=== PATIENT | male | born 1955 | race Caucasian/White ===

== ENCOUNTER → 2016-06-09 | Outpatient (CLI) | payer OTHER | LOC: CIMAGING 14:45 | PROVIDERS: ATTEND Nurse Practitioner | DX: I50.9 Heart failure, unspecified (principal) | CPT/HCPCS: 71020-PO ==

== ENCOUNTER 2016-09-01 10:21 | Inpatient (IN) | payer OTHER ==
--- NOTE | 2016-09-01 11:04 | EDPHY ---
H & P Stated Complaint: SOA, on o2 all weekend. ussally on it at night only - Personal History Current Tetanus/Diphtheria Vaccine: Unsure Current Tetanus Diphtheria and Acellular Pertussis (TDAP): Unsure - Medical/Surgical History Hx Asthma: No Hx Chronic Respiratory Disease: No Hx Diabetes: Yes Hx Cardiac Disease: Yes Hx Renal Disease: No Hx Cirrhosis: No Hx Alcoholism: No Hx HIV/AIDS: No Hx Splenectomy or Spleen Trauma: No Other PMH: DM, HTN, high chol, AR with stent nov 2015 - Social History Smoking Status: Never smoked Time Seen by Provider: 09/01/16 10:38 HPI/ROS: Chief complaint: Shortness of breath History of present illness: This is a 61-year-old male who presents to the emergency department for shortness of breath. Patient reports he has had increasing shortness of breath for the last few days if not longer. He states his symptoms are worsening. He is noting increasing shortness of breath with exertion as well as at night, especially when he lies flat. He has noted some mild associated swelling in his legs. He normally uses oxygen only at night to sleep but is now having to use it during the day. He has been monitoring his home oxygen level and he is noting his oxygen level getting into the low 70s even during the day. Patient was recently treated with azithromycin by his doctor for presumptive pneumonia. He completed the entire course. Patient denies other status associated signs or symptoms including no current fever cold symptoms, no actual pain including no chest pain. Review of systems: A 10 point review of systems was obtained and other than described above is negative (Heriberto Restrepo) - Physical Exam Exam: General Appearance: Alert, nontoxic. Eyes: Pupils equal and round no pallor or injection. ENT, Mouth: Mucous membranes moist. Respiratory: Lung sounds are diminished. Cardiovascular: Regular rate and rhythm. Gastrointestinal: Abdomen is soft and nontender, no masses, bowel sounds normal. Neurological: Alert and oriented x4. Strength and sensation intact and symmetrical. Skin: Warm and dry, no rashes. Musculoskeletal: Neck is supple nontender. Extremities are symmetrical, full range of motion. Psychiatric: Patient is oriented X 3, there is no agitation. (Heriberto Restrepo) Constitutional: Initial Vital Signs Temperature (C) 36.4 C 09/01/16 10:28 Heart Rate 70 09/01/16 10:28 Respiratory Rate 16 09/01/16 10:28 Blood Pressure 158/81 H 09/01/16 10:28 O2 Sat (%) 95 09/01/16 10:28 O2 Delivery Mode Room Air Allergies/Adverse Reactions: No Known Allergies Allergy (Verified 12/09/15 09:55) Home Medications: Medication Instructions Recorded Aspirin EC [Aspirin EC 325 mg (*)] 325 mg PO DAILY #30 tab 12/11/15 Prasugrel HCl [Effient 10mg (*)] 10 mg PO DAILY #30 tab 12/11/15 Atorvastatin Calcium [Lipitor 40 40 mg PO HS 01/11/16 mg (*)] Furosemide [Lasix 40 MG (*)] 40 mg PO DAILY 01/11/16 Insulin Detemir [Levemir Flextouch] 40 unit SC DAILY 01/11/16 Insulin Lispro [Humalog Kwikpen 3 - 4 unit SC TIDMEAL 01/11/16 U-100] Lisinopril [Zestril 20 mg (*)] 40 mg PO DAILY 01/11/16 amLODIPine BESYLATE [Amlodipine 10 mg PO DAILY 01/11/16 Besylate] metFORMIN HCL [Glucophage 500 mg 500 mg PO BIDMEAL 01/11/16 (*)] Metoprolol Tartrate [Lopressor 50 50 mg PO BID #60 tab 01/13/16 mg (*)] Coreg 09/01/16 Medical Decision Making - Diagnostics Imaging: Discussed imaging studies w/ call worker person Radiologist, I viewed and interpreted images myself - Diagnostics Imaging Results: Imaging Impressions Chest X-Ray 09/01/16 10:46 Impression: Probable CHF with basilar atelectasis. ED Course/Re-evaluation: Heriberto Restrepo and I discussed this patient at length. He is hypoxemic and I spoke to Dr. Omar Tavares about him. He has a slight elevation of his troponin and an elevated BNP the troponin elevation most likely just secondary to heart strain. I am also concerned about a pulmonary process with such significant hypoxemia so we will do angiography of his chest. (Chidi Shields) Patient is discussed with my secondary supervising physician Dr. Chidi Shields. Patient presents to the emergency department with shortness of breath. He has been significantly hypoxic at home. Evaluation is concerning for CHF exacerbation with elevated BNP and chest x-ray findings. He is given topical nitroglycerin followed by Lasix. He does have an elevated troponin. He already took a full dose aspirin earlier today. EKG without acute change from previous as reviewed by Dr. Shields. A CT angiogram will be performed to ensure no other pathology including pulmonary embolism is present. Patient is admitted to the hospitalist service for further evaluation and care. The plan has been discussed with the patient voiced understanding in agreement it. (Heriberto Restrepo) Differential Diagnosis: Included but not limited to CHF exacerbation, pulmonary infections including pneumonia, ACS, pulmonary embolism (Heriberto Restrepo) - Data Points Laboratory Results: Laboratory Results 09/01/16 10:50 09/01/16 10:50 09/01/16 09/01/16 10:50 10:50 WBC 7.94 10^3/uL 10^3/uL (3.80-9.50) RBC 5.02 10^6/uL 10^6/uL (4.40-6.38) Hgb 14.4 g/dL g/dL (13.7-17.5) Hct 42.0 % % (40.0-51.0) MCV 83.7 fL fL (81.5-99.8) MCH 28.7 pg pg (27.9-34.1) MCHC 34.3 g/dL g/dL (32.4-36.7) RDW 13.7 % % (11.5-15.2) Plt Count 170 10^3/uL 10^3/uL (150-400) MPV 12.4 fL H fL (8.7-11.7) Neut % (Auto) 73.0 % % (39.3-74.2) Lymph % (Auto) 12.3 % L % (15.0-45.0) [place] % (Auto) 10.1 % % (4.5-13.0) Eos % (Auto) 3.7 % % (0.6-7.6) Baso % (Auto) 0.6 % % (0.3-1.7) Nucleat RBC Rel Count 0.0 % % (0.0-0.2) Absolute Neuts (auto) 5.80 10^3/uL 10^3/uL (1.70-6.50) Absolute Lymphs (auto) 0.98 10^3/uL L 10^3/uL (1.00-3.00) Absolute Monos (auto) 0.80 10^3/uL 10^3/uL (0.30-0.80) Absolute Eos (auto) 0.29 10^3/uL 10^3/uL (0.03-0.40) Absolute Basos (auto) 0.05 10^3/uL 10^3/uL (0.02-0.10) Absolute Nucleated RBC 0.00 10^3/uL 10^3/uL (0-0.01) Immature Gran % 0.3 % % (0.0-1.1) Immature Gran # 0.02 10^3/uL 10^3/uL (0.00-0.10) Sodium 134 mEq/L mEq/L (134-144) Potassium 4.6 mEq/L mEq/L (3.5-5.2) Chloride 106 mEq/L mEq/L (97-110) Carbon Dioxide 22 mEq/l mEq/l (22-31) Anion Gap 6 mEq/L L mEq/L (8-16) BUN 25 mg/dL H mg/dL (7-23) Creatinine 1.3 mg/dL mg/dL (0.7-1.3) Estimated GFR 56 Glucose 265 mg/dL H mg/dL (70-100) Calcium 8.9 mg/dL mg/dL (8.5-10.4) Troponin I 0.055 ng/mL H ng/mL (0-0.034) NT-Pro-B Natriuret Pep 3170 pg/mL H pg/mL (0-125) Medications Given: Discontinued Medications Aspirin (Aspirin) 325 mg PO EDNOW ONE Stop: 09/01/16 11:46 Last Admin: 09/01/16 12:06 Dose: Not Given Furosemide (Lasix Injection) 40 mg IVP EDNOW ONE Stop: 09/01/16 11:49 Last Admin: 09/01/16 12:06 Dose: 40 mg Nitroglycerin (Nitro-Bid 2%) 1 inch TP EDNOW ONE Stop: 09/01/16 11:49 Last Admin: 09/01/16 12:06 Dose: 1 inch Departure - Departure Disposition: [facility] Acute Clinical Impression: Elevated troponin, Hyperglycemia Acute exacerbation of congestive heart failure Qualifiers: Congestive heart failure type: unspecified congestive heart failure type Qualified Code(s): I50.9 - Heart failure, unspecified Condition: Fair
--- NOTE | 2016-09-01 11:15 | CPEKG ---
Heart Rate: 69 RR Interval: 870 P-R Interval: 212 QRSD Interval: 104 QT Interval: 420 QTC Interval: 450 P [place]: 73 QRS [place]: 20 T Wave [place]: 130 EKG Severity - ABNORMAL ECG - EKG Impression: SINUS RHYTHM EKG Impression: LOW VOLTAGE IN FRONTAL LEADS EKG Impression: CONSIDER ANTERIOR INFARCT EKG Impression: ABNORMAL T, CONSIDER ISCHEMIA, LATERAL LEADS Electronically Signed By: Carmine Vann 02-Sep-2016 13:15:13
[2016-09-01 11:17] LABS: % IMMATURE GRANULYOCYTES 0.3 % (0.0-1.1); ABSOLUTE IMMATURE GRANULOCYTES 0.02 10^3/uL (0.00-0.10); ADD DIFF? NO; ADD MORPH? NO; ADD SCAN? NO; ATYPICAL LYMPHOCYTE FLAG 0 (0-99); FRAGMENT RBC FLAG 0 (0-99); HEMOGLOBIN 14.4 g/dL (13.7-17.5); LEFT SHIFT FLG 0 (0-99); LIPEMIA HEMOLYSIS FLAG 90 (0-99); MEAN CELL HEMOGLOBIN 28.7 pg (27.9-34.1); MEAN CELL HEMOGLOBIN CONCENTR. 34.3 g/dL (32.4-36.7); MEAN CELL VOLUME 83.7 fL (81.5-99.8); MEAN PLATELET VOLUME 12.4 fL (8.7-11.7); PLATELET CLUMPS FLAG 0 (0-99); PLATELET COUNT 170 10^3/uL (150-400); RED BLOOD CELL COUNT 5.02 10^6/uL (4.40-6.38); RED CELL DISTRIBUTION WIDTH 13.7 % (11.5-15.2)
[2016-09-01 11:27] LABS: ANION GAP 6 mEq/L (8-16); CALCIUM 8.9 mg/dL (8.5-10.4); CARBON DIOXIDE 22 mEq/l (22-31); CHLORIDE 106 mEq/L (97-110); CREATININE 1.3 mg/dL (0.7-1.3); GLOMERULAR FILTRATION RATE 56; GLUCOSE 265 mg/dL (70-100); POTASSIUM 4.6 mEq/L (3.5-5.2); SODIUM 134 mEq/L (134-144)
[2016-09-01 11:39] LABS: TROPONIN I 0.055 ng/mL (0-0.034)
[2016-09-01] MEDS ORDERED: ASPIRIN 325 MG TAB PO ONE (11:45)
[2016-09-01] MEDS ORDERED: NITROGLYCERIN 2% 1 GM PACKET TP ONE (11:48)
[2016-09-01] MEDS ORDERED: FUROSEMIDE 40 MG/4 ML VIAL IVP ONE (11:48)
[2016-09-01] MEDS ORDERED: IOPAMIDOL (ISOVUE 370) 100 ML BTL IV ONE (11:53)
[2016-09-01 12:56] LABS: INR 1.1 (0.83-1.16); PROTIME(PATIENT) 14.1 SEC (12.0-15.0)
[2016-09-01 12:57] LABS: APTT 28.4 SEC (23.0-38.0)
[2016-09-01] MEDS ORDERED: ONDANSETRON 4 MG/2 ML VIAL IVP PRN (13:57)
[2016-09-01] MEDS ORDERED: ONDANSETRON DISINTEGRATING 4 MG TAB PO PRN (13:57)
[2016-09-01] MEDS ORDERED: ACETAMINOPHEN 325 MG TAB PO PRN (13:57)
--- NOTE | 2016-09-01 14:43 | GHP ---
[f rep st] HISTORY AND PHYSICAL DATE OF ADMISSION: 09/01/2016 HISTORY OF PRESENT ILLNESS: The patient is a pleasant 61-year-old gentleman with a history of diabe charles, hypertension, systolic congestive heart failure, and coronary artery disease, who presents with dyspnea on exertion, shortness of breath, and hypoxia. He wears nocturnal oxygen, and over the wee kend, when he took it off in the morning, his pulse ox stayed into the 70s. He has not had anginal symptoms like arm pain, jaw pain, chest pain. He has been compliant with his medicines. In discuss ing a low-salt diet, it sounds like he does not particularly eat a low-salt diet. He has not gained weight. He has not noticed lower extremity edema, although it is present. He has not had orthopne a, but he has had a dry cough. REVIEW OF SYSTEMS: Complete 10-point review of systems is conducted, negative as noted in HPI. PAST MEDICAL HISTORY: 1. Coronary disease status post stents. 2. Congestive heart failure with an ejection fraction of 40% on last echo. 3. Diabetes. Last hemoglobin A1c of 8.1. 4. History of obesity but has lost 50 pounds. 5. Hypertension. ALLERGIES: No known drug allergies. MEDICATIONS: Home medications are prasugrel, aspirin, Lasix, metformin, amlodipine, enteric-coated aspirin, Atorvastatin, carvedilol, Denavir, insulin 40 daily, lispro 3-4 units with meals, lisinopri l. SOCIAL HISTORY: Originally from [place], lives in [place]. Nonsmoker. Minimal alcohol. FAMILY HISTORY: Reviewed and unremarkable. PHYSICAL EXAMINATION: VITAL SIGNS: Temp 36.4, blood pressure 158/81, pulse 70, breathing 16 times a minute, 95% on room air. GENERAL: No acute distress. HEENT: Sclerae anicteric. Oropharynx shani ar. Mucous membranes are moist. NECK: Supple without lymphadenopathy. Cannot assess JVD given hurtado bitus. LUNGS: Show decreased breath sounds and crackles at the bases bilaterally. HEART: S1, S2, without murmurs. ABDOMEN: Soft, nontender, nondistended. LOWER EXTREMITIES: Show 1+ edema bilat erally. Calves nontender. SKIN: Without rash. NEUROLOGIC: Nonfocal. LABORATORY: Sodium 134, potassium 4.6, chloride 102, bicarb 22, BUN 25, creatinine 1.3. His baseli ne it is about 1.3. Troponin 0.055. BNP is 3170, which seems to be a higher value for him, althoug h he has had values as high as 9000 when he was admitted here previously. Coags normal. CBC: Whit e count 8, hematocrit 42, platelets are 170,000. Chest x-ray, interpreted by me shows bilateral pleural effusions with Sly B lines, atelectasis co nsistent with heart failure. EKG shows sinus at 69 with normal axis and intervals. There is T-wave inversion in V5 and V6 as well as I and L. CTA shows no pulmonary embolism, findings compatible wi congestive heart failure. The lateral T-wave inversions are not new compared with an old EKG. I discussed the case with Dr. Chidi Shields. ASSESSMENT AND PLAN: A 61-year-old gentleman presents with acute on chronic systolic heart failure. 1. Heart failure, likely secondary to dietary indiscretion chronically. The patient has not been a dmitted in 7 months with heart failure so clearly, his outpatient regimen is doing okay. I will diu rese him 40 IV twice daily of Lasix. Will continue his SUHAS inhibitor, carvedilol. Hold his oral La six. 2. Patient needs a repeat echocardiogram. However, I think let us wait until he is diuresed before performing it. I have not ordered it. 3. Diabetes. Continue his insulin. Hold his metformin. 4. Coronary artery disease. Continue his Effient, aspirin, and statin. He has an indeterminate tr oponin unchanged EKG and no anginal symptoms. Will repeat a troponin. I think his elevated troponi n is secondary to strain from heart failure as opposed to acute coronary syndrome. 5. Prophylaxis. Pharmacologic prophylaxis indicated with low-molecular heparin. 6. Disposition: Inpatient status. /[id number]/MODL
[2016-09-01] MEDS: FUROSEMIDE 40 MG/4 ML VIAL IVP SCH (16:53)
[2016-09-01] MEDS ORDERED: NON-FORMULARY NEW DRUG (Insulin Lispro [Humalog Kwikpen U-100] 0 UNIT) SC SCH (18:00)
[2016-09-01] MEDS: INSULIN LISPRO 100 UNIT/ML SC SCH (18:08)
[2016-09-01] MEDS: CARVEDILOL 25 MG TAB PO SCH (18:08)
[2016-09-01] MEDS ORDERED: ATORVASTATIN CALCIUM 40 MG TAB PO SCH (21:00)
[2016-09-02 05:39] LABS: % IMMATURE GRANULYOCYTES 0.6 % (0.0-1.1); ABSOLUTE IMMATURE GRANULOCYTES 0.05 10^3/uL (0.00-0.10); ADD DIFF? NO; ADD MORPH? NO; ADD SCAN? NO; ATYPICAL LYMPHOCYTE FLAG 0 (0-99); FRAGMENT RBC FLAG 0 (0-99); HEMATOCRIT 37.9 % (40.0-51.0); HEMOGLOBIN 12.9 g/dL (13.7-17.5); LEFT SHIFT FLG 0 (0-99); LIPEMIA HEMOLYSIS FLAG 90 (0-99); MEAN CELL HEMOGLOBIN 28.4 pg (27.9-34.1); MEAN CELL VOLUME 83.5 fL (81.5-99.8); MEAN PLATELET VOLUME 12.1 fL (8.7-11.7); PLATELET CLUMPS FLAG 0 (0-99); PLATELET COUNT 158 10^3/uL (150-400); RED BLOOD CELL COUNT 4.54 10^6/uL (4.40-6.38); RED CELL DISTRIBUTION WIDTH 13.5 % (11.5-15.2)
[2016-09-02 06:13] LABS: ANION GAP 7 mEq/L (8-16); CALCIUM 8.8 mg/dL (8.5-10.4); CARBON DIOXIDE 22 mEq/l (22-31); CHLORIDE 106 mEq/L (97-110); CREATININE 1.3 mg/dL (0.7-1.3); GLOMERULAR FILTRATION RATE 56; GLUCOSE 220 mg/dL (70-100); POTASSIUM 4.3 mEq/L (3.5-5.2); SODIUM 135 mEq/L (134-144)
[2016-09-02] MEDS: CARVEDILOL 25 MG TAB PO SCH ×2 (08:05→17:51)
[2016-09-02] MEDS: INSULIN LISPRO 100 UNIT/ML SC SCH ×3 (08:06→17:51)
[2016-09-02] MEDS: INSULIN GLARGINE 100 UNITS/ML SYRINGE SC SCH (08:06)
[2016-09-02] MEDS: ASPIRIN EC 325 MG TAB PO SCH (08:06)
[2016-09-02] MEDS: FUROSEMIDE 40 MG/4 ML VIAL IVP SCH ×2 (08:07→16:02)
[2016-09-02] MEDS: ENOXAPARIN 40 MG/0.4 ML SYR SC SCH (08:07)
[2016-09-02] MEDS: LISINOPRIL 40 MG TAB PO SCH (08:07)
[2016-09-02] MEDS: PRASUGREL HCL 10 MG TAB PO SCH (08:07)
[2016-09-02] MEDS ORDERED: NON-FORMULARY NEW DRUG (Insulin Detemir [Levemir Flextouch] 40 UNIT) SC SCH (09:00)
[2016-09-02] MEDS: ATORVASTATIN CALCIUM 40 MG TAB PO SCH (09:52)
[2016-09-02] MEDS: SPIRONOLACTONE 25 MG TAB PO SCH (09:52)
[2016-09-02 10:15] LABS: TROPONIN I 0.053 ng/mL (0-0.034)
--- NOTE | 2016-09-02 10:46 | GCON ---
[f rep st] CONSULTATION CARDIOLOGY CONSULT DATE OF CONSULTATION: 09/02/2016 REFERRING PHYSICIAN: Rajesh Aguillon MD PRIMARY ACCOUNT ADMINISTRATOR: Lasha Weston MD. CHIEF COMPLAINT: Acute systolic heart failure. HISTORY OF PRESENT ILLNESS: We were asked by Dr. Aguillon to visit with this patient. The patient is a pleasant 61-year-old male with a history of mixed cardiomyopathy. Ejection fraction 40% on echoc ardiogram November 2015. He has coronary disease, status post obtuse marginal stenting in December 2015, hypertension, diabetes, sleep apnea, not recently compliant with CPAP. In May, he had pneumonia. Since that time, he has not been exercising regularly and has been off his CPAP. He admits that he has been eating more prepared foods than he should. He presented to Dr Jerome Tavares's office yesterday as a followup to his pneumonia and complained of a week of progressive e xertional dyspnea as well as paroxysmal nocturnal dyspnea and 2 days of left leg swelling. He repor alessia home oxygen saturations in the 70s when he tried to lie down. Therefore, he was sent to the ER. In the ER, he was somewhat hypertensive, saturating 90% on room air. He was given IV Lasix. Admitt ed for further evaluation and management. The patient reports that he has not had chest discomfort. He has not had palpitations, presyncope, syncope. As mentioned, he has not been exercising as much as prior to his May episode of pneumoni a. REVIEW OF SYSTEMS: A full 10-point review of systems is performed and is negative except for that w hich is outlined in the history of present illness. In addition, he did have 1 episode of vomiting back in July, but this has not recurred. ALLERGIES: No known drug allergies. PAST MEDICAL HISTORY: 1. Mixed systolic heart failure with an ejection fraction of 40%. 2. Coronary disease, status post OM stenting in December 2015. He also has residual moderate LAD di sease. 3. Hypertension. 4. Diabetes. 5. Sleep apnea, on CPAP, although he has not been compliant over the past few months. 6. Dyslipidemia. OUTPATIENT MEDICATIONS: Coreg 25 mg b.i.d., Norvasc 10 mg daily, aspirin 325 mg daily, Lipitor 40 m g daily, Lasix 40 mg daily, insulin, lisinopril 40 mg daily, metformin 500 mg in the morning and 100 0 mg in the evening, Effient 10 mg daily. SOCIAL HISTORY: The patient is , and his is at the bedside. He does not smoke cigarett es. He drinks alcohol rarely. FAMILY HISTORY: Not applicable to the current case. PHYSICAL EXAM: VITAL SIGNS: Blood pressure 174/94, heart rate 81, oxygen saturation 92% on 3.5 L n pravin cannula. He is afebrile. GENERAL: Well-appearing older male, in no acute distress. HEENT: Sclerae clear and free of jaundice. Mucous membranes are moist. Normocephalic, atraumatic. CARDIO VASCULAR: JVP less than 10. Carotids equal and 2+ bilaterally without bruit. Regular rate and rhy thm without murmur, rub, or gallop. LUNGS: Decreased breath sounds at both bases without wheezes, rhonchi or rales. ABDOMEN: Soft, nontender, nondistended without bruits, masses, or hepatosplenome moisés. Obese. EXTREMITIES: Warm and well-perfused with stigmata of chronic venous insufficiency. No edema. Intact distal pulses. NEURO: Alert and oriented x3 without gross focal neurological def icits. Appropriate mood and affect. LABORATORY DATA: White count 8.3, hematocrit 37.9, platelets 158. INR is normal. Sodium 135, pota ssium 4.3, chloride 106, bicarb 22, BUN 27, creatinine 1.3, glucose 220. Hemoglobin A1c was 8.1 in June. BNP 1730. Troponin 0.055 and 0.054 He has had past troponin elevations in the 0.13 to 0.19 range. Last LDL cholesterol was 104 in November. EKG reviewed by me shows sinus rhythm, delayed R-wave progression, nonspecific ST abnormalities. est x-ray: Probable heart failure with basilar atelectasis. Chest CT: No pulmonary embolism. Lar ge bilateral pleural effusions. LVH, CAD. Echocardiogram in November 2015: LV ejection fraction 40% with septal hypokinesis and overall glob al hypokinesis. Mild mitral regurgitation. Possible bicuspid aortic valve. Mild aortic regurgitat ion. ASSESSMENT AND PLAN: A 61-year-old male with mixed etiology systolic heart failure, hypertension, d iabetes, admitted with acute on chronic systolic heart failure exacerbation. The etiology of this i s likely a combination of poorly controlled hypertension, dietary indiscretion with increased salt i ntake, noncompliance with CPAP, and less exercise. He does have a history of coronary disease, but his current presentation does not appear to be consistent with unstable angina. 1. Acute on chronic systolic heart failure: Agree with IV diuresis. Continue his other cardiomyop athy medications. I have added spironolactone, which should help with diuresis and help with his bl ood pressure. I explained that we need to get very aggressive with his blood pressure management, a nd we will achieve this through a combination of medical therapy, diet, exercise, and restarting CPA P. He will require likely 1 or 2 more days of hospitalization to achieve diuresis. We also discuss ed low salt diet. 2. Coronary disease: History of obtuse marginal stenting several months ago. Continue dual antipl atelet therapy. I do not think he has active ischemia. He is interested in going back to cardiac r ehab. 3. Hypertension: See #1. Continue his outpatient medications and add spironolactone. Restart CPA P. 4. Dyslipidemia: Increase atorvastatin to 80 mg daily. Recheck LDL in a few months. He is a cand idate for high-intensity statin therapy. 5. Diabetes: Per Internal Medicine. His A1c should be lower. Again, we discussed diet and exerci se. 6. Possible bicuspid aortic valve, consider a repeat echocardiogram once he is more euvolemic to re assess ejection fraction, also to get another look at his aortic valve. Thank you for allowing us to participate in this patient's care. Will follow with you. /[id number]/MODL
--- NOTE | 2016-09-02 14:32 | ECHO ---
[id number] + + [address] : : [place] [address] : : [phone] + Adult Echocardiographic Report + ------+ :Name: WARDDANIEL DOWNING JStudy Date: 09/02/2016 10:11 AM : : Hospital Admission Number: [id number] Locatio n: 218: :: 1955 Gender: Male Height: 68 in : :Age: 61 yrs Race: WH Weight: 229 lb : :Reason For Study: Eval LV Fx : : BSA: 2.2 meters 2 : :History: CHF with acute exacerbation. : + ------+ MMode/2D Measurements \T\ Calculations IVSd: 1.4 cm LVIDd: 5.3 cm FS: 25.8 % Ao root diam: LVPWd: 1.8 cm LVIDs: 4.0 cm EDV(Teich): 3.3 cm 137.3 ml ACS: 1.2 cm ESV(Teich): 68.1 ml EF(Teich): 50.4 % LVOT diam: 2.1 cmLVLd ap4: 7.5 cm SV(MOD-sp4): LVOT area: EDV(MOD-sp4): 47.0 ml 3.5 cm2 107.0 ml LVLs ap4: 7.5 cm ESV(MOD-sp4): 60.0 ml EF(MOD-sp4): 43.9 % Normal Measurement Values: + + :LVIDd (3.5-5.7cm) IVSd (0.6-1.1cm) LVPWd (0.6-1.1cm) Aortic Root (2.0-3.7cm)Left Atrium (1.5-4.0cm): :LV Vol(d) (76-115ml) LV Vol(s) (29-48ml) Ejec Fraction (50-65%)PV Chato (0.6- 1.2m/s) TV Chato (0.4-1.0m/s) : :MV E Chato (0.8-1.0m/s)MV A Chato (0.3-1.0m/s)LVOT Chato (0.7-1.2m/s) Asc Ao Chato ( 0.9-1.8m/s) : + + Doppler Measurements \T\ Calculations MV E max chato: Ao V2 max: AI max chato: LV V1 mean P.5 cm/sec 214.5 cm/sec 229.4 cm/sec 0.95 mmHg MV A max chato: Ao max PG: AI max P.0 mmHgLV V1 mean: 58.7 cm/sec 18.4 mmHg AI dec slope: 45.3 cm/sec MV E/A: 2.0 Ao mean P.6 cm/sec2 LV V1 VTI: 10.0 mmHg AI P1/2t: 380.5 msec15.5 cm Ao V2 mean: 148.2 cm/sec Ao V2 VTI: 45.4 cm ZAK(I,D): 1.2 cm2 SV(LVOT): 53.6 ml PA V2 max: 81.4 cm/sec PA max P.7 mmHg Left Ventricle The left ventricle is normal in size. There is mild concentric left ventricular hypertrophy. There is Doppler evidence for diastolic dysfunction. Ejection Fraction = 50-55%. Moderate diastolic dysfunction with elevated LV filling pressures. Left ventricular systolic function is low normal. The left ventricular wall motion is normal. Right Ventricle The right ventricle is normal size. Atria The left atrial size is normal. Right atrial size is normal. Mitral Valve The mitral valve is normal in structure and function. There is no mitral valve stenosis. There is mild mitral regurgitation. Tricuspid Valve There is trace tricuspid regurgitation. Aortic Valve Cannot rule out bicuspid aortic valve due to image quality. There is mild to moderate aortic valve calcification. There is no aortic stenosis. The Ao V2 max is 2.2 m/sec with a Ao mean PG of 10 mmHg. Mild aortic regurgitation. Pulmonic Valve The pulmonic valve is not well visualized. Great Vessels The aortic root is normal size. Pericardium/Pleural There is no pericardial effusion. There is a large pleural effusion. Conclusion A complete two-dimensional transthoracic echocardiogram was performed (2D, M-mode, Doppler and color flow Doppler). There is mild concentric left ventricular hypertrophy. The left ventricular wall motion is normal. Ejection Fraction = 50-55%. Left ventricular systolic function is low normal. Moderate diastolic dysfunction with elevated LV filling pressures The right ventricle is normal size. The left atrial size is normal. Right atrial size is normal. There is mild mitral regurgitation. There is trace tricuspid regurgitation. Cannot rule out bicuspid aortic valve due to image quality. There is mild to moderate aortic valve calcification. There is no aortic stenosis. The Ao V2 max is 2.2 m/sec with a Ao mean PG of 10 mmHg. Mild aortic regurgitation. The pulmonic valve is not well visualized. The aortic root is normal size. There is no pericardial effusion. There is a large pleural effusion. Compared with 11/2015, LV systolic function has improved Final Reading Physician: Dr Migdalia Garcia electronically signed on 09/02/2016 02:30 PM Ordering Physician: Meka Breen Performed By: Shaka Cardozo, BRANDEECS
--- NOTE | 2016-09-02 15:32 | HOSPPROG ---
Hospitalist Progress Note Assessment/Plan: 61 yo M with hx of DM, HTN, CAD and chronic systolic heart failure presenting with sob/volume overload c/w acute exacerbation of chf # acute exacerbation of chronic systolic/diastolic heart failure: with EF now 55 % from previously 40% but clearly decompensated on eval. STarted on IV lasix with significant improvement in sxs overnight and 4L net negative. Appreciate cardiology input, aldactone added, Continue santosh/bb. # acute hypoxic respiratory failure: currently requiring 3-4L to maintain o2 sats in mid 90s. 2/2 chf exacerbation as above, with CT personally reviewed and interpreted and no PE but large bilateral pleural effusions and CM as well as atelectasis. clinically significantly improved overnight, continue lasix fo rnow. # CAD: with stent in 2015, echo without new wall motion abnormalities, continued on asa/statin/bb/effient. Monitoring on tele. No chest pain. Trops indeterminately elevated but flat on several repeats. # DM: holding metformin and on ssi, A1c 8.1 # HTN: continue current meds with addition of spironolactone--chronic meds lisinopril, coreg, amlodipine, lasix # peggy: on cpap but not fully compliant at home # HLD: increased atorvastatin to 80 Dispo: IP status, likely will be ready to dc in next 1-2 days patient new to my care, old records reviewed and summarized as above. Care plan reviewed with cardiology. Subjective: patient feeling much better this am, no longer sob but also has o2 on, swelling has gone down, denies cp Objective: Vital Signs Temp Pulse Resp BP Pulse Ox 36.9 C 72 14 154/85 H 95 09/02/16 11:47 09/02/16 11:47 09/02/16 11:47 09/02/16 11:47 09/02/16 11:47 Laboratory Results 09/02/16 05:02 09/02/16 05:02 09/01/16 09/02/16 09/03/16 05:59 05:59 05:59 Intake Total 500 Output Total 2950 1999 Balance -2449 PT 14.1 SEC (12.0-15.0) 09/01/16 Unknown INR 1.10 (0.83-1.16) 09/01/16 Unknown awake alert nad anicteric op clear rrr distant systolic murmur dec bs at bases soft nt nd 2+ pitting edema ble warm dry well perfused oriented appropriate - Time Spent With Patient Time Spent with Patient: greater than 35 minutes Time Spent with Patient: Greater than 35 minutes spent on this patients care, greater than 50% of time spent counseling, educating, and coordinating care regarding the above mentioned plan. ICD10 Worksheet Patient Problems: Problems Problem Status Onset Diabetes Acute HTN (hypertension) Acute NSTEMI (non-ST elevated myocardial infarction) Acute Acute exacerbation of congestive heart failure Acute Elevated troponin Acute Hyperglycemia Acute
[2016-09-03 04:41] LABS: % IMMATURE GRANULYOCYTES 0.4 % (0.0-1.1); ABSOLUTE IMMATURE GRANULOCYTES 0.03 10^3/uL (0.00-0.10); ADD DIFF? NO; ADD MORPH? NO; ADD SCAN? NO; ATYPICAL LYMPHOCYTE FLAG 10 (0-99); FRAGMENT RBC FLAG 0 (0-99); HEMATOCRIT 39.5 % (40.0-51.0); HEMOGLOBIN 13.4 g/dL (13.7-17.5); LEFT SHIFT FLG 0 (0-99); LIPEMIA HEMOLYSIS FLAG 90 (0-99); MEAN CELL HEMOGLOBIN 28.3 pg (27.9-34.1); MEAN CELL HEMOGLOBIN CONCENTR. 33.9 g/dL (32.4-36.7); MEAN CELL VOLUME 83.3 fL (81.5-99.8); PLATELET CLUMPS FLAG 20 (0-99); PLATELET COUNT 168 10^3/uL (150-400); RED BLOOD CELL COUNT 4.74 10^6/uL (4.40-6.38); RED CELL DISTRIBUTION WIDTH 13.7 % (11.5-15.2)
[2016-09-03 05:07] LABS: ANION GAP 7 mEq/L (8-16); CALCIUM 8.9 mg/dL (8.5-10.4); CARBON DIOXIDE 24 mEq/l (22-31); CHLORIDE 106 mEq/L (97-110); CREATININE 1.3 mg/dL (0.7-1.3); GLOMERULAR FILTRATION RATE 56; GLUCOSE 153 mg/dL (70-100); POTASSIUM 4.2 mEq/L (3.5-5.2); SODIUM 137 mEq/L (134-144)
[2016-09-03] MEDS: INSULIN LISPRO 100 UNIT/ML SC SCH ×3 (07:52→17:37)
[2016-09-03] MEDS: INSULIN GLARGINE 100 UNITS/ML SYRINGE SC SCH (07:53)
[2016-09-03] MEDS: SPIRONOLACTONE 25 MG TAB PO SCH (08:00)
[2016-09-03] MEDS: LISINOPRIL 40 MG TAB PO SCH (08:00)
[2016-09-03] MEDS: FUROSEMIDE 40 MG/4 ML VIAL IVP SCH ×2 (08:00→16:39)
[2016-09-03] MEDS: CARVEDILOL 25 MG TAB PO SCH ×2 (08:00→18:40)
[2016-09-03] MEDS: ASPIRIN EC 325 MG TAB PO SCH (08:00)
[2016-09-03] MEDS: ATORVASTATIN CALCIUM 40 MG TAB PO SCH (08:00)
[2016-09-03] MEDS: PRASUGREL HCL 10 MG TAB PO SCH (08:01)
[2016-09-03] MEDS: ENOXAPARIN 40 MG/0.4 ML SYR SC SCH (08:04)
--- NOTE | 2016-09-03 10:02 | PDCARPN ---
Cardiology Progress Note Assessment/Plan: Assessment/plan: 61-year-old male with a history of mixed cardiomyopathy, coronary disease, hypertension, sleep apnea. He was admitted on September 01 with dyspnea and found to be in heart failure. He was quite hypertensive. He has diuresed well with IV Lasix but remains hypoxic and volume overloaded. No evidence of acute coronary syndrome. 1. Heart failure: Acute on chronic. His ejection fraction is now low-normal so he would technically be considered heart failure with preserved ejection fraction. It appears that his exacerbation is due to poorly controlled hypertension, dietary indiscretion, and noncompliance with CPAP. Continue IV Lasix. Continue spironolactone. Intensify blood pressure management with hydralazine. Continue Coreg, Norvasc, lisinopril. He will need follow-up with Dr. Tavares regarding re-initiation of CPAP. The patient reports that his home CPAP is dysfunction at this point. 2. Hypertension: Suboptimal control. Spironolactone was added yesterday. Add hydralazine today. Evaluate for renal artery stenosis. 3. Coronary disease: History of obtuse marginal stenting in December 2015. He has residual moderate LAD disease. No evidence of cardiac ischemia at this time ; his minimally elevated troponins are related to heart failure. 4. Sleep apnea: He will need to get back on CPAP. He does see Dr. Tavares as an outpatient. 5. Hypoxia: Related to his pleural effusions and heart failure. Continue diuresis. 6. Cannot rule out bicuspid aortic valve on echocardiogram. Consider repeat study with careful attention to the aortic valve. 09/03/16 10:02 Subjective: Bakari feels a little bit better. He reports less dyspnea. He denies chest pain. No presyncope. Reviewed/Discussed With: hospitalist Objective: Vital Signs (8 Hrs) Temp Pulse Resp BP Pulse Ox 09/03/16 09:31 78 L 09/03/16 07:56 95 09/03/16 07:55 36.7 C 78 20 168/91 H 95 09/03/16 04:00 36.6 C 68 12 175/94 H 95 Intake/Output (24 Hrs) 09/02/16 09/03/16 09/04/16 05:59 05:59 05:59 Intake Total 500 1518 450 Output Total 2950 4350 550 Balance -6631 -2832 -100 Intake: Oral (ml) 500 1470 450 IV Intake (ml) 48 Output: Urine (ml) 2950 4350 550 Toilet 2300 4350 550 Other: Weight 104.2 kg 103.1 kg Intake Quantity Yes Sufficient Number of Voids Toilet 1 2 Number of Stools Toilet 0 No acute distress. JVP less than 10 sitting up. Regular rate and rhythm without murmur or gallop Decreased breath sounds at both bases no wheezes rhonchi or rales Extremities warm well perfused without cyanosis clubbing or edema Result Diagrams: 09/03/16 04:09 09/03/16 04:09 Cardiac Labs: Cardiac Lab Results (72 Hrs) 09/02/16 09/01/16 05:02 15:30 Troponin I 0.053 H 0.054 H Telemetry: Normal sinus rhythm. Occasional PVCs. Echocardiogram: Reviewed. See separate report. Ejection fraction low normal. No regional motion abnormalities. ICD10 Worksheet Patient Problems: Problems Problem Status Onset Diabetes Acute HTN (hypertension) Acute NSTEMI (non-ST elevated myocardial infarction) Acute Acute exacerbation of congestive heart failure Acute Elevated troponin Acute Hyperglycemia Acute
[2016-09-03] MEDS: hydrALAZINE 25 MG TAB PO SCH ×3 (13:45→20:48)
--- NOTE | 2016-09-03 16:34 | HOSPPROG ---
Hospitalist Progress Note Assessment/Plan: 61 yo M with hx of DM, HTN, CAD and chronic systolic heart failure presenting with sob/volume overload c/w acute exacerbation of chf # acute exacerbation of chronic systolic/diastolic heart failure: with EF now 55 % from previously 40% but clearly decompensated on eval. STarted on IV lasix with improved sxs and good uop. Appreciate cardiology input, aldactone added, Continue santosh/bb. # acute hypoxic respiratory failure: currently requiring 3-4L to maintain o2 sats in mid 90s. 2/2 chf exacerbation as above, with CT personally reviewed and interpreted and no PE but large bilateral pleural effusions and CM as well as atelectasis. clinically significantly improved overnight, continue IV lasix for now. # CAD: with stent in 2015, echo without new wall motion abnormalities, continued on asa/statin/bb/effient. Monitoring on tele. No chest pain. Trops indeterminately elevated but flat on several repeats. # DM: holding metformin and on ssi, A1c 8.1 # HTN: continued to be poorly controlled on current meds even with addition of spironolactone, adding hydralazine--chronic meds lisinopril, coreg, amlodipine, lasix. Getting US of the kidneys to eval for EDDIE. # peggy: on cpap but not fully compliant at home # HLD: increased atorvastatin to 80 Dispo: IP status, likely will be ready to dc in next 1-2 days Care plan reviewed with cardiology. Subjective: no significant overnight events, patient continues to feel better, having good uop Objective: Vital Signs Temp Pulse Resp BP Pulse Ox 36.5 C 66 19 147/82 H 96 09/03/16 15:25 09/03/16 15:25 09/03/16 15:25 09/03/16 15:25 09/03/16 15:25 Laboratory Results 09/03/16 04:09 09/03/16 04:09 09/02/16 09/03/16 09/04/16 05:59 05:59 05:59 Intake Total 500 1518 450 Output Total 2950 4350 1600 Balance -2450 -2832 -1150 PT 14.1 SEC (12.0-15.0) 09/01/16 Unknown INR 1.10 (0.83-1.16) 09/01/16 Unknown awake alert nad anicteric op clear rrr distant systolic murmur dec bs at bases soft nt nd 2+ pitting edema ble warm dry well perfused oriented appropriate ICD10 Worksheet Patient Problems: Problems Problem Status Onset Acute exacerbation of congestive heart failure Acute Elevated troponin Acute Hyperglycemia Acute Diabetes Acute HTN (hypertension) Acute NSTEMI (non-ST elevated myocardial infarction) Acute
[2016-09-04 04:30] LABS: % IMMATURE GRANULYOCYTES 0.4 % (0.0-1.1); ABSOLUTE IMMATURE GRANULOCYTES 0.03 10^3/uL (0.00-0.10); ADD DIFF? NO; ADD MORPH? NO; ADD SCAN? NO; ATYPICAL LYMPHOCYTE FLAG 10 (0-99); FRAGMENT RBC FLAG 30 (0-99); HEMATOCRIT 41.1 % (40.0-51.0); HEMOGLOBIN 14.1 g/dL (13.7-17.5); LEFT SHIFT FLG 0 (0-99); LIPEMIA HEMOLYSIS FLAG 90 (0-99); MEAN CELL HEMOGLOBIN 28.5 pg (27.9-34.1); MEAN CELL HEMOGLOBIN CONCENTR. 34.3 g/dL (32.4-36.7); MEAN CELL VOLUME 83.2 fL (81.5-99.8); MEAN PLATELET VOLUME 11.8 fL (8.7-11.7); PLATELET CLUMPS FLAG 10 (0-99); PLATELET COUNT 182 10^3/uL (150-400); RED BLOOD CELL COUNT 4.94 10^6/uL (4.40-6.38); RED CELL DISTRIBUTION WIDTH 13.6 % (11.5-15.2)
[2016-09-04 04:51] LABS: ANION GAP 6 mEq/L (8-16); CALCIUM 9.1 mg/dL (8.5-10.4); CARBON DIOXIDE 25 mEq/l (22-31); CHLORIDE 106 mEq/L (97-110); CREATININE 1.4 mg/dL (0.7-1.3); GLOMERULAR FILTRATION RATE 52; GLUCOSE 164 mg/dL (70-100); POTASSIUM 4.2 mEq/L (3.5-5.2); SODIUM 137 mEq/L (134-144)
[2016-09-04] MEDS: hydrALAZINE 25 MG TAB PO SCH ×2 (06:41→13:37)
[2016-09-04] MEDS: FUROSEMIDE 40 MG/4 ML VIAL IVP SCH ×2 (08:17→10:40)
[2016-09-04] MEDS: ENOXAPARIN 40 MG/0.4 ML SYR SC SCH (08:17)
[2016-09-04] MEDS: PRASUGREL HCL 10 MG TAB PO SCH (08:18)
[2016-09-04] MEDS: ATORVASTATIN CALCIUM 40 MG TAB PO SCH (08:18)
[2016-09-04] MEDS: LISINOPRIL 40 MG TAB PO SCH (08:18)
[2016-09-04] MEDS: CARVEDILOL 25 MG TAB PO SCH (08:18)
[2016-09-04] MEDS: ASPIRIN EC 325 MG TAB PO SCH (08:18)
[2016-09-04] MEDS: SPIRONOLACTONE 25 MG TAB PO SCH (08:18)
[2016-09-04] MEDS: INSULIN LISPRO 100 UNIT/ML SC SCH ×2 (08:19→14:15)
[2016-09-04] MEDS: INSULIN GLARGINE 100 UNITS/ML SYRINGE SC SCH (08:19)
--- NOTE | 2016-09-04 09:52 | PDCARPN ---
Cardiology Progress Note Assessment/Plan: Assessment/plan: 61-year-old male with a history of mixed cardiomyopathy, coronary disease, hypertension, sleep apnea. He was admitted on September 01 with dyspnea and found to be in heart failure. He was quite hypertensive. He has diuresed well with IV Lasix. No evidence of acute coronary syndrome. 1. Heart failure: Acute on chronic. His ejection fraction is now low-normal so he would technically be considered heart failure with preserved ejection fraction. It appears that his exacerbation is due to poorly controlled hypertension, dietary indiscretion, and noncompliance with CPAP. Transition to oral lasix today. Continue spironolactone. Intensify blood pressure management with hydralazine. Continue Coreg, Norvasc, lisinopril. He will need follow-up with Dr. Tavares regarding re-initiation of CPAP. 2. Hypertension: Improved but still suboptimal control. Spironolactone was added 09/02. Added hydralazine 09/03. Since meds were just added, monitor for now. No evidence of renal artery stenosis on renal u/s . 3. Coronary disease: History of obtuse marginal stenting in December 2015. He has residual moderate LAD disease. No evidence of cardiac ischemia at this time ; his minimally elevated troponins are related to heart failure. 4. Sleep apnea: He will need to get back on CPAP. He does see Dr. Tavares as an outpatient. 5. Hypoxia: Related to his pleural effusions and heart failure. Continue diuresis. 6. Cannot rule out bicuspid aortic valve on echocardiogram. Consider repeat study with careful attention to the aortic valve. Can be discharged from cardiac standpoint. Follow up with Dr. Weston in 1 week. 09/04/16 09:55 Subjective: Bakari denies SOB or CP. No palpitations Objective: Vital Signs (8 Hrs) Temp Pulse Resp BP Pulse Ox 09/04/16 07:44 36.4 C 60 16 158/87 H 96 09/04/16 03:59 36.5 C 68 16 158/87 H 95 Intake/Output (24 Hrs) 09/03/16 09/04/16 09/05/16 05:59 05:59 05:59 Intake Total 1518 1430 Output Total 4350 3200 Balance -2832 -1770 Intake: Oral (ml) 1470 1430 IV Intake (ml) 48 Output: Urine (ml) 4350 3200 Toilet 4350 3200 Other: Weight 103.1 kg 101.2 kg Number of Voids Toilet 2 1 Number of Stools Toilet 0 NAD JVP <10 RRR soft early BRODERICK base; soft early holosystolic murmur apex Lungs CTAB No edema Result Diagrams: 09/04/16 04:14 09/04/16 04:14 Cardiac Labs: Cardiac Lab Results (72 Hrs) 09/02/16 09/01/16 05:02 15:30 Troponin I 0.053 H 0.054 H Telemetry: NSR. One 4 beat run of VT 09/03 evening ICD10 Worksheet Patient Problems: Problems Problem Status Onset Diabetes Acute HTN (hypertension) Acute NSTEMI (non-ST elevated myocardial infarction) Acute Acute exacerbation of congestive heart failure Acute Elevated troponin Acute Hyperglycemia Acute
[2016-09-04] MEDS ORDERED: FUROSEMIDE 40 MG TAB PO SCH (10:45)
[2016-09-04 11:58] VITALS: BP 146/78; PULSE 64; RESP 18; TEMP 97.7; O2SAT 92
--- NOTE | 2016-09-04 19:39 | GDS ---
[f rep st] DISCHARGE SUMMARY DISCHARGE DIAGNOSES: 1. Acute on chronic systolic and diastolic congestive heart failure. 2. Poorly controlled hypertension. 3. Obstructive sleep apnea with CPAP noncompliance. 4. Coronary artery disease, status post obtuse marginal stenting December 2015. 5. Possible bicuspid aortic valve. 6. Obesity. HISTORY: Patient is a 61-year-old male with a known history of congestive heart failure who present s with shortness of breath and edema consistent with an acute exacerbation. His ejection fraction w as previously 40% and has now improved to 55%, but clinically he was decompensated. He was diuresed with IV Lasix. His blood pressures are poorly controlled which is felt to be contributing to his d ecompensated state. Also dietary indiscretion is considered to be a factor. He was successfully di uresed, and has been weaned off oxygen. There is no evidence of any acute ischemia, and he did have a recent stent in 2015. Spironolactone and hydralazine were added to his regimen. He needs close outpatient cardiology followup in the short term to prevent risk of bounce back to the hospital, arnaldo ecially given his known compliance issues. DISCHARGE MEDICATIONS: Please see computer record for full detailed list. New medications: 1. Spironolactone 25 mg p.o. daily. 2. Lasix increased to 40 mg p.o. b.i.d. 3. Hydralazine 25 mg p.o. 4 times a day. ADDITIONAL DISCHARGE INSTRUCTIONS: 1. Daily weights. 2. Repeat echo as an outpatient with close attention to the aortic valve to rule out bicuspid valve . 3. Resume CPAP under the direction of Dr. Tavares. 4. Follow up with Dr. Almodovar in 1 week, and recommended weekly thereafter for 1 month until stabilit y. Greater than 30 minutes of time was spent arranging this discharge. Patient was seen and examined b y me on the day of discharge. /[id number]/MODL
== END 2016-09-04 16:00 | disposition home or self-care (01) | DRG 293 ==
LOC: F2W 14:43
PROVIDERS: ADMIT Internal Medicine; ATTEND Internal Medicine
DX: I11.0 Hypertensive heart disease with heart failure (principal); I50.43 Acute on chronic combined systolic (congestive) and diastolic (congestive) heart failure; G47.33 Obstructive sleep apnea (adult) (pediatric); I25.10 Atherosclerotic heart disease of native coronary artery without angina pectoris; E11.9 Type 2 diabetes mellitus without complications; E66.9 Obesity, unspecified; Z95.5 Presence of coronary angioplasty implant and graft
CPT/HCPCS: 96374; J1650; J1815; J1940; Q9967

== ENCOUNTER 2016-12-24 21:36 | Observation (INO) | payer OTHER ==
--- NOTE | 2016-12-24 23:02 | EDPHY ---
H & P Stated Complaint: 1700 onset lightheaded with standing, legs felt numb/unsteady HPI/ROS: HPI CHIEF COMPLAINT: Lightheadedness with positional changes especially when standing. HISTORY OF PRESENT ILLNESS: This patient very pleasant 61-year-old male, significant past medical history for coronary artery disease with stents, CHF, hypertension, NIXON, bicuspid aortic valve, obesity, presents to the emergency room with lightheadedness. Patient reports that he was at work today in a seated position. He went to get up and got lightheaded. Bolt his legs were going to give out very lightheaded. No room spinning. No chest pain no shortness of breath. No neck pain no back pain no abdominal pain. No diaphoresis. States this has been present every time he goes to stand up. He is on a low-salt diet and water restriction to 64 oz. He denies any pain anywhere. Denies focal weakness numbness or tingling. Complains of lightheadedness when he goes from sitting to standing position. Patient reports to me is compliant with his medications. He has been on Lasix. Past Medical History: Coronary artery disease with stent, CHF, hypertension, obstructive sleep apnea, a bicuspid aortic valve Past Surgical History: No recent surgery coronary artery disease with stent. Social History: Denies daily use drugs alcohol tobacco products. Family History: Noncontributory ROS REVIEW OF SYSTEMS: A comprehensive 10 point review of systems is otherwise negative aside from elements mentioned in the history of present illness. Exam Constitutional appears well nontoxic, triage nursing summary reviewed, vital signs reviewed, awake/alert. Eyes normal conjunctivae and sclera, EOMI, PERRLA. HENT normal inspection, atraumatic, moist mucus membranes, no epistaxis, neck supple/ no meningismus, no raccoon eyes. Respiratory clear to auscultation bilaterally, normal breath sounds, no respiratory distress, no wheezing. Cardiovascular rate normal, regular rhythm, no murmur, no edema, distal pulses normal. Gastrointestinal no pulsatile mass, soft, non-tender, no rebound, no guarding, normal bowel sounds, no distension, no pulsatile mass. Genitourinary no CVA tenderness. Musculoskeletal no midline vertebral tenderness, full range of motion, no calf swelling, no tenderness of extremities, no meningismus, good pulses, neurovascularly intact. Skin pink, warm, & dry, no rash, skin atraumatic. Neurologic awake, alert and oriented x 3, AAOx3, moves all 4 extremities equally, motor intact, sensory intact, CN II-XII intact, normal cerebellar, normal vision, normal speech. No leg weakness on exam. Good distal pulses. Psychiatric normal mood/affect. Heme/Lymph/Immune no lymphadenopathy. Differential Diagnosis: Includes but is not limited to in a particular order electrolyte disturbance, dehydration, orthostatic hypotension, cardiac arrhythmia, low potassium, low sodium, infection Medical Decision Making: Plan for this patient IV establishment, blood draw, full school lunch monitor, check electrolytes, orthostatics. Gentle IV hydration. Re-evaluation: EKG interpretation by me on record in [employer] system. Impression time of EKG 2310, this is sinus rhythm rate of 60 first-degree AV block present. IN interval 240. Q-waves noted in V1 V2 V3. Bundle branch block morphology. Borderline T-wave abnormalities noted lateral leads. When I compare this EKG to his old EKG dated 09/01/2016 this is very similar morphology I do not appreciate acute change. No ST elevations EKG. 2332: Blood pressure noted from 170 to 130s positive orthostatics. Also noted patient has a positive troponin. Without chest pain. Stable EKG. 2351: Patient noted to have positive orthostatic blood pressures. Positive troponin. However always has a positive troponin. Given how significant his orthostatic blood pressure is will be hydrated here. Is also noted his BUN and creatinine are elevated. Indicating he is dehydrated. Pre renal. Hypovolemic. Patient will be admitted to the hospitalist service for dehydration hypovolemia and positive orthostatics. In the setting of positive troponin. He does not have any chest pain or shortness of breath. EKG is nonischemic. Dr. Llanes Accepts Source: Patient - Personal History Current Tetanus/Diphtheria Vaccine: Unsure - Medical/Surgical History Hx Asthma: No Hx Chronic Respiratory Disease: No Hx Diabetes: Yes Hx Cardiac Disease: Yes Hx Renal Disease: No Hx Cirrhosis: No Hx Alcoholism: No Hx HIV/AIDS: No Hx Splenectomy or Spleen Trauma: No Other PMH: PMHx: DM, HTN, high chol, [place] with stent nov 2015, PNA may 2016 , CPAP for NIXON. PSHx: cardiac stent 12/06 - Social History Smoking Status: Never smoked Constitutional: Initial Vital Signs Temperature (C) 37.1 C 10/04/17 21:44 Heart Rate 68 12/24/16 21:44 Respiratory Rate 16 12/24/16 21:44 Blood Pressure 160/79 H 12/24/16 21:44 O2 Sat (%) 96 12/24/16 21:44 O2 Delivery Mode Room Air Allergies/Adverse Reactions: No Known Allergies Allergy (Verified 12/09/15 09:55) Home Medications: Medication Instructions Recorded Aspirin EC [Aspirin EC 325 mg (*)] 325 mg PO DAILY #30 tab 12/11/15 Prasugrel HCl [Effient 10mg (*)] 10 mg PO DAILY #30 tab 12/11/15 Insulin Detemir [Levemir Flextouch] 40 unit SC DAILY 01/11/16 Insulin Lispro [Humalog Kwikpen 3 - 4 unit SC TIDMEAL 01/11/16 U-100] metFORMIN HCL [Glucophage 500 mg 500 mg PO DAILY 01/11/16 (*)] Carvedilol [Coreg (*)] 25 mg PO BIDMEAL 09/01/16 Lisinopril [Zestril 40 mg (*)] 40 mg PO DAILY 09/01/16 metFORMIN HCL [Glucophage 1000 mg] 1,000 mg PO HS 09/01/16 Spironolactone [Aldactone 25 MG 25 mg PO DAILY #30 tab 09/04/16 (*)] Atorvastatin Calcium [Lipitor 40 40 mg PO HS 12/25/16 mg (*)] Furosemide [Lasix 40 MG (*)] 40 mg PO BID 12/25/16 amLODIPine BESYLATE [Norvasc 5 mg 5 mg PO DAILY 12/25/16 (*)] hydrALAZINE [Apresoline 50 mg (*)] 25 mg PO BID 12/25/16 Medical Decision Making - Data Points Laboratory Results: Laboratory Results 12/24/16 22:45 12/24/16 22:45 Medications Given: Amlodipine Besylate (Norvasc) 5 mg PO DAILY [facility] Stop: 06/23/17 11:29 Last Admin: 12/25/16 13:20 Dose: 5 mg Aspirin Buffered (Aspirin Ec) 325 mg PO DAILY YAZMIN Stop: 06/23/17 11:29 Last Admin: 12/25/16 13:18 Dose: 325 mg Atorvastatin Calcium (Lipitor) 40 mg PO HS [facility] Stop: 06/23/17 20:59 Last Admin: 12/25/16 21:50 Dose: 40 mg Carvedilol (Coreg) 25 mg PO BIDMEAL [facility] Stop: 06/23/17 11:29 Last Admin: 12/25/16 18:25 Dose: 25 mg Enoxaparin Sodium (Lovenox) 40 mg SC DAILY [facility] Stop: 06/23/17 08:59 Last Admin: 12/25/16 08:39 Dose: 40 mg Hydralazine HCl (Apresoline) 25 mg PO BID [facility] Stop: 06/23/17 11:29 Last Admin: 12/25/16 21:51 Dose: 25 mg Sodium Chloride (Ns) 1,000 mls @ 75 mls/hr IV CONT [facility] Stop: 12/26/16 01:49 Last Admin: 12/25/16 13:08 Dose: 1,000 mls Insulin Glargine (Lantus Syringe) 40 units SC DAILY [facility] Stop: 06/23/17 11:44 Last Admin: 12/25/16 13:05 Dose: 40 units Insulin Human Lispro (Humalog Lispro) 0 unit SC TIDMEAL [facility] PRN Reason: Protocol Stop: 06/23/17 07:59 Last Admin: 12/25/16 18:25 Dose: 4 i.unit Prasugrel (Effient) 10 mg PO DAILY [facility] Stop: 06/23/17 11:29 Last Admin: 12/25/16 13:20 Dose: 10 mg Discontinued Medications Sodium Chloride (Ns) 1,000 mls @ 0 mls/hr IV ONCE ONE PRN Reason: Wide Open Stop: 12/24/16 23:11 Last Admin: 12/25/16 00:11 Dose: 1,000 mls Departure - Departure Disposition: [facility] Inpatient Acute Clinical Impression: Orthostatic hypotension, Troponin level elevated Condition: Fair
[2016-12-24 23:04] LABS: ABSOLUTE IMMATURE GRANULOCYTES 0.08 10^3/uL (0.00-0.10); ADD DIFF? NO; ADD MORPH? NO; ADD SCAN? NO; ATYPICAL LYMPHOCYTE FLAG 10 (0-99); FRAGMENT RBC FLAG 0 (0-99); HEMATOCRIT 37.1 % (40.0-51.0); HEMOGLOBIN 12.9 g/dL (13.7-17.5); LEFT SHIFT FLG 10 (0-99); LIPEMIA HEMOLYSIS FLAG 90 (0-99); MEAN CELL HEMOGLOBIN 29.7 pg (27.9-34.1); MEAN CELL HEMOGLOBIN CONCENTR. 34.8 g/dL (32.4-36.7); MEAN CELL VOLUME 85.5 fL (81.5-99.8); MEAN PLATELET VOLUME 12.4 fL (8.7-11.7); PLATELET CLUMPS FLAG 0 (0-99); PLATELET COUNT 145 10^3/uL (150-400); RED BLOOD CELL COUNT 4.34 10^6/uL (4.40-6.38); RED CELL DISTRIBUTION WIDTH 13.8 % (11.5-15.2)
[2016-12-24] MEDS ORDERED: NS 1,000 ML IV ONE (23:10)
--- NOTE | 2016-12-24 23:12 | CPEKG ---
Heart Rate: 60 RR Interval: 1000 P-R Interval: 240 QRSD Interval: 102 QT Interval: 432 QTC Interval: 432 P [place]: 77 QRS [place]: 88 T Wave [place]: 81 EKG Severity - ABNORMAL ECG - EKG Impression: SINUS RHYTHM EKG Impression: FIRST DEGREE AV BLOCK EKG Impression: BORDERLINE RIGHT AXIS DEVIATION EKG Impression: CONSIDER ANTERIOR INFARCT EKG Impression: BORDERLINE T ABNORMALITIES, LATERAL LEADS Electronically Signed By: Ceasar Alvarez 25-Dec-2016 07:14:16
[2016-12-24 23:14] LABS: ANION GAP 14 mEq/L (8-16); CALCIUM 9.6 mg/dL (8.5-10.4); CARBON DIOXIDE 21 mEq/l (22-31); CHLORIDE 102 mEq/L (97-110); CREATININE 1.7 mg/dL (0.7-1.3); GLOMERULAR FILTRATION RATE 41; GLUCOSE 216 mg/dL (70-100); POTASSIUM 4.8 mEq/L (3.5-5.2); SODIUM 137 mEq/L (134-144)
[2016-12-24 23:17] LABS: INR 1.01 (0.83-1.16); PROTIME(PATIENT) 13.2 SEC (12.0-15.0)
[2016-12-24 23:18] LABS: APTT 28.2 SEC (23.0-38.0)
[2016-12-24 23:25] LABS: TROPONIN I 0.059 ng/mL (0.000-0.034)
[2016-12-24 23:40] LABS: ALANINE AMINOTRANSFERASE 30 IU/L (21-72); ALBUMIN 3.5 g/dL (3.5-5.0); ALKALINE PHOSPHATASE 39 IU/L (38-126); ASPARTATE AMINOTRANSFERASE 21 IU/L (17-59); BILIRUBIN,TOTAL 0.5 mg/dL (0.1-1.4); BILIRUBIN-CONJUGATED 0.2 mg/dL (0.0-0.5); BILIRUBIN-UNCONJUGATED 0.3 mg/dL (0.0-1.1); MAGNESIUM 1.8 mg/dL (1.6-2.3)
[2016-12-25] MEDS ORDERED: ONDANSETRON DISINTEGRATING 4 MG TAB PO PRN (00:07)
[2016-12-25] MEDS ORDERED: ONDANSETRON 4 MG/2 ML VIAL IVP PRN (00:07)
[2016-12-25] MEDS ORDERED: ACETAMINOPHEN 325 MG TAB PO PRN (00:07)
[2016-12-25] MEDS ORDERED: D50W 25 GM/50 ML SYR IVP PRN (00:11)
[2016-12-25 00:13] LABS: CK-MB INTERPRETATION NEGATIVE (NEGATIVE)
[2016-12-25 00:15] LABS: CREATINE KINASE-MB FRACTION 8.22 ng/mL (0.00-3.19)
[2016-12-25] MEDS ORDERED: NS 1,000 ML IV SCH ×2 (00:15→12:30)
[2016-12-25] MEDS ORDERED: D10W 250 ML PRN HYPOGLYCEMIA IV (01:30)
--- NOTE | 2016-12-25 03:53 | GHP ---
[f rep st] HISTORY AND PHYSICAL DATE OF ADMISSION: 12/24/2016 DATE OF SERVICE: 12/25/2016 SOURCE: Patient provides history. Appears reliable. His is at bedside and supplements history. Case is discussed with ED provider. CHIEF COMPLAINT: Lightheadedness. HISTORY OF PRESENT ILLNESS: A very pleasant 61-year-old gentleman with past medical history significant for diabetes type 2, hyperlipidemia, CAD with recent [place] in 2016, status post stent, history of bicuspid aortic valve, systolic CHF, compensated, benign essential hypertension, NIXON on CPAP with oxygen, and a history of skin cancer, who presents to the emergency department today with complaints of sudden onset of positional lightheadedness. The patient reports he was in his usual state of health until about 5 o'clock this evening when he was getting up from his desk at work to stand. He developed significant lightheadedness without any vertiginous symptoms. He denies any headache, nausea, vomiting, diaphoresis. No chest pain, shortness of breath, palpitations, numbness, tingling, or any other symptoms. 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 The patient's primary ground school instructor is Dr. Weston. The patient with a recent hospitalization in August of 2016 for decompensated systolic CHF. At that time, patient was placed on diuretic regimen including Lasix and spironolactone. Since that time , patient reports that he has had significant lifestyle adjustments. He has continued to be compliant with his medications including the spironolactone and Lasix. He also has been adhering to a strict fluid restriction of 2 L and salt restriction. Additionally, patient has continued to have lifestyle modifications to include increased physical activity and exercise, and improved compliance with his medication regimen and medical recommendations for CPAP. The patient has not had any recent adjustments to his diuretic therapy. REVIEW OF SYSTEMS: Remainder was reviewed with the patient and he denies, except as noted in HPI. ALLERGIES: No known drug allergies. HOME MEDICATIONS: 1. Metformin 500 mg p.o. daily and 1000 mg p.o. at bedtime. 2. Hydralazine 25 mg p.o. four times daily. 3. Amlodipine 10 mg p.o. daily. 4. Spironolactone 25 mg p.o. daily. 5. Effient 10 mg p.o. daily. 6. Lisinopril 40 mg p.o. daily. 7. Insulin sliding scale 3-4 units three times daily with meals. 8. Insulin Levemir 40 units subcu daily. 9. Lasix 40 mg p.o. twice daily at 9 and 3 o'clock. 10. Coreg 25 mg p.o. twice daily with meals. 11. Atorvastatin 40 mg p.o. daily. 12. Aspirin 325 mg p.o. daily. Patient reports he takes majority of his medications starting at noon. PAST MEDICAL HISTORY: Significant for diabetes type 2, previously uncontrolled , hyperlipidemia, CAD with history of STEMI in 2016 with stent placement, systolic CHF, compensated, benign essential hypertension, NIXON on CPAP and oxygen , bicuspid aortic valve, skin cancer. PAST SURGICAL HISTORY: Significant for cardiac cath with stent placement, colonoscopy x2, dental extractions, right ACL repair, orchiectomy. FAMILY HISTORY: Significant for mother with Alzheimer disease, . Brother with history of CAD and KY, age 55. Father with history of CAD and [place], age 78, now . SOCIAL HISTORY: Patient is , lives with his . He does not smoke or a utilize drugs. He has rare alcohol intake. CODE STATUS: Full. The patient without any advance directive. Desires his to act as proxy if needed. PHYSICAL EXAM: VITALS: On arrival to the ER, blood pressure 160/79, heart rate 60, respiratory rate 16, pulse ox 96% on room air, with a temperature of 37.1. Orthostatic blood pressures: Standing blood pressure 154/78, with a heart rate of 68. Sitting is 138/66, with a heart rate of 66. Blood pressure supine is 179/94, with a heart rate of 70, with a change in systolic blood pressure of /39 mmHg from supine to sitting. GENERAL: No acute distress. Very pleasant, obese gentleman, is resting comfortably on bed. His is at bedside. HEAD: Normocephalic, atraumatic. EYES: Extraocular muscles are intact. Pupils equal, round, with decreased reactivity to light bilaterally, but symmetric. No scleral icterus or conjunctival injection. ENT: Mucous membranes appear moist. No oropharyngeal erythema or exudates. NECK: Supple. Trachea midline. CV: Regular rate and rhythm. Slightly bradycardic rate. No murmurs, rubs, or gallops appreciated. RESPIRATORY: Lungs clear to auscultation bilaterally. No wheezes, rales, or rhonchi. Breathing is unlabored. ABDOMEN: Obese, soft, nontender to palpation. No rebound, guarding , or masses appreciated. : No suprapubic tenderness to palpation. No CVA tenderness. EXTREMITIES: No cyanosis, clubbing, or edema are appreciated. Patient with 1+ pedal pulses. SKIN: Patient with multiple abrasions to his bilateral anterior lower extremities and a few to his toes. PSYCH: Patient awake, alert, and oriented x4. He is pleasant. Thought process, content, and questions are appropriate. NEUROLOGIC: Cranial nerves 2 through 12 are intact and symmetric bilaterally. Patient moves all extremities. Strength is grossly intact in upper and lower extremities. LABORATORY STUDIES: WBC 7.7, H and H 12.9 and 37.1, MCV of 85.5, platelet count is 145, no bands. PT is 13.2, INR is 1.01, PTT is 28.2. Sodium is 137, potassium is 4.8, chloride is 102, CO2 is 21, BUN is 52, creatinine is 1.7, GFR 41. Patient's last available creatinine from August at discharge was 1.4. Glucose 216 and calcium 9.6, magnesium 1.8. Total bilirubin 0.5, ALT 30, AST 21, alkaline phosphatase 39. CK is 304, CK-MB 2.7, troponin 0.059. PBNP is 594. Total protein 6.1, albumin is 3.5. EKG, reviewed by myself, shows normal sinus rhythm in the 60s with first-degree AV block. Q-waves in the anterior leads with T-wave flattening in the lateral leads. QTc is 432. Chest x-ray report reviewed. Negative for any acute findings, showing resolved heart failure from comparison imaging. ASSESSMENT AND PLAN: Very pleasant 61-year-old gentleman with history of coronary artery disease, congestive heart failure, who presents with lightheadedness. 1. Orthostasis. Patient with nearly 40 mmHg drop from positional change from supine to sitting. The patient has been adhering to a strict low salt and fluid -restricted diet while at the same time, continuing on his diuresis and routine medications. The patient also with acute kidney injury, likely representing prerenal injury in the setting of diuresis and fluid restriction. The patient has received 1 L IV fluid in the emergency department. We will continue with another 500 cc over a few hours at a slower rate, given his history of heart failure in August. We will plan to repeat his BMP and orthostatic blood pressures in the morning. 2. Lightheadedness related to orthostasis. We will hold off on patient's beta germain antihypertensive medications overnight, and plan to resume slowly in the morning. 3. Acute on chronic kidney disease, stage III, likely again prerenal. We will continue with IV fluids and repeat BMP in the morning. 4. Dehydration. As above. 5. Diabetes type 2, uncontrolled. Continue on a sliding scale. The patient plans to take his home medications after likely discharge in the morning. Hold off on his Lantus, as he takes in the morning. 6. Elevated CK, mildly increased in the setting of dehydration. Continue with IV fluids. Also, we will check lactic acid to ensure patient does not have any elevation, status post IV fluid. 7. Elevated troponin, likely related to decreased clearance in setting of acute on chronic kidney disease. Patient chronically with mildly elevated troponins on previous history. He denies any chest pain, shortness of breath, or palpitations. We will plan to repeat again in the morning. 8. Anemia, likely of chronic disease. Continue to monitor CBC. No evidence of active bleeding at this time. 9. History of coronary artery disease. The patient will plan to continue his statin and monitoring blood pressures. May need to adjust his beta germain dosage in setting of orthostasis. 10. Benign essential hypertension. Blood pressures at this time are acceptable. Anticipate resuming some or all of his medications after discharge. 11. Obstructive sleep apnea. The patient declines hospital CPAP loaner and we will place patient on supplemental oxygen while he is resting. 12. Hyperlipidemia. Statin after discharge. 13. Obesity with BMI of 34.5. Continue to encourage patient with lifestyle and dietary modifications. 14. Fluids, electrolytes, nutrition. Continue with IV fluids overnight. Replace electrolytes if needed. Place patient on an ADA diet. Hold off on fluid restriction for now. 15. Prophylaxis. SCDs. Lovenox if patient should stay an additional day. 16. Cor status is full. DISPOSITION: Patient admitted to observation on the PCU for close monitoring and repeat troponins. /[id number]/MODL MTDD
[2016-12-25 04:49] LABS: % IMMATURE GRANULYOCYTES 0.7 % (0.0-1.1); ABSOLUTE IMMATURE GRANULOCYTES 0.05 10^3/uL (0.00-0.10); ADD DIFF? NO; ADD MORPH? NO; ADD SCAN? NO; ATYPICAL LYMPHOCYTE FLAG 0 (0-99); FRAGMENT RBC FLAG 0 (0-99); HEMATOCRIT 34.6 % (40.0-51.0); LEFT SHIFT FLG 0 (0-99); LIPEMIA HEMOLYSIS FLAG 90 (0-99); MEAN CELL HEMOGLOBIN CONCENTR. 34.7 g/dL (32.4-36.7); MEAN CELL VOLUME 86.5 fL (81.5-99.8); MEAN PLATELET VOLUME 12.5 fL (8.7-11.7); PLATELET CLUMPS FLAG 0 (0-99); PLATELET COUNT 120 10^3/uL (150-400); RED CELL DISTRIBUTION WIDTH 13.7 % (11.5-15.2)
[2016-12-25 05:08] LABS: ANION GAP 10 mEq/L (8-16); CALCIUM 8.7 mg/dL (8.5-10.4); CARBON DIOXIDE 21 mEq/l (22-31); CHLORIDE 106 mEq/L (97-110); CREATININE 1.6 mg/dL (0.7-1.3); GLOMERULAR FILTRATION RATE 44; GLUCOSE 167 mg/dL (70-100); MAGNESIUM 1.6 mg/dL (1.6-2.3); POTASSIUM 4.7 mEq/L (3.5-5.2); SODIUM 137 mEq/L (134-144)
[2016-12-25] MEDS: INSULIN LISPRO 100 UNIT/ML SC SCH ×3 (08:37→18:25)
[2016-12-25] MEDS: ENOXAPARIN 40 MG/0.4 ML SYR SC SCH (08:39)
[2016-12-25] MEDS ORDERED: NON-FORMULARY NEW DRUG (Insulin Detemir [Levemir Flextouch] 40 UNIT) SC SCH (11:30)
[2016-12-25] MEDS: INSULIN GLARGINE 100 UNITS/ML SYRINGE SC SCH (13:05)
[2016-12-25] MEDS: ASPIRIN EC 325 MG TAB PO SCH (13:18)
[2016-12-25] MEDS: amLODIPine BESYLATE 5 MG TAB PO SCH (13:20)
[2016-12-25] MEDS: PRASUGREL HCL 10 MG TAB PO SCH (13:20)
[2016-12-25] MEDS: CARVEDILOL 25 MG TAB PO SCH ×2 (13:21→18:25)
--- NOTE | 2016-12-25 13:39 | ASMTCMCOM ---
CM Note CM Note Notes: Chart reviewed. Patient has no needs currently based upon review with RN. May dc later today and should be independent. CM available should needs arise. Date Signed: 12/25/2016 01:39 PM Electronically Signed By:CAROLINE Serna
--- NOTE | 2016-12-25 16:35 | HOSPPROG ---
Hospitalist Progress Note Assessment/Plan: * ARF -suspect overdiuresis -gently IVF - reduce diuretics * Chronic systolic CHF -hold ACEI until renal function improves * CAD/stent * Obesity - NIXON/CPAP * DM II -continue insulin -hold metformin due to creatinine elevation Subjective: No complaints. Objective: Vital Signs Temp Pulse Resp BP Pulse Ox 36.5 C 67 12 166/75 H 95 12/25/16 11:32 12/25/16 13:21 12/25/16 11:32 12/25/16 13:21 12/25/16 11:32 Laboratory Results 12/25/16 03:51 12/25/16 03:51 12/24/16 12/25/16 12/26/16 05:59 05:59 05:59 Intake Total 1200 440 Output Total 475 Balance 725 440 PT 13.2 SEC (12.0-15.0) 12/24/16 22:45 INR 1.01 (0.83-1.16) 12/24/16 22:45 Old chart reviewed - was quite non-complaint during last admission, counselled extensively CXR viewed, my personal interpretation is - no CHF - Physical Exam Constitutional: no apparent distress, appears nourished, not in pain Cardiovascular: regular rate and rhythym, no murmur, rub, or gallop Respiratory: no respiratory distress, no rales or rhonchi, clear to auscultation Gastrointestinal: normoactive bowel sounds, soft, non-tender abdomen, no palpable masses Skin: no rashes or abrasions, no fluctuance, no induration Neurologic: AAOx3, sensation intact bilaterally Psychiatric: interacting appropriately, not anxious, not encephalopathic, thought process linear ICD10 Worksheet Patient Problems: Problems Problem Status Onset Elevated troponin Acute Orthostatic hypotension Acute Acute exacerbation of congestive heart failure Acute Diabetes Acute HTN (hypertension) Acute Hyperglycemia Acute NSTEMI (non-ST elevated myocardial infarction) Acute
[2016-12-25] MEDS ORDERED: ATORVASTATIN CALCIUM 40 MG TAB PO SCH (21:00)
[2016-12-26 05:49] LABS: ANION GAP 9 mEq/L (8-16); CALCIUM 8.9 mg/dL (8.5-10.4); CARBON DIOXIDE 21 mEq/l (22-31); CHLORIDE 107 mEq/L (97-110); CREATININE 1.3 mg/dL (0.7-1.3); GLOMERULAR FILTRATION RATE 56; GLUCOSE 171 mg/dL (70-100); POTASSIUM 4.9 mEq/L (3.5-5.2); SODIUM 137 mEq/L (134-144)
[2016-12-26] MEDS: INSULIN LISPRO 100 UNIT/ML SC SCH ×2 (08:12→11:41)
[2016-12-26] MEDS: PRASUGREL HCL 10 MG TAB PO SCH (08:15)
[2016-12-26] MEDS: amLODIPine BESYLATE 5 MG TAB PO SCH (08:16)
[2016-12-26] MEDS: ASPIRIN EC 325 MG TAB PO SCH (08:16)
[2016-12-26] MEDS: ENOXAPARIN 40 MG/0.4 ML SYR SC SCH (08:18)
[2016-12-26 08:29] VITALS: RESP 16; TEMP 98.3; O2SAT 93
[2016-12-26] MEDS: INSULIN GLARGINE 100 UNITS/ML SYRINGE SC SCH (09:43)
[2016-12-26] MEDS: CARVEDILOL 25 MG TAB PO SCH (09:49)
[2016-12-26 09:50] VITALS: BP 152/72; PULSE 58
[2016-12-26] MEDS ORDERED: LISINOPRIL 40 MG TAB PO SCH (10:45)
--- NOTE | 2016-12-26 17:20 | ASDISCHSUM ---
Discharge Information Plan Status:Home with No Needs Medically Cleared to Leave:12/26/2016 Discharge Date:12/26/2016 02:59 PM CM D/C Disposition:Home, Routine, Self-Care ADT D/C Disposition:Home, Routine, Self-Care Projected Discharge Date:12/26/2016 12:00 AM Transportation at D/C: Discharge Delay Reason: Follow-Up Date:12/26/2016 12:00 AM Discharge Slot: Final Diagnosis: Placement Information Patient Contact Information Contact Name:ROMEO Relationship: Address:[address] [facility] Work Phone: City:[place] Phone: [facility]/Zip Code:[place] [address] Email: Financial Information Financial Class:[facility] Primary Plan Desc:[employer] OPEN ACC LOCAL Primary Plan Number:[id number] Secondary Plan Desc: Secondary Plan Number: Assessment Information [facility] CM Progress Note CM Note CM Note Notes: Chart reviewed. Patient has no needs currently based upon review with RN. Agnes sosa later today and should be independent. CM available should needs arise. Date Signed: 12/25/2016 01:39 PM Electronically Signed By:CAROLINE Serna Intervention Information
--- NOTE | 2016-12-26 17:36 | GDS ---
[f rep st] DISCHARGE SUMMARY DISCHARGE DIAGNOSES: 1. Acute renal failure due to dehydration and over diuresis. 2. Chronic systolic congestive heart failure. 3. Coronary artery disease, status post previous stent. 4. Obstructive sleep apnea, on CPAP. 5. Obesity, body mass index 35. 6. Diabetes type 2. HISTORY: The patient is a 61-year-old male with a known history of systolic congestive heart failure and previously had struggled with noncompliance, which he blames on his ADD. Since his last hospitalization, his has assumed all responsibility for monitoring his drugs and his diet, and he has become extremely compliant. He follows a strict fluid and salt restriction, increasing his exercise, and has been very compliant with all medications and CPAP. With his increased compliance, there have been no adjustments to his diuretic regimen. He now comes in over diuresed, with a creatinine of 1.7, when his baseline is about 1.3. He presented after a presyncopal episode. He was gently hydrated. His creatinine did improve back to his baseline 1.3. We will restart his diuretics at lower doses; both his Lasix and spironolactone will be cut in half. He has close outpatient followup already scheduled with Dr. Weston, his gate cutter, for later this afternoon. I have also recommended weekly Chem-7 to ensure stabilization of his creatinine in the next 30 days. DISCHARGE MEDICATIONS: Please see computer record for full detailed list. Medication changes included decreasing Lasix from 40 mg twice daily to 40 mg once a day, decreasing Aldactone from 25 mg once a day to 12.5 mg p.o. once a day. ADDITIONAL DISCHARGE INSTRUCTIONS: 1. Weekly Chem-7 for 1 month. 2. Cane recommended for home stability. 3. Follow up with Dr. Weston, appointment same day of discharge already scheduled prior to admission. 4. Greater than 30 minutes' time was spent arranging this discharge. Patient seen and examined by me on day of discharge. /[id number]/MODL MTDD
== END 2016-12-26 14:59 | disposition home or self-care (01) ==
LOC: F2W 12-25 01:01
PROVIDERS: ADMIT Family Medicine; ATTEND Family Medicine
DX: N17.9 Acute kidney failure, unspecified (principal); E86.0 Dehydration; I13.0 Hypertensive heart and chronic kidney disease with heart failure and stage 1 through stage 4 chronic kidney disease, or unspecified chronic kidney disease; I50.22 Chronic systolic (congestive) heart failure; E11.65 Type 2 diabetes mellitus with hyperglycemia; E11.22 Type 2 diabetes mellitus with diabetic chronic kidney disease; N18.3 Chronic kidney disease, stage 3 (moderate); I25.10 Atherosclerotic heart disease of native coronary artery without angina pectoris; G47.33 Obstructive sleep apnea (adult) (pediatric); E66.9 Obesity, unspecified; E78.5 Hyperlipidemia, unspecified; Q23.1 Congenital insufficiency of aortic valve; D64.9 Anemia, unspecified; Z95.5 Presence of coronary angioplasty implant and graft; Z68.35 Body mass index [BMI] 35.0-35.9, adult
CPT/HCPCS: 71020; 93005; 97112; 97116; 97161; 97165; 97535; 99285; G0378; J1650; J1815

== ENCOUNTER 2018-01-23 19:39 | Inpatient (IN) | payer OTHER ==
--- NOTE | 2018-01-23 19:49 | EDPHY ---
H & P Stated Complaint: COUGH SOB AFTER WORKING OUT Time Seen by Provider: 01/23/18 19:49 HPI/ROS: CHIEF COMPLAINT: Shortness of breath, cough HISTORY OF PRESENT ILLNESS: The patient is a 62 y/o male with a history of diabetes, hypertension, high cholesterol, ME with prior stent, compensated systolic CHF, arriving with his complaining of shortness of breath and coughing onset around 18:30 tonight, about 1.5 hours ago. He says "I've frandy been punk all day." Symptoms feel similar to a prior bought of pneumonia 2 years ago. He denies chest pain, pleuritic pain, fever, vomiting, diarrhea, new urinary symptoms, abdominal pain, sore throat. He has mild bilateral leg swelling at baseline. He reports he is compliant with his medications. His flu vaccination is up-to-date. REVIEW OF SYSTEMS: A ten system review of systems was performed and is negative with the exception of the items mentioned in the HPI. Past medical history: Diabetes, hypertension, high cholesterol, ME s/p stent, pneumonia May 2016, CPAP for obstructive sleep apnea, CHF Past surgical history: Cardiac stent 2015 Family history: Noncontributory Social history: at bedside. Nonsmoker. No recent alcohol use. 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 Emergency Room Technician: Dr. Weston, Electronic Integrated Systems Mechanic: Dr. Garcia, PCP: Dr. Mcnair at [facility] General Appearance: Alert. Vital signs reviewed. BP 216/111, SpO2 78% on room air. Afebrile. Eyes: Pupils equal and round, no conjunctival injection, no discharge. Anicteric. ENT, Mouth: Mucous membranes are moist, no oropharyngeal erythema or edema. Neck: No lymphadenopathy, supple. Respiratory: Lungs have rales on the right to auscultation, left side is distant but clear; no wheezes or rhonchi. Cardiovascular: Distant heart sounds, regular rate and rhythm; no murmur, rub, or gallop. Gastrointestinal: Abdomen is soft and nontender, no masses or organomegaly. Skin: Warm and dry, no rashes on exposed skin, normal color. Back: Nontender to palpation over the thoracolumbar spine. No CVAT. Extremities: Trace bilateral lower extremity edema, no calf tenderness or swelling. Neurological: Alert and oriented. Moving all four extremities easily and equally. Psychiatric: Normal affect. - Personal History Current Tetanus/Diphtheria Vaccine: Yes Current Tetanus Diphtheria and Acellular Pertussis (TDAP): Yes - Medical/Surgical History Hx Asthma: No Hx Chronic Respiratory Disease: No Hx Diabetes: Yes Hx Cardiac Disease: Yes Hx Renal Disease: No Hx Cirrhosis: No Hx Alcoholism: No Hx HIV/AIDS: No Hx Splenectomy or Spleen Trauma: No Other PMH: PMHx: DM, HTN, high chol, ME with stent nov 2015, PNA may 2016 , CPAP for NIXON, CHF. PSHx: cardiac stent 12/06 - Social History Smoking Status: Never smoked Constitutional: Initial Vital Signs Temperature (C) 37.4 C 01/23/18 19:44 Heart Rate 98 01/23/18 19:44 Respiratory Rate 20 01/23/18 19:44 Blood Pressure 216/111 H 01/23/18 19:44 O2 Sat (%) 78 L 01/23/18 19:44 O2 Delivery Mode Room Air O2 (L/minute) 5 Allergies/Adverse Reactions: No Known Allergies Allergy (Verified 01/23/18 19:47) Home Medications: Medication Instructions Recorded Insulin Detemir [Levemir Flextouch] 40 unit SC DAILY 01/11/16 Insulin Lispro [Humalog Kwikpen 5 - 10 unit SC TIDMEAL 01/11/16 U-100] metFORMIN HCL [Glucophage 500 mg 500 mg PO DAILY 01/11/16 (*)] Carvedilol [Coreg (*)] 25 mg PO BIDMEAL 09/01/16 metFORMIN HCL [Glucophage 1000 mg] 1,000 mg PO HS 09/01/16 Atorvastatin Calcium [Lipitor 40 40 mg PO HS 12/25/16 mg (*)] amLODIPine BESYLATE [Norvasc 5 mg 10 mg PO DAILY 12/25/16 (*)] Aspirin [Aspirin 81mg (*)] 81 mg PO DAILY 01/24/18 Hydralazine HCl 25 mg PO TID 01/24/18 Isosorbide Mononitrate [Imdur 30 30 mg PO DAILY 01/24/18 mg (*)] Minoxidil [Minoxidil 2.5 mg (*)] 2.5 mg PO DAILY 01/24/18 Azithromycin 250 mg PO DAILY #2 tablet 01/25/18 Cefdinir [Omnicef (*)] 300 mg PO BID #4 cap 01/25/18 Furosemide [Lasix 40 MG (*)] 60 mg PO BID #90 tab 01/25/18 Irbesartan [Avapro] 300 mg PO DAILY #30 tablet 01/25/18 Medical Decision Making ED Course/Re-evaluation: Clinical picture most consistent with pneumonia. My interpretation of his CXR is that there is a RLL infiltrate. Radiology interpretation is minimal interstitial edema/pneumonitis. He has been placed on supplemental oxygen and will require admission for acute hypoxic respiratory failure. I am starting antibiotics, in consultation with admitting hospitalist. Will start ceftriaxone and azithromycin to cover CAP. Other considerations include CHF (BNP slightly elevated), PE (unlikely), ACS, effects of HTN. - Data Points Laboratory Results: Laboratory Results 01/23/18 20:03 01/23/18 20:03 Medications Given: Discontinued Medications Albuterol/Ipratropium (Duoneb) 3 ml IH EDNOW ONE Stop: 01/23/18 20:07 Last Admin: 01/23/18 20:10 Dose: 3 ml Albuterol/Ipratropium (Duoneb) 3 ml IH QID YAZMIN Stop: 07/23/18 05:59 Last Admin: 01/25/18 10:16 Dose: Not Given Amlodipine Besylate (Norvasc) 10 mg PO DAILY YAZMIN Stop: 07/23/18 08:59 Last Admin: 01/25/18 09:35 Dose: 10 mg Aspirin (Aspirin) 81 mg PO DAILY [facility]MIN Stop: 07/24/18 08:59 Last Admin: 01/25/18 09:34 Dose: 81 mg Aspirin Buffered (Aspirin Ec) 325 mg PO DAILY [facility]MIN Stop: 07/23/18 08:59 Last Admin: 01/24/18 09:49 Dose: 325 mg Atorvastatin Calcium (Lipitor) 40 mg PO HS YAZMIN Stop: 07/23/18 20:59 Last Admin: 01/24/18 20:49 Dose: 40 mg Atorvastatin Calcium (Lipitor) 40 mg PO ONCE ONE Stop: 01/23/18 23:21 Last Admin: 01/23/18 23:58 Dose: 40 mg Azithromycin (Zithromax) 500 mg PO DAILY [facility] PRN Reason: Protocol Stop: 02/24/18 08:59 Last Admin: 01/25/18 09:52 Dose: 500 mg Carvedilol (Coreg) 25 mg PO ONCE ONE Stop: 01/23/18 21:03 Last Admin: 01/23/18 21:35 Dose: 25 mg Carvedilol (Coreg) 25 mg PO BIDMEAL [facility] Stop: 07/23/18 07:59 Last Admin: 01/25/18 09:33 Dose: 25 mg Enoxaparin Sodium (Lovenox) 40 mg SC DAILY [facility] Stop: 07/23/18 08:59 Last Admin: 01/25/18 09:35 Dose: 40 mg Furosemide (Lasix Injection) 40 mg IVP ONCE ONE Stop: 01/23/18 21:02 Last Admin: 01/23/18 21:10 Dose: 40 mg Furosemide (Lasix Injection) 40 mg IVP DAILY [facility] Stop: 07/23/18 08:59 Last Admin: 01/25/18 09:35 Dose: 40 mg Furosemide (Lasix Injection) 20 mg IVP ONCE ONE Stop: 01/24/18 16:01 Last Admin: 01/24/18 16:49 Dose: 20 mg Hydralazine HCl (Apresoline) 10 mg IVP EDNOW ONE Stop: 01/23/18 20:11 Last Admin: 01/23/18 20:15 Dose: 10 mg Hydralazine HCl (Apresoline) 25 mg PO BID [facility] Stop: 07/23/18 08:59 Last Admin: 01/24/18 09:50 Dose: 25 mg Hydralazine HCl (Apresoline) 25 mg PO ONCE ONE Stop: 01/23/18 23:21 Last Admin: 01/23/18 23:58 Dose: 25 mg Hydralazine HCl (Apresoline) 25 mg PO TID [facility] Stop: 07/23/18 15:59 Last Admin: 01/25/18 16:40 Dose: 25 mg Azithromycin 500 mg/ Dextrose 255 mls @ 255 mls/hr IV EDNOW ONE PRN Reason: Protocol Stop: 01/23/18 22:18 Last Admin: 01/23/18 22:00 Dose: 255 mls Ceftriaxone Sodium/Dextrose (Rocephin 1 Gm (Premix)) 50 mls @ 100 mls/hr IV EDNOW ONE PRN Reason: Protocol Stop: 01/23/18 21:48 Last Admin: 01/23/18 21:35 Dose: 50 mls Azithromycin 500 mg/ Sodium (Chloride) 255 mls @ 255 mls/hr IV DAILY [facility] PRN Reason: Protocol Stop: 02/23/18 08:59 Last Admin: 01/24/18 10:38 Dose: 255 mls Ceftriaxone Sodium/Dextrose (Rocephin 1 Gm (Premix)) 50 mls @ 100 mls/hr IV DAILY [facility] PRN Reason: Protocol Stop: 02/23/18 08:59 Last Admin: 01/25/18 09:54 Dose: 50 mls Insulin Human Lispro (Humalog Lispro) 5 - 10 unit SC TIDMEAL [facility] Stop: 07/23/18 07:59 Last Admin: 01/25/18 12:55 Dose: 5 units Insulin Human Lispro (Humalog Lispro) 5 - 10 unit SC HS [facility] Stop: 07/23/18 00:14 Last Admin: 01/24/18 23:49 Dose: Not Given Isosorbide Mononitrate (Imdur) 30 mg PO DAILY [facility] Stop: 07/23/18 15:59 Last Admin: 01/25/18 09:35 Dose: 30 mg Lisinopril (Zestril) 40 mg PO DAILY [facility] Stop: 07/23/18 08:59 Last Admin: 01/25/18 09:35 Dose: 40 mg Metformin HCl (Glucophage) 500 mg PO DAILY [facility] Stop: 07/23/18 08:59 Last Admin: 01/24/18 09:49 Dose: 500 mg Metformin HCl (Glucophage) 1,000 mg PO ONCE ONE Stop: 01/23/18 23:22 Last Admin: 01/23/18 23:57 Dose: 1,000 mg Miscellaneous Medication (Insulin Detemir [Levemir Flextouch]) 40 unit SC DAILY [facility] Stop: 07/23/18 08:59 Last Admin: 01/25/18 09:26 Dose: 40 units Spironolactone (Aldactone) 25 mg PO DAILY [facility] Stop: 07/23/18 08:59 Last Admin: 01/24/18 16:40 Dose: Not Given Spironolactone (Aldactone) 12.5 mg PO DAILY [facility] Stop: 07/24/18 08:59 Last Admin: 01/25/18 09:33 Dose: 12.5 mg Departure - Departure Disposition: [facility] Acute Clinical Impression: HTN (hypertension) Qualifiers: Hypertension type: essential hypertension Qualified Code(s): I10 - Essential ( primary) hypertension Pneumonia Qualifiers: Pneumonia type: due to unspecified organism Laterality: right Lung location: lower lobe of lung Qualified Code(s): J18.1 - Lobar pneumonia, unspecified organism Respiratory failure with hypoxia Qualifiers: Chronicity: acute Qualified Code(s): J96.01 - Acute respiratory failure with hypoxia Condition: Fair Report Scribed for: Radha Phelan Report Scribed by: Jessie Rouse Date of Report: 01/23/18 Time of Report: 19:51 Physician Review and Approval Statement: 01/23/18 19:49 Portions of this note were transcribed by the medical billing and coding specialist. I, Dr. Radha Phelan, personally performed the history, physical exam, and medical decision- making; and confirmed the accuracy of the information in the transcribed note.
[2018-01-23] MEDS ORDERED: IPRATROPIUM/ALBUTEROL 3 ML DEYVIAL IH ONE (20:06)
[2018-01-23] MEDS ORDERED: hydrALAZINE 20 MG/ML VIAL IVP ONE (20:10)
[2018-01-23 20:15] LABS: PLATELET COUNT 166 10^3/uL (150-400)
[2018-01-23] MEDS ORDERED: FUROSEMIDE 40 MG/4 ML VIAL IVP ONE (21:01)
[2018-01-23] MEDS ORDERED: CARVEDILOL 25 MG TAB PO ONE (21:02)
[2018-01-23] MEDS ORDERED: AZITHROMYCIN IV 500 MG in D5W 250 ML IV ONE (21:19)
[2018-01-23] MEDS ORDERED: ALBUTEROL 3 ML DEYVIAL IH PRN (21:37)
[2018-01-23] MEDS ORDERED: ACETAMINOPHEN 325 MG TAB PO PRN (21:37)
[2018-01-23] MEDS ORDERED: ONDANSETRON 4 MG/2 ML VIAL IVP PRN (21:37)
[2018-01-23] MEDS ORDERED: ONDANSETRON DISINTEGRATING 4 MG TAB PO PRN (21:37)
--- NOTE | 2018-01-23 21:48 | CPEKG ---
Test Reason : OPEN Blood Pressure : / mmHG Vent. Rate : 084 BPM Atrial Rate : 084 BPM P-R Int : 258 ms QRS Dur : 116 ms QT Int : 413 ms P-R-T Axes : 075 079 091 degrees QTc Int : 489 ms Sinus rhythm Prolonged MA interval Probable left atrial enlargement Left ventricular hypertrophy Anterior infarct, old Confirmed by Rock Avila ([id number]) on 01/23/2018 9:47:22 PM Referred By: Confirmed By:Rock Avila
[2018-01-23] MEDS ORDERED: ATORVASTATIN CALCIUM 40 MG TAB PO ONE (23:20)
[2018-01-23] MEDS ORDERED: hydrALAZINE 25 MG TAB PO ONE (23:20)
[2018-01-23] MEDS ORDERED: metFORMIN HCL 500 MG TAB PO ONE (23:21)
[2018-01-23] MEDS ORDERED: D50W 25 GM/50 ML SYR IVP PRN (23:58)
[2018-01-24] MEDS: INSULIN LISPRO 100 UNIT/ML SC SCH ×5 (00:25→23:49)
--- NOTE | 2018-01-24 01:32 | GHP ---
DATE OF ADMISSION: 01/23/2018 HISTORY OF PRESENT ILLNESS: The patient is a 62-year-old gentleman with the history of diabetes, hyp ertension, coronary artery disease, and systolic and diastolic heart failure, who presents with malai se x1 day. He said he felt puny all day with a dry cough. He has not had PND, orthopnea, and his lo wer extremity edema is trace, which is about his baseline. He has been weighing himself, and he has not gained weight lately. He has been compliant with his medicines. He takes Lasix and spironolacto ne on a daily basis. He had 1 coronary artery stent in 2016. He has been stable since then. He has not had anginal symptoms. He has not had fever, chills. He has had a dry cough. He states he got much better when he got to [facility] emergency department. He predominantly attributes that to the breathing treatment that he receive d. When asked directly if this felt like his previous CHF admissions, he says no it actually feels much more like the times I had pneumonia. REVIEW OF SYSTEMS: Complete 10-point review of systems conducted, negative except as noted in the HP I. PAST MEDICAL HISTORY: 1. Systolic heart failure with improvement of his ejection fraction in August 2016. 2. Coronary artery disease status post stents. 3. Diastolic heart failure. 4. Diabetes. 5. History of obesity, he has lost some weight. 6. Hypertension. 7. Cervical spine disease with scheduled disk replacement surgery here coming up in a month. ALLERGIES: No known drug allergies. HOME MEDICATIONS: Furosemide, amlodipine, enteric-coated aspirin, atorvastatin, carvedilol 25 twice daily, hydralazine, detemir insulin, lispro, lisinopril, metformin, spironolactone. SOCIAL HISTORY: No tobacco, no alcohol. 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 FAMILY HISTORY: Reviewed and unremarkable. PHYSICAL EXAMINATION: VITAL SIGNS: Temp 37.4, blood pressure 216/111, breathing 20 times a minute, 78% on room air, now 92% on 5 L, pulse is 90s. GENERAL: No acute distress. HEENT: Sclerae anicter ic. Oropharynx clear. Mucous membranes are moist. NECK: Supple without lymphadenopathy. Cannot a ssess JVD. LUNGS: Crackles bilaterally, right is much greater throughout the lung field . HEART: S1, S2 without murmurs. ABDOMEN: Soft, nontender, nondistended. LOWER EXTREMITIES: Trac e edema bilaterally. SKIN: Without rash. NEUROLOGIC: Exam is nonfocal. DATA REVIEWED: Labs: White count 8, hematocrit 40, platelets are 166,000. Venous compression. Sod ium 137, potassium 3.9, chloride 107, bicarb 22, BUN 32, creatinine 1.4, it is a little bit above his baseline. Glucose 278. BNP is , which is about in the middle for him. Troponin 0.076. Chest x-ray interpreted by me shows bilateral airspace disease, right greater than left. No lobar in filtrate. EKG shows sinus with normal axis and intervals, wavy baseline. This may be a downsloping ST depressi on with T-wave inversion in V6, not seen in V5 or 1 or L. There is significant J-point elevation in lead V3. Compared with the prior EKG, it is unchanged. I discussed the case with Dr. Radha Phelan. ASSESSMENT/PLAN: A 62-year-old gentleman presents with cough, acute hypoxemic respiratory failure, l ikely pneumonia. 1. Pneumonia. The patient's heart rate is a little faster than normal. He does not feel like his p revious heart failure. He is not clearly in failure. I think it is reasonable to treat him with cef triaxone, azithromycin, and DuoNeb. He did get a flu vaccine this year. Respiratory viral panel has been ordered. 2. History of diastolic and systolic heart failure. His systolic heart failure has improved. His d iastolic heart failure I suspect is probably active. He received a dose of Lasix tonight. I will gi ve him another dose in the morning and follow. 3. Indeterminate troponin. We will follow this overnight. 4. Acute hypoxemic respiratory failure. This is secondary to airspace disease. We will follow. 5. Diabetes. We will continue his medications and follow. 6. Prophylaxis: Low molecular heparin prophylaxis indicated. 7. Disposition: Inpatient status progressive care unit. /[id number]/MODL
[2018-01-24 04:02] LABS: PLATELET COUNT 150 10^3/uL (150-400)
[2018-01-24] MEDS: IPRATROPIUM/ALBUTEROL 3 ML DEYVIAL IH SCH ×4 (05:48→21:05)
--- NOTE | 2018-01-24 06:49 | PDMN ---
Medical Necessity Medical [place] [facility] [place] pt presents with cough, OB, RA sats of 78% 92% on 5L., crackles bilat., indeterminate trop., ( 0.76, 0.86,0.96) elevated BNP( 1430, 2650 ) , mildly elevated Cr (1.4, 1.5) Hx of diastolic and systolic heart failure, DM, anticipate > 2 MN ongoing med nec care, further eval, monitoring and tx.
[2018-01-24] MEDS: CARVEDILOL 25 MG TAB PO SCH ×2 (08:06→19:50)
[2018-01-24] MEDS ORDERED: hydrALAZINE 25 MG TAB PO SCH (09:00)
[2018-01-24] MEDS ORDERED: AZITHROMYCIN IV 500 MG in NS 250 ML IV SCH (09:00)
[2018-01-24] MEDS ORDERED: metFORMIN HCL 500 MG TAB PO SCH ×2 (09:00→21:00)
[2018-01-24] MEDS ORDERED: ASPIRIN EC 325 MG TAB PO SCH (09:00)
[2018-01-24] MEDS ORDERED: SPIRONOLACTONE 25 MG TAB PO SCH (09:00)
[2018-01-24] MEDS: ENOXAPARIN 40 MG/0.4 ML SYR SC SCH (09:50)
[2018-01-24] MEDS: LISINOPRIL 40 MG TAB PO SCH (09:50)
[2018-01-24] MEDS: FUROSEMIDE 40 MG/4 ML VIAL IVP SCH (09:50)
--- NOTE | 2018-01-24 13:46 | ASMTCMCOM ---
CM Note CM Note Notes: Chart reviewed for discharge planning purposes, 62 year old male admitted via ED with complaints of malaise and a dry cough. History significant for obesity, C spine disease with pending surgical intervention, Diabetes and CHF. Needs: To be determined at this time. Date Signed: 01/24/2018 01:45 PM Electronically Signed By:Dior Stanley RN
--- NOTE | 2018-01-24 14:36 | HOSPPROG ---
Hospitalist Progress Note Assessment/Plan: Dyspnea / AHRF - 6 LPM --> 1 LPM, suspect acute cunningham HF exac. Dry wt looks to be around 103 kg, currently 106 kg. BNP 1400 --> 2600. Symptomatically much improved after IV lasix. PCT neg, arguing against PNA. That said, it's not entirely clear, thus will continue short course atbx. -cont IV lasix, low dose spironolactone -ceftriaxone, change to po azithro -check echo Trop elevation - h/o CAD with stent 2015, note chronic trop elevation. CP free. EKG with LVH, anterior Q's, no change from prior. -echo today as above to eval for wma -opp in am (due to trop elevation, and acute HF) -cont ASA, BB, statin, imdur -cardiology consult requested for am Hypertension - Quite hypertensive on arrival, improved today -cont amlodipine, coreg, hydralazine, lisinopril DM type 2 - cont basal / bolus insulin -hold mtf with elevated Cr CKD - Cr near baseline, ~1.5 -follow closely with diuresis Full code Dispo - cont inpt for ongoing diuresis and cardiac eval Subjective: Pt feels better. He notes recent cough, endorses orthopnea. Denies CP. Breathing improved today, less SOB. No fevers. Objective: Vital Signs Temp Pulse Resp BP Pulse Ox 36.8 C 77 13 142/78 H 94 01/24/18 11:45 01/24/18 11:45 01/24/18 11:45 01/24/18 11:45 01/24/18 11:45 Laboratory Results 01/24/18 03:26 01/24/18 03:26 01/23/18 01/24/18 01/25/18 06:59 05:59 05:59 Intake Total Output Total Balance - Physical Exam Constitutional: no apparent distress Eyes: PERRL Ears, Nose, Mouth, Throat: moist mucous membranes Cardiovascular: regular rate and rhythym Respiratory: no respiratory distress, other (bibasilar crackles) Gastrointestinal: normoactive bowel sounds, soft, non-tender abdomen Skin: warm Musculoskeletal: full muscle strength Neurologic: AAOx3 Psychiatric: interacting appropriately ICD10 Worksheet Patient Problems: Problems Problem Status Onset Acute exacerbation of congestive heart failure Acute HTN (hypertension) Acute Diabetes Acute Elevated troponin Acute Hyperglycemia Acute NSTEMI (non-ST elevated myocardial infarction) Acute Orthostatic hypotension Acute
[2018-01-24] MEDS ORDERED: FUROSEMIDE 20 MG/2 ML VIAL IVP ONE (16:00)
[2018-01-24] MEDS: hydrALAZINE 25 MG TAB PO SCH ×2 (16:49→20:47)
[2018-01-24] MEDS: ISOSORBIDE MONONITRATE 30 MG TAB.SR PO SCH (16:49)
[2018-01-24] MEDS ORDERED: ATORVASTATIN CALCIUM 40 MG TAB PO SCH (21:00)
[2018-01-25 04:26] LABS: PLATELET COUNT 148 10^3/uL (150-400)
[2018-01-25] MEDS: IPRATROPIUM/ALBUTEROL 3 ML DEYVIAL IH SCH ×2 (04:38→10:16)
[2018-01-25] MEDS ORDERED: AZITHROMYCIN 250 MG TAB PO SCH (09:00)
[2018-01-25] MEDS ORDERED: ASPIRIN 81 MG CHEWABLE TAB PO SCH (09:00)
[2018-01-25] MEDS ORDERED: SPIRONOLACTONE 25 MG TAB PO SCH (09:00)
[2018-01-25] MEDS: INSULIN LISPRO 100 UNIT/ML SC SCH ×2 (09:31→12:55)
[2018-01-25] MEDS: CARVEDILOL 25 MG TAB PO SCH (09:33)
[2018-01-25] MEDS: hydrALAZINE 25 MG TAB PO SCH ×2 (09:33→16:40)
[2018-01-25] MEDS: ENOXAPARIN 40 MG/0.4 ML SYR SC SCH (09:35)
[2018-01-25] MEDS: LISINOPRIL 40 MG TAB PO SCH (09:35)
[2018-01-25] MEDS: FUROSEMIDE 40 MG/4 ML VIAL IVP SCH (09:35)
[2018-01-25] MEDS: ISOSORBIDE MONONITRATE 30 MG TAB.SR PO SCH (09:35)
[2018-01-25] MEDS ORDERED: REGADENOSON 0.4 MG/5 ML SYR IVP ONE (10:37)
--- NOTE | 2018-01-25 12:12 | CPR ---
Lexiscan injection of Lexiscan MPI study. 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 Boykin INDICATION FOR STRESS TESTIN. Known history of coronary artery disease. 2. Indeterminate troponin level. 3. Shortness of breath. 4. Unable to run on treadmill. PRE: After obtaining informed consent and ensuring patient's n.p.o. status of caffeine for greater t lynn 12 hours, patient was placed on electrocardiogram. Initial EKG shows sinus rhythm, normal axis, first-degree AV block, possible LVH, with nonspecific T-wave abnormalities in lateral leads. Patient denies any chest pain, pressure, or symptoms suggesting of ischemia. Premature ventricular contract ion was also noted on initial EKG. Initial blood pressure is 160/70, heart rate of 68, saturating 80 % on room air. INJECTION: Patient was given Lexiscan, followed by nuclear isotope. Did report some mild flushing a nd shortness of breath within 1 minute of injection, no significant EKG changes noted, no malignant a rrhythmias. Within 5 minutes, patient was given a caffeinated beverage, reporting all symptoms subsi ded. Currently is pain free. Final blood pressure 142/80, heart rate 83, sinus rhythm on the monito r. No significant EKG changes. Saturation 93%. IMPRESSION: 62-year-old male with known history of coronary artery disease with admission for shortn ess of breath, indeterminate troponin with diagnosis of pneumonia. Evaluation for ischemia. No sign ificant EKG changes with injection. Did report some mild shortness of breath, some flushing sensatio n, which resolved with caffeinated beverage. Currently vital signs are stable, he is asymptomatic. Will finish poststress imaging in Nuclear Medicine at this time. /[id number]/MODL
--- NOTE | 2018-01-25 13:38 | ECHO ---
[email or web address] [address] [address] Main: [phone] Fax: Transthoracic Echocardiogram Name: DANIEL WARD MR#: [id number] Study Date: 01/25/2018 Study Time: 08:20 AM Date of : 1955 Age: 62 year(s) Height: 175.3 cm (69 in.) Weight: 106.6 kg (235 lb.) BSA: 2.21 m2 Gender: Male Examination: Echo Indication: Acute heart failure/hx of stent Image Quality: Contrast: Requested by: Elsa Diaz BP: 166 mmHg/85 mmHg Heart Rate: Rhythm: Indication: Acute heart failure/hx of stent Procedure Staff Assignment Agent: Kat Riley [facility] Reading Physician: Lasha Collazo MD Requesting Provider: Conclusions: Mildly dilated left ventricle. Normal global systolic LV function. The ejection fraction is estimated to be 50-55 %. No regional wall motion abnormality. Diastolic dysfunction is present. . Mildly concentric RV hypertrophy. The left atrium is mildly to moderately dilated. The mitral valve is normal in appearance and function. Mild mitral valve regurgitation is present. Moderate aortic cusp calcification is present. Mild aortic valve regurgitation is present. Cannot R/O bicuspid AV.. When compared to the 09/02/16 study. There is no significant change. Measurements: Chambers Valvular Assessment AV/MV Valvular Assessment TV/PV Normal Normal Normal Name Value Range Name Value Range Name Value Range Ao Negin (MM): 3.6 cm (2.2 cm-3.7 AV Vmax: 1.95 m/s (1 m/s-1.7 cm) m/s) IVSd (2D): 1.1 cm (0.6 cm-1.1 AV maxP mmHg ( - ) cm) AV meanP mmHg ( - ) LVDd (2D): 6.1 cm (4.2 cm-5.9 MV E Vmax: 1.16 m/s ( - ) cm) MV A Vmax: 0.91 m/s ( - ) LVDs (2D): 4.7 cm (2.1 cm-4 MV E/A: 1.27 ( - ) cm) LVPWd (2D): 1.2 cm (0.6 cm-1 cm) LVOTd 2.2 cm 2.2 cm mm LVEF (MOD4): 56 % (>=55 %) Patient: DANIEL WARD Study Date: 01/25/2018 Page 1 of 2 08:20 AM EF Range: 50-55 % Continued Measurements: Chambers Valvular Assessment AV/MV Name Value Name Value LADs: 5.1 cm MV E/E' Septal: 24.80 LADs Lon.5 cm MV E/E' Lateral: 20.50 LA Area: 31.3 cm2 Additional Vessels Name Value Ao Ascendin.9 cm Findings: Left Ventricle: Mildly dilated left ventricle. No LV hypertrophy. Normal global systolic LV function. The ejection fraction is estimated to be 50-55 %. No regional wall motion abnormality. Diastolic dysfunction is present. . False tendon noted near the LV apex.. Right Ventricle: Normal size right ventricle. Mildly concentric RV hypertrophy. RV function appears reduced.. Left Atrium: The left atrium is mildly to moderately dilated. Right Atrium: The right atrium is normal in size. Mitral Valve: The mitral valve is normal in appearance and function. Mild mitral valve regurgitation is present. Aortic Valve: Moderate aortic cusp calcification is present. Mild aortic valve regurgitation is present. Cannot R/O bicuspid AV.. Tricuspid Valve: The tricuspid valve is normal in appearance and function. Pulmonic Valve: Pulmonary valve not well visualized. Aorta: The aorta is normal. Pericardium: No pericardial effusion. (No Signature Object) Patient: DANIEL WARD Study Date: 01/25/2018 Page 2 of 2 08:20 AM D:_[id number]
--- NOTE | 2018-01-25 15:10 | ASMTCMCOM ---
CM Note CM Note Notes: 01/25/2018 Case Management Note Discussed pt during rounds this morning. Pt was having a lexascan stress test and not in the room. There are no therapy evals ordered at this time. There are no case management d/c needs identified d/t marital status and independence with ADL's prior to admission. Case Management d/c poc: anticipating independent with follow up as directed. Case Management available if needs change. Date Signed: 01/25/2018 02:44 PM Electronically Signed By:Arcelia Ward RN
[2018-01-25 15:29] VITALS: BP 155/84
[2018-01-25] MEDS ORDERED: IPRATROPIUM/ALBUTEROL 3 ML DEYVIAL IH PRN (15:30)
--- NOTE | 2018-01-25 16:17 | ASDISCHSUM ---
Discharge Information Plan Status:Home with No Needs Medically Cleared to Leave:01/24/2018 Discharge Date:01/24/2018 CM D/C Disposition:Home, Routine, Self-Care ADT D/C Disposition:Home, Routine, Self-Care Projected Discharge Date:01/24/2018 Transportation at D/C: Discharge Delay Reason: Follow-Up Date:01/24/2018 Discharge Slot: Final Diagnosis: Placement Information Patient Contact Information Contact Name:ROMEO Relationship: Address:[address] Work Phone: City:[facility] [facility] Phone: State/Zip Code:[place] [address] Email: Financial Information Financial Class:[facility] Primary Plan Desc:LEO HARRELL Primary Plan Number:[id number] Secondary Plan Desc: Secondary Plan Number: Assessment Information BC CM Progress Note CM Note CM Note Notes: Chart reviewed for discharge planning purposes, 62 year old male admitted via ED with complaints of malaise and a dry cough. History significant for obesity, C spine disease with pending surgical intervention, Diabetes and CHF. Needs: To be determined at this time. Date Signed: 01/24/2018 01:45 PM Electronically Signed By:Dior Stanley RN [facility] Length of stay for Answers: 1 day current admission Acuity / Level of Answers: Yes Care: Did the patient have an inpatient admission? Comorbidities - select Answers: Congestive heart failure all that apply Coronary Artery Disease Diabetes (uncontrolled or controlled) Score: 9 Date Signed: 01/25/2018 04:16 PM Electronically Signed By:Arcelia Ward RN [facility] CM Progress Note CM Note CM Note Notes: 01/25/2018 Case Management Note Discussed pt during rounds this morning. Pt was having a lexascan stress test and not in the room. There are no therapy evals ordered at this time. There are no case management d/c needs identified d/t marital status and independence with ADL's prior to admission. Case Management d/c poc: anticipating independent with follow up as directed. Case Management available if needs change. Date Signed: 01/25/2018 02:44 PM Electronically Signed By:Arcelia Ward RN Intervention Information
--- NOTE | 2018-01-25 18:55 | GDS ---
DISCHARGE DIAGNOSES: 1. Community-acquired pneumonia. 2. Accelerated hypertension. 3. Chronic kidney disease. 4. History of coronary disease with stent, 2016. 5. Type 2 diabetes. 6. Dyspnea. 7. Obesity. 8. Cervical spine disease. PROCEDURES: 1. Myocardial perfusion scan: No ischemia. 2. Echocardiogram, EF 50-55 percent. No regional wall motion abnormality. Diastolic dysfunction. Mild AV regurgitation. HISTORY OF PRESENT ILLNESS: A 62-year-old male with coronary disease, hypertension, diabetes, presents with malaise x1 day. He has had a dry cough. Denies PND, orthopnea, or lower extremity edema. He denied fevers, chills, or sweats. HOSPITAL COURSE: 1. Community-acquired pneumonia: DC on Cefdinir and Azithro for total 5 days abx. 2. Acute hypoxic respiratory failure: resolved. 3. History of systolic heart failure: Echo shows an EF of 55%. Increase Lasix to 60 mg b.i.d. Hold spironolactone. He is following up with Dr. Garcia with Renal and Dr. Weston of Cardiology this week. 4. Accelerated hypertension: stop Lisinopril and started Avapro. Resume all other home medications. Keep BP log at home. 5. CKD: Baseline Cr 1.3. He was diuresed here. Creatinine stable at 1.5. Repeat BMP on Thursday. 6. Diabetes: Resume home insulin. 7. Mildy decompensated diastolic heart failure: Lasix and BP control as above. 8. Obesity: counseled on diet and exercise. DISPOSITION: Stable for discharge home with his . DISCHARGE MEDICATIONS: 1. Stop: Spironolactone and lisinopril. 2. New: Avapro 300 mg daily, Lasix 60 mg b.i.d. FOLLOWUP: 1. Dr. Garcia on Thursday, with a BMP. 2. Dr. Weston on Thursday. PHYSICAL EXAMINATION: VITAL SIGNS: Today, temperature 36.6, blood pressure 155 /84, heart rate in the 70s, respirations 16, 90% on room air. GENERAL: He is obese, no acute distress. HEENT: PERRLA. Moist mucous membranes. CV: Regular rate and rhythm. Trace pedal edema on the right. LUNGS: Diminished but clear. ABDOMEN: Obese, soft, nontender, nondistended. Positive bowel sounds. : No Staley. MUSCULOSKELETAL: 5/5, upper and lower extremity strength. NEURO: 2 through 12 intact. PSYCH: Alert and oriented x3. Time spent on discharge: Greater than 30 minutes counseling patient and on medications and discussing case with Cardiology. /[id number]/MODL MTDDavid
--- NOTE | 2018-01-26 07:19 | GCON ---
CARDIOLOGY CONSULTATION REFERRING PHYSICIAN: Dr. Doyle REASON FOR CARDIOLOGY CONSULTATION: Shortness of breath and indeterminate troponin levels with known history of CAD. HISTORY OF PRESENT ILLNESS: The patient is a 62-year-old male who is known to our practice. 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 Lasha Weston. He has significant past history that includes CAD with previous PCI of the obtuse marginal in November 2015 with a Synergy MARILIA, noncritical disease of the LAD which was FFR 'd at that time, which showed a fraction flow gradient of 0.88, hypertension, hyperlipidemia, diabetes, NIXON (uses CPAP), and history of ischemic cardiomyopathy which has normalized with medication therapy based off most recent echocardiogram (EF 50% to 55%). Patient reporting he had been in his normal state of health. Routine exercise without symptoms. Reporting no recent fevers, chills or night sweats. Reporting Thursday night, developing a sudden feeling of increased shortness of breath and mild fatigue and also had noted a dry cough. Was brought to the emergency department by his for further evaluation. On admission, upon arrival, chest x-ray was done, which noted minimal interstitial edema, but no clear signs of heart failure. Laboratory studies drawn did note mildly elevation of troponin of 0.086, and BNP of 1430. His symptoms were not consistent with heart failure initially, and thought potentially this was a new pneumonia especially with fatigue symptoms. He was admitted to PCU for further evaluation. He was given 1 dose of IV Lasix, which he reported significantly improved his shortness of breath. He was noted to have peaked his troponin at 0.096 on the morning of January 24, and his BNP was elevated up to 2650. He reports since hospitalization he has had no further episodes of chest pain or pressure. He denies any history of orthopnea, PND, edema, palpitations, rapid weight gain, lightheadedness, near- syncope, or syncopal events. Reports no symptoms suggestive of TIA or CVA. Following his troponins, they have always remained in indeterminate levels, with most recent 1 done this morning at 0.02 on a downward decline. PAST MEDICAL HISTORY: 1. Patient with significant past medical history that includes CAD with previous PCI of the primary obtuse margin, and he has known mild LAD disease. 2. Ischemic cardiomyopathy which improved with medical therapy, LVH, diabetes, obesity, sleep apnea (on CPAP), hypertension, hyperlipidemia, and history of cervical spine disease. PAST SURGICAL HISTORY: Includes ACL reconstruction surgery on the right side greater than 20 years ago. Patient also reports previous basal cell surgery. Patient is planning to undergo cervical spine surgery in a few months. FAMILY HISTORY: The patient's reports mother with history of Alzheimer, father with history of CAD at 75, and father with history of hypertension. 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 He reports occasional EtOH use less than once or twice a week, denies of any history of smoking, denies of any illicit drug use. ALLERGIES: This patient reports no known drug allergies. HOME MEDICATIONS: Include hydralazine 25 mg p.o. t.i.d., 2.5 mg p.o. daily, isosorbide 30 mg p.o. daily, aspirin 81 mg p.o. daily, atorvastatin 40 mg p.o. HS, Humalog 5-10 units subcu t.i.d. meals, Levemir insulin 40 units subcu daily, Lasix 40 mg p.o. daily, carvedilol 25 mg p.o. twice daily, amlodipine 10 mg p.o. daily, lisinopril 40 mg p.o. daily, metformin 500 mg p.o. daily, metformin 1000 mg p.o. HS. REVIEW OF SYSTEMS: 10 point review of systems done, all negative except as mentioned above. PHYSICAL EXAMINATION: GENERAL APPEARANCE: Medium built, moderately obese male. He is alert and oriented to person, place, time, and situation. Appears to be under no acute distress. VITAL SIGNS: Current vital signs are blood pressure of 149/79, heart rate of 70, sinus rhythm on the monitor, respirations 16, saturating 93% on room air. Temperature 36.8 degrees Celsius. HEENT: Head is normocephalic. Lips and tongue are pink and moist with no signs of cyanosis. Conjunctivae pink. NECK: Trachea is midline, +2 carotid pulses bilateral. No auscultated bruits, no jugular vein distention. RESPIRATORY: Lungs are clear to auscultation, no rhonchi, rales or wheezes. No accessory muscle use. No intercostal muscle retraction noted. CARDIAC: Regular rate, regular rhythm, S1, S2, 2/6 systolic murmur noted along left upper sternal border, no rubs or gallops noted. No S3. ABDOMEN: Soft, nontender, bowel sounds x4 quadrants, no organomegaly, no palpable masses. SKIN : [place], warm, dry, no cyanosis, no clubbing, trace pedal edema bilateral lower extremities. VASCULAR: +2 carotids bilateral, +2 radials bilateral, +1 dorsal pedal and posterior tibial pulses bilateral. LABORATORY STUDIES: Today show WBC of 8.06, hemoglobin 12.3, hematocrit 36.8, platelet count of 148. Sodium 138, potassium 4.2, chloride 109, CO2 of 22, BUN 32, creatinine 1.5, glucose 190, calcium 8.3, troponin of 0.062. Noted on admission patient had a proBNP of 1430; yesterday was 2650. Noted an initial troponin of 0.086. STUDIES: Electrocardiogram on admission showing sinus rhythm with 1st degree AV block. Significant WV interval of 258 milliseconds with a possible LVH, Q- waves noted in V1. In comparison to previous EKGs this is unchanged. Chest x- ray as mentioned above. Currently pending echocardiogram, preliminary noting normal LV systolic function with no wall motion abnormalities. Currently pending Jes MPI study. Stress test done this morning. Previous echocardiogram done on September 02, 2016, showing mild concentric LVH, LV wall motion is normal, EF of 50% to 55%. Moderate diastolic dysfunction with elevated LV pressures. RV is normal size, LA is normal size, RA is normal size. ASSESSMENT AND PLAN: 1. Shortness of breath. Patient reports this has improved since his hospitalization. Initially thought to be pneumonia, but appears to be more potential diastolic heart failure, he is approximately 3 kilos above his dry weight. He is currently on IV Lasix. Pending echo report. Potentially patient may need to have increase of home dosage of diuretic therapy and better blood pressure control. Hospitalists are still treating for potential pneumonia with antibiotic therapy 2. Coronary artery disease with mild indeterminate troponins: Patient reporting no history of chest pressure pain. His electrocardiogram is unchanged from previous electrocardiograms. Did note a mild troponin up to 0.096, on downward decline now. Could potentially increase troponin level due to heart failure (cardiac stretching). The patient denies any history of chest pressure or pain but does state prior to his previous catheterization his only symptom was shortness of breath. Lexiscan MPI study was done this morning, results are currently pending. Continue on current dose of aspirin therapy at 81 mg p.o. daily, he has remained on beta-germain and carvedilol. He has been resumed on home statin therapy. Pending results of his stress testing, patient may need cardiac catheterization for further evaluation, further recommendations pending results of MPI testing. 3. Hypertension: Blood pressure during hospitalization, patient has been noted to have elevated blood pressures with systolics in the 160s, currently in the 140s. He has been resumed on all home medications. Pending results of stress testing, may need to consider adjusting medications, for better blood pressure control. 4. Chronic renal insufficiency: Patient noted to have baseline creatinine around 1.3-1.4, mildly elevated at 1.5 after intravenous Lasix. Will continue to monitor closely. 5. Diabetes: Medication adjustment per hospital services. 6. Obstructive sleep apnea: The patient has been encouraged to use home continuous positive airway pressure therapy. Thank you for this consultation. We will be glad to follow along with you. /[id number]/MODL MTDD
== END 2018-01-25 17:16 | disposition home or self-care (01) | DRG 193 ==
LOC: OBSVTOIN 20:33 → F2W 22:22
PROVIDERS: ADMIT Internal Medicine; ATTEND Internal Medicine
DX: J18.9 Pneumonia, unspecified organism (principal); I50.43 Acute on chronic combined systolic (congestive) and diastolic (congestive) heart failure; I13.0 Hypertensive heart and chronic kidney disease with heart failure and stage 1 through stage 4 chronic kidney disease, or unspecified chronic kidney disease; N18.9 Chronic kidney disease, unspecified; J96.01 Acute respiratory failure with hypoxia; E66.09 Other obesity due to excess calories; Z68.34 Body mass index [BMI] 34.0-34.9, adult; I25.10 Atherosclerotic heart disease of native coronary artery without angina pectoris; I25.2 Old myocardial infarction; Z95.5 Presence of coronary angioplasty implant and graft; E11.9 Type 2 diabetes mellitus without complications; Z79.4 Long term (current) use of insulin; Z79.84 Long term (current) use of oral hypoglycemic drugs; G47.33 Obstructive sleep apnea (adult) (pediatric); E78.00 Pure hypercholesterolemia, unspecified; M50.90 Cervical disc disorder, unspecified, unspecified cervical region
CPT/HCPCS: 96374; A9500; J0360; J0456; J0696; J1650; J1815; J1940; J2785

== ENCOUNTER 2018-03-08 09:15 | Inpatient (IN) | payer OTHER ==
--- NOTE | 2018-03-08 09:45 | EDPHY ---
H & P Stated Complaint: Low O2, pneumonia 1 week ago. Sent by PCP. Time Seen by Provider: 03/08/18 09:34 HPI/ROS: CHIEF COMPLAINT: Dry cough, easy fatigability, hypoxia HISTORY OF PRESENT ILLNESS: Patient is a 62-year-old man with a history of hypertension, chronic kidney disease, type 2 diabetes, coronary artery disease with a stent in 2016 and obesity. He was admitted to the hospital in early January and diagnosed with pneumonia. He was discharged on azithromycin and Cefdinir. His cardiac testing was negative including a myocardial perfusion scan and echocardiogram. He has done well at home until this week when he states he noticed easy fatigability when walking across the yard. He has also developed a dry cough that is nonproductive. No fever. No chest pain. No nausea vomiting or GI symptoms. He checked his oxygen at home today and got 75% . He has worn oxygen in the past at night after his stent was placed but was able to come off of it a year ago. Severity: Moderate Modifying factors: Feels great at rest REVIEW OF SYSTEMS: Constitutional: denies: chills, fever, recent illness, recent injury EENTM: denies: blurred vision, double vision, nose congestion Respiratory: See HPI Cardiac: denies: chest pain, irregular heart rate, lightheadedness, palpitations Gastrointestinal/Abdominal: denies: abdominal pain, diarrhea, nausea, vomiting, blood streaked stools Genitourinary: denies: dysuria, frequency, hematuria, pain Musculoskeletal: denies: joint pain, muscle pain Skin: denies: lesions, rash, jaundice, bruising Neurological: denies: headache, numbness, paresthesia, tingling, dizziness, weakness Hematologic/Lymphatic: denies: blood clots, easy bleeding, easy bruising Immunologic/allergic: denies: HIV/AIDS, transplant 10 systems reviewed and negative except as noted EXAM: GENERAL: Well-appearing, well-nourished and in no acute distress. HEAD: Atraumatic, normocephalic. EYES: Pupils equal round and reactive to light, extraocular movements intact, sclera anicteric, conjunctiva are normal. ENT: TMs normal, nares patent, oropharynx clear without exudates. Moist mucous membranes. NECK: Normal range of motion, supple without lymphadenopathy or JVD. LUNGS: Breath sounds clear to auscultation bilaterally and equal. No wheezes rales or rhonchi. HEART: Regular rate and rhythm without murmurs, rubs or gallops. ABDOMEN: Soft, nontender, normoactive bowel sounds. No guarding, no rebound. No masses appreciated. BACK: No CVA tenderness, no spinal tenderness, step-offs or deformities EXTREMITIES: Normal range of motion, 2+ pitting edema. No clubbing or cyanosis. NEUROLOGICAL: Cranial nerves II through XII grossly intact. Normal speech, normal gait. 5/5 strength, normal movement in all extremities, normal sensation , normal reflexes PSYCH: Normal mood, normal affect. SKIN: Warm, dry, normal turgor, no visible rashes or lesions. Source: Patient, Family, Old records - Personal History Current Tetanus Diphtheria and Acellular Pertussis (TDAP): Yes - Medical/Surgical History Hx Asthma: No Hx Chronic Respiratory Disease: Yes Hx Diabetes: Yes Hx Cardiac Disease: Yes Hx Renal Disease: No Hx Cirrhosis: No Hx Alcoholism: No Hx HIV/AIDS: No Hx Splenectomy or Spleen Trauma: No Other PMH: PMHx: DM, HTN, high chol, MA with stent nov 2015, PNA may 2016 , CPAP for NIXON, CHF. PSHx: cardiac stent 12/06 - Family History Significant Family History: No pertinent family hx - Social History Smoking Status: Never smoked Alcohol Use: Sober Drug Use: None Constitutional: Initial Vital Signs Temperature (C) 36.5 C 03/08/18 09:18 Heart Rate 79 03/08/18 09:18 Respiratory Rate 16 03/08/18 09:18 Blood Pressure 135/78 H 03/08/18 09:18 O2 Sat (%) 85 L 03/08/18 09:18 O2 Delivery Mode Nasal Cannula O2 (L/minute) 2 Allergies/Adverse Reactions: No Known Allergies Allergy (Verified 01/23/18 19:47) Home Medications: Medication Instructions Recorded Insulin Detemir [Levemir Flextouch] 20 unit SC BID 01/11/16 Insulin Lispro [Humalog Kwikpen 5 - 10 unit SC TIDMEAL 01/11/16 U-100] metFORMIN HCL [Glucophage 500 mg 500 mg PO DAILY 01/11/16 (*)] Carvedilol [Coreg (*)] 25 mg PO BIDMEAL 09/01/16 metFORMIN HCL [Glucophage 1000 mg] 1,000 mg PO HS 09/01/16 Atorvastatin Calcium [Lipitor 40 40 mg PO HS 12/25/16 mg (*)] amLODIPine BESYLATE [Norvasc 5 mg 10 mg PO DAILY 12/25/16 (*)] Aspirin [Aspirin 81mg (*)] 81 mg PO DAILY 01/24/18 Hydralazine HCl 25 mg PO TID 01/24/18 Isosorbide Mononitrate [Imdur 30 30 mg PO DAILY 01/24/18 mg (*)] Minoxidil [Minoxidil 2.5 mg (*)] 2.5 mg PO DAILY 01/24/18 Furosemide [Lasix 40 MG (*)] 60 mg PO BID #90 tab 01/25/18 Irbesartan [Avapro] 300 mg PO DAILY #30 tablet 01/25/18 Medical Decision Making - Diagnostics EKG Interpretation: An EKG obtained and was read and documented in trace view. Please see trace view for full reading and report. Sinus rhythm, Imaging: Discussed imaging studies w/ call taker Radiologist ED Course/Re-evaluation: Patient has mild CHF exacerbation. I have ordered Lasix. I spoke with the hospitalists service who accepted for Dr. Salcedo. The patient understands and agrees with this plan. Differential Diagnosis: Partial list of the Differential diagnosis considered include but were not limited to; CHF exacerbation, PE, bronchitis, pneumonia and although unlikely based on the history and physical exam, I also considered acute coronary disease , dissection. - Data Points Laboratory Results: Laboratory Results 03/08/18 09:55 03/08/18 09:55 Medications Given: Amlodipine Besylate (Norvasc) 10 mg PO DAILY [facility] Stop: 09/05/18 08:59 Last Admin: 03/09/18 08:42 Dose: 10 mg Aspirin (Aspirin) 81 mg PO DAILY [facility] Stop: 09/05/18 08:59 Last Admin: 03/09/18 08:42 Dose: 81 mg Atorvastatin Calcium (Lipitor) 40 mg PO HS [facility] Stop: 09/04/18 20:59 Last Admin: 03/08/18 21:18 Dose: 40 mg Carvedilol (Coreg) 25 mg PO BIDMEAL [facility] Stop: 09/04/18 17:59 Last Admin: 03/09/18 18:22 Dose: 25 mg Furosemide (Lasix Injection) 80 mg IVP BIDDIUR [facility] Stop: 09/04/18 14:59 Last Admin: 03/09/18 15:58 Dose: 80 mg Hydralazine HCl (Apresoline) 25 mg PO TID [facility] Stop: 09/04/18 15:59 Last Admin: 03/09/18 15:58 Dose: 25 mg Insulin Glargine (Lantus Syringe) 20 units SC BID [facility] Stop: 09/04/18 20:59 Last Admin: 03/09/18 08:40 Dose: 20 units Insulin Human Lispro (Humalog Lispro) 5 unit SC TIDMEAL [facility] Stop: 09/04/18 17:59 Last Admin: 03/09/18 17:33 Dose: Not Given Irbesartan (Avapro) 300 mg PO DAILY [facility] Stop: 09/05/18 08:59 Last Admin: 03/09/18 08:42 Dose: 300 mg Isosorbide Mononitrate (Imdur) 30 mg PO DAILY [facility] Stop: 09/05/18 08:59 Last Admin: 03/09/18 08:43 Dose: 30 mg Metformin HCl (Glucophage) 500 mg PO DAILY [facility] Stop: 09/05/18 08:59 Last Admin: 03/09/18 09:35 Dose: Not Given Metformin HCl (Glucophage) 1,000 mg PO HS [facility] Stop: 09/04/18 20:59 Last Admin: 03/08/18 21:18 Dose: 1,000 mg Minoxidil (Minoxidil) 2.5 mg PO DAILY [facility] Stop: 09/05/18 08:59 Last Admin: 03/09/18 08:42 Dose: 2.5 mg Discontinued Medications Furosemide (Lasix Injection) 40 mg IVP EDNOW ONE Stop: 03/08/18 10:41 Last Admin: 03/08/18 11:02 Dose: 40 mg Heparin Sodium (Porcine) (Heparin Injection) 0 unit IVP PRN PRN PRN Reason: re-bolus required by protocol Stop: 09/04/18 14:05 Last Admin: 03/08/18 15:24 Dose: 8,700 units Heparin Sodium (Porcine) (Heparin 50 Units/Ml (Premix)) 500 mls @ 0 mls/hr IV CONT YAZMIN; Per Protocol PRN Reason: Protocol Stop: 09/04/18 14:14 Last Admin: 03/09/18 05:02 Dose: 500 mls Point of Care Test Results: Chemistry 03/08/18 10:05 POC Troponin I 0.03 ng/mL ng/mL (0.00-0.08) Departure - Departure Disposition: [facility] Inpatient Acute Clinical Impression: CHF (congestive heart failure) Qualifiers: Heart failure type: unspecified Heart failure chronicity: acute on chronic Qualified Code(s): I50.9 - Heart failure, unspecified Condition: Fair
[2018-03-08 10:22] LABS: PLATELET COUNT 164 10^3/uL (150-400)
[2018-03-08 10:33] LABS: INR 1.07 (0.83-1.16); PROTIME(PATIENT) 14.1 SEC (12.0-15.0)
[2018-03-08] MEDS ORDERED: FUROSEMIDE 40 MG/4 ML VIAL IVP ONE (10:40)
--- NOTE | 2018-03-08 11:21 | CPEKG ---
Test Reason : OPEN Blood Pressure : / mmHG Vent. Rate : 077 BPM Atrial Rate : 075 BPM P-R Int : 244 ms QRS Dur : 115 ms QT Int : 423 ms P-R-T Axes : 078 003 120 degrees QTc Int : 479 ms Sinus rhythm Ventricular premature complex Prolonged WI interval Probable left atrial enlargement Nonspecific intraventricular conduction delay Probable anteroseptal infarct, recent Lateral leads are also involved Confirmed by Abel Sood ([id number]) on 03/08/2018 11:21:05 AM Referred By: Confirmed By:Abel Sood
--- NOTE | 2018-03-08 13:33 | PDGENHP ---
History and Physical History and Physical: CC: exertinal fatigue and dyspnea HISTORY: This patient with hx of CHF and comes in with 3-4 days of exertional fatigue and dyspnea. Notably he did just return from 4 day trip to [place]. No angina or pleuritic pain. No nausea. No cough or fever. Mild leg edema, ? if worse than usual. No changes in medicines. No tobacco ROS: 10 system review reveals no other abnormalities. PAST MEDICAL HISTORY: -CHF, systolic -Coronary artery disease status post stenting -Ischemic cardiomyopathy with 40% ejection fraction as of last month, global -Type 2 diabetes -NIXON -Hyperlipidemia -Chronic renal insufficiency stage iii -Hypertension -Obesity FAMILY MEDICAL HISTORY: father of myocardial infarction, brother with stents and bypass surgery SOCIAL HISTORY: and lives with his No use of tobacco MEDICATIONS: his medicine list has been reconciled by the pharmacist in is in the electronic health record. I have written reviewed that list. As no medicine allergies PHYSICAL EXAMINATION: Vital Signs: mildly hypertensive otherwise stable without fever Medical Billing Clerk: sinus rhythm Examination: General: alert, oriented, good mentation, relaxed Skin: warm, dry, good color, no rash HEENT: normal Neck: no mass or jvd Resps: relaxed Lungs: a few basilar rales bilaterally Heart: regular, no murmur Abdomen: soft, nondistended, nontender, +BS, no mass Upper Extremities: normal Lower Extremities: 1+ edema both ankles, warm No Bleeding or bruising Neurologic: normal speech/language, normal hot roller, no focal weakness IV site: looks normal LABORATORY DATA: troponin normal BNP 2300 BUN cr 42/1.7, uust above his baseline 1.5 last month EKG: I reviewed the EKG tracing from the ER, and there is sinus rhythm with nonspecific interventricular conduction abnormality unchanged from previous RADIOLOGY STUDIES: chest x-ray PA and lateral done in the ER today, my personal review of the images: The cardiac silhouette is enlarged there is mild bilateral pulmonary edema and vascular engorgement I reviewed Echocardiogram from 02/07: good EF, no significant valvular or R heart issues ASSESSMENT: 1. ACUTE SYSTOLIC CONGESTIVE HEART FAILURE I suspect this is likely due to travel and salt noncompliance, but will watch for arrythmia or signs of ischemia 2. CONCERN FOR POSSIBLE PE (recent travel, dyspnea, and high d dimer) 3. Hx of CAD AND STENTS, DIASTOLIC HEART DISEASE, GOOD EF (last echo 1 month ago unremarkable) 4. MILD ACUTE ON CHRONIC RENAL INSUFF 5. DIABETES MELLITUS TYPE 2 6. OBSTRUCTIVE SLEEP APNEA PLANS: * obs admission * diuresis * anticoagulation overnight full dose * recheck renal fxn in am, plan on likely CT angio chest to look for PE if renal fxn stable * follow closely for any signs of coronary ischemia but none so far * Follow sugars closely I have reviewed the patient's past medical records as part of this assessment, including past hospital and clinic records
[2018-03-08] MEDS ORDERED: HEPARIN 10,000 UNIT/10 ML MDV (1,000 UNIT/ML) IVP PRN (14:06)
--- NOTE | 2018-03-08 14:29 | ASMTCMCOM ---
CM Note CM Note Notes: Patient admitted with weakness and fatigue following a hospitalization one month ago for PNA. He is normally independent and lives with his . I anticipate that he will discharge independently. Date Signed: 03/08/2018 02:28 PM Electronically Signed By:Kadie Kruse RN
[2018-03-08] MEDS: FUROSEMIDE 100 MG/10 ML VIAL IVP SCH (15:17)
[2018-03-08] MEDS: hydrALAZINE 25 MG TAB PO SCH ×2 (15:23→21:18)
[2018-03-08] MEDS: HEPARIN/DEXTROSE 500 ML IV SCH (15:30)
[2018-03-08] MEDS: INSULIN LISPRO 100 UNIT/ML SC SCH (17:51)
[2018-03-08] MEDS: CARVEDILOL 25 MG TAB PO SCH (17:52)
[2018-03-08] MEDS ORDERED: FUROSEMIDE 40 MG TAB PO SCH (21:00)
[2018-03-08] MEDS ORDERED: metFORMIN HCL 500 MG TAB PO SCH (21:00)
[2018-03-08] MEDS: INSULIN GLARGINE 100 UNITS/ML UNIT SC SCH (21:18)
[2018-03-08] MEDS: ATORVASTATIN CALCIUM 40 MG TAB PO SCH (21:18)
[2018-03-09 04:44] LABS: PROTIME(PATIENT) 14.4 SEC (12.0-15.0)
[2018-03-09] MEDS: HEPARIN/DEXTROSE 500 ML IV SCH (05:02)
[2018-03-09] MEDS: INSULIN LISPRO 100 UNIT/ML SC SCH ×3 (08:40→17:33)
[2018-03-09] MEDS: INSULIN GLARGINE 100 UNITS/ML UNIT SC SCH ×2 (08:40→21:23)
[2018-03-09] MEDS: hydrALAZINE 25 MG TAB PO SCH ×3 (08:41→21:23)
[2018-03-09] MEDS: ASPIRIN 81 MG CHEWABLE TAB PO SCH (08:42)
[2018-03-09] MEDS: IRBESARTAN 150 MG TAB PO SCH (08:42)
[2018-03-09] MEDS: CARVEDILOL 25 MG TAB PO SCH ×2 (08:42→18:22)
[2018-03-09] MEDS: amLODIPine BESYLATE 5 MG TAB PO SCH (08:42)
[2018-03-09] MEDS: ISOSORBIDE MONONITRATE 30 MG TAB.SR PO SCH (08:43)
[2018-03-09] MEDS ORDERED: metFORMIN HCL 500 MG TAB PO SCH (09:00)
[2018-03-09] MEDS ORDERED: MINOXIDIL 2.5 MG TAB PO SCH (09:00)
--- NOTE | 2018-03-09 09:12 | HOSPPROG ---
Hospitalist Progress Note Assessment/Plan: DIAGNOSES: * ACUTE HYPOXEMIC RESPIRATORY FAILURE * INDETERMINATE ELEVATION OF CARDIAC TROPONIN * SYSTOLIC CONGESTIVE HEART FAILURE ACUTE MILD EXACERBATION * CONCERN FOR POSSIBLE PE (recent travel, dyspnea, and high d dimer) * Hx of CAD AND STENTS, DIASTOLIC HEART DISEASE, GOOD EF (last echo 1 month ago unremarkable) * MILD ACUTE ON CHRONIC RENAL INSUFF * DIABETES MELLITUS TYPE 2 * OBSTRUCTIVE SLEEP APNEA Symptoms could potentially be related solely to travel and noncompliance with salt intake during the travel; also his somewhat hypertensive in this could be causing some of his trouble. However with elevated troponin and D-dimer could not rule out PE. Also has known coronary disease and would have some suspicion for acute coronary episode. Notably the patient had ejection fraction of 50% last month and had no signs of ischemia on myocardial perfusion imaging. However as he came in he was not having significant enough symptoms or physiologic changes that I would expect them to cause a troponin bump based on stress related ischemia. He does have known diffuse coronary disease and will be worried about false negative myocardial perfusion imaging from balanced ischemia PLANS: * CT scan with angio of chest now to rule out PE * Once we see the results of that determine whether will either be anticoagulating for PE, or needing further assessment for possible acute ischemic episode * Continue diuresis * Continue IV heparin at this time until CT angio done * Will hold on metformin for now as he will be getting contrast * Continue certified dietary manager for any arrhythmia Seen by me on hospitals rounds as well as multidisciplinary rounds today Needs ongoing IV Lasix diuresis and further diagnostic assessments, will changed inpatient as he will need to stay overnight again. SUBJECTIVE: Feels notably better says breathing is less labored No chest pain OBJECTIVE Vitals reviewed: Mild hypertension otherwise all normal without fever Is requiring 4 L nasal cannula oxygen Assistant Plant Manager, my review: Sinus with occasional PVCs I&O: Exam: alert oriented skin warm dry color ok resps not labored lungs clear BSs heart regular abd soft nondistended nontender, bowel sounds present limbs warm, less edema of legs than yesterday iv site ok Lab data: Renal function slightly improved to creatinine 1.6 which is his baseline Cardiac troponin now up at 0.066 Sugars in acceptable range for inpatient care Objective: Vital Signs Temp Pulse Resp BP Pulse Ox 36.7 C 75 18 147/77 H 93 03/09/18 07:46 03/09/18 08:42 03/09/18 07:46 03/09/18 08:42 03/09/18 07:46 Laboratory Results 03/09/18 03:52 03/08/18 03/09/18 03/10/18 06:59 06:59 06:59 Intake Total 877.4 Output Total 3550 275 Balance -2672.6 -275 PT 14.4 SEC (12.0-15.0) 03/09/18 03:52 INR 1.10 (0.83-1.16) 03/09/18 03:52 - Time Spent With Patient Time Spent with Patient: greater than 35 minutes Time Spent with Patient: Greater than 35 minutes spent on this patients care, greater than 50% of time spent counseling, educating, and coordinating care regarding the above mentioned plan. ICD10 Worksheet Patient Problems: Problems Problem Status Onset CHF (congestive heart failure) Acute Acute exacerbation of congestive heart failure Acute Diabetes Acute Elevated troponin Acute HTN (hypertension) Acute Hyperglycemia Acute NSTEMI (non-ST elevated myocardial infarction) Acute Orthostatic hypotension Acute Pneumonia Acute Respiratory failure with hypoxia Acute
[2018-03-09] MEDS ORDERED: IOPAMIDOL (ISOVUE 370) 100 ML BTL IV ONE (09:53)
[2018-03-09] MEDS: FUROSEMIDE 100 MG/10 ML VIAL IVP SCH ×2 (10:42→15:58)
--- NOTE | 2018-03-09 17:25 | PDCARCONS ---
Cardiology Consult Reason for Consult: Congestive heart failure Chief Complaint: Fatigue. Requesting Physician: Dr. Isidro Salcedo. History of Present Illness: This is a pleasant 62-year-old male typically followed in our outpatient clinic by Dr. Lasha Weston. He has a cardiovascular history significant for known coronary artery disease. He underwent cardiac catheterization November of 2015. That angiogram demonstrated a high-grade obtuse marginal lesion which was treated with PCI and stenting. Evaluation of the remainder of the coronary tree suggested moderate disease throughout the mid LAD. His ejection fraction was 50% at that time. His end-diastolic pressure was noted to be 28 mmHg. Additionally, he has a history of difficult to control hypertension, type 2 diabetes mellitus, obesity, chronic renal insufficiency with a baseline creatinine of 1.6 and untreated sleep apnea. He has been hospitalized on several occasions in the past with decompensated congestive heart failure in the setting of a near normal ejection fraction. Most recently, he was in the hospital month ago. At that time he had hypoxemia presumed to be the result of heart failure in conjunction with possible upper respiratory infection. He seen in consultation today in the PCU with complaints of exertional fatigue and concerns for recurrent congestive heart failure. He states he was doing very well up until about 4 days ago. He had his brother traveled to [place] to do business. While he was out there he clearly states that he was not eating his typical low-salt diet. He did, however, take his medications regularly. He noted that he was experiencing symptoms of severe fatigue predominantly with ambulation. His brother complained that he was not able to keep up with him. He noted his symptoms mostly when he was going up and down stairs. Upon returning to the local area here he had symptoms of lower extremity edema and exertional dyspnea. At no time did he have chest discomfort. Because of these symptoms he came to the emergency department and was admitted to the hospital on March 08. Was subsequently diagnosed with decompensated congestive heart failure. He has been receiving intravenous diuretics with a nice diuresis. He has noted that he has had an improvement in his overall symptomatology. During this hospitalization had a chest x-ray performed that demonstrated findings consistent with congestive heart failure. A CTA of the chest also demonstrated interstitial pulmonary edema with bilateral pleural effusions. His N terminal proBNP was 2300. A troponin was drawn which was 0.06. His ECG demonstrated sinus rhythm, first-degree AV block, a nonspecific IVCD at 115 milliseconds associated with nonspecific ST and T changes and an isolated PVC. History Information - Allergies/Home Medication List Allergies/Adverse Reactions: No Known Allergies Allergy (Verified 01/23/18 19:47) Home Medications: Insulin Detemir [Levemir Flextouch] 20 unit SC BID 01/11/16 [Last Taken 21:00] Insulin Lispro [Humalog Kwikpen U-100] 5 - 10 unit SC TIDMEAL 01/11/16 [Last Taken 03/07/18 18:00 5 units] metFORMIN HCL [Glucophage 500 mg (*)] 500 mg PO DAILY 01/11/16 [Last Taken 03/08] Carvedilol [Coreg (*)] 25 mg PO BIDMEAL 09/01/16 [Last Taken 03/08/18] metFORMIN HCL [Glucophage 1000 mg] 1,000 mg PO HS 09/01/16 [Last Taken 03/07/18] Atorvastatin Calcium [Lipitor 40 mg (*)] 40 mg PO HS 12/25/16 [Last Taken ] amLODIPine BESYLATE [Norvasc 5 mg (*)] 10 mg PO DAILY 12/25/16 [Last Taken 03/08] Aspirin [Aspirin 81mg (*)] 81 mg PO DAILY 01/24/18 [Last Taken Unknown] Hydralazine HCl 25 mg PO TID 01/24/18 [Last Taken 03/08/18] Isosorbide Mononitrate [Imdur 30 mg (*)] 30 mg PO DAILY 01/24/18 [Last Taken ] Minoxidil [Minoxidil 2.5 mg (*)] 2.5 mg PO DAILY 01/24/18 [Last Taken 03/08/18] I have personally reviewed and updated: family history, medical history, social history, surgical history Past Medical History: Coronary artery disease with previous stenting of an obtuse marginal branch, history of cardiomyopathy now with normalization of his ejection fraction, chronic diastolic congestive heart failure, type 2 diabetes mellitus, chronic renal insufficiency stage III, untreated obstructive sleep apnea, hyperlipidemia , hypertension, obesity and skin cancer of his left arm. Additionally he has significant cervical spine stenosis with planned surgery in the next week. - Surgical History Reports: no pertinent surgical hx - Family History Positive for: non-pertinent (He likes to exercise predominantly by lifting weights and cycling. 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[employer].) - Social History Smoking Status: Never smoked Alcohol Use: Sober Drug Use: None Physical Exam Physical Exam: Temp Pulse Resp BP Pulse Ox 36.4 C 74 18 151/83 H 94 03/09/18 15:58 03/09/18 15:58 03/09/18 15:58 03/09/18 15:58 03/09/18 15:58 O2 (L/minute) 4 Constitutional: no apparent distress, appears nourished, not in pain Eyes: PERRL, anicteric sclera, EOMI Ears, Nose, Mouth, Throat: moist mucous membranes, hearing normal, ears appear normal, no oral mucosal ulcers Cardiovascular: regular rate and rhythym, no murmur, rub, or gallop, edema ( Trace bipedal edema) Respiratory: no respiratory distress, no rales or rhonchi, clear to auscultation Gastrointestinal: normoactive bowel sounds, soft, non-tender abdomen, no palpable masses Genitourinary: no bladder fullness, no bladder tenderness Skin: warm, normal color, no rashes or abrasions, no fluctuance, no induration, No mottled Musculoskeletal: full muscle strength, no muscle tenderness, normal joint ROM, no joint effusions Psychiatric: interacting appropriately, not anxious, not encephalopathic, thought process linear Lymph, Heme, Immunologic: no cervical LAD, no supraclavicular LAD Lab and Imaging 03/08/18 09:55 03/09/18 03:52 WBC 7.15 10^3/uL (3.80-9.50) 03/08/18 09:55 RBC 4.42 10^6/uL (4.40-6.38) 03/08/18 09:55 Hgb 12.6 g/dL (13.7-17.5) L 03/08/18 09:55 Hct 38.3 % (40.0-51.0) L 03/08/18 09:55 MCV 86.7 fL (81.5-99.8) 03/08/18 09:55 MCH 28.5 pg (27.9-34.1) 03/08/18 09:55 MCHC 32.9 g/dL (32.4-36.7) 03/08/18 09:55 RDW 13.5 % (11.5-15.2) 03/08/18 09:55 Plt Count 164 10^3/uL (150-400) 03/08/18 09:55 MPV 11.8 fL (8.7-11.7) H 03/08/18 09:55 Neut % (Auto) 69.4 % (39.3-74.2) 03/08/18 09:55 Lymph % (Auto) 15.1 % (15.0-45.0) 03/08/18 09:55 [place] % (Auto) 9.8 % (4.5-13.0) 03/08/18 09:55 Eos % (Auto) 4.6 % (0.6-7.6) 03/08/18 09:55 Baso % (Auto) 0.7 % (0.3-1.7) 03/08/18 09:55 Nucleat RBC Rel Count 0.0 % (0.0-0.2) 03/08/18 09:55 Absolute Neuts (auto) 4.96 10^3/uL (1.70-6.50) 03/08/18 09:55 Absolute Lymphs (auto) 1.08 10^3/uL (1.00-3.00) 03/08/18 09:55 Absolute Monos (auto) 0.70 10^3/uL (0.30-0.80) 03/08/18 09:55 Absolute Eos (auto) 0.33 10^3/uL (0.03-0.40) 03/08/18 09:55 Absolute Basos (auto) 0.05 10^3/uL (0.02-0.10) 03/08/18 09:55 Absolute Nucleated RBC 0.00 10^3/uL (0-0.01) 03/08/18 09:55 Immature Gran % 0.4 % (0.0-1.1) 03/08/18 09:55 Immature Gran # 0.03 10^3/uL (0.00-0.10) 03/08/18 09:55 PT 14.4 SEC (12.0-15.0) 03/09/18 03:52 INR 1.10 (0.83-1.16) 03/09/18 03:52 APTT 31.4 SEC (23.0-38.0) 03/08/18 09:55 D-Dimer 0.62 ug/mLFEU (0.00-0.50) H 03/08/18 09:55 Heparin Anti-Xa, Unfract < 0.10 IU/mL (0.32-0.67) L 03/09/18 03:52 Sodium 140 mEq/L (135-145) 03/09/18 03:52 Potassium 4.0 mEq/L (3.5-5.2) 03/09/18 03:52 Chloride 111 mEq/L (97-110) H 03/09/18 03:52 Carbon Dioxide 20 mEq/l (22-31) L 03/09/18 03:52 Anion Gap 9 mEq/L (6-14) 03/09/18 03:52 BUN 38 mg/dL (7-23) H 03/09/18 03:52 Creatinine 1.6 mg/dL (0.7-1.3) H 03/09/18 03:52 Estimated GFR 44 03/09/18 03:52 Glucose 168 mg/dL (70-100) H 03/09/18 03:52 POC Glucose 251 mg/dL (70-100) H 03/09/18 11:43 Calcium 8.2 mg/dL (8.5-10.4) L 03/09/18 03:52 Magnesium 1.8 mg/dL (1.6-2.3) 03/08/18 09:55 Total Bilirubin 1.0 mg/dL (0.1-1.4) 03/08/18 09:55 Conjugated Bilirubin 0.3 mg/dL (0.0-0.5) 03/08/18 09:55 Unconjugated Bilirubin 0.7 mg/dL (0.0-1.1) 03/08/18 09:55 AST 29 IU/L (17-59) 03/08/18 09:55 ALT 53 IU/L (21-72) 03/08/18 09:55 Alkaline Phosphatase 43 IU/L (38-126) 03/08/18 09:55 POC Troponin I 0.03 ng/mL (0.00-0.08) 03/08/18 10:05 Troponin I 0.066 ng/mL (0.000-0.034) H 03/09/18 03:52 NT-Pro-B Natriuret Pep 2300 pg/mL (0-125) H 03/08/18 09:55 Total Protein 5.7 g/dL (6.3-8.2) L 03/08/18 09:55 Albumin 3.4 g/dL (3.5-5.0) L 03/08/18 09:55 Visualized and Interpreted Chest x-ray results: Yes Chest X-ray Interpretation: other (Mild CHF) Visualized and Interpreted EKG results: Yes EKG additional interpertation: See HPI Telemetry: Sinus rhythm. A/P Assessment: This is a 62-year-old male with a cardiovascular history significant for known CAD status post PCI/stenting of an obtuse marginal branch a little over 2 years ago, a resolved ischemic cardiomyopathy, difficult to control hypertension, hyperlipidemia, type 2 diabetes mellitus, obesity and untreated obstructive sleep apnea who is admitted with signs and symptoms that suggest mild decompensated congestive heart failure. He initially presented with symptoms of fatigue. Objectively he has evidence of an elevated brain atretic peptide and imaging studies that indicate interstitial pulmonary edema associated with bilateral pleural effusions. He had a stress myocardial perfusion imaging study done a month ago that was unremarkable and an echocardiogram which, detailed above, indicates that his ejection fraction is near normal. My suspicion is that his decompensated heart failure is likely multifactorial related to dietary indiscretion in the setting of his recent travels, poorly controlled hypertension, obesity and untreated obstructive sleep apnea. I am hopeful that with optimization of his risk factors his heart failure will come under nice control. Plan: 1. Continue his current IV diuretics today. 2. Tomorrow I would recommend that we transition him to p. O. Diuretics in the form of 80 mg of Lasix twice daily. Obviously in light of his chronic renal insufficiency will need to carefully follow his electrolytes and creatinine. 3. I have increased his minoxidil up to 5 mg daily. I think it is likely that we will need to use higher doses of minoxidil and potentially hydralazine to achieve optimal blood pressure control. Ideally I would like to see his systolics around 120 mmHg. 4. I think as an outpatient he should be referred to Sleep Medicine to see if they can come up with a plan to treat his sleep apnea. He states he is not able to tolerate his CPAP. He may be a candidate for a mandibular advancement device. 5. Depending on his clinical course I would have a low threshold for repeating a cardiac catheterization despite the fact that he had a recent normal nuclear stress test. 6. Consider treating his type 2 diabetes mellitus with Dapaglifozin. 7. Check fasting lipids and hemoglobin A1c. 8. We will follow along with you. Review of Systems Review of Systems: - Review of Systems Constitutional: see HPI EENTM: no symptoms reported Respiratory: see HPI Cardiac: see HPI Gastrointestinal/Abdominal: no symptoms reported Genitourinary: no symptoms Musculoskelatal: no symptoms Skin: no symptoms Neurological: no symptoms Hematologic/Lymphatic: no symptoms reported Immunologic/allergic: no symptoms reported All Other Systems: Reviewed and Negative
[2018-03-09] MEDS: ATORVASTATIN CALCIUM 40 MG TAB PO SCH (21:23)
[2018-03-10] MEDS: FUROSEMIDE 100 MG/10 ML VIAL IVP SCH (08:46)
[2018-03-10] MEDS: ISOSORBIDE MONONITRATE 30 MG TAB.SR PO SCH (08:50)
[2018-03-10] MEDS: CARVEDILOL 25 MG TAB PO SCH ×2 (08:50→17:55)
[2018-03-10] MEDS: INSULIN GLARGINE 100 UNITS/ML UNIT SC SCH ×2 (08:50→20:11)
[2018-03-10] MEDS: IRBESARTAN 150 MG TAB PO SCH (08:50)
[2018-03-10] MEDS: amLODIPine BESYLATE 5 MG TAB PO SCH (08:50)
[2018-03-10] MEDS: hydrALAZINE 25 MG TAB PO SCH ×3 (08:50→21:16)
[2018-03-10] MEDS: ASPIRIN 81 MG CHEWABLE TAB PO SCH (08:51)
[2018-03-10] MEDS: INSULIN LISPRO 100 UNIT/ML SC SCH ×3 (08:51→17:55)
[2018-03-10] MEDS ORDERED: FUROSEMIDE 80 MG TAB PO SCH ×2 (09:00→10:15)
[2018-03-10] MEDS: MINOXIDIL 2.5 MG TAB PO SCH (09:05)
--- NOTE | 2018-03-10 09:21 | SOAPPROG ---
SOAP Progress Note Assessment/Plan: Assessment: 1. Congestive heart failure. This is noted in the setting of a relatively normal ejection fraction in the absence of significant valvular heart disease. This is likely contributed to by poorly controlled hypertension, dietary indiscretion, obesity and untreated obstructive sleep apnea. He has responded nicely to the administration of intravenous diuretics with a net negative diuresis of a little over 4 L and a weight loss of just about 2 kg. Today he states he feels much better and appears euvolemic on physical examination. 2. Coronary artery disease. A little over 2 years ago he had PCI/stenting of an obtuse marginal branch. During this hospitalization his troponin levels are very slightly elevated noted in the setting of his decompensated heart failure. In reviewing previous hospitalizations he has had similar low level troponin elevations. I do not think that this current elevation represents ongoing ischemia. This is likely a reflection of his congestive heart failure. 3. Hypertension. This continues to be problematic and poorly controlled. This is likely contributed to by the same factors that are contributing to his congestive heart failure. I do not think that he has had a full workup for secondary causes of hypertension which may be worthwhile pursuing in the near future depending on his response to medical therapy. 4. Hyperlipidemia. Currently on statin therapy with nicely controlled lipids. 5. Type 2 diabetes mellitus. He has reasonable control based on his hemoglobin A1c of 7.4%. 6. Chronic renal insufficiency. This is stable at the present time. Plan: 1. Today I have increased his minoxidil up to 5 mg daily. 2. I will plan to transition him from IV to p. O. Diuretics. I have written him for Lasix 80 mg twice daily. This represents an increase in his Lasix dose compared to his typical outpatient dosing. 3. We will need to carefully follow his electrolytes and renal function. I have written for a BMP to be drawn tomorrow. We will also need to follow this closely in the outpatient setting. 4. I think it is likely that he will be able to be discharged home tomorrow. 5. Given the fact that he has had this hospitalization and another hospitalization a month ago both likely related to decompensated heart failure I think that we should postpone the planned cervical spine surgery pending optimization of his heart failure. This was discussed with his spine surgeon who is in agreement. 6. As noted above, I would have a low threshold for pursuing a workup for secondary causes of hypertension in this individual. 7. When available, I think he would be an ideal candidate for the institution of an SGLT-1 inhibitor. 03/10/18 09:21 Subjective: He states he is doing well. He slept well last night. He has not experienced any significant anginal quality chest discomfort nor has he had significant dyspnea. His lower extremity edema has resolved. I did have a conversation with Dr. Stock (spine surgery) regarding the patient's cervical spine stenosis. Apparently, there were plans for Mr. Merino to have an extensive cervical spine operation on March 17. Objective: Vital Signs Temp Pulse Resp BP Pulse Ox 36.7 C 75 14 156/92 H 95 03/10/18 07:12 03/10/18 07:12 03/10/18 07:12 03/10/18 07:12 03/10/18 07:12 Laboratory Results 03/09/18 03:52 03/09/18 03/10/18 03/11/18 05:59 05:59 05:59 Intake Total 877.4 850 Output Total 3550 2500 275 Balance -2672.6 -1650 -275 PT 14.4 SEC (12.0-15.0) 03/09/18 03:52 INR 1.10 (0.83-1.16) 03/09/18 03:52 Laboratory Tests 03/09/18 15:15 Hemoglobin A1c 7.2 H Physical Exam - Physical Exam General Appearance: WD/WN, alert, no apparent distress EENT: PERRL/EOMI, normal ENT inspection, pharynx normal, TMs normal Neck: non-tender, full range of motion, supple, normal inspection Respiratory: chest non-tender, lungs clear, normal breath sounds Cardiac/Chest: normal peripheral pulses, regular rate, rhythm Peripheral Pulses: 2+: carotid (R), carotid (L), femoral (R), femoral (L), dorsalis-pedis (R), dorsalis-pedis (L) Abdomen: normal bowel sounds, non-tender, soft Male Genitalia: deferred Rectal: deferred Back: Normal inspection Skin: normal color, warm/dry Lymphatic: no adenopathy Extremities: normal range of motion, non-tender, normal inspection, normal capillary refill Neuro/Psych: no motor/sensory deficits, alert, normal mood/affect, oriented x 3 ICD10 Worksheet Patient Problems: Problems Problem Status Onset Diabetes Acute HTN (hypertension) Acute NSTEMI (non-ST elevated myocardial infarction) Acute Acute exacerbation of congestive heart failure Acute Elevated troponin Acute Hyperglycemia Acute Orthostatic hypotension Acute Pneumonia Acute Respiratory failure with hypoxia Acute CHF (congestive heart failure) Acute
--- NOTE | 2018-03-10 11:34 | PDMN ---
Medical Necessity Medical necessity: Change to inpt as of 03/09/18 @ 17:30. Pt meets inpt criteria per MD order and MCG M-190, Heart Failure, A-2 days. 62 y/o presented w/fatigue and dyspnea, admitted w/acute systolic CHF and mild acute on chronic renal insuff. Upgraded to inpt for dyspnea that persists outside of obs care requiring 4L O2 and CTA of chest shows interstitial pulm edema w/moderate to large bilateral pleural effusions, and bibasilar compressive atelectasis, need for further IV diuresis. Other comorbidities include CAD, HTN, obesity, chronic renal insuff, and type 2 diabetes. Anticipate>2MN for onging med nec eval/ management of above.
--- NOTE | 2018-03-10 13:23 | HOSPPROG ---
Hospitalist Progress Note Assessment/Plan: DIAGNOSES: * ACUTE HYPOXEMIC RESPIRATORY FAILURE * INDETERMINATE ELEVATION OF CARDIAC TROPONIN * SYSTOLIC CONGESTIVE HEART FAILURE ACUTE MILD EXACERBATION * CONCERN FOR POSSIBLE PE (recent travel, dyspnea, and high d dimer) * Hx of CAD AND STENTS, DIASTOLIC HEART DISEASE, GOOD EF (last echo 1 month ago unremarkable) * MILD ACUTE ON CHRONIC RENAL INSUFF * DIABETES MELLITUS TYPE 2 * OBSTRUCTIVE SLEEP APNEA PLANS: * Continue diuresis, switched per Cardiology to 80 mg PO BID * Will hold on metformin for now as he will be getting contrast, continue home insulin regimen * Cardiology increased Minoxidil, continue to monitor BP * Continue hall monitor for any arrhythmia Subjective: Patient reports feeling well this AM Objective: Vital Signs Temp Pulse Resp BP Pulse Ox 36.5 C 70 18 138/59 H 94 03/10/18 12:00 03/10/18 12:00 03/10/18 12:00 03/10/18 12:00 03/10/18 12:00 03/09/18 03/10/18 03/11/18 05:59 05:59 05:59 Intake Total 350 Output Total 1350 775 Balance -1000 -775 PT 14.4 SEC (12.0-15.0) 03/09/18 03:52 INR 1.10 (0.83-1.16) 03/09/18 03:52 - Physical Exam Constitutional: no apparent distress Eyes: PERRL Ears, Nose, Mouth, Throat: moist mucous membranes Cardiovascular: regular rate and rhythym Respiratory: no respiratory distress, reduced air movement Gastrointestinal: normoactive bowel sounds Genitourinary: no bladder fullness Skin: warm Musculoskeletal: full muscle strength Neurologic: AAOx3 Psychiatric: interacting appropriately ICD10 Worksheet Patient Problems: Problems Problem Status Onset CHF (congestive heart failure) Acute Acute exacerbation of congestive heart failure Acute Diabetes Acute Elevated troponin Acute HTN (hypertension) Acute Hyperglycemia Acute NSTEMI (non-ST elevated myocardial infarction) Acute Orthostatic hypotension Acute Pneumonia Acute Respiratory failure with hypoxia Acute
[2018-03-10] MEDS: FUROSEMIDE 80 MG TAB PO SCH (15:13)
[2018-03-10] MEDS: ATORVASTATIN CALCIUM 40 MG TAB PO SCH (20:11)
[2018-03-11] MEDS: INSULIN GLARGINE 100 UNITS/ML UNIT SC SCH ×2 (08:22→20:59)
[2018-03-11] MEDS: MINOXIDIL 2.5 MG TAB PO SCH (08:22)
[2018-03-11] MEDS: ENOXAPARIN 40 MG/0.4 ML SYR SC SCH (08:22)
[2018-03-11] MEDS: INSULIN LISPRO 100 UNIT/ML SC SCH ×3 (08:22→17:49)
[2018-03-11] MEDS: hydrALAZINE 25 MG TAB PO SCH ×3 (08:23→20:59)
[2018-03-11] MEDS: CARVEDILOL 25 MG TAB PO SCH ×2 (08:23→17:49)
[2018-03-11] MEDS: FUROSEMIDE 80 MG TAB PO SCH ×2 (08:23→15:14)
[2018-03-11] MEDS: IRBESARTAN 150 MG TAB PO SCH (08:23)
[2018-03-11] MEDS: ASPIRIN 81 MG CHEWABLE TAB PO SCH (08:23)
[2018-03-11] MEDS: ISOSORBIDE MONONITRATE 30 MG TAB.SR PO SCH (08:23)
--- NOTE | 2018-03-11 09:41 | SOAPPROG ---
SOAP Progress Note Assessment/Plan: Assessment: 1. Congestive heart failure. This is noted in the setting of a relatively normal ejection fraction in the absence of significant valvular heart disease. This is likely contributed to by poorly controlled hypertension, dietary indiscretion, obesity and untreated obstructive sleep apnea. He has responded nicely to the administration of intravenous diuretics with a net negative diuresis of a little over 4 L and a weight loss of just about 2 kg. Today he states he feels much better and appears euvolemic on physical examination. 2. Coronary artery disease. A little over 2 years ago he had PCI/stenting of an obtuse marginal branch. During this hospitalization his troponin levels are very slightly elevated noted in the setting of his decompensated heart failure. In reviewing previous hospitalizations he has had similar low level troponin elevations. I do not think that this current elevation represents ongoing ischemia. This is likely a reflection of his congestive heart failure. 3. Hypertension. This continues to be problematic and poorly controlled. This is likely contributed to by the same factors that are contributing to his congestive heart failure. I do not think that he has had a full workup for secondary causes of hypertension which may be worthwhile pursuing in the near future depending on his response to medical therapy. 4. Hyperlipidemia. Currently on statin therapy with nicely controlled lipids. 5. Type 2 diabetes mellitus. He has reasonable control based on his hemoglobin A1c of 7.4%. 6. Chronic renal insufficiency. This is stable at the present time. 03/11/2018: While clinically he has shown significant improvement and based on complaints he has had substantial progress he continues to manifest hypoxemia and has mild bipedal edema. I had wanted to send him home today. I think we should hold off for another day and continue with diuretic therapy. Yesterday is minoxidil was increased up to the present dose of 5 mg daily. He continues to be hypertensive however I think we should adjust his medications very slowly. Plan: 1. Continue oral Lasix. 2. I have given him a single dose of IV Diuril. 3. We will carefully monitor his I/O. Depending on his response to therapy we may need to reinstitute IV diuretics this afternoon. 4. We will continue his current antihypertensive regimen for now. 5. I would like to resolve his oxygen requirement prior to hospital discharge 03/11/18 09:38 Subjective: He states that he feels much better today. He was able to ambulate on the vance using supplemental oxygen and feels back to his baseline. Unfortunately, he continues to be hypoxic with resting sats in the high 80s. Objective: Vital Signs Temp Pulse Resp BP Pulse Ox 36.8 C 77 15 156/103 H 87 L 03/11/18 07:24 03/11/18 07:24 03/11/18 07:24 03/11/18 07:24 03/11/18 09:32 Laboratory Results 03/11/18 04:07 03/10/18 03/11/18 03/12/18 05:59 05:59 05:59 Intake Total 350 870 Output Total 1350 1900 350 Balance -1000 -1030 -350 PT 14.4 SEC (12.0-15.0) 03/09/18 03:52 INR 1.10 (0.83-1.16) 03/09/18 03:52 Physical Exam - Physical Exam General Appearance: WD/WN, alert, no apparent distress EENT: PERRL/EOMI, normal ENT inspection, pharynx normal, TMs normal Neck: non-tender, full range of motion, supple, normal inspection Respiratory: chest non-tender, lungs clear, normal breath sounds Cardiac/Chest: normal peripheral pulses, regular rate, rhythm, edema (Trace bipedal edema extending to the mid barbosa) Peripheral Pulses: 2+: carotid (R), carotid (L), femoral (R), femoral (L), dorsalis-pedis (R), dorsalis-pedis (L) Abdomen: normal bowel sounds, non-tender, soft Male Genitalia: deferred Rectal: deferred Back: Normal inspection Skin: normal color, warm/dry Lymphatic: no adenopathy Extremities: normal range of motion, non-tender, normal inspection, normal capillary refill Neuro/Psych: no motor/sensory deficits, alert, normal mood/affect, oriented x 3 ICD10 Worksheet Patient Problems: Problems Problem Status Onset CHF (congestive heart failure) Acute Acute exacerbation of congestive heart failure Acute Diabetes Acute Elevated troponin Acute HTN (hypertension) Acute Hyperglycemia Acute NSTEMI (non-ST elevated myocardial infarction) Acute Orthostatic hypotension Acute Pneumonia Acute Respiratory failure with hypoxia Acute
[2018-03-11] MEDS: CHLOROTHIAZIDE SODIUM 250 MG in STERILE WATER INJ 9 ML IVP SCH (09:56)
--- NOTE | 2018-03-11 14:07 | HOSPPROG ---
Hospitalist Progress Note Assessment/Plan: DIAGNOSES: * ACUTE HYPOXEMIC RESPIRATORY FAILURE * INDETERMINATE ELEVATION OF CARDIAC TROPONIN * SYSTOLIC CONGESTIVE HEART FAILURE ACUTE MILD EXACERBATION * CONCERN FOR POSSIBLE PE (recent travel, dyspnea, and high d dimer) * Hx of CAD AND STENTS, DIASTOLIC HEART DISEASE, GOOD EF (last echo 1 month ago unremarkable) * MILD ACUTE ON CHRONIC RENAL INSUFF * DIABETES MELLITUS TYPE 2 * OBSTRUCTIVE SLEEP APNEA PLANS: * Continue diuresis, switched per Cardiology to 80 mg PO BID Lasix, given a dose of IV Diuril this morning per cardiology * Will monitor I/O, redose IV diuretics as needed, goal to wean off oxygen prior to discharge * Will hold on metformin for now as he will be getting contrast, continue home insulin regimen * Cardiology increased Minoxidil, continue to monitor BP * Continue disability attorney for any arrhythmia Subjective: Patient reports feeling well this morning Objective: Vital Signs Temp Pulse Resp BP Pulse Ox 36.9 C 71 18 125/69 H 97 03/11/18 11:12 03/11/18 11:12 03/11/18 11:12 03/11/18 11:12 03/11/18 11:12 Laboratory Results 03/11/18 04:07 03/10/18 03/11/18 03/12/18 05:59 05:59 05:59 Intake Total 350 870 560 Output Total 1350 1900 1000 Balance -1000 -1030 -440 PT 14.4 SEC (12.0-15.0) 03/09/18 03:52 INR 1.10 (0.83-1.16) 03/09/18 03:52 - Physical Exam Constitutional: no apparent distress Eyes: PERRL Ears, Nose, Mouth, Throat: moist mucous membranes Cardiovascular: regular rate and rhythym, No edema Respiratory: no respiratory distress Gastrointestinal: soft, non-tender abdomen Skin: warm Musculoskeletal: full muscle strength Neurologic: AAOx3 Psychiatric: interacting appropriately ICD10 Worksheet Patient Problems: Problems Problem Status Onset CHF (congestive heart failure) Acute Acute exacerbation of congestive heart failure Acute Diabetes Acute Elevated troponin Acute HTN (hypertension) Acute Hyperglycemia Acute NSTEMI (non-ST elevated myocardial infarction) Acute Orthostatic hypotension Acute Pneumonia Acute Respiratory failure with hypoxia Acute
--- NOTE | 2018-03-11 14:30 | ASMTCMCOM ---
CM Note CM Note Notes: Pts case discussed in tx rounds. Pt will most likely be here for another day to diuresis. Pt will most likely d/c independent when medically stable. CM available for changes. Plan: Independent Date Signed: 03/11/2018 02:29 PM Electronically Signed By:CAROLINE Serna
[2018-03-11] MEDS: ATORVASTATIN CALCIUM 40 MG TAB PO SCH (20:59)
[2018-03-12] MEDS: INSULIN LISPRO 100 UNIT/ML SC SCH ×2 (08:45→11:48)
[2018-03-12] MEDS: INSULIN GLARGINE 100 UNITS/ML UNIT SC SCH (08:45)
[2018-03-12] MEDS: CARVEDILOL 25 MG TAB PO SCH (08:46)
[2018-03-12] MEDS: IRBESARTAN 150 MG TAB PO SCH (08:46)
[2018-03-12] MEDS: ISOSORBIDE MONONITRATE 30 MG TAB.SR PO SCH (08:46)
[2018-03-12] MEDS: FUROSEMIDE 80 MG TAB PO SCH (08:46)
[2018-03-12] MEDS: hydrALAZINE 25 MG TAB PO SCH (08:46)
[2018-03-12] MEDS: MINOXIDIL 2.5 MG TAB PO SCH (08:46)
[2018-03-12] MEDS: CHLOROTHIAZIDE SODIUM 250 MG in STERILE WATER INJ 9 ML IVP SCH (08:46)
[2018-03-12] MEDS: ASPIRIN 81 MG CHEWABLE TAB PO SCH (08:47)
[2018-03-12] MEDS: ENOXAPARIN 40 MG/0.4 ML SYR SC SCH (08:47)
--- NOTE | 2018-03-12 10:48 | ASMTLACE ---
LACE Length of stay for Answers: 3 days current admission Acuity / Level of Answers: Yes Care: Did the patient have an inpatient admission? Comorbidities - select Answers: Congestive heart failure all that apply Coronary Artery Disease Diabetes (uncontrolled or controlled) Other Notes: HTN; hyperlipidemia; OS A # of Emergency department Answers: 1-2 visits in the last 6 months Score: 13 Date Signed: 03/12/2018 10:47 AM Electronically Signed By:Arcelia Ward RN
--- NOTE | 2018-03-12 10:51 | ASDISCHSUM ---
Discharge Information Plan Status:Home with No Needs Medically Cleared to Leave:03/11/2018 Discharge Date:03/11/2018 CM D/C Disposition:Home, Routine, Self-Care ADT D/C Disposition: Projected Discharge Date:03/11/2018 Transportation at D/C:Self Discharge Delay Reason: Follow-Up Date:03/11/2018 Discharge Slot: Final Diagnosis: Placement Information Patient Contact Information Contact Name:ROMEO Relationship: Address:[address] Work Phone: City:[facility] Phone: State/Zip Code:[place] [address] Email: Financial Information Financial Class:[employer] Primary Plan Desc:LEO HARRELL Primary Plan Number:[id number] Secondary Plan Desc: Secondary Plan Number: Assessment Information LACE LACE Length of stay for Answers: 3 days current admission Acuity / Level of Answers: Yes Care: Did the patient have an inpatient admission? Comorbidities - select Answers: Congestive heart failure all that apply Coronary Artery Disease Diabetes (uncontrolled or controlled) Other Notes: HTN; hyperlipidemia; OS A # of Emergency department Answers: 1-2 visits in the last 6 months Score: 13 Date Signed: 03/12/2018 10:47 AM Electronically Signed By:Arcelia Ward RN [facility] Progress Note CM Note CM Note Notes: Patient admitted with weakness and fatigue following a hospitalization one month ago for PNA. He is normally independent and lives with his . I anticipate that he will discharge independently. Date Signed: 03/08/2018 02:28 PM Electronically Signed By:Kadie Kruse RN [facility] CM Progress Note CM Note CM Note Notes: Pts case discussed in tx rounds. Pt will most likely be here for another day to diuresis. Pt will most likely d/c independent when medically stable. CM available for changes. Plan: Independent Date Signed: 03/11/2018 02:29 PM Electronically Signed By:CAROLINE Serna Case Management Discharge Plan Note Case Management Discharge Discharge Order Complete? Answers: Yes Patient to Obtain Answers: via Family Medications Transportation Arranged Answers: Family/Friends Discharge Comments Notes: 03/12/2018 Case Management Note Pt discharged independent with no needs from case management. Date Signed: 03/12/2018 10:50 AM Electronically Signed By:Arcelia Ward RN Intervention Information
[2018-03-12] MEDS ORDERED: MINOXIDIL 2.5 MG TAB PO SCH (11:19)
--- NOTE | 2018-03-12 11:21 | SOAPPROG ---
SOAP Progress Note Assessment/Plan: Assessment: 1. Congestive heart failure. This is noted in the setting of a relatively normal ejection fraction in the absence of significant valvular heart disease. This is likely contributed to by poorly controlled hypertension, dietary indiscretion, obesity and untreated obstructive sleep apnea. He has responded nicely to the administration of intravenous diuretics with a net negative diuresis of a little over 4 L and a weight loss of just about 2 kg. Today he states he feels much better and appears euvolemic on physical examination. 2. Coronary artery disease. A little over 2 years ago he had PCI/stenting of an obtuse marginal branch. During this hospitalization his troponin levels are very slightly elevated noted in the setting of his decompensated heart failure. In reviewing previous hospitalizations he has had similar low level troponin elevations. I do not think that this current elevation represents ongoing ischemia. This is likely a reflection of his congestive heart failure. 3. Hypertension. This continues to be problematic and poorly controlled. This is likely contributed to by the same factors that are contributing to his congestive heart failure. I do not think that he has had a full workup for secondary causes of hypertension which may be worthwhile pursuing in the near future depending on his response to medical therapy. 4. Hyperlipidemia. Currently on statin therapy with nicely controlled lipids. 5. Type 2 diabetes mellitus. He has reasonable control based on his hemoglobin A1c of 7.4%. 6. Chronic renal insufficiency. This is stable at the present time. 03/11/2018: While clinically he has shown significant improvement and based on complaints he has had substantial progress he continues to manifest hypoxemia and has mild bipedal edema. I had wanted to send him home today. I think we should hold off for another day and continue with diuretic therapy. Yesterday is minoxidil was increased up to the present dose of 5 mg daily. He continues to be hypertensive however I think we should adjust his medications very slowly. 03/12/2018: He is doing very well at the present time. He appears to be euvolemic. Hypoxemia has now resolved. At this point, I think he is stable for discharge. Plan: 1. I did increase his minoxidil up to 10 mg daily. 2. I would like him to be discharged on his other medications as currently prescribed including 80 mg of Lasix twice daily. 3. I would like him to follow up with his primary exhibition specialist Dr. Lasha Weston within the next week. If he is not available I will be happy to see him in the office. 4. I would like him to have a basic metabolic panel in 1 week. 03/12/18 11:20 Subjective: He states he has been doing well. He feels back to his baseline. He was able to ambulate on the vance without oxygen without significant desaturation. Yesterday he had a nice diuresis. No arrhythmias have been noted on telemetry. Objective: Vital Signs Temp Pulse Resp BP Pulse Ox 36.3 C 74 10 L 153/95 H 87 L 03/12/18 07:17 03/12/18 07:17 03/12/18 07:17 03/12/18 07:17 03/12/18 08:59 Laboratory Results 03/12/18 03:48 03/11/18 03/12/18 03/13/18 05:59 05:59 05:59 Intake Total 870 1890 Output Total 1900 3975 575 Balance -1030 -2085 -575 PT 14.4 SEC (12.0-15.0) 03/09/18 03:52 INR 1.10 (0.83-1.16) 03/09/18 03:52 Physical Exam - Physical Exam General Appearance: WD/WN, alert, no apparent distress EENT: PERRL/EOMI, normal ENT inspection, pharynx normal, TMs normal Neck: non-tender, full range of motion, supple, normal inspection Respiratory: chest non-tender, lungs clear, normal breath sounds Cardiac/Chest: normal peripheral pulses, regular rate, rhythm Peripheral Pulses: 2+: carotid (R), carotid (L), femoral (R), femoral (L), dorsalis-pedis (R), dorsalis-pedis (L) Abdomen: normal bowel sounds, non-tender, soft Male Genitalia: deferred Rectal: deferred Back: Normal inspection Skin: normal color, warm/dry Lymphatic: no adenopathy Extremities: normal range of motion, non-tender, normal inspection, normal capillary refill Neuro/Psych: no motor/sensory deficits, alert, normal mood/affect, oriented x 3 ICD10 Worksheet Patient Problems: Problems Problem Status Onset CHF (congestive heart failure) Acute Acute exacerbation of congestive heart failure Acute Diabetes Acute Elevated troponin Acute HTN (hypertension) Acute Hyperglycemia Acute NSTEMI (non-ST elevated myocardial infarction) Acute Orthostatic hypotension Acute Pneumonia Acute Respiratory failure with hypoxia Acute
[2018-03-12] MEDS ORDERED: MINOXIDIL 2.5 MG TAB PO ONE (11:30)
[2018-03-12 11:49] VITALS: BP 131/64
--- NOTE | 2018-03-12 11:56 | PDDCSUM ---
Discharge Summary Discharge Summary: Date of Admission: 03/09/2018 Date of Discharge: 03/12/2018 Consults: Procedures: Followup: Hospital Course Problem List: DIAGNOSES: * ACUTE HYPOXEMIC RESPIRATORY FAILURE * INDETERMINATE ELEVATION OF CARDIAC TROPONIN * SYSTOLIC CONGESTIVE HEART FAILURE ACUTE MILD EXACERBATION * CONCERN FOR POSSIBLE PE (recent travel, dyspnea, and high d dimer) * Hx of CAD AND STENTS, DIASTOLIC HEART DISEASE, GOOD EF (last echo 1 month ago unremarkable) * MILD ACUTE ON CHRONIC RENAL INSUFF * DIABETES MELLITUS TYPE 2 * OBSTRUCTIVE SLEEP APNEA PLANS: * Continue diuresis, switched per Cardiology to 80 mg PO BID Lasix as outpatient (increased from 60 mg BID) * Continue home insulin regimen, Metformin * Cardiology increased Minoxidil to 10 mg, continue to monitor BP * Patient to follow up with his primary oil and gas field technician Dr. Lasha Weston within the next week with repeat basic metabolic panel in 1 week. Time spent on discharge was >35 minutes with >50% of time spent on patient education and counseling
[2018-03-13] MEDS ORDERED: MINOXIDIL 2.5 MG TAB PO SCH (09:00)
== END 2018-03-12 14:37 | disposition home or self-care (01) | DRG 291 ==
LOC: F2W 11:40 → OBSVTOIN 03-09 17:30
PROVIDERS: ADMIT Internal Medicine; ATTEND Internal Medicine
DX: I13.0 Hypertensive heart and chronic kidney disease with heart failure and stage 1 through stage 4 chronic kidney disease, or unspecified chronic kidney disease (principal); I50.21 Acute systolic (congestive) heart failure; J96.01 Acute respiratory failure with hypoxia; I26.99 Other pulmonary embolism without acute cor pulmonale; N18.9 Chronic kidney disease, unspecified; E11.9 Type 2 diabetes mellitus without complications; G47.33 Obstructive sleep apnea (adult) (pediatric); I25.10 Atherosclerotic heart disease of native coronary artery without angina pectoris; E66.9 Obesity, unspecified; E78.5 Hyperlipidemia, unspecified; Z95.5 Presence of coronary angioplasty implant and graft
CPT/HCPCS: 84484-ER; 85520-90; 96374; G0378; J1205; J1644; J1650; J1815; J1940; Q9967

== ENCOUNTER 2018-03-17 07:15 | Inpatient (IN) | payer OTHER ==
--- NOTE | 2018-03-08 14:23 | ASMTCMCOM ---
CM Note CM Note Notes: Pt presented to the ED through triage for fatigue, hypoxia, dry cough. Pt admitted for CHF exacerbation. Pt goes by "Bakari." Pt was admitted in 01/2018 for PNA and DC'd home Independent w/his , Tavo. They live in [place]. Pt's PMH includes sCHF, CAD and CA s/p stenting, ischemic cardiomyopathy w/40% ejection fraction last month, T2DM, NIXON (on CPAP), HLD, CKD, HTN, obesity. In the past, pt has had home oxygen at night (after his stent 11/2015) but hasn't needed to use it for about a year. Exact DC needs TBD. Anticipate pt to stabilize and DC home w/ w/possibly home oxygen. CM to follow. Date Signed: 03/08/2018 02:00 PM Electronically Signed By:Samantha Mishra RN
[2018-04-29] MEDS ORDERED: MIDAZOLAM 2 MG/2 ML VIAL IVP ONE (14:08)
--- NOTE | 2018-04-29 14:08 | PDANEPAE ---
ANE History of Present Illness ACD and F ANE Past Medical History - Cardiovascular History Hx Hypertension: Yes Hx Arrhythmias: No Hx Chest Pain: No Hx Coronary Artery / Peripheral Vascular Disease: Yes Hx CHF / Valvular Disease: Yes Hx Palpitations: No Cardiovascular History Comment: htn. hyperlipidemia. cad with stent. chf. pvd. hx of mi. being followed by [facility] - Pulmonary History Hx COPD: No Hx Asthma/Reactive Airway Disease: No Hx Recent Upper Respiratory Infection: No Hx Oxygen in Use at Home: Yes O2 in Use at Home (L/minute): 2l at noc Hx Sleep Apnea: Yes Sleep Apnea Screening Result - Last Documented: Positive Pulmonary History Comment: peggy positive just using o2 currently no cpap - Neurologic History Hx Cerebrovascular Accident: No Hx Seizures: Yes Hx Dementia: No Neurologic History Comment: possible diabetic seizure about 15 yrs ago per pt report - Endocrine History Hx Diabetes: Yes Hypothyroid: No Hyperthyroid: No Obesity: mild Endocrine History Comment: type 2 - Renal History Hx Renal Disorders: Yes Renal History Comment: CRI being followed by [facility] - Liver History Hx Hepatic Disorders: No - Neurological & Psychiatric Hx Hx Neurological and Psychiatric Disorders: Yes Neurological / Psychiatric History Comment: ADD - Cancer History Hx Cancer: Yes Cancer History Comment: basal cell - Congenital Disorder History Hx Congenital Disorders: No - GI History Hx Gastrointestinal Disorders: No - Other Health History Other Health History: wears glasses - Chronic Pain History Chronic Pain: Yes (neck pain) - Surgical History Prior Surgeries: cardiac stent placed 11/2015. right acl reconstruction. basal cell removed. orchiectomy at age 23 ANE Review of Systems Review of Systems: - Exercise capacity METS (RN): 4 METS ANE Patient History - Allergies Allergies/Adverse Reactions: No Known Allergies Allergy (Verified 04/27/18 16:08) - Home Medications Home medications: home medication list seen and reviewed Home Medications: Insulin Detemir [Levemir Flextouch] 20 unit SC BID 01/11/16 [Last Taken 04/28/18 ] Insulin Lispro [Humalog Kwikpen U-100] 5 - 10 unit SC TIDMEAL 01/11/16 [Last Taken 2 Days Ago ~04/27/18] metFORMIN HCL [Glucophage 500 mg (*)] 500 mg PO DAILY 01/11/16 [Last Taken 04/27] Carvedilol [Coreg (*)] 25 mg PO BIDMEAL 09/01/16 [Last Taken 04/28/18] metFORMIN HCL [Glucophage 1000 mg] 1,000 mg PO HS 09/01/16 [Last Taken 04/27/18] Atorvastatin Calcium [Lipitor 40 mg (*)] 40 mg PO HS 12/25/16 [Last Taken ] amLODIPine BESYLATE [Norvasc 5 mg (*)] 5 mg PO DAILY 12/25/16 [Last Taken ] Aspirin [Aspirin 81mg (*)] 81 mg PO DAILY 01/24/18 [Last Taken 04/28/18] Hydralazine HCl 75 mg PO TID 01/24/18 [Last Taken 04/29/18] Isosorbide Mononitrate [Imdur 30 mg (*)] 30 mg PO DAILY 01/24/18 [Last Taken 10/08] Torsemide [Demadex] 60 mg PO BID 04/22/18 [Last Taken 2 Days Ago ~04/27/18] - NPO status NPO Status: no food or drink >8 hours - Smoking Hx Smoking Status: Never smoked - Family Anes Hx Family Hx Anesthesia Complications: none ANE Labs/Vital Signs - Vital Signs Blood Pressure: 136/71 Heart Rate: 70 Respiratory Rate: 16 O2 Sat (%): 97 Height: 175.26 cm Weight: 104.326 kg ANE Physical Exam - Airway Neck exam: decreased ROM Mallampati Score: Class 3 Mouth exam: normal dental/mouth exam, poor dentition - Pulmonary Pulmonary: no respiratory distress, no rales or rhonchi - Cardiovascular Cardiovascular: regular rate and rhythym, no murmur, rub, or gallop - ASA Status ASA Status: III ANE Anesthesia Plan Anesthesia Plan: general endotracheal anesthesia Specialized Airway: video laryngoscope
[2018-04-29] MEDS ORDERED: LR 1,000 ML IV ONE (14:44)
[2018-04-29] MEDS ORDERED: BUPIVACAINE/EPI 0.5% 30 ML SDV ONE (14:46)
[2018-04-29] MEDS ORDERED: SURGIFLO MATRIX KIT WITH THROMBIN 8 ML TP ONE (14:46)
[2018-04-29] MEDS ORDERED: BACITRACIN 50,000 UNITS/10 ML SYR IRR ONE ×2 (14:47→23:38)
--- NOTE | 2018-04-29 16:01 | PDHPUP ---
History & Physical Update H&P update statement: This history and physical update is based on an assessment of the patient which was completed after admission or registration (within 24 hours), but prior to the surgery/procedure. H&P update: H&P reviewed & patient examined, no change in patient's condition since H&P completed
[2018-04-29] MEDS ORDERED: CEFAZOLIN 2 GM/DEXTROSE/100 ML BAG IV ONE (16:14)
[2018-04-29] MEDS ORDERED: MIDAZOLAM 2 MG/2 ML VIAL ONE ×2 (16:14→23:41)
[2018-04-29] MEDS ORDERED: fentaNYL 250 MCG/5 ML INJ ONE ×2 (16:22→23:20)
[2018-04-29] MEDS ORDERED: PROPOFOL/EMULSION 500 MG/50 ML BOTTLE IV ONE ×5 (16:22→23:20)
[2018-04-29] MEDS ORDERED: *PREOP 1000MG*TRANEX ACID/NS 100 ML IV ONE (16:30)
[2018-04-29] MEDS ORDERED: ceFAZolin 2 GM/DEXTROSE 100 ML IV ONE (16:30)
[2018-04-29] MEDS ORDERED: ePHEDrine SULFATE 25 MG/5 ML SYR ONE (17:47)
[2018-04-29] MEDS ORDERED: ROCURONIUM 50 MG/5 ML VIAL ONE (17:48)
[2018-04-29] MEDS ORDERED: GLYCOPYRROLATE 0.2 MG/1 ML VIAL ONE (17:48)
[2018-04-29] MEDS ORDERED: ONDANSETRON 4 MG/2 ML VIAL ONE (17:48)
[2018-04-29] MEDS ORDERED: fentaNYL 100 MCG/2 ML INJ ONE ×2 (18:28→19:55)
[2018-04-29] MEDS ORDERED: PROPOFOL 200 MG/20 ML VIAL ONE ×4 (18:30→21:26)
[2018-04-29] MEDS ORDERED: VASOPRESSIN 20 UNIT/ML VIAL ONE (18:52)
[2018-04-29] MEDS ORDERED: BISACODYL 10 MG SUPP PR PRN (20:23)
[2018-04-29] MEDS ORDERED: MAGNESIUM HYDROXIDE 30 ML UDCUP PO PRN (20:23)
[2018-04-29] MEDS ORDERED: oxyCODONE IR 5 MG TAB PO PRN (20:23)
[2018-04-29] MEDS ORDERED: METHOCARBAMOL 750 MG TAB PO PRN (20:23)
[2018-04-29] MEDS ORDERED: LACTULOSE 20 GM/30 ML UDCUP PO PRN (20:23)
[2018-04-29] MEDS ORDERED: diphenhydrAMINE 25 MG CAP PO PRN (20:23)
[2018-04-29] MEDS ORDERED: POLYETHYLENE GLYCOL 3350 17 GM PKT PO PRN (20:23)
[2018-04-29] MEDS ORDERED: ONDANSETRON 4 MG/2 ML VIAL IVP PRN ×2 (20:23→20:50)
[2018-04-29] MEDS ORDERED: ONDANSETRON DISINTEGRATING 4 MG TAB PO PRN (20:23)
[2018-04-29] MEDS ORDERED: D50W 25 GM/50 ML SYR IVP PRN (20:33)
[2018-04-29] MEDS ORDERED: LR 500 ML IV PRN (20:50)
[2018-04-29] MEDS ORDERED: fentaNYL 100 MCG/2 ML INJ IVP PRN (20:50)
[2018-04-29] MEDS ORDERED: HYDROmorphONE/DILAUDID 2 MG/ML INJ IVP PRN (20:50)
[2018-04-29] MEDS ORDERED: DIAZEPAM 5 MG/ML 1 ML SYR IVP PRN (20:50)
[2018-04-29] MEDS ORDERED: NALOXONE HCL 0.4 MG/ML INJ IVP PRN (20:50)
[2018-04-29] MEDS ORDERED: metFORMIN HCL 500 MG TAB PO SCH (21:00)
[2018-04-29] MEDS ORDERED: INSULIN REGULAR HUMAN 100 UNIT/ML UNIT SC SCH (21:00)
[2018-04-29] MEDS ORDERED: INSULIN REGULAR HUMAN 100 UNIT/ML UNIT ONE (21:09)
[2018-04-29] MEDS ORDERED: ROCURONIUM 100 MG/10 ML VIAL ONE (21:29)
[2018-04-29] MEDS ORDERED: SUCCINYLCHOLINE CHLORIDE 200 MG/10 ML VIAL ONE (21:29)
--- NOTE | 2018-04-29 23:11 | PDHOSCONS ---
History and Physical - Chief Complaint medical management - History of Present Illness 62 yo M w/ dCHF, DM, and CAD had neck surgery for cervical myelopathy today per Neurosurgery and we have been asked to provide consultation regarding his MMP's. Of note, he is having difficulty moving his lower extremities and an MRI has been done. Results are pending but appears that Neurosurgery may take him back to surgery tonight. BP is stable Glucose is elevated, he is npo reports compliance with medications, although somewhat confused currently as he is recently post operative. History obtained from records as well as discussion with the Neurosurgery PA and his nurses. Denies CP or SOB - Past Medical History coronary artery disease, CHF, diabetes type 2, Cervical myelopathy - Surgical History Reports: coronary stent - Family History Positive for: CAD, non-pertinent (He likes to exercise predominantly by lifting weights and cycling. 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[employer].) - Social History Smoking Status: Never smoked Alcohol Use: Sober Drug Use: None History Information - Allergies/Home Medication List Allergies/Adverse Reactions: No Known Allergies Allergy (Verified 04/27/18 16:08) Home Medications: Insulin Detemir [Levemir Flextouch] 20 unit SC BID 01/11/16 [Last Taken 04/28/18 ] Insulin Lispro [Humalog Kwikpen U-100] 5 - 10 unit SC TIDMEAL 01/11/16 [Last Taken 2 Days Ago ~04/27/18] metFORMIN HCL [Glucophage 500 mg (*)] 500 mg PO DAILY 01/11/16 [Last Taken 04/27] Carvedilol [Coreg (*)] 25 mg PO BIDMEAL 09/01/16 [Last Taken 04/28/18] metFORMIN HCL [Glucophage 1000 mg] 1,000 mg PO HS 09/01/16 [Last Taken 04/27/18] Atorvastatin Calcium [Lipitor 40 mg (*)] 40 mg PO HS 12/25/16 [Last Taken ] amLODIPine BESYLATE [Norvasc 5 mg (*)] 5 mg PO DAILY 12/25/16 [Last Taken ] Aspirin [Aspirin 81mg (*)] 81 mg PO DAILY 01/24/18 [Last Taken 04/28/18] Hydralazine HCl 75 mg PO TID 01/24/18 [Last Taken 04/29/18] Isosorbide Mononitrate [Imdur 30 mg (*)] 30 mg PO DAILY 01/24/18 [Last Taken 10/08] Torsemide [Demadex] 60 mg PO BID 04/22/18 [Last Taken 2 Days Ago ~04/27/18] I have personally reviewed and updated: medical history, social history - Past Medical History coronary artery disease, CHF, diabetes type 2 - Surgical History Reports: coronary stent - Family History Positive for: CAD, non-pertinent - Social History Smoking Status: Never smoked Review of Systems Review of Systems: ROS: 10pt was reviewed & negative except for what was stated in HPI & below Physical Exam Physical Exam: Temp Pulse Resp BP Pulse Ox 36.7 C 70 18 138/65 H 92 04/29/18 23:01 04/29/18 16:16 04/29/18 23:01 04/29/18 23:01 04/29/18 23:01 O2 (L/minute) 2 Constitutional: no apparent distress Eyes: PERRL Ears, Nose, Mouth, Throat: moist mucous membranes, hearing normal Cardiovascular: regular rate and rhythym, No edema Respiratory: no respiratory distress, no rales or rhonchi, clear to auscultation Gastrointestinal: normoactive bowel sounds Skin: warm Musculoskeletal: No full muscle strength Neurologic: No AAOx3 Psychiatric: interacting appropriately, not anxious, encephalopathic Lymph, Heme, Immunologic: No petechiae Lab Data & Imaging Review POC Glucose 200 mg/dL (70-100) H 04/29/18 20:44 Assessment & Plan Assessment: 62 yo M w/ CHF, CAD, DM, and CKD who is s/p neck surgery #s/p neck surgery with decrease LE motor function -Await MRI results -Post op care and further mgmt per Neurosurgery #Diastolic CHF -appears Euvolemic -cont home meds #IDDM -currently NPO, mild hypoglycemia noted. Cont with ISS. Will provide decreased dose of long acting insulin given slight hyperglycemia. May need additional, can cover with ISS as needed for now. Hold Metformin. #Hx of CAD, denies chest pain #Chronic renal insufficiency, baseline cr around 1.8. Will obtain labs in a.m. #CAD: cont home meds DVT Proph: per Neurosurgery Thank you for this consult, we will follow along
[2018-04-29] MEDS ORDERED: SUCCINYLCHOLINE CHLORIDE 200 MG/10 ML SYR IVP ONE (23:21)
[2018-04-29] MEDS ORDERED: BUPIVACAINE 0.5% 30 ML SDV ONE (23:36)
[2018-04-29] MEDS ORDERED: EPINEPHrine 1 MG/ML INJ ONE (23:36)
[2018-04-29] MEDS ORDERED: VANCOMYCIN 1 GM VIAL ONE (23:37)
[2018-04-30] MEDS ORDERED: ceFAZolin 1 GM VIAL ONE ×2 (01:26)
[2018-04-30] MEDS ORDERED: DESFLURANE 240 ML BOTTLE IH ONE (01:26)
--- NOTE | 2018-04-30 02:00 | PDANEPAE ---
ANE History of Present Illness Posterior C 4 to T1 decompression. Lower extremities motor weakness after ACD and F C4 to C7. ANE Past Medical History - Cardiovascular History Hx Hypertension: Yes Hx Arrhythmias: No Hx Chest Pain: No Hx Coronary Artery / Peripheral Vascular Disease: Yes Hx CHF / Valvular Disease: Yes Hx Palpitations: No Cardiovascular History Comment: htn. hyperlipidemia. cad with stent. chf. pvd. hx of mi. being followed [facility] - Pulmonary History Hx COPD: No Hx Asthma/Reactive Airway Disease: No Hx Recent Upper Respiratory Infection: No Hx Oxygen in Use at Home: Yes O2 in Use at Home (L/minute): 2l at noc Hx Sleep Apnea: Yes Sleep Apnea Screening Result - Last Documented: Positive Pulmonary History Comment: peggy positive just using o2 currently no cpap - Neurologic History Hx Cerebrovascular Accident: No Hx Seizures: Yes Hx Dementia: No Neurologic History Comment: possible diabetic seizure about 15 yrs ago per pt report - Endocrine History Hx Diabetes: Yes Hypothyroid: No Hyperthyroid: No Obesity: mild Endocrine History Comment: type 2 - Renal History Hx Renal Disorders: Yes Renal History Comment: CRI being followed by microbiology technologist - Liver History Hx Hepatic Disorders: No - Neurological & Psychiatric Hx Hx Neurological and Psychiatric Disorders: Yes Neurological / Psychiatric History Comment: ADD - Cancer History Hx Cancer: Yes Cancer History Comment: basal cell - Congenital Disorder History Hx Congenital Disorders: No - GI History GERD: mild Hx Gastrointestinal Disorders: No - Other Health History Other Health History: wears glasses - Chronic Pain History Chronic Pain: Yes (neck pain) - Surgical History Prior Surgeries: cardiac stent placed 11/2015. right acl reconstruction. basal cell removed. orchiectomy at age 23 ANE Review of Systems Review of Systems: - Exercise capacity METS (RN): 4 METS ANE Patient History - Allergies Allergies/Adverse Reactions: No Known Allergies Allergy (Verified 04/27/18 16:08) - Home Medications Home medications: home medication list seen and reviewed Home Medications: Insulin Detemir [Levemir Flextouch] 20 unit SC BID 01/11/16 [Last Taken 04/28/18 ] Insulin Lispro [Humalog Kwikpen U-100] 5 - 10 unit SC TIDMEAL 01/11/16 [Last Taken 2 Days Ago ~04/27/18] metFORMIN HCL [Glucophage 500 mg (*)] 500 mg PO DAILY 01/11/16 [Last Taken 04/27] Carvedilol [Coreg (*)] 25 mg PO BIDMEAL 09/01/16 [Last Taken 04/28/18] metFORMIN HCL [Glucophage 1000 mg] 1,000 mg PO HS 09/01/16 [Last Taken 04/27/18] Atorvastatin Calcium [Lipitor 40 mg (*)] 40 mg PO HS 12/25/16 [Last Taken ] amLODIPine BESYLATE [Norvasc 5 mg (*)] 5 mg PO DAILY 12/25/16 [Last Taken ] Aspirin [Aspirin 81mg (*)] 81 mg PO DAILY 01/24/18 [Last Taken 04/28/18] Hydralazine HCl 75 mg PO TID 01/24/18 [Last Taken 04/29/18] Isosorbide Mononitrate [Imdur 30 mg (*)] 30 mg PO DAILY 01/24/18 [Last Taken 10/08] Torsemide [Demadex] 60 mg PO BID 04/22/18 [Last Taken 2 Days Ago ~04/27/18] - NPO status NPO Since - Liquids (Date): 04/29/18 NPO Since - Liquids (Time): 06:15 NPO Since - Solids (Date): 04/29/18 NPO Since - Solids (Time): 06:15 - Smoking Hx Smoking Status: Never smoked - Family Anes Hx Family Hx Anesthesia Complications: none ANE Labs/Vital Signs - Vital Signs Blood Pressure: 151/70 Heart Rate: 70 Respiratory Rate: 12 O2 Sat (%): 94 Height: 175.26 cm Weight: 104.326 kg
[2018-04-30] MEDS ORDERED: INSULIN REGULAR HUMAN 100 UNIT/ML UNIT ONE ×2 (02:06→04:01)
[2018-04-30] MEDS ORDERED: SURGIFLO MATRIX KIT WITH THROMBIN 8 ML TP ONE (02:15)
[2018-04-30] MEDS ORDERED: fentaNYL 100 MCG/2 ML INJ ONE (02:34)
[2018-04-30] MEDS ORDERED: PROPOFOL 200 MG/20 ML VIAL ONE ×3 (02:34)
[2018-04-30] MEDS ORDERED: VANCOMYCIN 500 MG/10 ML VIAL IV ONE (02:58)
[2018-04-30] MEDS ORDERED: VASOPRESSIN 20 UNIT/ML VIAL ONE (02:59)
[2018-04-30] MEDS ORDERED: ONDANSETRON 4 MG/2 ML VIAL ONE (04:10)
--- NOTE | 2018-04-30 05:15 | GPROG ---
[f rep st] PROGRESS NOTE I reviewed the MRI with the radiologist and spoke with the patient and his family. He is still quite weak bilaterally, and I feel he probably has some sort of spinal cord contusion or damage from the simple adjustment given that he was tight down to about 3.2 mm presurgically. The MRI demonstrates interval patency within the spinal canal; however, the patient is quite stenotic congenitally, and this simple adjustment of his alignment seems to have somehow worsened his spinal cord. I do think that it is anatomic in nature and should be remedied with an emergency operation. A C4 through C7 posterior cervical laminectomy, decompression, and fusion will more than likely place lateral mass screws at C4-T2. Will completely take off the lamina, which I think will give the patient enough indirect decompression to provide him with the most optimal coverage. The patient's and the patient were somewhat concerned about the timing of the procedure. I assured them that whatever benefit they get from waiting to do this operation during the day far pales in comparison to leaving a potential spinal cord injury overnight and that we should get this done as quickly as possible. They agreed. They understand all risks, benefits, and alternatives when compared to the prior operation, which are essentially identical, including the risk of spinal cord injury worsening, C5 nerve palsy, dysphagia, etc. We will move forward with the operation as planned. /[id number]/MODL MTDD
[2018-04-30] MEDS ORDERED: fentaNYL 100 MCG/2 ML INJ IVP PRN (05:40)
[2018-04-30] MEDS ORDERED: HYDROmorphONE/DILAUDID 1 MG/ML INJ IVP PRN (05:40)
[2018-04-30] MEDS ORDERED: NALOXONE HCL 0.4 MG/ML INJ IVP PRN (05:40)
[2018-04-30 05:42] LABS: PLATELET COUNT 126 10^3/uL (150-400)
[2018-04-30] MEDS ORDERED: INSULIN GLARGINE 100 UNITS/ML UNIT SC ONE (05:45)
--- NOTE | 2018-04-30 06:51 | GOP ---
[f rep st] OPERATIVE REPORT DATE OF OPERATION: 04/29/2018 SURGEON: Frank Stock MD INSOLE TAPE STITCHER UCO: Baltazar Soria PA-C. ANESTHESIA: General. PREOPERATIVE DIAGNOSIS: Cervical spondylotic myelopathy. POSTOPERATIVE DIAGNOSIS: Cervical spondylotic myelopathy. PROCEDURE PERFORMED: 1. C4-C7 anterior cervical discectomy and fusion (ACDF). 2. Structural use of morcellized local autograft bone and allograft. 3. Use of intraoperative fluoroscopy. 4. Use of neural monitoring including RLN, EMG, MEP and SSEP. 5. Use of surgical microscope. FINDINGS: Expected. SPECIMENS: None. ESTIMATED BLOOD LOSS: 20 cc. INDICATIONS: I saw the patient in my office and diagnosed with him cervical spondylotic myelopathy, which is quite severe. His spinal cord was compressed to a dangerous degree. He noted severe restri ction in range of motion about the neck and decreased mobility. I explained all risks, benefits, and alternatives to the patient of the procedure before the operation. These risks included , blin dness, bleeding, nerve damage, infection, dural tear, paralysis, failure of surgery to alleviate preo p symptoms, nonunion, and possible need for further operations. I also discussed the possibility of dysphagia, superior laryngeal and/or hypoglossal nerve injury, carotid or vertebral artery damage, Ho rner syndrome, C5 nerve palsy specifically and paralysis. The patient is also aware that a posterior surgery may be required. DESCRIPTION OF PROCEDURE: Pre-surgical: The proposed incision was marked in the preoperative holdin g area by me. I had a discussion with the patient and family regarding the planned procedure. The p atient was taken the operating room in stable condition. Neuromonitoring was obtained while the patient was on the table and he was noted to have very poor ME P signals in the legs and with small SSEPs. The patient was then prepped and draped in usual sterile fashion. The head was positioned in a neutral position and confirmed by radiograph. Approach: The proposed levels were identified using C-arm fluoroscopy and the skin was marked with t he proposed incision. Based on the anatomy, the patient's right side was addressed. A natural skin fold was then selected near the proposed incision site to allow for maximum cosmesis reaching from ju st lateral to the medial border of the sternocleidomastoid to near midline. The skin was incised sha rply through dermis. Bipolar cautery was used to dissect the subdermal fat layer down to platysma an d coagulate small vessels. The platysma was then opened. Metzenbaum scissors were used to spread so ft tissues in a plane just deep to the platysma. A self-retractor was then placed to allow for furth er visualization. The carotid sheath was identified and retracted laterally. The strap muscles and midline structures were retracted medially and any crossing vessels were coagulated or tied off. The pretracheal fascia and longus colli muscles were then identified. A secondary pause was called out and the C5-6 level was identified using lateral radiographs. At thi s time the cuff was deflated and a manometer was used to ensure minimum pressure on the esophagus thr oughout the case. Disk Preparation: The C4-5 disk was addressed 1st. The C4-5 disk was prepared in usual fashion. Ca spar pins were placed above and below the level to be perfused. Anterior osteophytes were removed us ing a rongeur. The [place] pin distractor was then used to distract the disk space. The disk space w as incised sharply and the disk was removed using standard operating tools including Kerrison rongeur s, curettes and pituitary rongeurs. The disk space was prepared from uncinate on either side. MEP s ignals were unchanged at this point. Attention was then moved toward the C5-6 level. In a similar f ashion, the C5-6 disk itself was removed and a size 7 cage was then trialed and tapped gently into pl santosh. Of note, at this time MEPs were noted to be decreased bilaterally with decreased SEPs on the ri ght side globally. The cage was then removed and we communicated with Anesthesia as well as the Neur ologist regarding possible cause of this. Of note, there were absolutely no untoward events prior to this. There was no obvious disk that had migrated. There were no aberrant passes of surgical instr uments. There was no obvious damage to the cord and there was no visual aberrancies during the case. For about 30-45 minutes, this was investigated. The cage was then removed and the area reinspected . We had a long discussion with neuromonitoring and Anesthesia and the decision was made to continue with the operation. Other options considered were a corpectomy at the C6 level to assess anything t hat might be wrong. Of note, the triceps were noted to be completely intact at this point, and senso ry signals were noted to be coming back on the right side. This was encouraging. Furthermore, the C 5-6 level would be responsible for many different abnormalities including triceps, all motion about t he hand and wrist and even some degree of flexion at the elbow. Of note, these did not seem to be af fected to the decision was made to proceed with the operation. In a similar fashion the C6-7 disk wa s then addressed, excised, and a size 7 trial was then placed here. A 68 mm plate was then placed ov er the disk space. Of note, the patient was noted to be quite large. A 68 mm was the largest plate we had in stock and this was determined it would fit the patient adequately. It was placed just slig htly to the right side as there was a large osteophyte at the left C4-5 disk space which prevented co mplete medialization of the plate. The screws were then placed in a star pattern and pre-drilled. A ll retractors were then removed. Closure: The surgical field was then copiously irrigated with sterile saline and a drain was placed deep. 2-0 interrupted sutures were used to repair the platysma. 2-0 monofilament sutures were then used to reapproximate the subdermal tissues, and subcutaneous layer was repaired with a 3-0 monofilam ent in running fashion. A sterile island dressing was then applied. A surgical microscope was required for this case for safe and accurate surgical decompression. Neuromonitoring: SSEP, MEP, EMG and RLN monitoring were all used throughout the case. Of note, at t he end the case MEP signals were noted to be lost in the lower extremities but present bilaterally. SSEPs sustained a decrease as aforementioned, but by the end of the case were near baseline. Export Sales Manager: A graduate teaching assistant was deemed necessary throughout the case for safe neural retra ction, hemostasis and suction. Recovery: The patient was then extubated uneventfully in the operating room. We made a decision wit h the MRI radiologist to obtain an MRI of the cervical spine without contrast to assess any sort of a bnormalities here. I had a long conversation with the family regarding the intraoperative findings a nd events. We will obtain an MRI tonight of both the cervical and thoracic spines to see if there is any sort of anomaly that we may not have realized during the case. Moving forward after the MRI, we will make an appropriate decision at that time. SURGEON: Frank Stock MD. DRAINS: ETIENNE x1. COMPLICATIONS: Loss of MEP signals, significance to be determined. CONDITION: Transferred to PACU. IMPLANTS: NuVasive 17 mm screws at C4, C5, C6 and C7. 7 mm lordotic cages at C4-5, C5-6 and C6-7, a Translating 68 mm plate. /[id number]/MODL
[2018-04-30] MEDS: CARVEDILOL 25 MG TAB PO SCH ×3 (07:50→18:50)
[2018-04-30] MEDS: ATORVASTATIN CALCIUM 40 MG TAB PO SCH ×2 (07:51→20:38)
[2018-04-30] MEDS: INSULIN REGULAR HUMAN 100 UNIT/ML UNIT SC SCH ×3 (07:51→15:32)
[2018-04-30] MEDS: FAMOTIDINE 20 MG TAB PO SCH ×3 (07:51→20:39)
[2018-04-30] MEDS: SENNOSIDES/DOCUSATE SODIUM TAB PO SCH ×3 (07:52→20:39)
[2018-04-30] MEDS: GABAPENTIN 300 MG CAP PO SCH ×4 (07:52→20:55)
[2018-04-30] MEDS: ACETAMINOPHEN 500 MG TAB PO SCH ×3 (07:52→20:38)
[2018-04-30] MEDS: hydrALAZINE 25 MG TAB PO SCH ×4 (07:53→20:55)
[2018-04-30] MEDS ORDERED: metFORMIN HCL 500 MG TAB PO SCH (09:00)
[2018-04-30] MEDS: NS 1,000 ML IV SCH ×2 (10:00→18:50)
[2018-04-30] MEDS: MINOXIDIL 2.5 MG TAB PO SCH (10:13)
--- NOTE | 2018-04-30 10:21 | HOSPPROG ---
Hospitalist Progress Note Objective: Vital Signs Temp Pulse Resp BP Pulse Ox 36.5 C 71 10 L 124/88 H 98 04/30/18 05:28 04/30/18 06:58 04/30/18 06:58 04/30/18 06:58 04/30/18 06:58 Laboratory Results 04/30/18 05:29 04/30/18 05:29 04/29/18 04/30/18 05/01/18 06:59 06:59 06:59 Output Total 645 Balance -645 ICD10 Worksheet Patient Problems: Problems Problem Status Onset Acute exacerbation of congestive heart failure Acute CHF (congestive heart failure) Acute Diabetes Acute Elevated troponin Acute HTN (hypertension) Acute Hyperglycemia Acute NSTEMI (non-ST elevated myocardial infarction) Acute Orthostatic hypotension Acute Pneumonia Acute Respiratory failure with hypoxia Acute Upper respiratory tract infection Acute
--- NOTE | 2018-04-30 10:55 | PDMN ---
Medical Necessity Medical necessity: [facility] [place]: S320 cervical fusion: OP: C4-7 anterior cervical discectomy and fusion ( ACDF) ... AUTH# [id number] APPROVED FOR INPATIENT STAY FOR CPT CODES [id number], 60383, [id number], [id number], [id number].
[2018-04-30] MEDS: INSULIN LISPRO 100 UNIT/ML SC SCH ×3 (11:05→18:50)
[2018-04-30] MEDS: amLODIPine BESYLATE 5 MG TAB PO SCH (11:06)
[2018-04-30] MEDS: IRBESARTAN 150 MG TAB PO SCH (11:06)
[2018-04-30] MEDS: ISOSORBIDE MONONITRATE 30 MG TAB.SR PO SCH (11:07)
[2018-04-30] MEDS: TORSEMIDE 20 MG TAB PO SCH ×2 (11:07→20:39)
--- NOTE | 2018-04-30 11:49 | ASMTCMCOM ---
CM Note CM Note Notes: Patient had emergency spinal surgery due to an adjustment worsening his spinal cord. Awaiting PT/OT/director of community services/cardiac rehab evals. CM will follow. Date Signed: 04/30/2018 11:48 AM Electronically Signed By:Linda Alvarenga LCSW
[2018-04-30] MEDS: ceFAZolin 2 GM/DEXTROSE 100 ML IV SCH ×2 (12:38→19:39)
--- NOTE | 2018-04-30 15:32 | GCON ---
[f rep st] CONSULTATION LEAD FORMER CONSULTATION REASON FOR ADMISSION: Neck pain, left arm weakness. HISTORY OF PRESENT ILLNESS: The patient is a pleasant 62-year-old white male with a past medical his tory including coronary artery disease, noninsulin diabetes, congestive heart failure and cervical my elopathy. He was admitted to the hospital on 04/29/2018, with difficulty moving his lower extremitie s. MRI was subsequently performed. He was subsequently found to have cervical spinal stenosis, C4 t hrough 7. He underwent an ACDF and subsequently a T4-T2 posterior cervical fusion, as well as a C4-C 7 posterior decompression. He had returned back to the operating room for weakness. In discussion w ith the patient, he states that he has continued to have weakness in the left arm, but that is improv ing somewhat. He states the pain is tolerable. He denies any cough or productive sputum. There is no chest pain, pleuritic-type chest pain, or angina equivalent. There is no fever or night sweats. Currently sitting up in a chair and resting comfortably. REVIEW OF SYSTEMS: Ten-point review of systems is performed and negative except for what is listed i n the HPI. FAMILY HISTORY: Noncontributory. PAST MEDICAL HISTORY: Significant for coronary artery disease, congestive heart failure, diabetes an d cervical myelopathy. SOCIAL HISTORY: No history of tobacco use. No history of alcohol use. 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 He i s with children. He lived in [place] for 3 years and is originally from [facility]. ALLERGIES: None known to medications. MEDICATION: Medications at home include: Demadex, Imdur, hydralazine, aspirin, amlodipine, atorvast atin, metformin, carvedilol and insulin. PHYSICAL EXAM: VITAL SIGNS: Blood pressure is 118/48, pulse is 71, respirations 12. He is afebrile . Oxygen saturation is 100% on 1 L nasal cannula. GENERAL: He is a moderately overweight, but very pleasant 62-year-old white male who is resting comfortably, in no acute distress. HEENT: Eyes are PERRLA, EOMI. Throat exam shows no erythema or tonsillar hypertrophy. Neck is a hard C-collar. HEA RT: Regular rate and rhythm without murmurs, rubs, or gallops. LUNGS: Diminished breath sounds, bu t no wheeze. ABDOMEN: Soft, nontender. Bowel sounds are present in all 4 quadrants. EXTREMITIES: No clubbing, cyanosis, or edema. He is continuing to have left hand weakness. LABORATORIES: White count is 10, hemoglobin 10, hematocrit 32, platelet count is 126. Sodium 139, p otassium 4.8, chloride 112, CO2 21, BUN 52, creatinine 1.9, glucose is 254. IMPRESSION: 1. Cervical spinal stenosis. 2. Status post C4-T2 posterior cervical fusion with a C4-C7 posterior cervical decompression. He hurtado d a previous C4 through C7 anterior cervical diskectomy and fusion. 3. Coronary artery disease. 4. Congestive heart failure. 5. Diabetes. 6. Pain, reasonably well controlled. 7. Left arm weakness. RECOMMENDATIONS: 1. Agree with frequent neuro checks. 2. Adequate pain control. 3. PT and OT. 4. DVT and PE prophylaxis. 5. Stress ulcer prophylaxis. 6. Adequate nutrition. 7. Aggressive blood sugar control. Thank you very much for allowing me to participate in the care of this patient. We will follow along with you. I was asked to see the patient by Dr. Frank Stock. /[id number]/MODL
--- NOTE | 2018-04-30 16:44 | HOSPPROG ---
Hospitalist Progress Note Assessment/Plan: DIAGNOSES: * Acute cervical cord injury after surgery for spinal stenosis * Diabetes mellitus on treated with Levemir and lispro at home -long-acting insulin was held at the time of admission, eating very little so far -sugars higher than desired at this point, fasting sugar this morning greater than 250 * History of severe hypertension on multiple medicines including minoxidil * Coronary artery disease history, stable here * CHF history; last echo here January 2018, EF 55, diastolic dysfunction, mild valve abnormalities; notably right ventricular hypertrophy is noted but no mention of pulmonary pressures included in the report; suspect pulmonary hypertension may be present with his sleep apnea * Obstructive sleep apnea * Dysphagia with aspiration risk, related to his surgery with swelling, collar, etc PLANS: * Resume Lantus insulin at this time * Follow sugars closely * CPAP for sleep * Follow fluid status closely and blood pressures; avoid hypotension with his cord injury (currently receiving his blood pressure medicines) * Rigid cervical collar * Activities with PT OT as per Orthopedics Seen by me on hospitalist rounds as well as multidisciplinary rounds today Reviewed with Dr. 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: Sinus Exam: A bit groggy but awake, oriented skin warm dry color ok resps not labored lungs clear BSs heart regular abd soft nondistended nontender, bowel sounds present limbs warm, no edema iv site ok Lab data: Sugars running higher mostly between 200-250 Creatinine slightly better 1.9 today with his baseline at 1.7 - 1.8 A bit hyperchloremic otherwise good electrolytes Some mild postsurgical anemia as expected, white blood cell count up a bit at 10 Objective: Vital Signs Temp Pulse Resp BP Pulse Ox 36.5 C 71 12 118/48 L 100 04/30/18 05:28 04/30/18 14:00 04/30/18 14:00 04/30/18 14:00 04/30/18 14:00 Laboratory Results 04/30/18 05:29 04/30/18 05:29 04/29/18 04/30/18 05/01/18 06:59 06:59 06:59 Output Total 645 Balance -645 - Time Spent With Patient Time Spent with Patient: greater than 35 minutes Time Spent with Patient: Greater than 35 minutes spent on this patients care, greater than 50% of time spent counseling, educating, and coordinating care regarding the above mentioned plan. ICD10 Worksheet Patient Problems: Problems Problem Status Onset Acute exacerbation of congestive heart failure Acute CHF (congestive heart failure) Acute Diabetes Acute Elevated troponin Acute HTN (hypertension) Acute Hyperglycemia Acute NSTEMI (non-ST elevated myocardial infarction) Acute Orthostatic hypotension Acute Pneumonia Acute Respiratory failure with hypoxia Acute Upper respiratory tract infection Acute
--- NOTE | 2018-04-30 20:16 | NEUSURGPN ---
Date of Surgery: 04/29/18 Post Op Day: 1 Assessment/Plan: Assessment: 62 y/o Male who had severe cervical stenosis with myleopathic changes is POD #1 from an ACDF C4-7 and posterior decompression and fusion from C4-T2. Patient has been slowly progressing better through the morning. He has been having increased feeling and sensation through his right arm and left upper arm as well as lower extremities. This progress has been slower along his left upper extremity which was the side with the worse symptoms prior to surgery. He is currently stable. His cervical collar fits much more comfortably. Patient and family at bedside. Plan: -Cervical Collar at all times - Continue pain control -IV Valium added for spasms -MAP range between 60-80: Discussed with Dr Stock the addition of vassopressor which at this time we will hold from giving due to his multiple surgeries and concern for swelling. -PT/OT and speech therapy -Montior anterior incision and neck for drainage and swelling. Patient drain was noted to have been pulled during the second procedure and with little drainage at the time it is currently stable -Monitor posterior drain -IV pain medication -Continue to monitor Neurological status -hospitalist medical co-managment Subjective: Perry is a 62 y/o male who is POD #1 from ACDF C4-7 and subsquent C4-7 posterior decompression and fusion. He is complaining of posterior neck pain as well as dry mouth. He was seen and examined at 9:40 this morning. Patient states he has feeling in all of his extremities with the left upper extremity being the weakest sensation. He does complain of weakness as well into his left upper extremity. Patient denies any CP, SOB, Abdominal pain, nausea, vomiting, headaches, blurry vision, lightheadness, cough. Objective: Neurological Examination: RUE: Shoulder shrug/Biceps/Tricep/Wrist Extenstion/Wrist Flexion/Retinal Angiographer Strength all 4/5 LUE: Shoulder Shrug/Biceps/Tricep all 4/5 Wrist Extension and Retinal Angiographer Strength 2/5 LLE and RLE all 4/[address]: No - ETIENNE Drain Epidural Wound Drainage (ml): 210 (in 24 hour period) - Physician Discussed Patient with Dr.: Other (Dr Stock) Neurosurgery Physical Exam - Physical Exam General Appearance: alert, mild distress Neck: supple, other (Collar in place. Incisions are C/D/I) Respiratory: chest non-tender - Vitals, I&O, Labs I and O 04/29/18 04/30/18 05/01/18 05:59 05:59 05:59 Intake Total 1900 Output Total 645 1060 Balance -645 840 Weight 104.326 kg Intake: IV Intake (ml) 1900 Output: Urine (ml) 625 850 Catheter 625 850 Estimated Blood Loss (ml) 20 Constavac Output (ml) 210 Left Back Constavac 210 Vital Signs Temp Pulse Resp BP Pulse Ox 36.9 C 75 8 L 125/50 H 99 04/30/18 16:00 04/30/18 19:45 04/30/18 19:45 04/30/18 19:45 04/30/18 19:45 Laboratory Results 04/30/18 05:29 04/30/18 05:29 ICD10 Worksheet Patient Problems: Problems Problem Status Onset Acute exacerbation of congestive heart failure Acute CHF (congestive heart failure) Acute Diabetes Acute Elevated troponin Acute HTN (hypertension) Acute Hyperglycemia Acute NSTEMI (non-ST elevated myocardial infarction) Acute Orthostatic hypotension Acute Pneumonia Acute Respiratory failure with hypoxia Acute Upper respiratory tract infection Acute
--- NOTE | 2018-04-30 20:56 | POSTANESTH ---
Post Anesthetic Evaluation Cardiovascular Status: Normal, Stable, Similar to Pre-Op Cond Respiratory Status: Normal, Stable Level of Consciousness/Mental Status: Can Participate in Eval Pain Control: Adequate, Prn Tx Ordered Nausea/Vomiting Control: Adequate, Prn Tx Ordered Complications Possibly Related to Anesthesia: None Noted, Other, See Comments ( LUE weakness 04/27. Other extremities improved since AM)
[2018-04-30] MEDS: FAMOTIDINE 20 MG/NACL 50 ML IV SCH (23:00)
[2018-04-30] MEDS: DIAZEPAM 5 MG/ML 1 ML SYR IVP PRN (23:00)
[2018-04-30] MEDS: INSULIN GLARGINE 100 UNITS/ML UNIT SC SCH (23:01)
[2018-05-01] MEDS: NS 1,000 ML IV SCH ×2 (01:46→15:29)
[2018-05-01] MEDS: ACETAMINOPHEN 500 MG TAB PO SCH ×3 (05:14→20:12)
[2018-05-01] MEDS: GABAPENTIN 300 MG CAP PO SCH ×3 (06:37→20:12)
[2018-05-01] MEDS: CARVEDILOL 25 MG TAB PO SCH ×2 (09:35→15:48)
[2018-05-01] MEDS: INSULIN LISPRO 100 UNIT/ML SC SCH ×3 (09:36→19:15)
[2018-05-01] MEDS: amLODIPine BESYLATE 5 MG TAB PO SCH (09:37)
[2018-05-01] MEDS: IRBESARTAN 150 MG TAB PO SCH (09:37)
[2018-05-01] MEDS: hydrALAZINE 25 MG TAB PO SCH ×3 (09:37→20:12)
[2018-05-01] MEDS: ISOSORBIDE MONONITRATE 30 MG TAB.SR PO SCH (09:38)
[2018-05-01] MEDS: TORSEMIDE 20 MG TAB PO SCH ×2 (09:38→20:12)
[2018-05-01] MEDS: MINOXIDIL 2.5 MG TAB PO SCH (09:38)
[2018-05-01] MEDS: SENNOSIDES/DOCUSATE SODIUM TAB PO SCH ×2 (09:38→20:12)
[2018-05-01] MEDS: FAMOTIDINE 20 MG/NACL 50 ML IV SCH ×2 (10:02→20:39)
--- NOTE | 2018-05-01 10:42 | PDINTPN ---
Warrant Clerk Progress Note Assessment/Plan: Assessment/plan: * Cervical stenosis * Status post C4-T2 posterior cervical fusion with C4-C7 posterior cervical decompression * Left arm/hand weakness * Coronary artery disease * Acute renal failure-creatinine 1.9 -check chemistry in the morning * Pain-well controlled * Congestive heart failure * Diabetes -continue aggressive blood sugar control * PT/OT * VTE prophylaxis * Stress ulcer prophylaxis * Nutrition-on hold -speech to see Subjective: Resting comfortably. No current complaints. Objective: Vital Signs Temp Pulse Resp BP Pulse Ox 37.0 C 85 10 L 154/55 H 98 05/01/18 08:00 05/01/18 10:00 05/01/18 10:00 05/01/18 10:00 05/01/18 10:00 Laboratory Results 04/30/18 05:29 04/30/18 05:29 04/30/18 05/01/18 05/02/18 05:59 05:59 05:59 Intake Total 3219 Output Total 645 1960 Balance -645 1259 - Time Spent With Patient Time Spent With Patient: 35 min of time spent with patient, over 1/2 involved with coordination of care counseling. Case discussed with nursing and neurosurgery Physical Exam - Physical Exam General Appearance: alert, no apparent distress EENT: PERRL/EOMI Neck: non-tender, supple Respiratory: chest non-tender, lungs clear, normal breath sounds Cardiac/Chest: normal peripheral pulses, regular rate, rhythm, systolic murmur Abdomen: normal bowel sounds, non-tender, soft Male Genitalia: deferred Rectal: deferred Skin: normal color, warm/dry Extremities: normal inspection Neuro/Psych: alert ICD10 Worksheet Patient Problems: Problems Problem Status Onset Acute exacerbation of congestive heart failure Acute CHF (congestive heart failure) Acute Diabetes Acute Elevated troponin Acute HTN (hypertension) Acute Hyperglycemia Acute NSTEMI (non-ST elevated myocardial infarction) Acute Orthostatic hypotension Acute Pneumonia Acute Respiratory failure with hypoxia Acute Upper respiratory tract infection Acute
[2018-05-01] MEDS: DIAZEPAM 5 MG/ML 1 ML SYR IVP PRN (15:26)
--- NOTE | 2018-05-01 15:31 | HOSPPROG ---
Hospitalist Progress Note Assessment/Plan: 62-year-old with a history of cervical stenosis status post C4 through T2 posterior cervical fusion with cervical decompression. Your consult to help assist with diabetes control. # cervical stenosis status post surgery, per Neurosurgery # diabetes, obtained tight control for postop period. * Continue Lantus and sliding scale blood sugars under good control. # history of hypertension on multiple medications, stable currently. Will follow # coronary artery disease on statin and beta-germain. Aspirin on hold. Asymptomatic # dysphagia with aspiration risk. Likely related to surgery and swelling. Continued speech therapy evaluation # history of CHF, echo showing EF of 55% diastolic dysfunction. # obstructive sleep apnea Subjective: Patient new to me and chart reviewed. Discussed in multidisciplinary rounds. Complains of some phlegm in his throat otherwise doing okay. Unable to eat yet due to dysphagia Objective: Vital Signs Temp Pulse Resp BP Pulse Ox 36.8 C 84 11 L 117/45 L 98 05/01/18 12:00 05/01/18 14:00 05/01/18 14:00 05/01/18 14:00 05/01/18 14:00 Laboratory Results 04/30/18 05:29 04/30/18 05:29 04/30/18 05/01/18 05/02/18 05:59 05:59 05:59 Intake Total 3219 Output Total 645 1960 Balance -645 1259 - Physical Exam Constitutional: chronically ill appearing, uncomfortable Eyes: PERRL Ears, Nose, Mouth, Throat: moist mucous membranes, other (Hard collar in place) Cardiovascular: regular rate and rhythym Respiratory: no respiratory distress, clear to auscultation Gastrointestinal: soft, non-tender abdomen Skin: warm Musculoskeletal: generalized weakness Neurologic: AAOx3 Psychiatric: interacting appropriately, not anxious ICD10 Worksheet Patient Problems: Problems Problem Status Onset Acute exacerbation of congestive heart failure Acute CHF (congestive heart failure) Acute Diabetes Acute Elevated troponin Acute HTN (hypertension) Acute Hyperglycemia Acute NSTEMI (non-ST elevated myocardial infarction) Acute Orthostatic hypotension Acute Pneumonia Acute Respiratory failure with hypoxia Acute Upper respiratory tract infection Acute
--- NOTE | 2018-05-01 18:33 | SOAPPROG ---
SOAP Progress Note Assessment/Plan: Assessment: 62 y/o Male who had severe cervical stenosis with myleopathic changes is POD #2 from an ACDF C4-7 and posterior decompression and fusion from C4-T2. Patient states he is having slightly more pain into his right forearm and hand today than yesterday. He feels his throat is very dry and he is having difficulty swallowing. Patient has no complaints about nausea, vomiting, chest pain, sob, abdominal pain. Patient at bedside. Patient does note he has history of aspiration pnuemonia once in 2008 and once again since then. Plan: -Cervical Collar at all times - Continue pain control -IV Valium for spasms -PT/OT and speech therapy -Montior anterior incision and neck for drainage and swelling. -Monitor posterior drain -IV pain medication -Continue to monitor Neurological status -hospitalist medical co-managment 05/01/18 18:29 Subjective: C/O pain into his neck as well as now down into his right hand, wrist and forearm. Has no complaints of pain into his legs, thorax, abdomen. Objective: Vital Signs Temp Pulse Resp BP Pulse Ox 37.3 C 89 14 130/45 H 92 05/01/18 16:00 05/01/18 18:00 05/01/18 18:00 05/01/18 18:00 05/01/18 18:00 Laboratory Results 04/30/18 05:29 04/30/18 05:29 04/30/18 05/01/18 05/02/18 05:59 05:59 05:59 Intake Total 3219 944 Output Total 645 1960 1520 Balance -645 1259 -576 Alert and Oriented x 4 Neuromuscular exam: RUE: Shoulder shrug/Biceps/Tricep 4/5 Wrist Extenstion/Wrist Flexion/Head Of Visual Merchandising Strength all 3/5 LUE: Shoulder Shrug/Biceps/Tricep all 4/5 Wrist Extension and Head Of Visual Merchandising Strength 2/5 LLE and RLE all 4/5 except EHL 3/5 bilaterally Calves soft and non tender 2+ dorsal pedal pulse - Time Spent With Patient Time Spent With Patient: greater than 30 minutes were spent with the patient and discussing course of action post-operatively. - Pending Discharge Pending Discharge Within 24 Hours: No Pending Discharge Within 48 Hours: No ICD10 Worksheet Patient Problems: Problems Problem Status Onset Acute exacerbation of congestive heart failure Acute CHF (congestive heart failure) Acute Diabetes Acute Elevated troponin Acute HTN (hypertension) Acute Hyperglycemia Acute NSTEMI (non-ST elevated myocardial infarction) Acute Orthostatic hypotension Acute Pneumonia Acute Respiratory failure with hypoxia Acute Upper respiratory tract infection Acute
[2018-05-01] MEDS: ATORVASTATIN CALCIUM 40 MG TAB PO SCH (20:12)
[2018-05-01] MEDS: INSULIN GLARGINE 100 UNITS/ML UNIT SC SCH (21:05)
[2018-05-02] MEDS: ACETAMINOPHEN 500 MG TAB PO SCH ×2 (07:53→15:12)
[2018-05-02] MEDS: GABAPENTIN 300 MG CAP PO SCH ×2 (07:54→15:13)
[2018-05-02] MEDS: FAMOTIDINE 20 MG/NACL 50 ML IV SCH ×2 (08:41→20:54)
--- NOTE | 2018-05-02 09:13 | PDINTPN ---
Coupler Progress Note Assessment/Plan: Assessment/plan: * Cervical stenosis * Status post C4-T2 posterior cervical fusion with C4-C7 posterior cervical decompression * Left arm/hand weakness-minimal improvement * Mental status-somewhat confused this morning. -follow * Coronary artery disease * Acute renal failure-creatinine 1.9 -a.m. Labs pending * Pain-well controlled * Congestive heart failure-chest x-ray this morning shows some pulmonary edema -add some Lasix this morning * Diabetes-blood sugars have been controlled -continue aggressive blood sugar control * PT/OT * VTE prophylaxis * Stress ulcer prophylaxis * Nutrition-on hold -speech to see -consider feeding tube Subjective: Confused this morning. Speech is slowed somewhat. Objective: Vital Signs Temp Pulse Resp BP Pulse Ox 37.0 C 93 21 H 154/58 H 93 05/02/18 04:00 05/02/18 07:45 05/02/18 07:45 05/02/18 07:45 05/02/18 07:45 Laboratory Results 04/30/18 05:29 04/30/18 05:29 05/01/18 05/02/18 05/03/18 05:59 05:59 05:59 Intake Total 3219 1244 Output Total 1960 2770 Balance 1259 -1526 05/02/18 05/01/18 05/01/18 00:17 20:39 17:32 POC Glucose 136 mg/dL H mg/dL 130 mg/dL H mg/dL 104 mg/dL H mg/dL (70 - 100) (70 - 100) (70 - 100) 05/01/18 05/01/18 12:26 07:47 POC Glucose 159 mg/dL H mg/dL 147 mg/dL H mg/dL (70 - 100) (70 - 100) Chest [id number] by myself. Cardiomegaly is present. Some pulmonary edema is present. - Time Spent With Patient Time Spent With Patient: 35 min of time spent with patient, over 1/2 involved coordination of care counseling. Case discussed with nurse. Extensive discussion new occurred with patient's . Physical Exam - Physical Exam General Appearance: other (Awake but confused) EENT: PERRL/EOMI Neck: other (C collar) Respiratory: rhonchi (Few scattered), No respiratory distress, No wheezing Cardiac/Chest: normal peripheral pulses, regular rate, rhythm, systolic murmur Peripheral Pulses: 2+: carotid (R), carotid (L), femoral (R), femoral (L), dorsalis-pedis (R), dorsalis-pedis (L) Abdomen: normal bowel sounds, non-tender, soft Male Genitalia: deferred Skin: normal color, warm/dry Extremities: non-tender Neuro/Psych: other (Confused), No alert ICD10 Worksheet Patient Problems: Problems Problem Status Onset Acute exacerbation of congestive heart failure Acute CHF (congestive heart failure) Acute Diabetes Acute Elevated troponin Acute HTN (hypertension) Acute Hyperglycemia Acute NSTEMI (non-ST elevated myocardial infarction) Acute Orthostatic hypotension Acute Pneumonia Acute Respiratory failure with hypoxia Acute Upper respiratory tract infection Acute
--- NOTE | 2018-05-02 09:33 | SOAPPROG ---
SOAP Progress Note Assessment/Plan: Assessment: 62 y/o Male who had severe cervical stenosis with myleopathic changes is POD #3 from an ACDF C4-7 and posterior decompression and fusion from C4-T2. Patient is feeling more sluggish and tired than yesterday. He does state that he is confused he knows he is in the hospital but not sure exact reason. Plan: -Cervical Collar at all times - Continue pain control limit narcotics 2/2 confusion -IV Valium for spasms -PT/OT and speech therapy -Montior anterior incision and neck for drainage and swelling. -Monitor posterior drain -Continue to monitor Neurological status -hospitalist medical co-managment -discussed with tray filler the addition of an NG tube for nutrition. -Plan Discussed with Dr Stock 05/02/18 09:38 Subjective: 62 y/o Male who had severe cervical stenosis with myleopathic changes is POD #3 from an ACDF C4-7 and posterior decompression and fusion from C4-T2. Patient is feeling more sluggish and tired than yesterday. He does state that he is confused he knows he is in the hospital but not sure exact reason. Patient complains of dry mouth and difficulty swallowing, cough. Patient denies any chest pain, abdominal pain, nausea, vomiting. Objective: Vital Signs Temp Pulse Resp BP Pulse Ox 37.0 C 93 21 H 154/58 H 93 05/02/18 04:00 05/02/18 07:45 05/02/18 07:45 05/02/18 07:45 05/02/18 07:45 Laboratory Results 05/02/18 09:00 05/01/18 05/02/18 05/03/18 05:59 05:59 05:59 Intake Total 3219 1244 Output Total 0428 2770 Balance 1259 -1526 [address] (hospital) Mild discomfort Neurological Exam: RUE Bicep/Tricep 3/5 Wrist Extension and Flight Deck Officer Strength 2/5 LUE: Bicep/Tricep 3/5 Wrist Extension and Flight Deck Officer Strength 1/5 LLE: Hip Flexor/Quad/Tib Anter 3/5 Gastroc/EHL 2/5 RLE: Hip Flexor/Quad/Tib Anter 3/5 Gastroc/EHL 2/5 Neurologically intact to light tough throughout all 4 extremities. Dorsal Pedal Pulse 2+ Bilaterally - Time Spent With Patient Time Spent With Patient: over 45 minutes spent with patient and family discussing current plans and progress. Patient would like to be involved in all patient medical decisions and discussion of plans for the patient. - Pending Discharge Pending Discharge Within 24 Hours: No Pending Discharge Within 48 Hours: No ICD10 Worksheet Patient Problems: Problems Problem Status Onset Acute exacerbation of congestive heart failure Acute CHF (congestive heart failure) Acute Diabetes Acute Elevated troponin Acute HTN (hypertension) Acute Hyperglycemia Acute NSTEMI (non-ST elevated myocardial infarction) Acute Orthostatic hypotension Acute Pneumonia Acute Respiratory failure with hypoxia Acute Upper respiratory tract infection Acute
[2018-05-02] MEDS ORDERED: INSULIN GLARGINE 100 UNITS/ML UNIT SC SCH ×2 (09:48→10:58)
[2018-05-02] MEDS: INSULIN LISPRO 100 UNIT/ML SC SCH (10:07)
--- NOTE | 2018-05-02 11:01 | HOSPPROG ---
Hospitalist Progress Note Assessment/Plan: 62-year-old with a history of cervical stenosis status post C4 through T2 posterior cervical fusion with cervical decompression. Your consult to help assist with diabetes control. # cervical stenosis status post surgery, per Dr. Stock * Improved sensation * PT recommendations per Dr. Stock # diabetes, obtained tight control for postop period. * Continue Lantus * Change sliding scale to regular insulin since he will be on tube feeds * I suspect he will have increased needs for Lantus once on tube feeds. # history of hypertension on multiple medications, stable currently. Will follow # coronary artery disease on statin and beta-germain. Aspirin on hold. Asymptomatic # dysphagia with aspiration risk. Likely related to surgery and swelling. Continued speech therapy evaluation # history of CHF, echo showing EF of 55% diastolic dysfunction. # obstructive sleep apnea Subjective: Discussed in multidisciplinary rounds. Patient quite sleepy this morning. Objective: Vital Signs Temp Pulse Resp BP Pulse Ox 37.0 C 82 19 152/53 H 98 05/02/18 04:00 05/02/18 10:00 05/02/18 10:00 05/02/18 10:00 05/02/18 10:00 Laboratory Results 05/02/18 09:00 05/02/18 09:00 05/01/18 05/02/18 05/03/18 05:59 05:59 05:59 Intake Total 3219 1244 Output Total 5571 2770 Balance 1259 -1526 - Physical Exam Constitutional: no apparent distress Eyes: anicteric sclera Ears, Nose, Mouth, Throat: moist mucous membranes, other (Cervical hard collar in place) Cardiovascular: regular rate and rhythym Respiratory: no respiratory distress, clear to auscultation Gastrointestinal: normoactive bowel sounds Genitourinary: isaac in urethra Skin: normal color Musculoskeletal: generalized weakness Neurologic: other (Sedated today), No facial droop Psychiatric: not anxious ICD10 Worksheet Patient Problems: Problems Problem Status Onset Acute exacerbation of congestive heart failure Acute CHF (congestive heart failure) Acute Diabetes Acute Elevated troponin Acute HTN (hypertension) Acute Hyperglycemia Acute NSTEMI (non-ST elevated myocardial infarction) Acute Orthostatic hypotension Acute Pneumonia Acute Respiratory failure with hypoxia Acute Upper respiratory tract infection Acute
[2018-05-02] MEDS: hydrALAZINE 25 MG TAB PO SCH ×2 (15:09→15:13)
[2018-05-02] MEDS: CARVEDILOL 25 MG TAB PO SCH (15:09)
[2018-05-02] MEDS: amLODIPine BESYLATE 5 MG TAB PO SCH (15:09)
[2018-05-02] MEDS: TORSEMIDE 20 MG TAB PO SCH (15:10)
[2018-05-02] MEDS: IRBESARTAN 150 MG TAB PO SCH (15:10)
[2018-05-02] MEDS: DIAZEPAM 5 MG/ML 1 ML SYR IVP PRN (15:36)
[2018-05-02] MEDS: SENNOSIDES/DOCUSATE SODIUM TAB PO SCH (15:45)
[2018-05-02] MEDS: MINOXIDIL 2.5 MG TAB PO SCH (15:45)
[2018-05-02] MEDS: ISOSORBIDE MONONITRATE 30 MG TAB.SR PO SCH (15:45)
[2018-05-02] MEDS: INSULIN REGULAR HUMAN 100 UNIT/ML UNIT SC SCH ×3 (15:46→21:07)
[2018-05-02] MEDS ORDERED: MAGNESIUM HYDROXIDE 30 ML UDCUP TUBE PRN (17:00)
[2018-05-02] MEDS ORDERED: METHOCARBAMOL 750 MG TAB TUBE PRN (17:00)
[2018-05-02] MEDS ORDERED: POLYETHYLENE GLYCOL 3350 17 GM PKT TUBE PRN (17:00)
[2018-05-02] MEDS ORDERED: oxyCODONE IR 5 MG TAB TUBE PRN (17:00)
[2018-05-02] MEDS ORDERED: LACTULOSE 20 GM/30 ML UDCUP TUBE PRN (17:00)
[2018-05-02] MEDS: CARVEDILOL 25 MG TAB TUBE SCH (17:52)
[2018-05-02] MEDS: GABAPENTIN 250 MG/5 ML 30 ML BOTTLE TUBE SCH (20:52)
[2018-05-02] MEDS: ATORVASTATIN CALCIUM 40 MG TAB TUBE SCH (20:53)
[2018-05-02] MEDS: TORSEMIDE 20 MG TAB TUBE SCH (20:53)
[2018-05-02] MEDS: hydrALAZINE 25 MG TAB TUBE SCH (20:53)
[2018-05-02] MEDS: SENNOSIDES 17.6 MG/10 ML UDL - IF LIQUID ORDERED TUBE SCH (20:54)
[2018-05-02] MEDS: ACETAMINOPHEN 650 MG/20.3 ML UDCUP TUBE SCH (22:00)
[2018-05-03] MEDS: ACETAMINOPHEN 650 MG/20.3 ML UDCUP TUBE SCH ×3 (04:40→21:47)
[2018-05-03] MEDS: INSULIN REGULAR HUMAN 100 UNIT/ML UNIT SC SCH ×5 (08:04→22:04)
[2018-05-03] MEDS ORDERED: INSULIN GLARGINE 100 UNITS/ML UNIT SC SCH (08:15)
--- NOTE | 2018-05-03 08:56 | GPROG ---
[f rep st] PROGRESS NOTE I saw and evaluated the patient with his family this morning. I have been in communication with my maryan begum printing bindery assistant regarding his progress over the weekend. In short, he had an ACF from C4 to C7 co mplicated by loss of signals with subsequent revision C4 to T2 fusion with a C4 to C7 open decompress ion. The surgery itself technically went well. Per the patient's , he has progressively decline d with regard to his mental status function over the weekend. On my physical exam this morning, he i s grossly moving all extremities, less so the left upper extremity, however, is grossly intact except for radio operator ground strength, which does appear to be objectively weak. The patient is minimally cooperative. He is A and O x2. At this point, he seems to be, however, just waking up, and his mental status titi ears to be improving during the course of my exam. However, there is clearly some component of menta l status change at this point. The drain is in place. Anterior dressing is clean, dry, intact. Pos terior dressing is clean, dry, and intact, and both are left in place. The collar is in place and we ll fitted. He has an NG tube in for feeds and is receiving IV fluids. IMPRESSION: Status post cervical fusion, mental status changes. ASSESSMENT AND PLAN: I have reviewed the patient's MRI and postsurgical course. On the MRI, he does appear to be well decompressed from C4 to C7 with where the laminectomies were performed technically , and the 2nd operation appears to have done its job with regard to complete decompression and allowi ng the cord to flow back. He has clear interval improvement of stenosis. There is some fluid presen t at the operative site, but this is certainly expected and normal. At this point, the patient's physical exam is unreliable. I do not know that I can say he has any di screte deficits. He appears to have some left arm weakness. However, this cannot be quantified. I think the more concerning and more immediate issue at this point is addressing the patient's mental s tatus and possible delirium versus postoperative ICU psychosis. We have discontinued all medications . We have asked the hospitalist to be on board and communicated with the record label intern. We have also asked that Neurology see and evaluate the patient today. I do think that a CT scan of the patient's head and searching for other signs of organic reasoning for the patient's mental status changes are c ertainly the most pressing at this point. Certainly, I do not think any more urgent surgical interve ntion is necessary at this point. I would very much like to set up a conference with the patient's f amily and hopefully the hospitalist and record label intern to coordinate care later today. /[id number]/MODL
[2018-05-03] MEDS ORDERED: IRBESARTAN 150 MG TAB TUBE SCH (09:00)
[2018-05-03] MEDS: CARVEDILOL 25 MG TAB TUBE SCH ×2 (09:40→19:06)
[2018-05-03] MEDS: SENNOSIDES 17.6 MG/10 ML UDL - IF LIQUID ORDERED TUBE SCH ×2 (09:41→20:15)
[2018-05-03] MEDS: FAMOTIDINE 20 MG/NACL 50 ML IV SCH (09:41)
[2018-05-03] MEDS: hydrALAZINE 25 MG TAB TUBE SCH ×2 (09:41→18:36)
[2018-05-03] MEDS: amLODIPine BESYLATE 5 MG TAB TUBE SCH (09:42)
[2018-05-03] MEDS: MINOXIDIL 2.5 MG TAB TUBE SCH (09:42)
[2018-05-03] MEDS: TORSEMIDE 20 MG TAB TUBE SCH ×2 (09:42→21:48)
--- NOTE | 2018-05-03 10:33 | PDINTPN ---
Lodging House Keeper Progress Note Assessment/Plan: 62 yo M with cervical stenosis s/p C4-T2 c spine fusion complicated by postoperative weakness status post repeat posterior approach complicated by postoperative encephalopathy and weakness and status post cardiac arrest due to hypoxemic respiratory failure from aspiration inability to protect airway 2018 # cardiac arrest. 05/03/2018. Primary respiratory due to aspiration and inability to protect airway. Achieved ROSC quickly after securing airway and epi x2 # aspiration pneumonia. Vanc/Zosyn started 05/03/2018 # shock. Ischemia reperfusion + sedation. Infection less likely given abrupt onset after arrest # encephalopathy. Non con CT head negative 05/03/2018. Differential diagnosis and is broad and includes hypoactive delirium, hypoxemia, toxic and metabolic. # type 2 diabetes # history of hypertension # coronary disease # history of CHF now with recovered EF. # NIXON. In the process of being evaluated is output PLAN # lung protective ventilation, target normoxia # will obtain MRI brain while intubated sedated # NE as needed for shock # broad-spectrum antibiotics started 05/03/2017 # will proceed with bronchoscopy given critical illness and aspiration pneumonia. If procalcitonin down and bronch without significant neutrophilia will deescalate tomorrow # CTH non con to establish baseline # increase lantis for hyperglycemia 05/03/18 10:34 05/03/18 16:14 Subjective: declines in MS overnight after valium and high dose gabatentin, neurology consulted on patient, family with multiple questions. u Objective: Vital Signs Temp Pulse Resp BP Pulse Ox 37.3 C 73 17 133/60 H 98 05/03/18 08:00 05/03/18 08:00 05/03/18 08:00 05/03/18 08:00 05/03/18 08:00 Laboratory Results 05/02/18 09:00 05/03/18 04:15 05/02/18 05/03/18 05/04/18 05:59 05:59 05:59 Intake Total 1244 1410 Output Total 8045 9019 Balance -1526 -6435 ICD10 Worksheet Patient Problems: Problems Problem Status Onset Acute exacerbation of congestive heart failure Acute CHF (congestive heart failure) Acute Diabetes Acute Elevated troponin Acute HTN (hypertension) Acute Hyperglycemia Acute NSTEMI (non-ST elevated myocardial infarction) Acute Orthostatic hypotension Acute Pneumonia Acute Respiratory failure with hypoxia Acute Upper respiratory tract infection Acute
[2018-05-03] MEDS ORDERED: METOPROLOL TARTRATE 5 MG/5 ML INJ ONE (12:03)
[2018-05-03 12:34] LABS: PLATELET COUNT 105 10^3/uL (150-400)
[2018-05-03] MEDS ORDERED: ROCURONIUM 100 MG/10 ML VIAL ONE (12:34)
[2018-05-03] MEDS ORDERED: fentaNYL 100 MCG/2 ML INJ ONE (12:36)
--- NOTE | 2018-05-03 12:40 | HOSPPROG ---
Hospitalist Progress Note Assessment/Plan: 62-year-old with a history of cervical stenosis status post C4 through T2 posterior cervical fusion with cervical decompression. consulted to help assist with diabetes control. His hospital course has been complicated by altered mental status with increasing sedation and he had a respiratory arrest this morning which we suspect is due to aspiration. # code blue called after patient returned from CT scanning. Likely respiratory arrest as patient with pulse noted after minimal chest compressions. He was intubated and noted to have significant secretions with suctioning. Chest x-ray done with questionable left lower lobe pneumonia. Suspect he may have aspirated causing respiratory arrest and brief loss of blood pressure which responded quite well with 1 amp of epinephrine. Currently hypotensive and intubated * Bronchoscopy, broad-spectrum antibiotics post bronch once cultures done * CT without contrast to further visualize chest * Levophed for pressure support * Continue intubation for now since patient is quite sedated. # encephalopathy, unclear etiology. Discussed with Dr. Valenzuela. Increased somnolence over the last 2 days. Currently sedated and intubated CT scan of the head reviewed and was unremarkable. * Check MRI without contrast to rule out any obvious CVA that could be contributing to his symptoms or other intracranial processes. * start antibiotics for aspiration pneumonia. * Continue supportive care # cervical stenosis status post surgery, per Dr. Stock * Redo posterior approach last week. Ongoing recovery and postop care by Dr. Stock # diabetes, would like to continue with blood sugars in the 110 through 180 range through his postop course * Currently on Lantus 12 units daily with sliding scale regular insulin * He was on tube feeds with Glucerna, this is currently on hold due to his respiratory arrest but will likely resume this once he is stable # history of hypertension on multiple medications, requiring pressor support post code blue # coronary artery disease on statin and beta-germain. Aspirin on hold. Asymptomatic # dysphagia with aspiration risk. Likely related to surgery and swelling. Continued speech therapy evaluation # history of CHF, echo showing EF of 55% diastolic dysfunction. # obstructive sleep apnea Subjective: Patient seen and examined discussed in multidisciplinary rounds sedated at the time of my initial visit. And now chemically sedated due to intubation during respiratory arrest. Objective: Vital Signs Temp Pulse Resp BP Pulse Ox 37.3 C 74 18 136/61 H 98 05/03/18 08:00 05/03/18 10:00 05/03/18 10:00 05/03/18 10:00 05/03/18 10:00 Laboratory Results 05/02/18 09:00 05/03/18 04:15 05/02/18 05/03/18 05/04/18 05:59 05:59 05:59 Intake Total 1244 1410 Output Total 2987 2653 Balance -1526 -6234 - Physical Exam Constitutional: chronically ill appearing Ears, Nose, Mouth, Throat: other (Currently intubated, cervical collar in place) Cardiovascular: regular rate and rhythym Respiratory: other (ETT in place) Gastrointestinal: soft, non-tender abdomen Genitourinary: isaac in urethra Skin: normal color Neurologic: other (Sedated), No AAOx3 Psychiatric: other (Sedated) ICD10 Worksheet Patient Problems: Problems Problem Status Onset Acute exacerbation of congestive heart failure Acute CHF (congestive heart failure) Acute Diabetes Acute Elevated troponin Acute HTN (hypertension) Acute Hyperglycemia Acute NSTEMI (non-ST elevated myocardial infarction) Acute Orthostatic hypotension Acute Pneumonia Acute Respiratory failure with hypoxia Acute Upper respiratory tract infection Acute
[2018-05-03] MEDS ORDERED: PROPOFOL/EMULSION 100 ML IV SCH (12:53)
[2018-05-03] MEDS ORDERED: LIDOCAINE 1% 300 MG/30 ML SDV MISC ONE (12:59)
[2018-05-03] MEDS ORDERED: NOREPINEPHRINE BITARTRATE 4 MG in NS 500 ML IV SCH (13:00)
[2018-05-03] MEDS ORDERED: ONDANSETRON DISINTEGRATING 4 MG TAB TUBE PRN (13:00)
[2018-05-03] MEDS ORDERED: ALBUTEROL 60 PUFFS/8 GM MDI IH ONE (13:04)
[2018-05-03] MEDS: ALBUTEROL 60 PUFFS/8 GM MDI IH SCH ×2 (14:52→15:51)
--- NOTE | 2018-05-03 15:52 | ASMTCMCOM ---
CM Note CM Note Notes: Warren Mccray was called on pt today, family and friends have been visiting with pts . Family meeting is scheduled for tomorrow (Thursday). CM spoke with PT, who were possibly recommending LTAC. PT unable to see pt today. There is an order for inpatient rehab. CM to continue to collaborate to determine appropriate discharge needs. Plan: LTAC vs Inpatient Rehab; family meeting Thursday Date Signed: 05/03/2018 03:51 PM Electronically Signed By:CAROLINE Hughes
[2018-05-03] MEDS: GABAPENTIN 250 MG/5 ML 30 ML BOTTLE TUBE SCH ×3 (16:07→21:52)
--- NOTE | 2018-05-03 16:10 | PDCODEBLUE ---
Code Blue Note Code blue note Time of code 1215 Medications Given Epinephrine 1-29375 1 mg x2 Description of Events A code bk was called overhead. When I arrived bedside I found patient cyanotic and unresponsive. He had a thready pulse, O2 sat of 50% with no respiratory efforts. Cycled cuff blood pressure with a map of 30. Patient was being bag-valve mask ventilated. Given inadequate map 1 mg of epinephrine were was administered. Patient's C-collar was removed and bed of, RN, held C-spine precautions while intubated patient with a MAC 4 in bougie. See separate intubation note. Epinephrine 1 mg was administered 1 more time. Patient's blood pressure subsequently improved and hypoxia resolved. Return of circulation was achieved and patient was placed on mechanical ventilation and ICU level care was instituted. Family was notified immediately
--- NOTE | 2018-05-03 16:11 | SUROPNOTE ---
RD Operative Report - Surgery Emergency Endotracheal Intubation Date and Time 05/03/2018 12:00 p.m. Operators S Erick Goldberg MD Indication Code blue, respiratory rate Consent Emergency procedure in a critically ill decompensating patient Preoxygenation Bag-valve mask Medications None Equipment Mac 4 Bougie, 7.5 ETT [place] still grade view intubation 1 Number of Attempts 1 Post Procedure Placement was confirmed with capnography, breath sounds were ausculated bilaterally. Umbilical tape, ETT pena, 24 cm at teeth, CXR ordered Complications None
--- NOTE | 2018-05-03 16:13 | SUROPNOTE ---
RD Operative Report - Surgery Central Line Insertion Procedure: Left subclavian CVC placement Attending Physician: Dr. Shan Goldberg Anesthesiologist: N/A Anesthesia Type: N/A Indication: Status post cardiac arrest vascular access, shock Consent: Verbal consent was obtained from next of kin in an emergent fashion Time-Out: prior to the procedure, time-out was performed to verify patient's name, date of , correct procedure, correct side, correct site, correct patient position, correct radiographic data, and special equipment required. Pre-Op Dx: Post cardiac arrest shock Post-Op Dx: Post cardiac arrest shock Medications: none Description: Hand hygiene was perfomed. Pt was positioned supine and skin above the left clavicle and left chest were prepped with Chloraprep (with time allowed to dry) prior to catheter insertion and with maximal sterile precautions (including gown, sterile gloves, mask, cap, and large sterile draping). Using landmarks, the left subclavian vein was accessed in 1 attempt. Guidewire was threaded through the 18 gauge finer needle, skin was nicked and dilated using Seldinger technique and a size 4 [place] triple-lumen central venous catheter was placed to a depth of 20 cm. All lines were flushed and sterile dressing applied. Adequate position on chest x-ray EBL: 0 ml Complications: none Specimens Sent: none Implants: N/A F/U: routine CVC care Shan Goldberg MD
[2018-05-03] MEDS ORDERED: fentaNYL 100 MCG/2 ML INJ IVP ONE (16:15)
--- NOTE | 2018-05-03 16:28 | GCON ---
[f rep st] CONSULTATION NEUROLOGIC CONSULTATION REFERRING PHYSICIAN: Frank Stock MD The patient is a 62-year-old gentleman whom I am asked to see in neurologic consultation regarding altered mental state. He was admitted electively on April 29 for treatment of severe cervical spinal stenosis. He had anterior cervical fusion, but there was not effective technical decompression in reviewing the films and notes from Dr. Stock. It was decided that the patient was at risk for significant worsening of deficits justifying a BP procedure with posterior decompression. After this, there was technical relief of the compression, but the patient has had residual deficits, since that time, and weakness in all the extremities to a variable degree. Documentation has ranged from mild to severe weakness at various points. Over the last 24-48 hours, he has been more lethargic and somewhat less interactive, according to his family, which they say represents a significant change and also moving his extremities less effectively. He is unable to communicate effectively to get direct history from him other than very basic information currently. I obtained information directly from his current treating nurse as well as the review of the consultations and discussion with the patient's and [id number]. When asking the patient if he is in any specific pain, he is answering that this morning by shaking his head. He has been inconsistent this morning on answering questions, according to the nurse, or following commands, but she was able to get him to wiggle his toes at times. He could try to wrinkle his brow and open and close his eyes. When I am examining him, he is able to try to mouth some words but has a delayed response to answer questions. His pupils are 3 mm and reactive. The extraocular movements are intact, although not fully in either direction, but he does attempt to move in both directions. I see a little bit of end-beat nystagmus on both sides. The movements are conjugate. In his cervical collar, there is some difficulty assessing the true asymmetry of his facial movements, but I do not detect definite asymmetry. He seems to be able to see. When I ask him to follow commands in the extremities, he does not move his hands or arms to command, and when I manually test the motor power, I am only ascertaining relatively flaccid extremities with no furnace installer or movement of the toes on command. Even with painful stimulation, he is not acutely withdrawing to pain, although, earlier, he had some spontaneous movement , and he did have just some brief movement in the right upper extremity as I was examining him. He seems to recognize light touch by looking toward where I am touching, but that is somewhat inconsistent. The reflexes are hypoactive. In his additional past medical history, there is coronary disease, congestive heart failure, type 2 diabetes. He has a history of coronary stenting. SOCIAL HISTORY: No history of smoking. FAMILY HISTORY: Coronary disease. MEDICATIONS: In reviewed medications, yesterday, he did receive a dose of 900 mg of gabapentin, which is the first time he had taken the medication according to the records. His medicines are being held this morning, but he is on a schedule previously written at 300 mg 3 times a day. He also received dosage of morphine yesterday and diazepam. The morphine dose was 4 mg, and the dosage of diazepam was 5 mg. EXAMINATION: On the current vital signs, blood pressure is 136/61, pulse of 74 , respirations 18, temperature 37.3 axillary at 0800 hours. As noted above, in describing his neurologic status, he is initially lethargic and required me yelling his repeatedly, and then, giving him some light stimulation to open his eyes partially, but then, when I pulled his eyes open, he maintained eye opening and would track me and look toward me and try to mouth answers. Again, his responses were delayed, and I could not get him to voluntarily make motor movements in the extremities, but he would close his eyes partially and try to wrinkle his forehead and try to mouth some words for me. Other details of the exam are as noted above. He did not appear to be in acute distress during the time I was examining him. DATA REVIEWED: In addition to his cervical spine film from April 29, he had a thoracic spine MRI showing no severe compressions or any evidence of cord pathology. His followup MRI of the cervical spine was May 02. There was improvement in the cervical spinal stenosis. There was no abnormal signal in the cervical cord. His head CT obtained after I saw him this morning was also reviewed. This does not show any evidence of acute stroke or hemorrhage, and only mild changes of white matter disease are evident. Laboratory study shows white count of 5000, hematocrit of 10. Sodium 151, potassium 5.3, chloride 124, BUN 62, creatinine 2.0, glucose of 220. Normal liver enzymes. IMPRESSION: Total unit time of 55 minutes. The patient appears to have an encephalopathy, likely multifactorial in origins, with some mild renal insufficiency, sedative effects of some medications, altered sleep cycle but not specific evidence of focal findings on his exam to suggest a stroke. The diffuse or global hypoxic ischemic changes cannot be definitively ruled out. This would require more detailed imaging with brain MRI, which can be considered. The patient had an episode of probable respiratory arrest after his scan and had been intubated. I spoke to Dr. Calvillo, and they are in the process of stabilizing, assessing his condition, and I will continue to follow up. The extent of cervical myelopathy and radiculopathy is hard to assess definitively with his lethargy, but there appears to be a worsening of strength compared to previously documented exams. For now, holding sedating medications, including gabapentin, is appropriate. /[id number]/MODL MTDD
--- NOTE | 2018-05-03 17:03 | SUROPNOTE ---
RD Operative Report - Surgery PROCEDURE NOTE: Flexible bronchoscopy with bronchoalveolar lavage and therapeutic aspiration Procedure Transformation Architect S Erick Goldberg MD Procedure: Flexible bronchoscopy with bronchoalveolar lavage and therapeutic aspiration Indication: Pneumonia, respiratory Preop diagnosis-pneumonia respiratory failure Postop diagnosis pneumonia, respiratory failure Consent: Obtained from family prior to procedure after explanation of the procedure, alternatives, risks, and benefits. Anesthesiologist NA Sedation Type: deep sedation Sedation Medications: propofol, Medications: None Procedure Summary: Time out was performed. Bronchoscope was passed through the ET tube into the trachea. First right-sided airways were examined and from the distal bronchus intermedius down copious thick secretions were noted obstructing the right middle lobe and right lower lobe. All of these were therapeutically aspirated. Due to the thick tenacious nature of secretions a total of 40 cc was instilled to feeding and loosen secretions to be removed. The subsequently the entire but tracheobronchial tree was examined. Next the bronchoscope was withdrawn and normal saline was suctioned through the bronchoscope to clean. Next the bronchoscope was advanced back into the ET tube into the right lower lobe where a formal bronchoalveolar lavage was performed instilling 120 cc of saline and removing 30 cc of turbid fluid. Fluid was sent for culture and EBL none Complications: None Impression: Aspiration pneumonia Items to Follow-up: BAL fluid cell count diff Gram stain and culture S Erick Goldberg MD Pulmonary and Critical Care Medicine [phone]
[2018-05-03] MEDS ORDERED: FUROSEMIDE 20 MG/2 ML VIAL IVP PRN (17:10)
[2018-05-03] MEDS ORDERED: LR 1,000 ML IV ONE (17:12)
[2018-05-03] MEDS: PIPERACILLIN/TAZO 2.25 GM/DEX 50 ML IV SCH ×2 (17:23→23:57)
[2018-05-03] MEDS: VANCOMYCIN 1.25 GM in NS 250 ML IV SCH (17:24)
[2018-05-03] MEDS: ATORVASTATIN CALCIUM 40 MG TAB TUBE SCH (20:14)
[2018-05-03] MEDS: FAMOTIDINE 20 MG TAB TUBE SCH (20:14)
--- NOTE | 2018-05-03 22:09 | GPROG ---
[f rep st] PROGRESS NOTE I saw the patient 3 separate times today. The morning note has been dictated. In the afternoon, I s aw the patient and reviewed the plan of care with the family. At that time, he had just been intubat ed, and a code had been called regarding his respiratory status. I have discussed the plan of care w ith his medical doctor, as well as the nurse. At this time, the plan was to perform a bronchoscopy, which was subsequently repeated and I have since seen the patient afterwards. His physical exam is grossly unchanged. He has a drain in the posterior cervical incision. The ante rior dressing and posterior dressing are both clean, dry, and intact. ASSESSMENT AND PLAN: Moving forward, we will still keep the cervical spine precautions. I am hopefu l that the bronchoscopy results are encouraging in that it is suggestive of an aspiration, which may explain the patient's current mental status. Hopefully, with resolution of that, the patient will pr ogress mentally. With regard to his physical exam, I do not feel we have had a reliable physical exa m following his 2nd operation. I do expect this to probably regain some neurological function; howev er, given his current mental status, it is certainly very difficult to assess. I will be closely inv olved in the patient's care and will see him again tomorrow and further assess with the Medical team. I had a long discussion with the regarding prognosis. At this time, I am very uncertain and c ertainly somewhat guarded, and I think it relates a lot to the patient's medical status regarding his postsurgical delirium which may in fact be related to his pulmonary status. Care of all teams is mu ch appreciated. Dr. Garcia has also commented from Cardiology regarding the patient's progress, and at is also much appreciated. I will see the patient at 7 o'clock in the morning tomorrow, and then d iscuss this with the nurse and family. /[id number]/MODL
[2018-05-04 05:35] LABS: PLATELET COUNT 124 10^3/uL (150-400)
[2018-05-04] MEDS: PIPERACILLIN/TAZO 2.25 GM/DEX 50 ML IV SCH ×3 (05:55→18:40)
[2018-05-04] MEDS: ACETAMINOPHEN 650 MG/20.3 ML UDCUP TUBE SCH ×3 (06:00→21:15)
--- NOTE | 2018-05-04 08:15 | GPROG ---
[f rep st] PROGRESS NOTE DATE OF SERVICE: 05/04/2018 I saw the patient this morning and had a discussion with his , as well as the patient's nurse. Jose Guadalupe conklin had an uneventful night. Overall, he is on a minimal amount of propofol. Overall appears to be do ing well. PHYSICAL EXAM: NEUROLOGIC: He is, again, intubated and sedated in the neurological exam could not b e completed at this time. SKIN: The drain has a mild amount of clear fluid. Dressings are clean, d ry, and intact. IMPRESSION: Status post cervical anterior and posterior decompression and fusion with instrumentatio n. ASSESSMENT/PLAN: Moving forward the coordinated care by all teams, including Cardiology, Medicine, a nd Intensive Care are all much appreciated. At this point, the patient appears to be weaning from hi s endotracheal tube. I will leave this up to the print decorator regarding management and timing of disc ontinuing the tube. We will have a family meeting today at around 12:30 and I will plan to be there regarding the patient's progress. I suspect the patient will have some degree of neurologic recovery when he wakes up. Again, I do not think we have had a really reliable neurological examination sinc e the patient's second operation. Certainly, I hope this is the secondary to the patient's recent as piration. At this point, we will discontinue the suction on the drain and allow the drain drainage t o slow down here. Plan of care discussed with the nurse and I am also available by cell phone for josie th the patient and care team. /[id number]/MODL
[2018-05-04] MEDS ORDERED: BIOTENE DRY MOUTH ORAL RINSE 237 ML BTL MM PRN (08:22)
--- NOTE | 2018-05-04 08:30 | PDINTPN ---
Convolute Tube Winder Progress Note Assessment/Plan: 62 yo M with cervical stenosis s/p C4-T2 c spine fusion complicated by postoperative weakness status post repeat posterior approach complicated by postoperative encephalopathy and weakness and status post cardiac arrest due to hypoxemic respiratory failure from aspiration inability to protect airway 2018. Still critically ill but improving # cardiac arrest. 05/03/2018. Primary respiratory due to aspiration and inability to protect airway. Achieved ROSC quickly after securing airway and epi x2 # aspiration pneumonia. Vanc/Zosyn started 05/03/2018. Bronch with 60% neutrophils, GS and Cx pending # shock. Ischemia reperfusion + sedation and antihypertensives. Infection less likely given abrupt onset after arrest # encephalopathy. Non con CT head negative 05/03/2018. Differential diagnosis and is broad and includes hypoactive delirium, hypoxemia, toxic and metabolic. # type 2 diabetes # hypertension # coronary disease # history of CHF now with recovered EF. Question of amyloid cardiomyopathy raised as OP. Will f/u with Dr Weston as OP # NIXON. In the process of being evaluated is output # RAMANA on CKD III # hyperkalemia # anemia PLAN # broad-spectrum antibiotics started 05/03/2017, if no MSRA or Pseudomonas at 48- 72 hrs, will deescalate lung protective ventilation, target normoxia, wean as tolerated # will obtain MRI brain while intubated sedated # CT chest to eval pneumonia # wean off NE as able # old OP antihypertensives until improved # continue high dose torsemide # trend BMP # increase lantis for hyperglycemia IMAGING I personally reviewed interpreted radiographic images well as formal radiology reads 05/04/18 ET and L subclavian in place, bilateral intersitial opacities 05/03/18 CT head non con-no acute intracranial pathology Patient is critically ill due to multiorgan failure and is at high risk for and decompensation. Total critical care time 88 minutes which was spending evaluating patient, bedside rounding, reviewing imaging and changing ventilator settings at bedside. Subjective: cardiac arrest yesterday due to aspiration and hypoxia, intubated and sedated. NE weaned down overnight. Improvement in gas exchange but still able to protect airway. Unable to obtain ROS. Objective: Vital Signs Temp Pulse Resp BP Pulse Ox 37.4 C 71 26 H 131/58 H 99 05/04/18 04:00 05/04/18 06:00 05/04/18 06:00 05/04/18 06:00 05/04/18 06:00 Laboratory Results 05/04/18 05:15 05/04/18 05:15 05/03/18 05/04/18 05/05/18 05:59 05:59 05:59 Intake Total 1410 2845.0 Output Total 2445 2705 Balance -1035 140.0 Physical Exam - Physical Exam General Appearance: other (Intubated sedated) EENT: PERRL/EOMI, ET tube Neck: supple, normal inspection Respiratory: chest non-tender, lungs clear Cardiac/Chest: normal peripheral pulses, regular rate, rhythm Abdomen: normal bowel sounds, non-tender Neuro/Psych: other (Opens eyes, smiles following minimal commands. Difficult to ascertain given respiratory failure and sedation) ICD10 Worksheet Patient Problems: Problems Problem Status Onset Encephalopathy Acute Myelopathy of cervical spinal cord with cervical radiculopathy Acute Acute exacerbation of congestive heart failure Acute CHF (congestive heart failure) Acute Diabetes Acute Elevated troponin Acute HTN (hypertension) Acute Hyperglycemia Acute NSTEMI (non-ST elevated myocardial infarction) Acute Orthostatic hypotension Acute Pneumonia Acute Respiratory failure with hypoxia Acute Upper respiratory tract infection Acute
[2018-05-04] MEDS: TORSEMIDE 20 MG TAB TUBE SCH ×2 (08:41→20:35)
[2018-05-04] MEDS: FAMOTIDINE 20 MG TAB TUBE SCH ×2 (08:41→20:35)
[2018-05-04] MEDS: MINOXIDIL 2.5 MG TAB TUBE SCH (08:42)
[2018-05-04] MEDS: SENNOSIDES 17.6 MG/10 ML UDL - IF LIQUID ORDERED TUBE SCH (08:42)
[2018-05-04] MEDS: CARVEDILOL 25 MG TAB TUBE SCH ×2 (08:42→18:40)
[2018-05-04] MEDS: amLODIPine BESYLATE 5 MG TAB TUBE SCH (08:42)
[2018-05-04] MEDS: INSULIN REGULAR HUMAN 100 UNIT/ML UNIT SC SCH ×4 (08:42→21:06)
[2018-05-04] MEDS: GABAPENTIN 250 MG/5 ML 30 ML BOTTLE TUBE SCH ×2 (08:43→17:25)
--- NOTE | 2018-05-04 09:10 | NEUROPROG ---
Assessment: Total unit time of 25 min. I had a detailed discussion with the patient's as well as multiple family members reviewing the current findings, the thinking of what may account for his encephalopathy which is much improved today and the lack of certainty on his speed of recovery but optimistic that he will continue to improve as sedation is held and he is able to participate more in activity. MRI of the brain will help today to clarify if there is any unrecognized ischemic injury. Subjective: The patient is not expressing any pain with direct questioning and is much more alert this morning than yesterday. Family agrees and his nurse as well that he has been more alert this morning and following commands more efficiently and promptly. Yesterday he had experienced respiratory arrest and remains on the ventilator on low doses of propofol and has had bronchoscopy clearing of secretions. Objective: Vital Signs Temp Pulse Resp BP Pulse Ox 37.7 C 76 26 H 141/58 H 99 05/04/18 08:00 05/04/18 08:00 05/04/18 08:00 05/04/18 08:00 05/04/18 08:00 Laboratory Results 05/04/18 05:15 05/04/18 05:15 05/03/18 05/04/18 05/05/18 05:59 05:59 05:59 Intake Total 1410 2845.0 Output Total 2445 2705 Balance -1035 140.0 He is awake and able to maintain eye contact and tracked me with his eyes. His pupils are 2 mm and reactive. Extraocular movements show full range of motion with mild nystagmus on far lateral gaze. He closes his eyes tightly with no asymmetry of facial movement. He is able to follow my commands in all the extremities to move them and the degree of weakness is more reliable for assessing today. In the left upper extremity he has almost no maintenance team leader for finger extension but some wrist extension. The power is about 2/5 for the biceps and triceps and deltoid. He recognizes touch on the left arm. Right upper extremity strength is more in the 2 in 3/5 range with the greatest weakness being in the maintenance team leader. In the lower extremities the power is at best currently 2/ 5. Reflexes remain hypoactive throughout with no Babinski signs. The head CT yesterday showed no significant pathology. Allergies/Adverse Reactions: No Known Allergies Allergy (Verified 04/27/18 16:08)
--- NOTE | 2018-05-04 14:11 | ASMTCMCOM ---
CM Note CM Note Notes: Electro Mechanical Technician Mary summarized family meeting between patient's , Dr Stock, forensic structural engineer Loan, and herself: patient's is frustrated with communication and care in the unit, feels she is not being heard or told what is going on. Another meeting will occur later in the week. Patient's condition remains guarded; discharge needs are TBD. Streetcar Dispatcher is hoping for extubation soon. Case Management will continue to follow. Date Signed: 05/04/2018 02:10 PM Electronically Signed By:Kadie Kruse RN
--- NOTE | 2018-05-04 15:17 | HOSPPROG ---
Hospitalist Progress Note Assessment/Plan: 62-year-old with a history of cervical stenosis status post C4 through T2 posterior cervical fusion with cervical decompression. . His hospital course has been complicated by altered mental status with increasing sedation and he had a respiratory arrest yesterday which we suspect is due to aspiration. code blue called after patient returned from CT scanning. likely aspiration related ct chest w b/l airpsace disease vanc zosyn extubated today encephalopathy, unclear etiology. Discussed with Dr. Valenzuela. MRI w two small and one tiny areas of restricted diffusion- unclear that these are responsible for weakness or encephalopathy improved today follow cva: multifocal s/o embolic phenomena no AF on tele check surface echo ultimately needs AMBER, precluded by c spine surgery asa when cleared from neurosurgery cervical stenosis status post surgery dr amador unavailable going forward [place] [facility] to consult c spine MRI 05/02 showed decompression, ongoing weakness noted diabetes, would like to continue with blood sugars in the 110 through 180 range through his postop course * Currently on Lantus 12 units daily with sliding scale regular insulin * He was on tube feeds with Glucerna, this is currently on hold due to his respiratory arrest but will likely resume this once he is stable history of hypertension on multiple medications, coronary artery disease on statin and beta-germain. Aspirin on hold. Asymptomatic dysphagia with aspiration risk. Likely related to surgery and swelling. Continued speech therapy evaluation history of CHF, echo showing EF of 55% diastolic dysfunction. obstructive sleep apnea Subjective: case d/w dr morel. mri w small L basal ganglia andpons restricted diffusion and tiny R parietal. extubated Objective: Vital Signs Temp Pulse Resp BP Pulse Ox 38.3 C 72 24 H 107/51 L 98 05/04/18 13:00 05/04/18 13:00 05/04/18 13:00 05/04/18 13:00 05/04/18 13:00 Microbiology 05/03/18 16:30 Gram Stain - Final Bronchial Alveolar Lavage - Lung Laboratory Results 05/04/18 05:15 05/04/18 05:15 05/03/18 05/04/18 05/05/18 05:59 05:59 05:59 Intake Total 1410 2845.0 Output Total 2445 2705 Balance -1035 140.0 - Physical Exam Constitutional: no apparent distress, appears nourished Eyes: PERRL, anicteric sclera Ears, Nose, Mouth, Throat: moist mucous membranes, hearing normal Cardiovascular: regular rate and rhythym, no murmur, rub, or gallop Respiratory: no respiratory distress, no rales or rhonchi, other (rhoncorous anterolat) Gastrointestinal: normoactive bowel sounds Genitourinary: no bladder fullness, isaac in urethra Skin: warm Musculoskeletal: No full muscle strength Neurologic: other (arms w 1-2/5 strength. 0/5 on legs. unclear if effort dependent), No AAOx3 ICD10 Worksheet Patient Problems: Problems Problem Status Onset Encephalopathy Acute Myelopathy of cervical spinal cord with cervical radiculopathy Acute Acute exacerbation of congestive heart failure Acute CHF (congestive heart failure) Acute Diabetes Acute Elevated troponin Acute HTN (hypertension) Acute Hyperglycemia Acute NSTEMI (non-ST elevated myocardial infarction) Acute Orthostatic hypotension Acute Pneumonia Acute Respiratory failure with hypoxia Acute Upper respiratory tract infection Acute
[2018-05-04] MEDS: VANCOMYCIN 1.25 GM in NS 250 ML IV SCH (17:26)
--- NOTE | 2018-05-04 17:34 | ECHO ---
[email or web address] [address] [address] Main: [phone] Fax: [email or web address] Echocardiogram Name: DANIEL WARD MR#: [id number] Study Date: 05/04/2018 Study Time: 03:42 PM Date of : 1955 Age: 62 year(s) Height: 175.3 cm (69 in.) Weight: 105.23 kg (232 lb.) BSA: 2.2 m2 Gender: Male Examination: Complete Echo with Agitated Saline Indication: Stroke Image Quality: Fair Contrast: Requested by: Rajesh Aguillon BP: 121 mmHg/54 mmHg Heart Rate: Rhythm: Normal sinus rhythm Indication: Stroke Procedure Staff Locomotive Mechanic: Shaka Cardozo RDCS Reading Physician: Andrea Hurst MD Requesting Provider: Conclusions: Low normal left ventricular systolic function. The ejection fraction is estimated to be 50-55 %. An agitated saline study was performed and was negative for intracardiac shunting. Mild mitral valve regurgitation is present. Moderate aortic cusp calcification is present. Cannot rule out bicuspid aortic valve. Measurements: Chambers Valvular Assessment AV/MV Valvular Assessment TV/PV Normal Normal Normal Name Value Range Name Value Range Name Value Range IVSs (2D) 1.1 cm ( - ) AV Vmax: 2.25 m/s (1 m/s-1.7 LVDd (2D): 5.1 cm (4.2 cm-5.9 m/s) cm) AV maxP mmHg ( - ) LVDs (2D): 3.7 cm (2.1 cm-4 AV meanP mmHg ( - ) cm) LVOT Vmax: 83.40 m/s (0.7 m/s-1.1 LVPWd (2D): 1.1 cm (0.6 cm-1 m/s) cm) ZAK (Vmax): 128.4 cm2 ( - ) LVOTd 2.1 cm 2.1 cm mm AR (PHT): 334 ms ( - ) LVEF (BP): 52 % (>=55 %) MV E Vmax: 82.40 m/s ( - ) Visual EF: 50 % MV A Vmax: 96.70 m/s ( - ) EF Range: 50-55 % MV E/A: 0.85 ( - ) Continued Measurements: Chambers Valvular Assessment AV/MV Name Value Name Value LA Volume: 38 ml AR Vmax: 2.86 cm/s LA Volume Index: 17.3 ml/m2 Patient: DANIEL WARD Study Date: 05/04/2018 Page 1 of 2 03:42 PM Findings: Left Ventricle: Mildly dilated left ventricle. Low normal left ventricular systolic function. The ejection fraction is estimated to be 50-55 %. The ejection fraction is visually estimated to be 50 %. No regional wall motion abnormality. Diastolic dysfunction is present. . Right Ventricle: Normal size right ventricle. Normal RV function. Left Atrium: The left atrium is normal in size. An agitated saline study was performed and was negative for intracardiac shunting. Right Atrium: The right atrium is normal in size. Mitral Valve: The mitral valve is normal in appearance. Mild mitral valve regurgitation is present. Aortic Valve: Moderate aortic cusp calcification is present. Cannot rule out bicuspid aortic valve. The AV mean PG is 12 mmHg with a max PG of 20 mmHg.. Tricuspid Valve: The tricuspid valve is normal in appearance and function. Pulmonic Valve: The pulmonic valve is normal in appearance and function. Aorta: The aorta is normal. Pericardium: No pericardial effusion. There is pericardial fat. Exam Comments: Bubble performed in the subcostal view due to image quality and patient condition.. (No Signature Object) Patient: DANIEL WARD Study Date: 05/04/2018 Page 2 of 2 03:42 PM D:_[id number]
[2018-05-04] MEDS: ORAL BALANCE GEL TUBE PO PRN (18:19)
[2018-05-04] MEDS: SENNOSIDES 17.6 MG/10 ML UDL TUBE SCH (20:35)
[2018-05-04] MEDS: INSULIN GLARGINE 100 UNITS/ML UNIT SC SCH (20:36)
[2018-05-04] MEDS: ATORVASTATIN CALCIUM 40 MG TAB TUBE SCH (21:06)
[2018-05-05] MEDS: PIPERACILLIN/TAZO 2.25 GM/DEX 50 ML IV SCH ×4 (01:00→20:25)
[2018-05-05] MEDS: ACETAMINOPHEN 650 MG/20.3 ML UDCUP TUBE SCH ×3 (05:28→22:52)
[2018-05-05] MEDS: amLODIPine BESYLATE 5 MG TAB TUBE SCH (08:11)
--- NOTE | 2018-05-05 08:13 | GPROG ---
[f rep st] PROGRESS NOTE I saw the patient in the morning. I had a family meeting with him around 1 o' clock for about 45 minutes as well as this afternoon. The family meeting was very helpful to clarify goals and current treatment plan. He was extubated sometime this afternoon and is somewhat cooperative with the exam although certainly somewhat altered still at this point. On physical examination, his dressings are clean, dry, and intact. /[id number]/MODL MTDD
[2018-05-05] MEDS: PHENYLEPHRINE HCL 50 MG in NS 250 ML IV SCH ×2 (08:15→17:29)
[2018-05-05] MEDS: INSULIN REGULAR HUMAN 100 UNIT/ML UNIT SC SCH ×2 (08:38→12:33)
--- NOTE | 2018-05-05 09:19 | HOSPPROG ---
Hospitalist Progress Note Assessment/Plan: 62-year-old with a history of cervical stenosis status post C4 through T2 posterior cervical fusion with cervical decompression. . His hospital course has been complicated by altered mental status with increasing sedation and he had a respiratory arrest yesterday which we suspect is due to aspiration. code bk called after patient returned from CT scanning. likely aspiration related ct chest w b/l airpsace disease vanc zosyn extubated today encephalopathy, unclear etiology. Discussed with Dr. Valenzuela. MRI w two small and one tiny areas of restricted diffusion- unclear that these are responsible for weakness or encephalopathy improved today follow cva: multifocal s/o embolic phenomena no AF on tele (interp by me) echo w no cause check lipids asa when cleared from neurosurgery cervical stenosis status post surgery dr amador unavailable going forward [facility] to consult c spine MRI 05/02 showed decompression, ongoing weakness noted ? role of lumbar spine imaging given b/l leg weakness his exam is improved today, and limited by encephalopathy, but findings remain concerning review of op reports show no hypotension that could cause cord infarct ? need for L spine imaging? diabetes, would like to continue with blood sugars in the 110 through 180 range through his postop course * Currently on Lantus 12 units daily with sliding scale regular insulin * add lantus 8 q AM as sugars > goal * He was on tube feeds with Glucerna, this is currently on hold due to his respiratory arrest but will likely resume this once he is stable history of hypertension on multiple medications, coronary artery disease on statin and beta-germain. Aspirin on hold. Asymptomatic dysphagia with aspiration risk. Likely related to surgery and swelling. Continued speech therapy evaluation history of CHF, echo showing EF of 55% diastolic dysfunction. obstructive sleep apnea Subjective: case d/w lisa espino. extubated yesterday. cxr thi AM w LLL infiltrate (interp by me). moved arms and legs this AM< although still quite weak Objective: Vital Signs Temp Pulse Resp BP Pulse Ox 38.0 C 78 22 H 149/68 H 95 05/05/18 08:00 05/05/18 08:20 05/05/18 08:20 05/05/18 08:20 05/05/18 08:20 Microbiology 05/03/18 16:30 Gram Stain - Final Bronchial Alveolar Lavage - Lung Laboratory Results 05/04/18 05:15 05/04/18 05:15 05/04/18 05/05/18 05/06/18 05:59 05:59 05:59 Intake Total 2845.0 2684 Output Total 2705 1600 Balance 140.0 1084 - Physical Exam Constitutional: other (able to smile in response to questions) Eyes: PERRL, anicteric sclera Ears, Nose, Mouth, Throat: other (gunky mouth), No moist mucous membranes Cardiovascular: regular rate and rhythym, no murmur, rub, or gallop Respiratory: no respiratory distress, other (rhoncorous anterolat) Gastrointestinal: normoactive bowel sounds, soft, non-tender abdomen Genitourinary: no bladder fullness, isaac in urethra Skin: warm, normal color Musculoskeletal: other (1/5 strength in prox legs and arms/hand. legs improved from yesterday), No full muscle strength Neurologic: No AAOx3 Psychiatric: No interacting appropriately Lymph, Heme, Immunologic: no cervical LAD ICD10 Worksheet Patient Problems: Problems Problem Status Onset Encephalopathy Acute Myelopathy of cervical spinal cord with cervical radiculopathy Acute Acute exacerbation of congestive heart failure Acute CHF (congestive heart failure) Acute Diabetes Acute Elevated troponin Acute HTN (hypertension) Acute Hyperglycemia Acute NSTEMI (non-ST elevated myocardial infarction) Acute Orthostatic hypotension Acute Pneumonia Acute Respiratory failure with hypoxia Acute Upper respiratory tract infection Acute
--- NOTE | 2018-05-05 09:39 | GCON ---
[f rep st] CONSULTATION CONSULTATION/HISTORY AND PHYSICAL CHIEF COMPLAINT: 1. Paralysis, status post cervical spine surgery. 2. History of coronary artery disease, CHF, type 2 diabetes, and cervical myelopathy. 3. Poor respiratory status with recent respiratory arrest. HISTORY OF PRESENT ILLNESS: The patient is a 62-year-old male who has a history of congestive heart failure, diabetes type 2, coronary artery disease who underwent cervical spine surgery with Dr. Stock this last . He was getting an anterior approach ACDF procedure, and per reports from the nurse , as well as family and medical record, there were reports that signals were lost during the surgery with neuromonitoring. The patient was sent to the PACU after surgery, an MRI was obtained, and then, the patient was brought back to the operating room for a posterior spinal fusion procedure. He was extubated, woke up this last Thursday into Thursday with some more weakness in his arms, and then had over the weekend worsening motor function per the nurse's account. He went from moving his extremities to more of trace movement in his upper extremities and significantly decreased movement in the lower extremities. Internal Medicine, Critical Care, and Neurology are on board. Patient did have a CT scan of the head, which was negative. He also had an MRI of the brain, which showed 3 small foci of ischemia in the howard, left basal ganglia, and some bilateral subdural collections. Patient has been followed by Dr. Stock, as well as Critical Care, Internal Medicine, and Neurology. We were asked to consult on the patient late yesterday afternoon. Patient was seen by me and Dr. Centeno this a.m. at 6:45 on 05/05/2018. He is currently extubated. He did have a respiratory arrest in the last few days but has worked with Pulmonology and Critical Care and is now extubated. He is on a non-rebreather. Family was at bedside with my exam, and Dr. Centeno spent approximately 45 minutes this morning with them discussing the plan. The patient is awake and alert. PAST MEDICAL HISTORY: Significant for the followin. Coronary artery disease. 2. CHF. 3. Type 2 diabetes. 4. Cervical myelopathy. PAST SURGICAL HISTORY: Coronary stent. FAMILY HISTORY: Positive for coronary artery disease. SOCIAL HISTORY: The patient is 62 years of age. He works at [employer]. His was present at the bedside today. He is a nonsmoker. Does not use drugs and does not use excessive alcohol. ALLERGIES: No known drug allergies. HOME MEDICATIONS: Per internal medicine report, he is on insulin, metformin, carvedilol, atorvastatin, Norvasc, aspirin, hydralazine, Imdur, and Demadex. IMMUNIZATIONS: Reported up to date. TRAVEL: No recent travel. REVIEW OF SYSTEMS: A 10-point review of systems was reviewed and negative except for as stated in HPI and below. GENERAL PHYSICAL EXAM: GENERAL: This is awake and alert male who is able to follow commands. VITAL SIGNS: Most recent this a.m. were 126/52, 71 for his MAP this a.m. with a heart rate of 75, respiratory rate of 25, 97% on 3 L oxygen mask, and a temperature was 38.0. We did increase his MAP and blood pressures at 8:20 this a.m., showed a MAP of 89. We would like his MAPs above 85. HEENT: Head is normocephalic, atraumatic. Pupils are equal, round, reactive to light. EOMI is intact. Full visual childers by confrontation. Ears are patent. Nose is patent. NECK: Soft and supple. There is an incision both to the anterior and posterior aspects of his neck. There is no induration. Dressing is in place, is clean, dry, intact. Range of motion of the neck is not tested. He is in a cervical collar. RESPIRATORY/CARDIAC: Deferred. ABDOMEN: Soft, nontender. No peritoneal signs. /RECTAL: Deferred. NEURO: Patient is awake and alert. To verbal stimuli, he is able to follow commands. Speech: He is able to mouth yes and no responses. He does have a slight right-sided facial droop. Motor: Patient has 2- out of 5 with right nurse technician, 2/5 with left nurse technician. He does not have any motor function of deltoids, biceps, triceps, wrist extension, or intrinsic fingers. He is 0/5 bilateral lower extremities. He is 0/5 with iliopsoas, quadriceps, hamstring, plantar flexion, dorsiflexion, EHL testing. At one instance, he was able to wiggle his right big toe with me. MEDICAL DECISION MAKING/DIAGNOSTIC STUDIES/LABORATORY TESTS: 05/04/2018 show a white count of 5.75 with an H and H 8.8 and 27.9, platelet count of 124. Chemistries on 05/04/2018 show a sodium 151, potassium 4.5, chloride 124, carbon dioxide of 24, BUN 73, creatinine 2.2, and a glucose of 251. MEDICAL DECISION MAKING/DIAGNOSTIC STUDIES/IMAGING: Cervical spine MRI obtained on 04/29/2017. This is reported cervical spine MRI after the 1st stage of the surgery, which showed persistent high-grade stenosis involving C4-5 , 5-6, and 6-7. There was no epidural bleed noted, and there was no identifiable cord edema with this study per Radiology reading. On 04/29/2018 at 2040, this was a thoracic spine MRI that was obtained after the 1st stage surgery that showed mild degenerative spondylosis, tiny dorsal disk osteophyte complex at T5-6. This resulted in mild central canal stenosis. There was no evidence of thoracic cord edema. Patient underwent a cervical spine MRI on 12/2018 at 11:18 a.m., which showed postsurgical changes of posterior decompression with laminectomy at C4-C7 with improvement of the spinal canal stenosis seen previously. There was mild mass effect in the posterior thecal sac at the level C4-5 but improved spinal stenosis seen previously. No abnormal signal intensity in the cervical cord. There was a drain noted as well. Head CT obtained on 05/03/2018 was negative. No acute intracranial problem was noted. A followup brain MRI was obtained on 05/04/2018 at 1541. This showed 3 small foci of ischemia involving the left paramedian howard, lower left basal ganglia, and high right parietal lobe. This could be subacute or acute. Radiologist said that this could range between 30 minutes and 2 weeks old. 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 There was tiny subacute hemorrhage in the posterior right subdural hygroma, and there was minimal periventricular white matter disease as noted. Pending repeat MRI of the cervical spine. Pending CT scan of the cervical spine. IMPRESSION: The patient is a 62-year-old male who underwent an anterior cervical diskectomy and fusion procedure. There was reported loss of motor signals with neuromonitoring intraoperatively. He was taken reportedly to the PACU. In the PACU, he was then sent for an MRI, had an MRI done of his cervical and thoracic spine, which is noted above. He was taken then back to the operating room for posterior spinal fusion procedure. It is unclear if he had laminectomies or decompressions done posteriorly. He was admitted to the ICU. Per reports from Nursing and family, he had some progressive weakness over the course of a few days. This worsened from gross motor movement to trace movement. He did get a CT scan, as well as a brain MRI. Internal Medicine, Critical Care, and Neurology are following him as well. We were consulted yesterday for our opinion. PLAN: The patient is now admitted to our service in Neurosurgery. We will work in close conjunction with Internal Medicine, Critical Care, and Neurology. The patient was seen this morning, both by me and Dr. Centeno. We both had examined him and found similar physical exam as noted above. He really only has some strength with mild nurse technician in both hands. He is otherwise 0/5 in his upper extremities and lower extremities. We will obtain new imaging, a new MRI and new CT scan of the cervical spine, to further evaluate if any further surgical procedure needs to happen. Patient will continue with a cervical collar. We will continue to follow the patient. I did increase his MAPs today to greater than 85. We will continue with pressors on him at this time pending the review of new imaging. We realize that he is 6 days from surgery. Please call Neurosurgery with any changes of condition or problems. Dr. Centeno and I answered all the family's questions, concerns. We will check back after our morning surgery with the family to see if any other questions had arisen or concerns. At this point, we are waiting for the new imaging to be obtained, and we will direct our treatment plan accordingly for the patient. Family, nursing understand and agree. We spoke with Dr Aguillon and Dr Valenzuela regarding out plan. We did recommend and he will get reintubated for his MRI and CT to help protect his airway as his respiratory status needs close monitoring. /[id number]/MODL MTDD
[2018-05-05] MEDS: CARVEDILOL 25 MG TAB TUBE SCH (10:18)
[2018-05-05] MEDS: INSULIN GLARGINE 100 UNITS/ML UNIT SC SCH ×2 (10:19→22:53)
[2018-05-05] MEDS: FAMOTIDINE 20 MG TAB TUBE SCH ×2 (10:19→22:53)
[2018-05-05] MEDS: SENNOSIDES 17.6 MG/10 ML UDL TUBE SCH ×2 (10:21→22:52)
[2018-05-05] MEDS: MINOXIDIL 2.5 MG TAB TUBE SCH (10:21)
--- NOTE | 2018-05-05 10:27 | PDINTPN ---
Assembly Inspector Progress Note Assessment/Plan: 62 yo M with cervical stenosis s/p C4-T2 c spine fusion complicated by postoperative weakness status post repeat posterior approach complicated by postoperative encephalopathy and weakness and status post cardiac arrest due to hypoxemic respiratory failure from aspiration inability to protect airway 2018. Still critically ill but improving # cardiac arrest. 05/03/2018. Primary respiratory due to aspiration and inability to protect airway. Achieved ROSC quickly after securing airway and epi x2 # aspiration pneumonia. Vanc/Zosyn started 05/03/2018. Bronch with 60% neutrophils, GS and Cx pending # shock. Ischemia reperfusion + sedation and antihypertensives. Infection less likely given abrupt onset after arrest # encephalopathy. Non con CT head negative 05/03/2018. Differential diagnosis and is broad and includes hypoactive delirium, hypoxemia, toxic and metabolic. # type 2 diabetes # hypertension # coronary disease # history of CHF now with recovered EF. Question of amyloid cardiomyopathy raised as OP. Will f/u with Dr Weston as OP # NIXON. In the process of being evaluated is output # RAMANA on CKD III # hyperkalemia # anemia PLAN # electively intubate for airway protection for repeat MRI given inability to protect airway. # MRI and CT today per Dr Prajapati. # broad-spectrum antibiotics started 05/03/2017, if no MSRA or Pseudomonas at 48- 72 hrs, will deescalate # lung protective ventilation while intubated, target normoxia, wean as tolerated # goal map 85 for 7 days post operatively # Calvin for BP support # old outpatient antihypertensives until improved # continue high dose torsemide # trend BMP # increase lantis for hyperglycemia IMAGING I personally reviewed interpreted radiographic images well as formal radiology reads 05/04/18 ET and L subclavian in place, bilateral intersitial opacities 05/03/18 CT head non con-no acute intracranial pathology Subjective: Extubated yesterday afternoon. Mildly improved mental status, still with profound UE weakness. unable to obtain ROS. BP meds held. Dr Centeno spoke with family. Objective: Vital Signs Temp Pulse Resp BP Pulse Ox 38.0 C 77 21 H 157/61 H 97 05/05/18 08:00 05/05/18 09:00 05/05/18 09:00 05/05/18 09:00 05/05/18 09:00 Microbiology 05/03/18 16:30 Gram Stain - Final Bronchial Alveolar Lavage - Lung Laboratory Results 05/04/18 05:15 05/04/18 05:15 05/04/18 05/05/18 05/06/18 05:59 05:59 05:59 Intake Total 2845.0 2684 Output Total 2705 1600 Balance 140.0 1084 Physical Exam - Physical Exam General Appearance: no apparent distress EENT: PERRL/EOMI, other (C-collar in place. Random jaw movements.) Neck: other (C-collar in place.) Respiratory: other (Course bilateral breath sounds, no use of accessory muscles , no tachypnea poor cough and gag) Cardiac/Chest: normal peripheral pulses, regular rate, rhythm Abdomen: normal bowel sounds, non-tender Neuro/Psych: other (Intermittently following commands. 1/5 proximal strength lower extremities. No movement upper extremities.) ICD10 Worksheet Patient Problems: Problems Problem Status Onset Encephalopathy Acute Myelopathy of cervical spinal cord with cervical radiculopathy Acute Acute exacerbation of congestive heart failure Acute CHF (congestive heart failure) Acute Diabetes Acute Elevated troponin Acute HTN (hypertension) Acute Hyperglycemia Acute NSTEMI (non-ST elevated myocardial infarction) Acute Orthostatic hypotension Acute Pneumonia Acute Respiratory failure with hypoxia Acute Upper respiratory tract infection Acute
--- NOTE | 2018-05-05 10:47 | NEUROPROG ---
Assessment: Total unit time of 25 min. I had a detailed discussion with the patient's as well as multiple family members reviewing the current findings, the thinking of what may account for his encephalopathy which is much improved today and the lack of certainty on his speed of recovery but optimistic that he will continue to improve as sedation is held and he is able to participate more in activity. MRI of the brain will help today to clarify if there is any unrecognized ischemic injury. Total unit time of 40 min today, 05/05/18. The patient has evidence of some small strokes of uncertain etiology but probably not multiple emboli and perhaps some relative areas of vulnerability from small vessel disease and some periods of minor hypotension but it is hard to say for sure. The subdural hygromas are not causing likely clinically significant deficits though could contribute a little bit to the relative lethargy. This facial twitching is of uncertain source and would not likely be related to any of the ischemic changes. Simple partial seizure phenomena is a consideration but not and I of certainty to justify anticonvulsant therapy at this point. The ongoing whom quadrant paresis worse on the left than the right continues to be most likely attributable to his known cervical spine disease and that is going to be assessed further with repeat imaging today and consideration of any other decompressive procedures or interventions per Neurosurgery recommendation. We will also check the lumbar spine as well because he will need to be reintubated for protection of his airway in order to get quality studies and protect him as much as possible from any challenges inside the MRI machine. I had a very detailed discussion with the patient's and her sister and all the team members involved from the hospitalist to Neurosurgery to critical care. Everyone is in agreement to this approach and we will continue to follow along closely. Subjective: Patient is still able to look toward me and not expressing acute complaints although it is difficult for him currently on a non-rebreather mask. He was extubated yesterday. Objective: Vital Signs Temp Pulse Resp BP Pulse Ox 38.0 C 89 25 H 175/66 H 90 L 05/05/18 08:00 05/05/18 10:35 05/05/18 10:35 05/05/18 10:35 05/05/18 10:35 Microbiology 05/03/18 16:30 Gram Stain - Final Bronchial Alveolar Lavage - Lung Laboratory Results 05/04/18 05:15 05/04/18 05:15 05/04/18 05/05/18 05/06/18 05:59 05:59 05:59 Intake Total 2845.0 2684 379 Output Total 2705 1600 Balance 140.0 1084 379 He is lethargic with a non-rebreather mask in a hard cervical collar. He is able to open his eyes to voice and light stimulation and will attend toward me and follow commands. He still has a diffuse weakness as previously documented worse on the left than the right. The extraocular movements are intact except for left lateral gaze nystagmus previously seen and also some partial impairment of whom lateral movement of the left eye I am. Pupils are 3 mm and reactive. He has some intermittent and twitching of the jaw. I have reviewed the brain MRI scan. He has evidence of acute or subacute ischemia in the left paramedian howard in the right deep parietal lobe and who in the left lateral basal ganglia territory all subcentimeter changes without mass effect or edema. The patient also has bilateral subdural hygromas little larger on the left than the right without significant mass effect who had minimal evidence of any acute bleeding. Allergies/Adverse Reactions: No Known Allergies Allergy (Verified 04/27/18 16:08)
[2018-05-05] MEDS ORDERED: PROPOFOL/EMULSION 500 MG/50 ML BOTTLE IV ONE (10:50)
[2018-05-05] MEDS: TORSEMIDE 20 MG TAB TUBE SCH (10:56)
[2018-05-05 11:22] LABS: PLATELET COUNT 194 10^3/uL (150-400)
--- NOTE | 2018-05-05 11:55 | WOCRNPDOC ---
JACK Advanced Assessment Note - Skin Integrity Problem, Advanced Assess Coccyx Pressure Injury Dressing Type: Open to Air Site Measurement - Head-to-Toe Length X Width X Depth (cm): 2.7x2.8x0 Pressure Injury Stage: Deep Tissue Injury (DTI) Pressure Injury Present on Admit: No Skin Integrity Problem Comment: Cleaned calazime from area and covered with upside down mepilex sacral dressing. Sophie WEST in room for assessment. Left Sacrum Pressure Injury Dressing Type: Open to Air Site Measurement - Head-to-Toe Length X Width X Depth (cm): 1x0.8x0.1 Pressure Injury Stage: Stage 2 Pressure Injury Present on Admit: No Skin Integrity Problem Comment: Cleaned with ns and gauze. Wound gel to wound bed and covered with mepilex border sacral dressing. Wound care will follow.
[2018-05-05] MEDS ORDERED: PROPOFOL/EMULSION 50 ML IV ONE (12:30)
[2018-05-05] MEDS ORDERED: KETAMINE 200 MG/20 ML VIAL ONE (13:37)
[2018-05-05] MEDS ORDERED: ROCURONIUM 100 MG/10 ML VIAL ONE (13:38)
[2018-05-05] MEDS ORDERED: KETAMINE 200 MG/20 ML VIAL IV ONE (14:15)
[2018-05-05] MEDS ORDERED: ROCURONIUM 100 MG/10 ML VIAL IV ONE (14:15)
[2018-05-05] MEDS ORDERED: 1/2 NS 1,000 ML IV SCH (15:15)
--- NOTE | 2018-05-05 15:38 | ASMTCMCOM ---
CM Note CM Note Notes: Met with patient's , Tavo and several of the family members including her sisters to address the request for counseling. Tavo's has told her she needs to get counseling support for PTSD. Tavo was inquiring to see if the hospital would provide this service. CM explained we have basic support for the patient and for family members but it is not in depth counseling. We discussed the patient's need for safety, privacy, and to be with a counselor who has training with PTSD and the treatment thereof. CM offered a list of therapists approved by her insurance and in the area of [facility]. The family stated they already had some community therapists in mind. The family members then had questions regarding discharge planning and we reviewed the process. The family would like for a referral to go to [facility] now and I will send it today though patient's medical status has changed. The family would like CM to make sure the patient is not delayed over a weekend because of insurance auth process. I stated we would do our best but we cannot control insurance processes and we may not be able to control all the factors.I assured them we would do all in our control to make the discharge go smoothly. They were given business cards to contact the ICU CM. The family didn't have any further questions today. A family meeting needs to be scheduled for Thursday to bring everyone back together to ensure good communication. CM will follow. Date Signed: 05/05/2018 03:37 PM Electronically Signed By:Linda Alvarenga LCSW
--- NOTE | 2018-05-05 16:19 | SUROPNOTE ---
RD Operative Report - Surgery Emergency Endotracheal Intubation Date and Time 05/05/2018 1300 Operators S Erick Goldberg MD Indication Inability to protect airway for MRI Consent Emergency procedure in a critically ill decompensating patient Verbal consent was obtained via patient/next of kin Preoxygenation NRB, Medications Ketamine 200 mg Rocuronium 100 mg Equipment [place] scope, 7.0 ET tube Maccormick still grade view intubation 1 Number of Attempts 1 Post Procedure Placement was confirmed with capnography, breath sounds were ausculated bilaterally. ETT pena, 24 cm at teeth, CXR ordered Complications None
[2018-05-05] MEDS ORDERED: INSULIN REGULAR HUMAN 100 UNIT/ML UNIT SC SCH (18:00)
[2018-05-05] MEDS: VANCOMYCIN 1.25 GM in NS 250 ML IV SCH (18:05)
[2018-05-05] MEDS: INSULIN LISPRO 100 UNIT/ML SC SCH (18:20)
[2018-05-05] MEDS: ATORVASTATIN CALCIUM 40 MG TAB TUBE SCH (22:52)
[2018-05-06] MEDS: PIPERACILLIN/TAZO 2.25 GM/DEX 50 ML IV SCH ×4 (00:32→18:35)
[2018-05-06] MEDS: INSULIN LISPRO 100 UNIT/ML SC SCH ×3 (00:35→12:27)
--- NOTE | 2018-05-06 04:33 | SOAPPROG ---
Downtime Inpatient MD Late Entry SOAP Note: Mr. Merino has unfortunately suffered a severe cervical spinal cord injury leaving him with profound weakness in all 4 extemities with both arms demonstrating only 1/5 strength and his right leg is 1/5 left leg is 0/5. He has an PANCHO C SCI. This injury was suffered during surgery with an ACDF at C45 56 67 and was appreciated at least partially intraoperatively by the surgeon. Prior to surgery there were monitorable SSEPs and MEPs although the MEPs were notably small prior to the procedure, they were considered monitorable. The surgeon prepared the C45 disk and placed an implant at that level but makes no note of decompression of the dura itself or the neural foramen at that level. As he was preparing the C56 level where the stenosis was the worst there was a notable change in the neuromonitoring of the SSEPs which prompted a request for a MEP which demonstrated that they had lost responses in the lower extremities. The cage was removed at C56 and there was no problem discovered and the surgeon noted some improvement of the MEPs in the tricep but they remained absent in the lower extremities. The surgeon makes mention of considering a corpectomy but there was no discussion of actual decompression of the spinal cord and dural visualization at the C56 level. The surgeon then went on to perform a diskectomy at C67. Unfortunately the patient did have profound 4 extremity weakness in the recovery room and an MRI of the cervical spine and thoracic spine was performed demonstrating really no improvement in the spinal canal caliber at the operative site. It does not appear that an adequate decompression had been performed anteriorly but the surgeon recognizing continued severe cervical stenosis returned to the OR later that night for a posterior laminectomy and fusion. The patient remained profoundly weak but then over the weekend he deteriorated to the point where he is now as an PANCHO C injury. Neurosurgery did not become officially involved in this case until when we were asked to step in and begin management. I visited with the family on several occassions on 05/05 beginning around 7am and I suggested a repeat MRI of the cervical spine to rule out posterior compressive hematoma to account for the deterioration in his exam since the past weekend. I did not suspect that there would be no change in the persistent ventral pathology because it did not appear the ventral epidural space had been decompressed at the time of the original surgery. My concern really was with the posterior surgical site. Unfortunately the patient had a 3T MRI and the metallic artifact prevented good visualization anteriorly but there did not appear to be any new compressive posterior fluid collections. The films were reviewed with the other neurosurgeons here at the hospital and we collectively felt that there did not appear to be any additional anterior surgery that would be likely to help at this point. THe family asked me about the deterioration since the original surgery and I did not have a clear explanation for this but explained that according to neurosurgical protocols published in the guidelines we would suggest keeping MAPS >85 for the first 7 days after the accident and ideally they should be 85-90 during that time. It looks like there was some attempt at supporting the blood pressure since the time of the injury, but there were MAPs recorded over the weekend in the 50s and this is naturally a concern. The had noted these blood pressures but her concerns were not addressed. I explained to the family that we would naturally make sure that BP is managed with this 85 threshold, although the therapeutic window for this recommendation is expiring on 05/07. At this point there is nothing more than supportive care to offer for this terrible injury. There is no acute surgical intervention that is likely to be useful at this point and the patient now has other neurologic and medical concerns which are serious as well. neurology is helping in the management at this point and the patient continues to be cared for by the critical care service. I explained to the family that in time the patient is likely to recover significant function because there is preservation of function below the injury, but that this recovery would take months and that he not may not reach MMI until after 12 months or more. I also explained to them the serious nature of the injury including the possibility the patient may as a result of complications of cervical SCI and that it was not yet clear at this point whether he would survive at all. If he does survive, naturally his life will be profoundly affected. We will continue to follow the patient through this hospital stay until transitioning to rehab, likely at a facility like [facility]. -radha garza md
[2018-05-06 05:35] LABS: PLATELET COUNT 191 10^3/uL (150-400)
[2018-05-06] MEDS: ACETAMINOPHEN 650 MG/20.3 ML UDCUP TUBE SCH ×3 (06:29→21:40)
--- NOTE | 2018-05-06 07:07 | NEUSURGPN ---
Date of Surgery: 04/29/18 Post Op Day: 7 Assessment/Plan: Assessment: 62 yo male that is admitted to [facility] ([facility]) now. He is s/p anterior/ posterior fusion with postop quadraplegia. Pt with continuing respiratory issues and is still intubated. (We mainly intubated him for imaging yesterday) Plan: -s/p anterior/posterior fusion: Pt was reintubated yesterday to protect his airway for imaging that was necessary to evaluate his surgery site and to determine if any further surgery is needed. Pt had a MRI of the C spine as well yesterday as well as one after the surgery and this was reviewed by all the physicians at [facility]. CT was reviewed as well and the unanimous consensus from the surgeons was not to take Bakari back for more surgery. We recommended and started pressure support yesterday immediately after he was transferred to our care. -continue with pressure support to keep MAPs above 85 or higher, Calvin ordered -continue with ICU care -PT/OT ordered -MRI of the L spine and T spine reviewed that shows a small disc bulge and DDD in the T spine. L4/5 shows stenosis as well. No surgical lesion in the T and L spine that needs to be addressed at this time -Critical care on board and working again on extubation today -pt had fever-labs drawn, CXR ordered-critical care following -pt is better this am with exam which we are encouraged by -images reviewed with family at [facility], yesterdays documentation reviewed as well -warning signs given -call with any questions or concerns -we will continue to see frequently thru the day Subjective: Awake and alert. NAD. Follows commands. Pt had fever thru night that is being evaluated with Critical care. Objective: Awake and alert. NAD Intubated Awake to verbal PERRLA/EOMI RUE: able to lift arm against gravity, 3/5 to right chute operator and 2+ to right bicep LUE: unable to lift arm against gravity, 3/5 to left chute operator, 2+ bicep LLE/RLE: able to wiggle toes, 2/5 right quad, able to internally rotate right leg, left leg only able to wiggle toes CDI Neuro Check Frequency: as ordered Urinary Catheter in Place: Yes Urinary Catheter Indication: Other (Use Comment) (intubated and bed rest) - Physician Discussed Patient with : [facility] Patient Seen by : [facility] Neurosurgery Physical Exam - Vitals, I&O, Labs I and O 05/05/18 05/06/18 05/07/18 05:59 05:59 05:59 Intake Total 2684 2634 Output Total 1600 5350 Balance 1084 -2716 Intake: Oral (ml) 0 IV Intake (ml) 156 100 IV Infused (ml) 859 1645 1/2 Ns 1,000 ml @ 75 mls/ 883 hr IV CONT YAZMIN Rx#: [id number] Norepinephrine Bitartrate 0 4 mg In Ns 500 ml @ Per Protocol IV CONT YAZMIN Rx#: [id number] Ns 1,000 ml @ 25 mls/hr 778 284 IV AD YAZMIN Rx#:[id number] Phenylephrine HCl 50 mg 428 In Ns 250 ml @ Per Protocol IV CONT YAZMIN Rx#: [id number] Piperacillin/Tazo 2.25 gm 50 /Dex 50 ml @ 100 mls/hr IV Q6 YAZMIN Rx#:[id number] Propofol/Emulsion 100 ml 31 @ Per Protocol IV CONT YAZMIN Rx#:[id number] Propofol/Emulsion 50 ml @ 50 Per Protocol IV ONCE ONE Rx#:[id number] Tube Feeding (ml) 1243 663 Tube Flush (ml) 426 226 Output: Urine (ml) 1570 5350 Catheter 1480 5350 Urinal 90 Constavac Output (ml) 30 Left Back Constavac 30 Other: Number of Voids Catheter 1 Number of Stools Catheter 0 0 Microbiology 05/03/18 16:30 Gram Stain - Final Bronchial Alveolar Lavage - Lung Vital Signs Temp Pulse Resp BP Pulse Ox 37.6 C 64 20 160/60 H 99 05/06/18 05:20 05/06/18 05:20 05/06/18 05:20 05/06/18 05:20 05/06/18 05:20 Laboratory Results 05/06/18 05:20 05/06/18 05:20 ICD10 Worksheet Patient Problems: Problems Problem Status Onset Encephalopathy Acute Myelopathy of cervical spinal cord with cervical radiculopathy Acute Acute exacerbation of congestive heart failure Acute CHF (congestive heart failure) Acute Diabetes Acute Elevated troponin Acute HTN (hypertension) Acute Hyperglycemia Acute NSTEMI (non-ST elevated myocardial infarction) Acute Orthostatic hypotension Acute Pneumonia Acute Respiratory failure with hypoxia Acute Upper respiratory tract infection Acute
[2018-05-06] MEDS: PHENYLEPHRINE HCL 50 MG in NS 250 ML IV SCH (08:26)
[2018-05-06] MEDS: INSULIN GLARGINE 100 UNITS/ML UNIT SC SCH (08:40)
[2018-05-06] MEDS ORDERED: D5W 1,000 ML IV SCH (09:15)
--- NOTE | 2018-05-06 09:15 | NEUROPROG ---
Assessment: Total unit time of 25 min. The patient is recovering from cervical myelopathy and continues to have function in all the extremities although significantly weak. We discussed this with the family. He has several small areas of stroke of uncertain source but I think that is having a mild contribution to the findings if any but certainly contributing to the abnormal eye findings that have been documented as well. He has infection and is on antibiotics and that can also lead to relative deficits but being treated appropriately. We will continue to follow his progress until such time that he is able to safely be transferred to a rehab facility. Subjective: The patient is currently intubated and unable to express any specific complaints but does not seem to be experiencing particular pain. He does express through his head shaking and expressions that he hopes to have the tube out. Objective: Vital Signs Temp Pulse Resp BP Pulse Ox 37.5 C 64 36 H 172/52 H 99 05/06/18 08:00 05/06/18 08:00 05/06/18 08:00 05/06/18 08:00 05/06/18 08:00 Microbiology 05/06/18 00:30 - Final Sputum, Induced/Suctioned 05/03/18 16:30 Gram Stain - Final Bronchial Alveolar Lavage - Lung Laboratory Results 05/06/18 05:20 05/06/18 05:20 05/05/18 05/06/18 05/07/18 05:59 05:59 05:59 Intake Total 2684 2634 Output Total 1600 5350 Balance 1084 -2716 On specific motor findings today, he is demonstrating about 2/5 strength and some areas of 3/5 strength in the right upper extremity but the left remains mostly in the 1 or 2/5 range similar to what I documented a few days ago. Lower extremity strength is more in the 1 to 2/5 range. Allergies/Adverse Reactions: No Known Allergies Allergy (Verified 04/27/18 16:08)
[2018-05-06] MEDS: FAMOTIDINE 20 MG TAB TUBE SCH ×2 (09:18→21:42)
[2018-05-06] MEDS: SENNOSIDES 17.6 MG/10 ML UDL TUBE SCH ×2 (09:19→20:20)
[2018-05-06] MEDS ORDERED: MAGNESIUM HYDROXIDE 30 ML UDCUP PO PRN (10:19)
[2018-05-06] MEDS ORDERED: LACTULOSE 20 GM/30 ML UDCUP PO PRN (10:19)
[2018-05-06] MEDS ORDERED: BISACODYL 10 MG SUPP PR PRN (10:19)
[2018-05-06] MEDS ORDERED: POLYETHYLENE GLYCOL 3350 17 GM PKT PO PRN (10:19)
--- NOTE | 2018-05-06 10:23 | PDINTPN ---
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 Still critically ill but improving # cardiac arrest. 05/03/2018. Primary respiratory due to aspiration and inability to protect airway. Achieved ROSC quickly after securing airway and epi x2 # aspiration pneumonia. Vanc/Zosyn started 05/03/2018. Bronch with 60% neutrophils, GS and Cx pending # shock. Ischemia reperfusion + sedation and antihypertensives. Infection less likely given abrupt onset after arrest # encephalopathy. Non con CT head negative 05/03/2018. Differential diagnosis and is broad and includes hypoactive delirium, hypoxemia, toxic and metabolic. # type 2 diabetes # hypertension # coronary disease # history of CHF now with recovered EF. Question of amyloid cardiomyopathy raised as OP. Will f/u with Dr Weston as OP # NIXON. In the process of being evaluated as output # RAMANA on CKD III # hyperkalemia # anemia PLAN # bronchoscopy today given secretions and poor cough prior to extubation # place on pressure support until bronchoscopy then use AC/VC while sedated correct hypernatremia by increasing FWF and 1 L D5W given thick tenacious secretions # consult renal for RAMANA on CKD and hypernatremia # follow up repeat cx data # broad-spectrum antibiotics started 05/03/2017, if no MSRA or Pseudomonas at 48- 72 hrs, will deescalate # lung protective ventilation while intubated, target normoxia, wean as tolerated # goal map 85 for 7 days post operatively # Calvin for BP support # hold outpatient antihypertensives until improved # holding torsemide (on 60 PO BID as OP) # trend BMP # basal + bolus insulin IMAGING I personally reviewed interpreted radiographic images well as formal radiology reads 05/04/18 ET and L subclavian in place, bilateral intersitial opacities 05/03/18 CT head non con-no acute intracranial pathology Subjective: Intubated yesterday for MRI. Due to sedation and inadequate mentation combined with poor cough patient was left intubated overnight. Fever did yesterday and was re-cultured. Placed back on SIMV overnight. Following more commands today. Unable to obtain review of systems Objective: Vital Signs Temp Pulse Resp BP Pulse Ox 37.8 C 62 20 150/58 H 99 05/06/18 09:00 05/06/18 09:47 05/06/18 09:47 05/06/18 09:00 05/06/18 09:47 Microbiology 05/03/18 16:30 Gram Stain - Final Bronchial Alveolar Lavage - Lung 05/06/18 00:30 - Final Sputum, Induced/Suctioned Laboratory Results 05/06/18 05:20 05/06/18 05:20 05/05/18 05/06/18 05/07/18 05:59 05:59 05:59 Intake Total 2684 2634 324 Output Total 1600 2880 780 Balance 7688 -8961 -945 Physical Exam - Physical Exam General Appearance: WD/WN, other (Somnolent, arousable) EENT: ET tube, other (C collar in place, neck bandages in place clean dry and intact) Neck: other (C-collar in place, neck bandage clean dry and intact) Respiratory: other (Decreased breath sounds bilateral bases no wheezes no rales no accessory movementsf) Male Genitalia: normal genitalia, other (Staley in place), No erythema Skin: normal color, warm/dry Extremities: No pedal edema, No calf tenderness, No swelling Neuro/Psych: other (Response to name. Following simple commands. 1/5 strength bilateral upper extremities. 12/5 strength bilateral lower extremities. Cranial nerves 2-12 grossly intact) ICD10 Worksheet Patient Problems: Problems Problem Status Onset Encephalopathy Acute Myelopathy of cervical spinal cord with cervical radiculopathy Acute Acute exacerbation of congestive heart failure Acute CHF (congestive heart failure) Acute Diabetes Acute Elevated troponin Acute HTN (hypertension) Acute Hyperglycemia Acute NSTEMI (non-ST elevated myocardial infarction) Acute Orthostatic hypotension Acute Pneumonia Acute Respiratory failure with hypoxia Acute Upper respiratory tract infection Acute
[2018-05-06] MEDS ORDERED: LIDOCAINE 1% 300 MG/30 ML SDV MISC ONE (10:46)
[2018-05-06] MEDS ORDERED: LIDOCAINE 1% 300 MG/30 ML SDV ONE (10:49)
[2018-05-06] MEDS ORDERED: KETAMINE IVP ONE (11:03)
[2018-05-06] MEDS ORDERED: KETAMINE 200 MG/20 ML VIAL IV ONE (11:15)
--- NOTE | 2018-05-06 13:19 | HOSPPROG ---
Hospitalist Progress Note Assessment/Plan: 62-year-old with a history of cervical stenosis status post C4 through T2 posterior cervical fusion with cervical decompression. . His hospital course has been complicated by altered mental status with increasing sedation and he had a respiratory arrest yesterday which we suspect is due to aspiration. pneumonia/respiratory failure likely aspiration related ct chest w b/l airspace disease vanc zosyn bronch today w a lot of sputum so will remain intubated today w likely bronch in AM encephalopathy, unclear etiology. Discussed with Dr. Valenzuela. MRI w two small and one tiny areas of restricted diffusion- unclear that these are responsible for weakness or encephalopathy improved today and today 05/06 cva: multifocal s/o embolic phenomena no AF on tele (interp by me) echo w no cause check lipids asa when cleared from neurosurgery cervical stenosis status post surgery, cord injury MAP < 95, on mary jane repeat imaging 05/05 w no need for repeat surgery appreciate neurosurgery involvement diabetes: rising blood sugars despite aggressive therapy start insulin gtt today w goal blood sugar 180 history of hypertension on multiple medications holding now given pressors coronary artery disease on statin and beta-germain. Aspirin on hold. Asymptomatic dysphagia with aspiration risk. Likely related to surgery and swelling. Continued speech therapy evaluation history of CHF, echo showing EF of 55% diastolic dysfunction. obstructive sleep apnea Subjective: case d/w dr garza, dr morel. neuro exam improved. MR C and L spine reveal no need for repeat neurosurgical intervention Objective: Vital Signs Temp Pulse Resp BP Pulse Ox 37.6 C 63 33 H 196/66 H 98 05/06/18 12:00 05/06/18 13:00 05/06/18 13:00 05/06/18 13:00 05/06/18 13:00 Microbiology 05/03/18 16:30 Gram Stain - Final Bronchial Alveolar Lavage - Lung 05/06/18 00:30 - Final Sputum, Induced/Suctioned Laboratory Results 05/06/18 05:20 05/06/18 05:20 05/05/18 05/06/18 05/07/18 05:59 05:59 05:59 Intake Total 2684 2634 324 Output Total 1600 2760 780 Balance 6524 -3257 -456 - Physical Exam Constitutional: other (respnds to voice, follow commands) Eyes: PERRL, anicteric sclera Ears, Nose, Mouth, Throat: moist mucous membranes, hearing normal Cardiovascular: regular rate and rhythym, no murmur, rub, or gallop Respiratory: no respiratory distress, no rales or rhonchi, other (a LOT OF SPUTUM in bronch) Gastrointestinal: normoactive bowel sounds, soft, non-tender abdomen Genitourinary: isaac in urethra Skin: warm, normal color Musculoskeletal: full muscle strength, no muscle tenderness Neurologic: AAOx3, sensation intact bilaterally ICD10 Worksheet Patient Problems: Problems Problem Status Onset Encephalopathy Acute Myelopathy of cervical spinal cord with cervical radiculopathy Acute Acute exacerbation of congestive heart failure Acute CHF (congestive heart failure) Acute Diabetes Acute Elevated troponin Acute HTN (hypertension) Acute Hyperglycemia Acute NSTEMI (non-ST elevated myocardial infarction) Acute Orthostatic hypotension Acute Pneumonia Acute Respiratory failure with hypoxia Acute Upper respiratory tract infection Acute
[2018-05-06 14:01] LABS: CREATINE KINASE 367 IU/L (0-224)
--- NOTE | 2018-05-06 14:17 | SOAPPROG ---
SOAP Progress Note Assessment/Plan: Assessment: hypernatremia Plan: see dictated consult note 05/06/18 14:16 Subjective: see dictated note Objective: Vital Signs Temp Pulse Resp BP Pulse Ox 37.6 C 63 33 H 196/66 H 98 05/06/18 12:00 05/06/18 13:00 05/06/18 13:00 05/06/18 13:00 05/06/18 13:00 Microbiology 05/03/18 16:30 Gram Stain - Final Bronchial Alveolar Lavage - Lung 05/06/18 00:30 - Final Sputum, Induced/Suctioned Laboratory Results 05/06/18 05:20 05/06/18 13:35 05/05/18 05/06/18 05/07/18 05:59 05:59 05:59 Intake Total 2684 2634 324 Output Total 1600 7610 780 Balance 1084 -2716 -456 ICD10 Worksheet Patient Problems: Problems Problem Status Onset Encephalopathy Acute Myelopathy of cervical spinal cord with cervical radiculopathy Acute Acute exacerbation of congestive heart failure Acute CHF (congestive heart failure) Acute Diabetes Acute Elevated troponin Acute HTN (hypertension) Acute Hyperglycemia Acute NSTEMI (non-ST elevated myocardial infarction) Acute Orthostatic hypotension Acute Pneumonia Acute Respiratory failure with hypoxia Acute Upper respiratory tract infection Acute
[2018-05-06] MEDS: INSULIN REGULAR HUMAN 100 UNIT in NS 100 ML IV SCH (14:42)
[2018-05-06] MEDS: D5W 1,000 ML IV SCH (14:42)
--- NOTE | 2018-05-06 15:01 | GCON ---
[f rep st] CONSULTATION REASON FOR CONSULTATION: Opinion regarding hypernatremia. HISTORY OF PRESENT ILLNESS: The patient is a very pleasant 62-year-old gentleman who was diagnosed w ith spinal stenosis. He underwent spine surgery 04/30/2018, with a C4 through 7 posterior decompress ion, and a C4 through T2 fusion for his spinal stenosis. Postoperatively, he began having difficulti es moving his extremities, and has subsequently become essentially quadriplegic, and requires current ly mechanical ventilation. Over the course of the past 6 or so days, we have seen a rise in his seru m sodium from 139 on the 8th, 148 on the , 151 on the th, 152 on the , 154 yesterday, and t liyah up to 159. Half-normal saline was initiated prior to today without much improvement in his sodi um level. I have been asked to help manage his serum sodium/hypernatremia. Family is at the bedside, the patient is intubated. He is alert and will try to interact, but he is on mechanical ventilation as well. PAST MEDICAL HISTORY: Significant. 1. Stage 3 chronic kidney disease. Baseline serum creatinine appears to be between 1.6 and 1.8, pre sumed due to diabetes and hypertension. 2. Diabetes mellitus type 2. 3. Hypertension. 4. Hyperlipidemia. 5. Ischemic cardiomyopathy. 6. Obstructive sleep apnea syndrome. 7. Peripheral vascular occlusive disease. 8. History of basal cell carcinoma. 9. Status post coronary artery stent. 10. Pneumonia in January 2018. CURRENT MEDICATIONS: Include: 1. Tylenol. 2. Atorvastatin 40 mg daily. 3. Dulcolax. 4. D5W. 5. Famotidine 20 mg twice daily. 6. Insulin. 7. Lactulose. 8. Magnesium hydroxide 30 cc down his tube daily. 9. Minoxidil 5 mg daily. 10. Zofran. 11. Oxycodone. 12. Zosyn 2.25 g every 6 hours. 13. Vancomycin 1.25 g daily. FAMILY HISTORY: Positive for Alzheimer's, coronary artery disease, hypertension, cancer, but negativ e for renal disease. ALLERGIES: None. SOCIAL HISTORY: He is . He does not use tobacco, alcohol, IV, or recreational drugs. 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 REVIEW OF SYSTEMS: Is not obtainable from the patient. PHYSICAL EXAMINATION: VITAL SIGNS: Blood pressure is 162/61, pulse 70, respirations 20, temperature 37.8 degrees. Urine output about 5.4 L yesterday. GENERAL: He is awake. He is alert and tries to interact, and particularly responds well to his . HEENT: Pupils are reactive to light. Extrao cular movements are intact. Mucous membranes are moist. He is intubated. NECK: He has a C-collar in place. HEART: Regular. No rub. No S3. LUNGS: Coarse breath sounds bilaterally. No rhonchi, no wheezes. ABDOMEN: Bowel sounds are positive. Nontender, nondistended. EXTREMITIES: No edema, cyanosis, or clubbing. NEUROLOGIC: He is quadriplegic. SKIN: No unusual rashes or lesions. LYMPH : No palpable lymphadenopathy or lymphedema. MUSCULOSKELETAL: No effusions. LABORATORY: WBC 11.9, hemoglobin 10.7, hematocrit 35, platelet count 191,000, pH 7.34, pCO2 24, trig lycerides 202. Cholesterol 103, LDL 42, HDL 21. Procalcitonin 0.57. Serum sodium 159, potassium 4. 7, chloride 130, CO2 25, BUN 75. Creatinine 2.2, down from 2.7 yesterday. 2.2 the day prior, 2.0 th e day prior to that, 1.8 prior to that. Glucose 290, calcium 8.5. Urine chemistry showed a urine osmolality this morning to be 493. Urine creatinine 49. Urine sodium 37. Urinalysis specific gravity 1.013, pH 5, +2 blood, +2 protein. Recent vancomycin level is 12.5. Sputum was negative for any organisms, but +2 polymorphonuclear gonzales ls. IMPRESSION: Hypernatremia. Sodium has been rising since about the 8th when his serum sodium was 139 , has risen to 159 over the course of the past 6 days. He has also had some mild acute kidney injury , baseline creatinine tends to be in the 1.6-1.8 range, he is currently 2.2. Interestingly, his urin e osmolality is 493 with a urine creatinine of 49, urine sodium of 37. It looks like this could poss ibly be an osmotic diuresis, his blood sugars are high, but not terribly high, it does not look like he has received urea, and has not had a free water diuresis from say, acute kidney injury or postobst ructive diuresis. I suspect this is free water loss from due to other factors. That being said, bef ore I change his fluids around, etc., I think I will repeat his urine chemistries, we will continue h is intravenous fluids as is for now. We will be checking every 3 hour serum sodiums. I have discuss ed this with the family, and all questions were answered to their satisfaction. Thank you for allowing me to participate in the care of your patient. If there are any questions, pl ease do not hesitate to contact us. We will be following along with you. /[id number]/MODL
[2018-05-06] MEDS: VANCOMYCIN 1.25 GM in NS 250 ML IV SCH (16:34)
--- NOTE | 2018-05-06 17:24 | SUROPNOTE ---
RD Operative Report - Surgery PROCEDURE NOTE: Flexible bronchoscopy with therapeutic aspiration Procedure Meter Setter S Erick Goldberg MD Procedure: Flexible bronchoscopy with therapeutic aspiration Indication: Respiratory failure Consent: Obtained from family prior to procedure after explanation of the procedure, alternatives, risks, and benefits. Anesthesiologist NA Sedation Type: deep sedation Sedation Medications: Ketamine Medications: Topical 2% lidocaine: 5 cc via endotracheal tube Procedure Summary: Time out was performed. T bronchoscope was introduced via the endotracheal tube into the trachea. Thick tenacious secretions were suction. Secretions were noted to be draining around ET tube suggestive of a bare airway secretions. Left lower lobe has the most tenacious and thick secretions. Multiple aliquots of normal saline were instilled aspirated instilled old and allowed to dwell in order to adequately evacuate the secretions. After approximately 25-30 minutes of washing and therapeutic aspirations the bilateral tracheobronchial tree appeared clear. EBL none Complications: None Impression: Thick tenacious non infectious secretions due to poor cough minute in inability to clear upper airway secretions combined with hypernatremia Items to Follow-up: Serial serum sodiums to correct hypernatremia. Normalizing serum sodium should help with secretion management S Erick Goldberg MD Pulmonary and Critical Care Medicine [phone]
[2018-05-06] MEDS ORDERED: SENNOSIDES/DOCUSATE SODIUM TAB PO SCH (21:00)
[2018-05-06] MEDS: ATORVASTATIN CALCIUM 40 MG TAB TUBE SCH (21:41)
[2018-05-07] MEDS: INSULIN REGULAR HUMAN 100 UNIT in NS 100 ML IV SCH ×3 (00:07→21:06)
[2018-05-07] MEDS: PHENYLEPHRINE HCL 50 MG in NS 250 ML IV SCH ×2 (00:07→17:18)
[2018-05-07] MEDS: PIPERACILLIN/TAZO 2.25 GM/DEX 50 ML IV SCH ×3 (00:09→12:30)
[2018-05-07] MEDS: ACETAMINOPHEN 650 MG/20.3 ML UDCUP TUBE SCH ×3 (05:18→21:07)
[2018-05-07] MEDS: SENNOSIDES 17.6 MG/10 ML UDL TUBE SCH ×2 (07:18→21:25)
[2018-05-07 07:55] LABS: PLATELET COUNT 171 10^3/uL (150-400)
[2018-05-07] MEDS: FAMOTIDINE 20 MG TAB TUBE SCH ×2 (08:06→21:07)
[2018-05-07] MEDS: D5W 1,000 ML IV SCH (08:06)
--- NOTE | 2018-05-07 08:13 | NEUROPROG ---
Assessment: Total unit time of 25 min. The patient has had definite improvements in the last 48 hr with better motor function. His encephalopathy has essentially resolved. He has significant pulmonary compromise and congestion with repeated bronchoscopy getting large amounts of secretions which is why he remains on the ventilator him but this is being worked on aggressively by Pulmonary. I have again had a good conversation with the patient's and family members and they feel very comfortable with the current course. We remain optimistic for continued improvement. Subjective: This morning, the patient is more alert and showing verbal expression and motor reactions that he fully understands what is being said and promptly follows commands. He tries to smile but is currently on the ventilator. Objective: Vital Signs Temp Pulse Resp BP Pulse Ox 37.6 C 63 20 172/58 H 99 05/07/18 04:00 05/07/18 06:00 05/07/18 06:00 05/07/18 06:00 05/07/18 06:00 Microbiology 05/03/18 16:30 Gram Stain - Final Bronchial Alveolar Lavage - Lung 05/06/18 00:30 - Final Sputum, Induced/Suctioned Laboratory Results 05/07/18 07:40 05/06/18 05/07/18 05/08/18 05:59 05:59 05:59 Intake Total 2634 6502.3 Output Total 5350 3430 Balance -2716 3072.3 The extraocular movements are improved with better left eye abduction and I do not see any significant nystagmus. Facial expressions are symmetric with eye closing. In the upper extremities, there is right upper extremity power predominantly 2 to 3/5 and closer to just 1 or 2/5 in the left upper extremity but even there starting to have some more improvement on his abduction. Lower extremity strength remains about 2 or 3/5. Allergies/Adverse Reactions: No Known Allergies Allergy (Verified 04/27/18 16:08)
--- NOTE | 2018-05-07 08:14 | NEUSURGPN ---
Assessment/Plan: Assessment: 62y/o male s/p anterior C4-C7 fusion and and PCF/decompression C4- T2 on 04/29/18 with postop quadraplegia by Dr. Stock whose care has been transfer to Dr. Centeno with Neurosurgery. Pt was reintubated 05/05 to protect his airway for imaging that was necessary to evaluate his surgery site and to determine if any further surgery is needed. Pt had a MRI and CT that was reviewed by all the physicians at [facility] and the unanimous consensus from the surgeons was not to take Bakari back for more surgery. We recommended and started pressure support immediately after he was transferred to our care. MRI of the L spine and T spine reviewed that shows a small disc bulge and DDD in the T spine. L4/5 shows stenosis as well. No surgical lesion in the T and L spine that needs to be addressed at this time Neuro/motor exam improved compared to yesterday Plan: -continue with pressure support to keep MAPs above 85 or higher, Calvin ordered. Will continue this through the weekend per Dr. Centeno - Discussed having PT/OT work with patient today as he is now following commands and able to participate in therapies. Family has also expressed interest in helping with therapies. Discussed importance of stimulation and rest. -Appreciate Critical care management and will work toward extubation as tolerate -Appreciate Internal medicine, neurology, and nephrology consultations -Pt had fever yesterday - critical care following and managing, 37.6 this morning -Chart reviewed reviewed as well -call with any questions or concerns Subjective: Having some left anterior shoulder pain with movement where port is. Shakes head yes and no to pain questioning appropriately. Shakes head no to posterior pain. Objective: Awake with eyes open and alert. Mouths words, shakes head yes and now to questions NAD Intubated, but follows all commands Anterior incision c/d/i. neck, soft supple RUE: able to lift arm against gravity and reached over to shake hand. Deltoid 3 + to4-/5 (able to lift off bed); Biceps 3/5, triceps 4/5 (able to push away), 4-/5 to right head sawyer LUE: Deltoid: unable to lift against gravity, can push against 3/5, 2+ biceps, triceps 2/5, head sawyer 2/5 RLE: Wiggle toes, 3+/5 right quad (can bend right knee up) LLE: Wiggle toes, 2+/5 right quad (contraction of quad) - Physician Discussed Patient with : [facility] Physical Exam - Vitals, I&O, Labs I and O 05/06/18 05/07/18 05/08/18 05:59 05:59 05:59 Intake Total 2634 6502.3 Output Total 5350 3430 Balance -2716 3072.3 Intake: IV Intake (ml) 100 IV Infused (ml) 1645 3730.3 1/2 Ns 1,000 ml @ 75 mls/ 883 284 hr IV CONT YAZMIN Rx#: [id number] D5w 1,000 ml @ 200 mls/hr 2303 IV CONT YAZMIN Rx#: [id number] D5w 1,000 ml @ 25 mls/hr 398 IV CONT YAZMIN Rx#: [id number] Insulin Regular Human 100 163.3 unit In Ns 100 ml @ Per Protocol IV CONT YAZMIN Rx#: [id number] Ns 1,000 ml @ 25 mls/hr 284 IV AD YAZMIN Rx#:[id number] Phenylephrine HCl 50 mg 428 582 In Ns 250 ml @ Per Protocol IV CONT YAZMIN Rx#: [id number] Propofol/Emulsion 50 ml @ 50 Per Protocol IV ONCE ONE Rx#:[id number] Tube Feeding (ml) 663 1032 Tube Flush (ml) 226 1740 Output: Urine (ml) 5350 3430 Catheter 5350 3430 Other: Output Comment Catheter digital removal Number of Stools Catheter 1 Incontinence 1 Microbiology 05/03/18 16:30 Gram Stain - Final Bronchial Alveolar Lavage - Lung 05/06/18 00:30 - Final Sputum, Induced/Suctioned Vital Signs Temp Pulse Resp BP Pulse Ox 37.6 C 63 20 172/58 H 99 05/07/18 04:00 05/07/18 06:00 05/07/18 06:00 05/07/18 06:00 05/07/18 06:00 Laboratory Results 05/07/18 07:40 ICD10 Worksheet Patient Problems: Problems Problem Status Onset Encephalopathy Acute Myelopathy of cervical spinal cord with cervical radiculopathy Acute Acute exacerbation of congestive heart failure Acute CHF (congestive heart failure) Acute Diabetes Acute Elevated troponin Acute HTN (hypertension) Acute Hyperglycemia Acute NSTEMI (non-ST elevated myocardial infarction) Acute Orthostatic hypotension Acute Pneumonia Acute Respiratory failure with hypoxia Acute Upper respiratory tract infection Acute
--- NOTE | 2018-05-07 09:23 | ASMTCMCOM ---
CM Note CM Note Notes: -14- There were not copies of the MDPOA paperwork in the chart so requested them from medical records and added to the chart. Spoke with the family regarding a family meeting and they opted to schedule it for Thursday at 12:00 noon. Also the family decided they did want the list of counselors and so this was given to them as well. CM will follow. Date Signed: 05/07/2018 09:22 AM Electronically Signed By:Linda Alvarenga LCSW
--- NOTE | 2018-05-07 10:19 | PDINTPN ---
Medical Voucher Clerk Progress Note Assessment/Plan: 62 yo M with cervical stenosis s/p C4-T2 c spine fusion complicated by postoperative weakness status post repeat posterior approach complicated by postoperative encephalopathy and weakness and status post cardiac arrest due to hypoxemic respiratory failure from aspiration inability to protect airway 2018. Still critically ill but improving # cardiac arrest. 05/03/2018. Primary respiratory due to aspiration and inability to protect airway. Achieved ROSC quickly after securing airway and epi x2 # aspiration pneumonia. Vanc/Zosyn started 05/03/2018-05/07/18. Bronch with 60% neutrophils, GS and Cx negative. # shock. resolved. Ischemia reperfusion + sedation and antihypertensives. Infection less likely given abrupt onset after arrest # mucous plugging. poor cough and hypernatremia in setting of recent spinal surgery # encephalopathy. Improving. Non con CT head negative 05/03/2018. Differential diagnosis and is broad and includes hypoactive delirium, hypoxemia, toxic and metabolic. # type 2 diabetes # hypertension # coronary disease # history of CHF now with recovered EF. Question of amyloid cardiomyopathy raised as OP. Will f/u with Dr Westno as OP # NIXON. In the process of being evaluated as output # RAMANA on CKD III # hyperkalemia # anemia PLAN # repeat bronch today given inability to CPAP and mucous plugging # place on pressure support until bronchoscopy then use AC/VC while sedated # correct hypernatremia. # consult renal for RAMANA on CKD and hypernatremia # follow up repeat cx data #antibiotics started 05/03- # lung protective ventilation while intubated, target normoxia, wean as tolerated # goal map 85 for 7 days post operatively # Calvin for BP support # hold outpatient antihypertensives until improved # holding torsemide (on 60 PO BID as OP) # trend BMP # insulin gtt IMAGING I personally reviewed interpreted radiographic images well as formal radiology reads 05/07/18 lines and hardware in appropriate position. Mild interval improvement in left basilar atelectasis 05/04/18 ET and L subclavian in place, bilateral intersitial opacities 05/03/18 CT head non con-no acute intracranial pathology 05/07/18 16:50 Subjective: bronched yesterday with thick tenacious secretions. FWF and D5W increased with stabilization of SNa. Mildly increased strength. Still with extensive secretions and unable to mobilize them. Fevered and cultured yesterday. Insulin gtt started yesterday for hyperglycemia Objective: Vital Signs Temp Pulse Resp BP Pulse Ox 37.6 C 63 20 172/58 H 99 05/07/18 04:00 05/07/18 06:00 05/07/18 06:00 05/07/18 06:00 05/07/18 06:00 Microbiology 05/03/18 16:30 Gram Stain - Final Bronchial Alveolar Lavage - Lung 05/06/18 00:30 - Final Sputum, Induced/Suctioned Laboratory Results 05/07/18 07:40 05/07/18 07:40 05/06/18 05/07/18 05/08/18 05:59 05:59 05:59 Intake Total 2634 6502.3 Output Total 5350 3430 Balance -2716 3072.3 Physical Exam - Physical Exam General Appearance: alert EENT: PERRL/EOMI, ET tube Neck: other (C-collar in place bandage is clean, dry, intact) Respiratory: chest non-tender, other (Decreased breath sounds left base) Abdomen: normal bowel sounds, non-tender Skin: normal color, warm/dry Neuro/Psych: other (One to 2/5 strength bilateral upper and lower extremities. Improved mentation, smiling following simple commands.) ICD10 Worksheet Patient Problems: Problems Problem Status Onset Encephalopathy Acute Myelopathy of cervical spinal cord with cervical radiculopathy Acute Acute exacerbation of congestive heart failure Acute CHF (congestive heart failure) Acute Diabetes Acute Elevated troponin Acute HTN (hypertension) Acute Hyperglycemia Acute NSTEMI (non-ST elevated myocardial infarction) Acute Orthostatic hypotension Acute Pneumonia Acute Respiratory failure with hypoxia Acute Upper respiratory tract infection Acute
--- NOTE | 2018-05-07 10:51 | SOAPPROG ---
SOAP Progress Note Assessment/Plan: Assessment/Plan: Hypernatremia: improving at an appropriate rate. - Will increase D5W so that he is getting a total of 100ml/hr, currently getting 75ml/hr. - Will continue to monitor q8h. RAMANA on CKD 3: Cr improved to 1.6, which is back to his baseline. - Will continue to monitor. - Avoid hypotension and nephrotoxins. Subjective: No acute events overnight. Pt remains intubated, is awake. He continues to have large UOP. Objective: Vital Signs Temp Pulse Resp BP Pulse Ox 37.6 C 63 20 172/58 H 99 05/07/18 04:00 05/07/18 06:00 05/07/18 06:00 05/07/18 06:00 05/07/18 06:00 Microbiology 05/03/18 16:30 Gram Stain - Final Bronchial Alveolar Lavage - Lung 05/06/18 00:30 - Final Sputum, Induced/Suctioned Laboratory Results 05/07/18 07:40 05/07/18 07:40 05/06/18 05/07/18 05/08/18 05:59 05:59 05:59 Intake Total 2634 6502.3 Output Total 5350 3430 Balance -2716 3072.3 General: awake, no acute distress Eyes: EOMI, PERRL OP: Clear CV: RRR Resp: intubated and on vent Abd: Soft, NT Ext: no edema BLE ICD10 Worksheet Patient Problems: Problems Problem Status Onset Encephalopathy Acute Myelopathy of cervical spinal cord with cervical radiculopathy Acute Acute exacerbation of congestive heart failure Acute CHF (congestive heart failure) Acute Diabetes Acute Elevated troponin Acute HTN (hypertension) Acute Hyperglycemia Acute NSTEMI (non-ST elevated myocardial infarction) Acute Orthostatic hypotension Acute Pneumonia Acute Respiratory failure with hypoxia Acute Upper respiratory tract infection Acute
[2018-05-07] MEDS ORDERED: LIDOCAINE 1% 300 MG/30 ML SDV MISC ONE (13:30)
[2018-05-07] MEDS ORDERED: KETAMINE IVP ONE (13:48)
[2018-05-07] MEDS ORDERED: KETAMINE 200 MG/20 ML VIAL IV ONE (14:00)
--- NOTE | 2018-05-07 14:40 | HOSPPROG ---
Hospitalist Progress Note Assessment/Plan: 62-year-old with a history of cervical stenosis status post C4 through T2 posterior cervical fusion with cervical decompression. . His hospital course has been complicated by altered mental status with increasing sedation and he had a respiratory arrest yesterday which we suspect is due to aspiration. pneumonia/respiratory failure likely aspiration related ct chest w b/l airspace disease abx dc'd bronch today w a lot of sputum so will remain intubated today w likely bronch in AM 05/07: ikley bronch again today secretions a barier to extubation encephalopathy, unclear etiology. Discussed with Dr. Valenzuela. MRI w two small and one tiny areas of restricted diffusion- unclear that these are responsible for weakness or encephalopathy continues to improve cva: multifocal s/o embolic phenomena no AF on tele (interp by me) echo w no cause check lipids asa when cleared from neurosurgery cervical stenosis status post surgery, cord injury MAP < 85, on mary jane repeat imaging 05/05 w no need for repeat surgery appreciate neurosurgery involvement diabetes: rising blood sugars despite aggressive therapy insulin gtt sugars improving history of hypertension on multiple medications holding now given pressors coronary artery disease on statin and beta-germain. Aspirin on hold. Asymptomatic dysphagia with aspiration risk. Likely related to surgery and swelling. Continued speech therapy evaluation history of CHF, echo showing EF of 55% diastolic dysfunction. obstructive sleep apnea Subjective: improved neuro exam. case d/w dr morel Objective: Vital Signs Temp Pulse Resp BP Pulse Ox 35.8 C L 60 20 163/65 H 100 05/07/18 14:00 05/07/18 14:04 05/07/18 14:04 05/07/18 14:04 05/07/18 14:00 Microbiology 05/06/18 00:30 - Final Sputum, Induced/Suctioned 05/03/18 16:30 Gram Stain - Final Bronchial Alveolar Lavage - Lung Bronchial Culture - Final Laboratory Results 05/07/18 07:40 05/07/18 12:10 05/06/18 05/07/18 05/08/18 05:59 05:59 05:59 Intake Total 2634 6502.3 Output Total 5350 3430 Balance -2716 3072.3 - Physical Exam Constitutional: no apparent distress, appears nourished Eyes: PERRL, anicteric sclera Ears, Nose, Mouth, Throat: moist mucous membranes, hearing normal Cardiovascular: regular rate and rhythym, no murmur, rub, or gallop Respiratory: no respiratory distress, other (rhonchi anterolat) Gastrointestinal: normoactive bowel sounds, soft, non-tender abdomen Genitourinary: isaac in urethra Skin: warm, normal color Musculoskeletal: No full muscle strength Neurologic: AAOx3 Psychiatric: interacting appropriately ICD10 Worksheet Patient Problems: Problems Problem Status Onset Encephalopathy Acute Myelopathy of cervical spinal cord with cervical radiculopathy Acute Acute exacerbation of congestive heart failure Acute CHF (congestive heart failure) Acute Diabetes Acute Elevated troponin Acute HTN (hypertension) Acute Hyperglycemia Acute NSTEMI (non-ST elevated myocardial infarction) Acute Orthostatic hypotension Acute Pneumonia Acute Respiratory failure with hypoxia Acute Upper respiratory tract infection Acute
[2018-05-07] MEDS ORDERED: fentaNYL 100 MCG/2 ML INJ ONE (14:56)
[2018-05-07] MEDS: HEPARIN 5,000 UNIT/0.5 ML INJ SC SCH ×2 (15:51→21:07)
[2018-05-07] MEDS ORDERED: fentaNYL 100 MCG/2 ML INJ IV ONE (16:00)
--- NOTE | 2018-05-07 16:12 | ASMTCMCOM ---
CM Note CM Note Notes: A family meeting was held today (please see Krystin Henry's notes) to review nursing coverage, answer discharge planning questions and check in to see if they had been getting their medical questions answered. [facility] is not sending liasons out to visit with patients until they are close to being ready to go. The [facility] physicians felt patient had too many medical concerns and needs at this time to send out a liason yet. When patient becomes more medically stable, they will send someone to meet with the family. CM did get several of the families questions answered about crash teams, private rooms, hotel lists, etc. CM met with the family a second time to go over this information. Tavo's brothers may go this weekend to tour the facility. CM will follow. Date Signed: 05/07/2018 04:10 PM Electronically Signed By:Linda Alvarenga LCSW
--- NOTE | 2018-05-07 20:58 | SUROPNOTE ---
RD Operative Report - Surgery PROCEDURE NOTE: Flexible bronchoscopy with therapeutic aspiration Procedure Label Press Operator S Erick Goldberg MD Procedure: Flexible bronchoscopy with therapeutic aspiration Indication: Respiratory failure, mucous plugging Consent: Obtained from family prior to procedure after explanation of the procedure, alternatives, risks, and benefits. Anesthesiologist NA Sedation Type: deep sedation Sedation Medications: Ketamine, fentanyl Medications: Topical 2% lidocaine: 5 cc via endotracheal tube Procedure Summary: Time out was performed. The bronchoscope was introduced via the endotracheal tube into the trachea. Once again, secretions were noted to be draining around ET tube suggestive of upper airway secretions and mucous plugging. The entire tracheobronchial tree was examined and was improved from day prior but the left lower lobe still had thick, tenacious secretions. Multiple aliquots of normal saline were instilled aspirated instilled old and allowed to dwell in order to adequately evacuate the secretions. After approximately 25-30 minutes of washing and therapeutic aspirations the bilateral tracheobronchial tree appeared clear. EBL none Complications: None Impression: Thick tenacious non infectious secretions due to poor cough minute in inability to clear upper airway secretions combined with hypernatremia. Improving Items to Follow-up: none S Erick Goldberg MD Pulmonary and Critical Care Medicine [phone]
[2018-05-07] MEDS: ATORVASTATIN CALCIUM 40 MG TAB TUBE SCH (21:07)
[2018-05-08 03:24] LABS: PLATELET COUNT 190 10^3/uL (150-400)
[2018-05-08] MEDS: D5W 1,000 ML IV SCH (04:17)
[2018-05-08] MEDS: ACETAMINOPHEN 650 MG/20.3 ML UDCUP TUBE SCH ×3 (06:03→21:26)
[2018-05-08] MEDS: HEPARIN 5,000 UNIT/0.5 ML INJ SC SCH ×3 (06:03→21:27)
[2018-05-08] MEDS: PHENYLEPHRINE HCL 50 MG in NS 250 ML IV SCH (08:16)
[2018-05-08] MEDS: SENNOSIDES 17.6 MG/10 ML UDL TUBE SCH ×2 (09:05→21:27)
[2018-05-08] MEDS: FAMOTIDINE 20 MG TAB TUBE SCH ×2 (09:05→21:27)
--- NOTE | 2018-05-08 10:15 | NEUROPROG ---
Assessment: Total unit time of 15 min. The patient now has ability to communicate after being extubated and has about the same strength in the extremities as before but does not feel cold perception in any of the extremities compared to his facial perception of cold. He recognizes the touch but not the temperature. Overall, he continues to have evidence of cervical myelopathy and has improved but is stable over the last 24 hr. We are basically awaiting medical stability before he goes for his comprehensive rehab therapies. Objective: Vital Signs Temp Pulse Resp BP Pulse Ox 38.5 C H 71 20 166/56 H 97 05/08/18 08:00 05/08/18 09:00 05/08/18 09:00 05/08/18 09:00 05/08/18 09:00 Microbiology 05/06/18 00:30 - Final Sputum, Induced/Suctioned 05/03/18 16:30 Gram Stain - Final Bronchial Alveolar Lavage - Lung Bronchial Culture - Final Laboratory Results 05/08/18 03:15 05/08/18 03:15 05/07/18 05/08/18 05/09/18 05:59 05:59 05:59 Intake Total 6502.3 6771 Output Total 3430 2940 Balance 3072.3 3831 Allergies/Adverse Reactions: No Known Allergies Allergy (Verified 04/27/18 16:08)
--- NOTE | 2018-05-08 10:25 | SOAPPROG ---
SOAP Progress Note Assessment/Plan: Assessment/Plan: Hypernatremia: improving at an appropriate rate, 151 this am. - Will increase D5W so that he is getting a total of 150ml/hr. - Pt also getting free water flushes. - Will continue to monitor q8h. RAMANA on CKD 3: Cr improved to 1.5, which is back to his baseline. - Will continue to monitor. - Avoid hypotension and nephrotoxins. Subjective: No acute events overnight. Pt extubated this am. He continues to have good UOP. Objective: Vital Signs Temp Pulse Resp BP Pulse Ox 38.5 C H 71 20 166/56 H 97 05/08/18 08:00 05/08/18 09:00 05/08/18 09:00 05/08/18 09:00 05/08/18 09:00 Microbiology 05/06/18 00:30 - Final Sputum, Induced/Suctioned 05/03/18 16:30 Gram Stain - Final Bronchial Alveolar Lavage - Lung Bronchial Culture - Final Laboratory Results 05/08/18 03:15 05/08/18 03:15 05/07/18 05/08/18 05/09/18 05:59 05:59 05:59 Intake Total 6502.3 6771 Output Total 3430 2940 Balance 3072.3 3831 General: alert and oriented, mild respiratory distress Eyes: EOMI, PERRL OP: Clear CV: RRR Resp: labored respirations on NC, abundant secretions Abd; Soft, NT Ext: no edema Neuro: CN II-XII Grossly intact, no asterixis Psych: cooperative ICD10 Worksheet Patient Problems: Problems Problem Status Onset Encephalopathy Acute Myelopathy of cervical spinal cord with cervical radiculopathy Acute Acute exacerbation of congestive heart failure Acute CHF (congestive heart failure) Acute Diabetes Acute Elevated troponin Acute HTN (hypertension) Acute Hyperglycemia Acute NSTEMI (non-ST elevated myocardial infarction) Acute Orthostatic hypotension Acute Pneumonia Acute Respiratory failure with hypoxia Acute Upper respiratory tract infection Acute
--- NOTE | 2018-05-08 10:37 | PDINTPN ---
End Stapler Progress Note Assessment/Plan: 62 yo M with cervical stenosis s/p C4-T2 c spine fusion complicated by postoperative weakness status post repeat posterior approach complicated by postoperative encephalopathy and weakness and status post cardiac arrest due to hypoxemic respiratory failure from aspiration inability to protect airway 2018. Still critically ill but improving # cardiac arrest. 05/03/2018. Primary respiratory due to aspiration and inability to protect airway. Achieved ROSC quickly after securing airway and epi x2 # aspiration pneumonia. Vanc/Zosyn started 05/03/2018-05/07/18. Bronch with 60% neutrophils, GS and Cx negative. # shock. still requiring mary jane for BP support. Ischemia reperfusion + sedation and antihypertensives as well as post operative vasoplegia. Infection less likely given abrupt onset after arrest # mucous plugging. poor cough and hypernatremia in setting of recent spinal surgery # encephalopathy. Improving. Non con CT head negative 05/03/2018. Differential diagnosis and is broad and includes hypoactive delirium, hypoxemia, toxic and metabolic. # hypernatremia. aggressively correcting. appreciated renal sections. # type 2 diabetes, requiring insulin gtt # hypertension # coronary disease # history of CHF now with recovered EF. Question of amyloid cardiomyopathy raised as OP. Will f/u with Dr Weston as OP # NIXON. In the process of being evaluated as output. has old cpap broken but needs repeat sleep study prior to qualifying for insurance to approve. family wishes to buy on own. # RAMANA on CKD III # hyperkalemia # anemia # fevers. ddx neuro related, medications, mucous plugging and atelectasis, infection. Multiple cultures without infection, antibiotics stopped yesterday. PLAN # extubate if able # increase FWF and D5W # trend Na # Mary Jane for BP support/shock # chest physiotherapy # re-culture # avoid nephrotoxins # follow up repeat cx data # s/p vanc zosyn 05/03- # lung protective ventilation while intubated, target normoxia, wean as tolerated # goal map 85 for 7 days post operatively # hold outpatient antihypertensives until improved # holding torsemide (on 60 PO BID as OP # insulin gtt for refractory hyperglycemia IMAGING I personally reviewed interpreted radiographic images well as formal radiology reads 05/18/2018 interval improvement in bibasilar opacities. Improve inspiratory film , hardware in place, cardiac silhouette normal 05/07/18 lines and hardware in appropriate position. Mild interval improvement in left basilar atelectasis 05/04/18 ET and L subclavian in place, bilateral intersitial opacities 05/03/18 CT head non con-no acute intracranial pathology Patient is critically ill with multiorgan dysfunction requiring complex medical management. Total critical care time 55 min 05/08/18 13:27 Subjective: bronched yesterday with thick tenacious secretions in LLL removed via bronchoscopy with improvements in ventilation. maintained on open ended pressure support on vent overnight. adjusted free water flushes and gave additional bolus overnight. Increased FWF from 25 to 200 q2 and gave D5W bolus. still on Mary Jane for hypotension. insulin gtt continuing Objective: Vital Signs Temp Pulse Resp BP Pulse Ox 38.5 C H 71 20 166/56 H 97 05/08/18 08:00 05/08/18 09:00 05/08/18 09:00 05/08/18 09:00 05/08/18 09:00 Microbiology 05/06/18 00:30 - Final Sputum, Induced/Suctioned 05/03/18 16:30 Gram Stain - Final Bronchial Alveolar Lavage - Lung Bronchial Culture - Final Laboratory Results 05/08/18 03:15 05/08/18 03:15 05/07/18 05/08/18 05/09/18 05:59 05:59 05:59 Intake Total 6502.3 6771 Output Total 3430 2940 Balance 3072.3 3831 Physical Exam - Physical Exam EENT: PERRL/EOMI, ET tube Neck: other (C-collar in place, bandage sites clean dry and intact) Respiratory: chest non-tender, lungs clear, other (Mechanical breath sounds) Cardiac/Chest: normal peripheral pulses, regular rate, rhythm Abdomen: normal bowel sounds, non-tender, soft Back: Normal inspection Skin: normal color, warm/dry, No cyanosis Extremities: normal range of motion, non-tender, normal inspection Neuro/Psych: other (Gradually improving strength in upper and lower extremities , 2/5 today. Follows commands, interactive) ICD10 Worksheet Patient Problems: Problems Problem Status Onset Encephalopathy Acute Myelopathy of cervical spinal cord with cervical radiculopathy Acute Acute exacerbation of congestive heart failure Acute CHF (congestive heart failure) Acute Diabetes Acute Elevated troponin Acute HTN (hypertension) Acute Hyperglycemia Acute NSTEMI (non-ST elevated myocardial infarction) Acute Orthostatic hypotension Acute Pneumonia Acute Respiratory failure with hypoxia Acute Upper respiratory tract infection Acute
--- NOTE | 2018-05-08 10:59 | NEUSURGPN ---
Date of Surgery: 04/29/18 Post Op Day: 9 Assessment/Plan: Assessment: 62y/o male s/p anterior C4-C7 fusion and and PCF/decompression C4- T2 on 04/29/18 and 04/30/[address] Stock with postop quadraparesis, that is slowly improving. Pt also with post operative cardiac arrest d/t inability to protect airway, NIXON and was intubated, ROSC promptly achieved. Pt with Asp. PNA treated by CC team. intubated x2, now extubated 05/08 and improving. Post operative MRI and CT on 05/05 reviewed by BNA physisians and feel no further surgery indicated, pressure support of MAPx>85 startedd POD#6 after NS consultation. MRI of the L spine and T spine reviewed that shows a small disc bulge and DDD in the T spine. L4/5 shows stenosis as well. No surgical lesion in the T and L spine that needs to be addressed at this time MRI Brain with 3 small foci of ischemia and small b/l SDH. Neuro/motor exam stable to improved. Plan: -MAPs >85 through weekend -continue [place] CCollar at all times -SCI precautions, frequent weight shifting and skin care. -dressing changes daily, monitor posterior incision in particular, currently CDI -no further imaging at this time. -PT/OT-balance family stimulation and rest. -TABLE WORKER PACKAGER to see today cognitive and eval swallow, dobhoff currently for nutrition -DVT ppx, TEDs, SCD's, Heparin q8. -Neurology following findings on MRI Brain, no intervention required from NS standpoint. OK for daily ASA if necessary -Critical care following airway, extubated today, tx'd for Asp. PNA. completed vanc/zosyn 05/07. -Nephrology following RAMANA -improved, back to baseline -Medicine following chronic illness and continued fevers, BCx pending -call with any questions or concerns dw Dr. Centeno Subjective: no acute complaints, happy to be extubated. Tavo and multiple friend and family members at bedside. Objective: NAD AAOx3 speech clear, slow and deliberate cnii-xii grossly intact no facial droop CCollar in place, Incisions appear CDI, mild spotting on posterior dressing. antigravity BUE, deltoid, tc, bc, wrists/parts consultant 3/5 BLE: HF, HE, KF,KE 2/5, DF/PF/EHL 1-2/ SILT intact - Physician Discussed Patient with : [facility] Physical Exam - Vitals, I&O, Labs I and O 05/07/18 05/08/18 05/09/18 05:59 05:59 05:59 Intake Total 6502.3 6771 Output Total 3430 2940 Balance 3072.3 3831 Intake: IV Infused (ml) 3730.3 4973 1/2 Ns 1,000 ml @ 75 mls/ 284 hr IV CONT YAZMIN Rx#: [id number] D5w 1,000 ml @ 200 mls/hr 2303 781 IV CONT YAZMIN Rx#: [id number] D5w 1,000 ml @ 50 mls/hr 398 1566 IV CONT YAZMIN Rx#: [id number] Insulin Regular Human 100 163.3 172 unit In Ns 100 ml @ Per Protocol IV CONT YAZMIN Rx#: [id number] Phenylephrine HCl 50 mg 582 2454 In Ns 250 ml @ Per Protocol IV CONT YAZMIN Rx#: [id number] Tube Feeding (ml) 1032 947 Tube Flush (ml) 1740 851 Output: Urine (ml) 3430 2940 Catheter 3430 1800 Incontinence 1140 Other: Number of Stools Incontinence 1 2 Microbiology 05/06/18 00:30 - Final Sputum, Induced/Suctioned 05/03/18 16:30 Gram Stain - Final Bronchial Alveolar Lavage - Lung Bronchial Culture - Final Vital Signs Temp Pulse Resp BP Pulse Ox 38.5 C H 71 16 186/64 H 99 05/08/18 08:00 05/08/18 10:00 05/08/18 10:00 05/08/18 10:00 05/08/18 10:00 Laboratory Results 05/08/18 03:15 05/08/18 03:15 ICD10 Worksheet Patient Problems: Problems Problem Status Onset Encephalopathy Acute Myelopathy of cervical spinal cord with cervical radiculopathy Acute Acute exacerbation of congestive heart failure Acute CHF (congestive heart failure) Acute Diabetes Acute Elevated troponin Acute HTN (hypertension) Acute Hyperglycemia Acute NSTEMI (non-ST elevated myocardial infarction) Acute Orthostatic hypotension Acute Pneumonia Acute Respiratory failure with hypoxia Acute Upper respiratory tract infection Acute
--- NOTE | 2018-05-08 12:08 | HOSPPROG ---
Hospitalist Progress Note Assessment/Plan: 62-year-old with a history of cervical stenosis status post C4 through T2 posterior cervical fusion with cervical decompression. . His hospital course has been complicated by altered mental status with increasing sedation and he had a respiratory arrest yesterday which we suspect is due to aspiration. fever: no clear source cxr w no infiltrate interp by me) TLC site ok heel OK surgical incision OK belly soft 1. blood cx 2. follow exam and status. if he gets confused, worse neuro exam, will do extended workup pneumonia/respiratory failure likely aspiration related ct chest w b/l airspace disease abx dc'd bronch today w a lot of sputum so will remain intubated today w likely bronch in AM 05/07: ikley bronch again today secretions a barier to extubation encephalopathy, unclear etiology. Discussed with Dr. Valenzuela. MRI w two small and one tiny areas of restricted diffusion- unclear that these are responsible for weakness or encephalopathy continues to improve cva: multifocal s/o embolic phenomena no AF on tele (interp by me) echo w no cause check lipids asa when cleared from neurosurgery cervical stenosis status post surgery, cord injury MAP < 85, on mary jane repeat imaging 05/05 w no need for repeat surgery appreciate neurosurgery involvement diabetes: rising blood sugars despite aggressive therapy insulin gtt sugars improving history of hypertension on multiple medications holding now given pressors coronary artery disease on statin and beta-germain. Aspirin on hold. Asymptomatic dysphagia with aspiration risk. Likely related to surgery and swelling. Continued speech therapy evaluation history of CHF, echo showing EF of 55% diastolic dysfunction. obstructive sleep apnea Subjective: case d/w dr morel. fever this AM. extubated Objective: Vital Signs Temp Pulse Resp BP Pulse Ox 38.5 C H 72 16 169/59 H 99 05/08/18 08:00 05/08/18 11:00 05/08/18 11:00 05/08/18 11:00 05/08/18 11:00 Microbiology 05/06/18 00:30 - Final Sputum, Induced/Suctioned 05/03/18 16:30 Gram Stain - Final Bronchial Alveolar Lavage - Lung Bronchial Culture - Final Laboratory Results 05/08/18 03:15 05/08/18 10:57 05/07/18 05/08/18 05/09/18 05:59 05:59 05:59 Intake Total 6502.3 6771 Output Total 3430 2940 Balance 3072.3 3831 - Physical Exam Constitutional: no apparent distress, appears nourished Eyes: PERRL, anicteric sclera Ears, Nose, Mouth, Throat: other (gunky mouth) Cardiovascular: regular rate and rhythym, no murmur, rub, or gallop Respiratory: no respiratory distress, rhonchi, No no rales or rhonchi Gastrointestinal: normoactive bowel sounds, soft, non-tender abdomen Genitourinary: no bladder fullness, isaac in urethra Skin: warm, normal color Musculoskeletal: No full muscle strength Neurologic: AAOx3 Psychiatric: interacting appropriately, not anxious Lymph, Heme, Immunologic: no cervical LAD ICD10 Worksheet Patient Problems: Problems Problem Status Onset Encephalopathy Acute Myelopathy of cervical spinal cord with cervical radiculopathy Acute Acute exacerbation of congestive heart failure Acute CHF (congestive heart failure) Acute Diabetes Acute Elevated troponin Acute HTN (hypertension) Acute Hyperglycemia Acute NSTEMI (non-ST elevated myocardial infarction) Acute Orthostatic hypotension Acute Pneumonia Acute Respiratory failure with hypoxia Acute Upper respiratory tract infection Acute
[2018-05-08] MEDS: D5W 1,000 ML IV PRN ×2 (14:53→21:26)
[2018-05-08] MEDS: INSULIN REGULAR HUMAN 100 UNIT in NS 100 ML IV SCH (21:25)
[2018-05-08] MEDS: ATORVASTATIN CALCIUM 40 MG TAB TUBE SCH (21:27)
[2018-05-09] MEDS: PHENYLEPHRINE HCL 50 MG in NS 250 ML IV SCH ×2 (01:18→23:22)
[2018-05-09] MEDS: HEPARIN 5,000 UNIT/0.5 ML INJ SC SCH ×3 (06:44→20:05)
[2018-05-09] MEDS: ACETAMINOPHEN 650 MG/20.3 ML UDCUP TUBE SCH ×3 (06:44→19:59)
--- NOTE | 2018-05-09 07:02 | NEUSURGPN ---
Assessment/Plan: Assessment: 62y/o male s/p anterior C4-C7 fusion and and PCF/decompression C4- T2 on 04/29/18 and 04/30/[address] Stock with postop quadraparesis, that is slowly improving. Pt also with post operative cardiac arrest d/t inability to protect airway, NIXON and was intubated, ROSC promptly achieved. Pt with Asp. PNA treated by CC team. intubated x2, now extubated 05/08 and improving. Post operative MRI and CT on 05/05 reviewed by BNA physisians and feel no further surgery indicated, pressure support of MAP>85 started POD#6 after NS consultation. MRI of the L spine and T spine reviewed that shows a small disc bulge and DDD in the T spine. L4/5 shows stenosis as well. No surgical lesion in the T and L spine that needs to be addressed at this time MRI Brain with 3 small foci of ischemia and small b/l SDH. Neuro/motor exam stable to improved. Plan: -MAPs >85 through weekend -continue [place] CCollar at all times -SCI precautions, frequent weight shifting and skin care. -dressing changes daily, monitor posterior incision in particular, currently CDI -no further imaging at this time. -PT/OT-balance family stimulation and rest. -GREENHOUSE LABORER following for eval swallow, currently ice chips, dobhoff currently for nutrition -DVT ppx, TEDs, SCD's, Heparin q8. -Neurology following findings on MRI Brain, no intervention required from NS standpoint. OK for daily ASA if necessary -Critical care following airway, extubated today, tx'd for Asp. PNA. completed vanc/zosyn 05/07. -Nephrology following RAMANA -improved, back to baseline -Medicine following chronic illnesses and continued fevers, elevated WBC, BCx pending, NGTD -call with any questions or concerns dw Dr. Centeno Subjective: didn't sleep well last night, having a lot of secretions and coughing. Tavo at bedside. Objective: NAD AAOx3 speech clear, slow and deliberate cnii-xii grossly intact no facial droop CCollar in place, Incisions appear mostly intact, some moist, ?breakdown along mid incision in crease, not draining. dressing dry. antigravity BUE: deltoid, tc, bc, wrists/resident program specialist 3/5 except: 4/5 L Bc, wrist; 2/5 L Tc BLE: HF, HE, KF,KE 2/5, DF/PF/EHL 2/5 less movement distally SILT intact - Physician Discussed Patient with : [facility] Physical Exam - Vitals, I&O, Labs I and O 05/08/18 05/09/18 05/10/18 05:59 05:59 05:59 Intake Total 6771 8066 Output Total 2940 3642 Balance 3831 4424 Intake: IV Intake (ml) 310 IV Infused (ml) 4973 4588 D5w 1,000 ml @ 200 mls/hr 781 IV CONT YAZMIN Rx#: [id number] D5w 1,000 ml @ 50 mls/hr 1566 4026 IV CONT YAZMIN Rx#: [id number] Insulin Regular Human 100 172 218 unit In Ns 100 ml @ Per Protocol IV CONT YAZMIN Rx#: [id number] Phenylephrine HCl 50 mg 2454 344 In Ns 250 ml @ Per Protocol IV CONT YAZMIN Rx#: [id number] Tube Feeding (ml) 947 1467 Tube Flush (ml) 851 1701 Output: Urine (ml) 2940 3642 Catheter 1800 Incontinence 1140 3642 Other: Number of Stools Incontinence 2 3 Microbiology 05/06/18 00:30 - Final Sputum, Induced/Suctioned Vital Signs Temp Pulse Resp BP Pulse Ox 36.6 C 66 18 177/60 H 100 05/09/18 06:00 05/09/18 06:00 05/09/18 06:00 05/09/18 06:00 05/09/18 06:00 Laboratory Results 05/08/18 03:15 05/09/18 03:05 ICD10 Worksheet Patient Problems: Problems Problem Status Onset Encephalopathy Acute Myelopathy of cervical spinal cord with cervical radiculopathy Acute Acute exacerbation of congestive heart failure Acute CHF (congestive heart failure) Acute Diabetes Acute Elevated troponin Acute HTN (hypertension) Acute Hyperglycemia Acute NSTEMI (non-ST elevated myocardial infarction) Acute Orthostatic hypotension Acute Pneumonia Acute Respiratory failure with hypoxia Acute Upper respiratory tract infection Acute
[2018-05-09] MEDS: SENNOSIDES 17.6 MG/10 ML UDL TUBE SCH ×2 (07:50→22:12)
--- NOTE | 2018-05-09 08:40 | PDINTPN ---
Plow Holder Progress Note Assessment/Plan: 62 yo M with cervical stenosis s/p C4-T2 c spine fusion complicated by postoperative weakness status post repeat posterior approach complicated by postoperative encephalopathy and weakness and status post cardiac arrest due to hypoxemic respiratory failure from aspiration inability to protect airway 2018. Still critically ill but improving # cardiac arrest. 05/03/2018. Primary respiratory due to aspiration and inability to protect airway. Achieved ROSC quickly after securing airway and epi x2 # aspiration pneumonia. Vanc/Zosyn started 05/03/2018-05/07/18. Bronch with 60% neutrophils, GS and Cx negative. # shock. still requiring mary jane for BP support. Ischemia reperfusion + sedation and antihypertensives as well as post operative vasoplegia. Infection less likely given abrupt onset after arrest # mucous plugging. poor cough and hypernatremia in setting of recent spinal surgery # encephalopathy. Improving. Non con CT head negative 05/03/2018. Differential diagnosis and is broad and includes hypoactive delirium, hypoxemia, toxic and metabolic. # hypernatremia. aggressively correcting. appreciated renal sections. # type 2 diabetes, requiring insulin gtt # hypertension # coronary disease # history of CHF now with recovered EF. Question of amyloid cardiomyopathy raised as OP. Will f/u with Dr Weston as OP # NIXON. In the process of being evaluated as output. has old cpap broken but needs repeat sleep study prior to qualifying for insurance to approve. family wishes to buy on own prior to sleep study # RAMANA on CKD III # hyperkalemia # anemia # fevers. ddx neuro related, medications, mucous plugging and atelectasis, infection. Multiple cultures without infection, antibiotics stopped yesterday. PLAN # stop D5W, continue FWF, may need to decrease further # trend Na/BMP # Mary Jane for BP support/shock goal MAP 85 through weekend # chest physiotherapy/pulmonary toilet # avoid nephrotoxins # follow up repeat cx data # s/p vanc zosyn 05/03- # hold outpatient antihypertensives until improved # holding torsemide (on 60 PO BID as OP) # insulin gtt for refractory hyperglycemia, may consider transitioning tomorrow if requirements are stable IMAGING I personally reviewed interpreted radiographic images well as formal radiology reads 05/08/2018 interval improvement in bibasilar opacities. Improve inspiratory film , hardware in place, cardiac silhouette normal 05/07/18 lines and hardware in appropriate position. Mild interval improvement in left basilar atelectasis 05/04/18 ET and L subclavian in place, bilateral intersitial opacities 05/03/18 CT head non con-no acute intracranial pathology Subjective: extubated yesterday, cough increasing and able to expectorate secretions, CPT helped, no fevers, nausea, vomiting, MS continues to improve, no new complaints. Objective: Vital Signs Temp Pulse Resp BP Pulse Ox 36.6 C 67 24 H 171/60 H 96 05/09/18 06:00 05/09/18 07:00 05/09/18 07:00 05/09/18 07:00 05/09/18 07:00 Microbiology 05/06/18 00:30 - Final Sputum, Induced/Suctioned Laboratory Results 05/08/18 03:15 05/09/18 03:05 05/08/18 05/09/18 05/10/18 05:59 05:59 05:59 Intake Total 6771 8066 Output Total 2940 3642 Balance 3831 4424 Physical Exam - Physical Exam General Appearance: alert, no apparent distress EENT: PERRL/EOMI, normal ENT inspection Neck: other (C-collar in place, no swelling, incision sites clean dry and intact ) Respiratory: chest non-tender, lungs clear, normal breath sounds Cardiac/Chest: normal peripheral pulses, regular rate, rhythm Abdomen: normal bowel sounds, non-tender Skin: normal color, warm/dry, No cyanosis Extremities: No pedal edema, No calf tenderness, No swelling Neuro/Psych: alert, normal mood/affect, oriented x 3, other (2-3/5 strength bilateral upper and lower extremities. Mildly improved from yesterday) ICD10 Worksheet Patient Problems: Problems Problem Status Onset Encephalopathy Acute Myelopathy of cervical spinal cord with cervical radiculopathy Acute Acute exacerbation of congestive heart failure Acute CHF (congestive heart failure) Acute Diabetes Acute Elevated troponin Acute HTN (hypertension) Acute Hyperglycemia Acute NSTEMI (non-ST elevated myocardial infarction) Acute Orthostatic hypotension Acute Pneumonia Acute Respiratory failure with hypoxia Acute Upper respiratory tract infection Acute
[2018-05-09] MEDS: FAMOTIDINE 20 MG TAB TUBE SCH ×2 (08:54→19:58)
--- NOTE | 2018-05-09 10:50 | NEUROPROG ---
Assessment: At this point, the patient is neurologically stable with his deficits and is in the process of moving towards rehabilitation once medically stabilized. I will sign off the case and will be going off service today. If any neurologic questions arise than please reached out to our team which will be Dr. Francisco starting tomorrow but he will not be as to initially round. Subjective: The patient is currently sleeping so I did not awaken him. The family and medical team report that he has been stable although dealing with some prominent coughing during the night. He remains extubated in a cervical collar. He sat on the bedside with physical therapy but needed truncal support and still has weakness of all the extremities but partial movement in all of them as well and left greater than right-sided weakness. Objective: Vital Signs Temp Pulse Resp BP Pulse Ox 36.6 C 63 20 188/72 H 96 05/09/18 06:00 05/09/18 09:00 05/09/18 09:00 05/09/18 09:00 05/09/18 09:00 Microbiology 05/06/18 00:30 - Final Sputum, Induced/Suctioned Laboratory Results 05/08/18 03:15 05/09/18 03:05 05/08/18 05/09/18 05/10/18 05:59 05:59 05:59 Intake Total 7480 8044 Output Total 0752 8227 Balance 7582 4408 Allergies/Adverse Reactions: No Known Allergies Allergy (Verified 04/27/18 16:08)
--- NOTE | 2018-05-09 12:47 | HOSPPROG ---
Hospitalist Progress Note Assessment/Plan: 62-year-old with a history of cervical stenosis status post C4 through T2 posterior cervical fusion with cervical decompression. . His hospital course has been complicated by altered mental status with increasing sedation and he had a respiratory arrest yesterday which we suspect is due to aspiration. fever: no clear source cxr w no infiltrate interp by me) TLC site ok heel OK surgical incision OK belly soft 1. blood cx 2. follow exam and status. if he gets confused, worse neuro exam, will do extended workup 05/09- no fever pneumonia/respiratory failure likely aspiration related ct chest w b/l airspace disease abx dc'd bronch today w a lot of sputum so will remain intubated today w likely bronch in AM 05/07: ikley bronch again today secretions a barier to extubation 05/09 extubated encephalopathy, unclear etiology. Discussed with Dr. Valenzuela. MRI w two small and one tiny areas of restricted diffusion- unclear that these are responsible for weakness or encephalopathy continues to improve cva: multifocal s/o embolic phenomena no AF on tele (interp by me) echo w no cause check lipids asa when cleared from neurosurgery cervical stenosis status post surgery, cord injury MAP < 85, on levophed, likely through today repeat imaging 05/05 w no need for repeat surgery appreciate neurosurgery involvement diabetes: rising blood sugars despite aggressive therapy insulin gtt sugars improving suspect insulin requirement will decrease w decrease of levophed history of hypertension on multiple medications holding now given pressors coronary artery disease on statin and beta-germain. Aspirin on hold. Asymptomatic dysphagia with aspiration risk. Likely related to surgery and swelling. Continued speech therapy evaluation history of CHF, echo showing EF of 55% diastolic dysfunction. obstructive sleep apnea Subjective: case d/w dr morel, dr valenzuela Objective: Vital Signs Temp Pulse Resp BP Pulse Ox 36.6 C 63 20 176/68 H 97 05/09/18 06:00 05/09/18 12:00 05/09/18 12:00 05/09/18 12:00 05/09/18 12:00 Microbiology 05/06/18 00:30 - Final Sputum, Induced/Suctioned Sputum Culture - Final Laboratory Results 05/08/18 03:15 05/09/18 12:05 05/08/18 05/09/18 05/10/18 05:59 05:59 05:59 Intake Total 2007 9076 350 Output Total 1531 3302 Balance 3837 8701 350 - Physical Exam Constitutional: no apparent distress, appears nourished Eyes: PERRL, anicteric sclera Ears, Nose, Mouth, Throat: moist mucous membranes, hearing normal Cardiovascular: regular rate and rhythym, no murmur, rub, or gallop Respiratory: no respiratory distress, other (rhoncorous) Gastrointestinal: normoactive bowel sounds, soft, non-tender abdomen Genitourinary: no bladder fullness, isaac in urethra Skin: warm Musculoskeletal: full muscle strength, other (1-2/5 strength of arms and legs) Neurologic: AAOx3, sensation intact bilaterally Psychiatric: interacting appropriately ICD10 Worksheet Patient Problems: Problems Problem Status Onset Encephalopathy Acute Myelopathy of cervical spinal cord with cervical radiculopathy Acute Acute exacerbation of congestive heart failure Acute CHF (congestive heart failure) Acute Diabetes Acute Elevated troponin Acute HTN (hypertension) Acute Hyperglycemia Acute NSTEMI (non-ST elevated myocardial infarction) Acute Orthostatic hypotension Acute Pneumonia Acute Respiratory failure with hypoxia Acute Upper respiratory tract infection Acute
--- NOTE | 2018-05-09 16:04 | SOAPPROG ---
SOAP Progress Note Assessment/Plan: Assessment/Plan: Hypernatremia: improving at an appropriate rate, 141 this am. - D5W now off. - Pt getting free water flushes through tube feeds. - Will continue to monitor daily. RAMANA on CKD 3: Resolved, Cr now down to 1.1, which is better than baseline. - Will continue to monitor. - Avoid hypotension and nephrotoxins. Subjective: No acute events overnight. Objective: Vital Signs Temp Pulse Resp BP Pulse Ox 36.6 C 65 22 H 159/60 H 98 05/09/18 06:00 05/09/18 15:10 05/09/18 15:10 05/09/18 15:10 05/09/18 15:10 Microbiology 05/06/18 00:30 - Final Sputum, Induced/Suctioned Sputum Culture - Final Laboratory Results 05/08/18 03:15 05/09/18 12:05 05/08/18 05/09/18 05/10/18 05:59 05:59 05:59 Intake Total 6771 8066 350 Output Total 2940 3642 Balance 3831 4424 350 General: alert and oriented, no acute distress Eyes: EOMI, PERRL OP: Clear CV: RRR Resp: nonlabored respirations on NC Abd: Soft, Nt Ext: no edema BLE Neuro: CN II-II grossly intact ICD10 Worksheet Patient Problems: Problems Problem Status Onset Encephalopathy Acute Myelopathy of cervical spinal cord with cervical radiculopathy Acute Acute exacerbation of congestive heart failure Acute CHF (congestive heart failure) Acute Diabetes Acute Elevated troponin Acute HTN (hypertension) Acute Hyperglycemia Acute NSTEMI (non-ST elevated myocardial infarction) Acute Orthostatic hypotension Acute Pneumonia Acute Respiratory failure with hypoxia Acute Upper respiratory tract infection Acute
[2018-05-09] MEDS ORDERED: traZODone 50 MG TAB PO PRN (19:08)
[2018-05-09] MEDS: ATORVASTATIN CALCIUM 40 MG TAB TUBE SCH (19:58)
[2018-05-09] MEDS ORDERED: LORazepam 2 MG/ML INJ IVP ONE (22:44)
[2018-05-10] MEDS: ACETAMINOPHEN 650 MG/20.3 ML UDCUP TUBE SCH ×3 (06:31→21:46)
[2018-05-10] MEDS: HEPARIN 5,000 UNIT/0.5 ML INJ SC SCH ×3 (06:31→23:35)
[2018-05-10] MEDS: FAMOTIDINE 20 MG TAB TUBE SCH ×2 (07:35→21:46)
[2018-05-10] MEDS: SENNOSIDES 17.6 MG/10 ML UDL TUBE SCH ×2 (07:36→21:47)
--- NOTE | 2018-05-10 07:45 | NEUSURGPN ---
Date of Surgery: 04/29/18 Post Op Day: 11 Assessment/Plan: Assessment: 62 y/o male s/p anterior C4-C7 fusion and and PCF/decompression C4- T2 on 04/29/18 and 04/30/[address] Stock with postop quadraparesis that is slowly improving. Pt also with post operative respiratory arrest d/t inability to protect airway, NIXON and was intubated. Pt with Asp. PNA treated by CC team. intubated x 2, now extubated 05/08 and improving -Post operative MRI and CT on 05/05 reviewed by [facility] physicians and feel no further surgery indicated, pressure support of MAP>85 started POD#6 after NS consultation -MRI of the L spine and T spine reviewed that shows a small disc bulge and DDD in the T spine. L4/5 shows stenosis as well. No surgical lesion in the T and L spine that needs to be addressed at this time -MRI Brain with 3 small foci of ischemia and small b/l SDH. -Neuro/motor exam improved Plan: -MAPs >85 through weekend. We are going to relax the MAPs to 80 today and likely 75 tomorrow-Dr Centeno discussed with family -continue [place] CCollar at all times-CDI. Dressings removed. No skin issues noted -SCI precautions, frequent weight shifting and skin care -dressing changes daily, monitor posterior incision in particular, currently CDI -no further imaging at this time -PT/OT-balance family stimulation and rest -PHOTO TECH following for eval swallow, currently ice chips, dobhoff currently for nutrition support as well -DVT ppx, TEDs, SCD's, Heparin q8. -Neurology following findings on MRI Brain, no intervention required from NS standpoint. OK for daily ASA if necessary -Critical care following airway, extubated already, tx'd for Asp. PNA. completed vanc/zosyn 05/07. -Nephrology following RAMANA -improved, back to baseline -Medicine following chronic illnesses and continued fevers, elevated WBC, BCx pending, NGTD -call with any questions or concerns -family updated as well -pt seen and examined by Dr Centeno as well this am Subjective: No new events overnight. No new complaints. Continue with ICU status at this time. Objective: NAD AAOx3 speech clear, slow and deliberate cnii-xii grossly intact no facial droop CCollar in place-no skin issues Incisions appear intact-dressing dry. antigravity BUE: deltoid, tri, bicep, wrists/farm consultant 3/5 except: 4/5 L bicep, WE 2/ 5 BLE: HF, HE, KF,KE 2/5, DF/PF/EHL 2/5 less movement distally SILT intact sharp vs dull decreased localization intact distally to foot Neuro Check Frequency: as ordered Urinary Catheter in Place: Yes Urinary Catheter Indication: Other (Use Comment) (spinal cord injury) - Physician Discussed Patient with : Jacobo Patient Seen by : Jacobo Neurosurgery Physical Exam - Vitals, I&O, Labs I and O 05/09/18 05/10/18 05/11/18 05:59 05:59 05:59 Intake Total 8066 3595.0 Output Total 3642 2550 Balance 4424 1045.0 Intake: IV Intake (ml) 310 IV Infused (ml) 4588 1229.0 D5w 1,000 ml @ 50 mls/hr 4026 860 IV CONT YAZMIN Rx#: [id number] Insulin Regular Human 100 218 98.3 unit In Ns 100 ml @ Per Protocol IV CONT YAZMIN Rx#: [id number] Phenylephrine HCl 50 mg 344 270.7 In Ns 250 ml @ Per Protocol IV CONT YAZMIN Rx#: [id number] Tube Feeding (ml) 1467 1261 Tube Flush (ml) 1701 1105 Output: Urine (ml) 3642 2550 Catheter 1000 Incontinence 3642 1550 Other: Number of Stools Incontinence 3 2 Microbiology 05/06/18 00:30 - Final Sputum, Induced/Suctioned Sputum Culture - Final Vital Signs Temp Pulse Resp BP Pulse Ox 37.2 C 73 29 H 140/75 H 99 05/10/18 04:00 05/10/18 07:00 05/10/18 07:00 05/10/18 07:00 05/10/18 07:00 Laboratory Results 05/08/18 03:15 05/10/18 04:15 ICD10 Worksheet Patient Problems: Problems Problem Status Onset Encephalopathy Acute Myelopathy of cervical spinal cord with cervical radiculopathy Acute Acute exacerbation of congestive heart failure Acute CHF (congestive heart failure) Acute Diabetes Acute Elevated troponin Acute HTN (hypertension) Acute Hyperglycemia Acute NSTEMI (non-ST elevated myocardial infarction) Acute Orthostatic hypotension Acute Pneumonia Acute Respiratory failure with hypoxia Acute Upper respiratory tract infection Acute
[2018-05-10] MEDS ORDERED: traZODone 50 MG TAB TUBE PRN (08:30)
--- NOTE | 2018-05-10 09:44 | HOSPPROG ---
Hospitalist Progress Note Assessment/Plan: 62-year-old with a history of cervical stenosis status post C4 through T2 posterior cervical fusion with cervical decompression. . His hospital course has been complicated by altered mental status with increasing sedation and he had a respiratory arrest yesterday which we suspect is due to aspiration. fever: no clear source cxr w no infiltrate interp by me) TLC site ok heel OK surgical incision OK belly soft 1. blood cx 2. follow exam and status. if he gets confused, worse neuro exam, will do extended workup 05/09- no fever 05/10- no fever pneumonia/respiratory failure likely aspiration related ct chest w b/l airspace disease abx dc'd bronch today w a lot of sputum so will remain intubated today w likely bronch in AM 05/07: ikley bronch again today secretions a barier to extubation 05/09 extubated 05/10: still w secretions getting pulm toilet cxr today, may need additional bronchoscopy encephalopathy, unclear etiology. Discussed with Dr. Valenzuela. MRI w two small and one tiny areas of restricted diffusion- unclear that these are responsible for weakness or encephalopathy continues to improve 05/10 may have resolved cva: multifocal s/o embolic phenomena no AF on tele (interp by me) echo w no cause check lipids start asa, OK from neurosurgery cervical stenosis status post surgery, cord injury MAP < 80, on levophed, neurosurgery tapering prssors and MAP repeat imaging 05/05 w no need for repeat surgery appreciate neurosurgery involvement diabetes: rising blood sugars despite aggressive therapy insulin gtt sugars improving suspect insulin requirement will decrease w decrease of levophed history of hypertension on multiple medications holding now given pressors coronary artery disease on statin and beta-germain. Aspirin on hold. Asymptomatic dysphagia with aspiration risk. Likely related to surgery and swelling. Continued speech therapy evaluation history of CHF, echo showing EF of 55% diastolic dysfunction. obstructive sleep apnea will ultimately need inpt rehab family interested in [place] Subjective: case d/w dr ding. secretions/coughing overnight. received ativan , which he tolerated poorly Objective: Vital Signs Temp Pulse Resp BP Pulse Ox 36.7 C 65 25 H 143/58 H 98 05/10/18 07:55 05/10/18 09:00 05/10/18 09:00 05/10/18 09:00 05/10/18 09:00 Microbiology 05/06/18 00:30 - Final Sputum, Induced/Suctioned Sputum Culture - Final Laboratory Results 05/08/18 03:15 05/10/18 04:15 05/09/18 05/10/18 05/11/18 05:59 05:59 05:59 Intake Total 8066 3595.0 Output Total 3642 2550 Balance 4424 1045.0 - Physical Exam Constitutional: no apparent distress, appears nourished Eyes: PERRL Ears, Nose, Mouth, Throat: other (hard collar) Respiratory: no respiratory distress, rhonchi, other (upper airwar sounds w good air movement and no wheeze) Gastrointestinal: normoactive bowel sounds, soft, non-tender abdomen Genitourinary: no bladder fullness, isaac in urethra Skin: warm, normal color Musculoskeletal: No full muscle strength Neurologic: AAOx3 Psychiatric: interacting appropriately ICD10 Worksheet Patient Problems: Problems Problem Status Onset Encephalopathy Acute Myelopathy of cervical spinal cord with cervical radiculopathy Acute Acute exacerbation of congestive heart failure Acute CHF (congestive heart failure) Acute Diabetes Acute Elevated troponin Acute HTN (hypertension) Acute Hyperglycemia Acute NSTEMI (non-ST elevated myocardial infarction) Acute Orthostatic hypotension Acute Pneumonia Acute Respiratory failure with hypoxia Acute Upper respiratory tract infection Acute
--- NOTE | 2018-05-10 11:02 | SOAPPROG ---
SOAP Progress Note Assessment/Plan: Assessment: Spoke with hospitalist. Na now 140, and he is requiring normal amounts of free water. He does not appear to have DI. Primary team will now manage electrolytes. Please call us if we can be of service. Thanks Plan: 05/10/18 10:54 Objective: Vital Signs Temp Pulse Resp BP Pulse Ox 36.7 C 68 23 H 142/78 H 100 05/10/18 07:55 05/10/18 10:00 05/10/18 10:00 05/10/18 10:00 05/10/18 10:00 Microbiology 05/06/18 00:30 - Final Sputum, Induced/Suctioned Sputum Culture - Final Laboratory Results 05/08/18 03:15 05/10/18 04:15 05/09/18 05/10/18 05/11/18 05:59 05:59 05:59 Intake Total 8066 3595.0 Output Total 3642 2550 Balance 4424 1045.0 ICD10 Worksheet Patient Problems: Problems Problem Status Onset Encephalopathy Acute Myelopathy of cervical spinal cord with cervical radiculopathy Acute Acute exacerbation of congestive heart failure Acute CHF (congestive heart failure) Acute Diabetes Acute Elevated troponin Acute HTN (hypertension) Acute Hyperglycemia Acute NSTEMI (non-ST elevated myocardial infarction) Acute Orthostatic hypotension Acute Pneumonia Acute Respiratory failure with hypoxia Acute Upper respiratory tract infection Acute
--- NOTE | 2018-05-10 12:05 | ASMTCMCOM ---
CM Note CM Note Notes: CM submit updates to [facility] and spoke with Jones ([phone]), metal control coordinator. They said they will like regular updates and will come screen pt when more medically stable, perhaps towards the end of the week. Pt's care discussed in rounds. CM spoke with family and provided update. CM to follow. Plan: [facility] once medically ready. Date Signed: 05/10/2018 12:04 PM Electronically Signed By:CAROLINE Hughes
--- NOTE | 2018-05-10 12:36 | WOCRNPDOC ---
WOCRN Advanced Assessment Note - Skin Integrity Problem, Advanced Assess Coccyx Pressure Injury Dressing Type: Mepilex Border Dressing Description: Clean/Dry, Intact Exudate Amount: Scant Exudate Characteristic(s): Serosanguinous Integumentary Issue Intervention: Dressing Changed, Dressing Initialed & Dated Leyla Wound Tissue: Erythema Wound Bed Constitution: Red/Lohman - Non Granular Tissue, Intact Serous Filled Blister, De-roofed Serous Blister Site Measurement - Head-to-Toe Length X Width X Depth (cm): 5x6x varied Pressure Injury Stage: Deep Tissue Injury (DTI) Pressure Injury Present on Admit: No Skin Integrity Problem Comment: Evolving Deep Tissue Injury. Still an area of dark purple just to the right of the coccyx when patient is lying on his right side. There are scattered areas of open partial thickness wound as well as intact serous filled blisters. The wound now extends from the coccyx to the area previously charted as a stage 2 hospital acquired pressure injury on patient's left buttock. As the two have merged, they will both be charted under the coccyx instance. Cleaned wound with ns and gauze. Wound gel was applied to all open areas and it was covered with Mepilex border sacral dressing. Per report from Gisell Rn, who was in the room for care, the patient has diarrhea, and so the dressings are being change multiple times per day. Will provide clear zinc cream and relayed that if dressings need to be change more often than once daily it would be best to use cream instead of the mepilex to reduce trauma to the area. Also will change patient's support surface to Envella air fluidized surface as both Rica and Gisell RN's agree that patient may benefit from this and there are no contraindications at this time.
--- NOTE | 2018-05-10 16:22 | PDINTPN ---
Call Out Clerk Progress Note Assessment/Plan: 62 yo M with cervical stenosis s/p C4-T2 c spine fusion complicated by postoperative weakness status post repeat posterior approach complicated by postoperative encephalopathy and weakness and status post cardiac arrest due to hypoxemic respiratory failure from aspiration inability to protect airway 2018. * cardiac arrest -05/03/2018. Primary respiratory due to aspiration and inability to protect airway. Achieved ROSC quickly after securing airway and epi x2. No obvious deficit at the moment. * quadriparesis- moves all extremities today though ongoing weakness. Improving per family and patient. Cont OT/PT with eventual dc to SNF or LTACH. * aspiration PNA- Vanc/Zosyn started 05/03/2018-05/07/18. Bronch with 60% neutrophils, GS and Cx negative. Still with significant secretions and ineffective cough. Added quad cough for now to assist. Continue flutter valve as well. add albuterol/mucomyst. * hypotension - resolved * encephalopathy. Improving. Non con CT head negative 05/03/2018. Differential diagnosis and is broad and includes hypoactive delirium, hypoxemia, toxic and metabolic. * NIXON. In the process of being evaluated as output. has old cpap broken but needs repeat sleep study prior to qualifying for insurance to approve. family wishes to buy on own prior to sleep study * RAMANA on CKD III Objective: Vital Signs Temp Pulse Resp BP Pulse Ox 36.7 C 70 26 H 149/52 H 98 05/10/18 07:55 05/10/18 15:00 05/10/18 15:00 05/10/18 15:00 05/10/18 15:00 Microbiology 05/06/18 00:30 - Final Sputum, Induced/Suctioned Sputum Culture - Final Laboratory Results 05/08/18 03:15 05/10/18 04:15 05/09/18 05/10/18 05/11/18 05:59 05:59 05:59 Intake Total 8066 3595.0 Output Total 3642 2550 Balance 4424 1045.0 Physical Exam - Physical Exam General Appearance: alert, no apparent distress EENT: PERRL/EOMI Neck: other (hard collar) Respiratory: rhonchi (bilateral), No respiratory distress, No accessory muscle use, No stridor, No wheezing Cardiac/Chest: regular rate, rhythm, No edema Abdomen: non-tender, soft, No distended Skin: normal color, warm/dry, No cyanosis Lymphatic: no adenopathy Extremities: No pedal edema Neuro/Psych: alert, normal mood/affect, oriented x 3, other (quiet voice) ICD10 Worksheet Patient Problems: Problems Problem Status Onset Encephalopathy Acute Myelopathy of cervical spinal cord with cervical radiculopathy Acute Acute exacerbation of congestive heart failure Acute CHF (congestive heart failure) Acute Diabetes Acute Elevated troponin Acute HTN (hypertension) Acute Hyperglycemia Acute NSTEMI (non-ST elevated myocardial infarction) Acute Orthostatic hypotension Acute Pneumonia Acute Respiratory failure with hypoxia Acute Upper respiratory tract infection Acute
[2018-05-10] MEDS: ACETYLCYSTEINE 10% IH/PO 4 ML VIAL IH SCH ×2 (17:18→23:44)
[2018-05-10] MEDS: ALBUTEROL 3 ML DEYVIAL IH SCH ×2 (17:18→23:44)
[2018-05-10] MEDS: ATORVASTATIN CALCIUM 40 MG TAB TUBE SCH (21:46)
[2018-05-11] MEDS: INSULIN REGULAR HUMAN 100 UNIT in NS 100 ML IV SCH (03:54)
[2018-05-11] MEDS: PHENYLEPHRINE HCL 50 MG in NS 250 ML IV SCH (03:55)
[2018-05-11] MEDS: HEPARIN 5,000 UNIT/0.5 ML INJ SC SCH ×3 (05:03→20:55)
[2018-05-11] MEDS: ALBUTEROL 3 ML DEYVIAL IH SCH ×4 (05:37→22:08)
[2018-05-11] MEDS: ACETYLCYSTEINE 10% IH/PO 4 ML VIAL IH SCH ×4 (05:38→22:08)
[2018-05-11] MEDS: ACETAMINOPHEN 650 MG/20.3 ML UDCUP TUBE SCH ×3 (06:05→22:41)
--- NOTE | 2018-05-11 07:12 | NEUSURGPN ---
Date of Surgery: 04/29/18 Post Op Day: 12 Assessment/Plan: Assessment: 62 y/o male s/p anterior C4-C7 fusion and and PCF/decompression C4- T2 on 04/29/18 and 04/30/[address] Stock with postop quadraparesis that is slowly improving. He is making day to day progress. Pt also with post operative respiratory arrest d/t inability to protect airway, NIXON and was intubated. Pt with Asp. PNA treated by CC team. Intubated x 2, now extubated 05/08 and improving as far as respiratory status -Post operative MRI and CT on 05/05 reviewed by [facility]NA physicians and feel no further surgery indicated, pressure support of MAP>85 started POD#6 after NS consultation we are now at a MAP of 75 -MRI of the L spine and T spine reviewed that shows a small disc bulge and DDD in the T spine. L4/5 shows stenosis as well. No surgical lesion in the T and L spine that needs to be addressed at this time -MRI Brain with 3 small foci of ischemia and small b/l SDH. -Neuro/motor exam improved Plan: -MAPs >85 through weekend. We are going to relax the MAPs to 75 today-Dr Centeno discussed with family. If his exam worsens we will increase the MAPs again. At this point we will follow his exam which is improving daily -continue Plain Dealing CCollar at all times-CDI. Dressings removed. No skin issues noted. CDI -SCI precautions, frequent weight shifting and skin care -monitor posterior incision in particular -no further imaging at this time -PT/OT-balance family stimulation and rest -AERIAL APPLICATOR PILOT following for eval swallow, currently ice chips, dobhoff currently for nutrition support as well -DVT ppx, TEDs, SCD's, Heparin q8. -Neurology following findings on MRI Brain, no intervention required from NS standpoint. OK for daily ASA if necessary -Critical care following airway, extubated already, tx'd for Asp. PNA. completed vanc/zosyn 05/07. -Nephrology following RAMANA -improved, back to baseline -Medicine following chronic illnesses and continued fevers, elevated WBC, BCx pending, NGTD -pt has urine retention-isaac removed and straight cath frequently-will defer to IM if a isaac or straight cath is best for Bakari -call with any questions or concerns -family updated as well -pt seen and examined by Dr Centeno as well this am Subjective: Awake and alert. NAD. Updates from RN. Chart reviewed. Objective: NAD AAOx3 speech clear, slow and deliberate cnii-xii grossly intact no facial droop CCollar in place-no skin issues Incisions appear intact-dry antigravity BUE: deltoid, tri (right 5/5, left 3/5), bicep, wrists/cleaning handyman 3/5 except: L bicep 4/5, WE 2/5 BLE: HF, HE, KF, KE 3/5, DF/PF/EHL 2/5 less movement distally SILT intact sharp vs dull decreased localization intact distally to right foot more than left Neuro Check Frequency: per ordered Urinary Catheter in Place: No Catheter Insertion Date: 05/11/18 - Physician Discussed Patient with : Jacobo Patient Seen by : Jacobo Neurosurgery Physical Exam - Vitals, I&O, Labs I and O 05/10/18 05/11/18 05/12/18 05:59 05:59 05:59 Intake Total 3595.0 2998.6 Output Total 2550 1525 Balance 1045.0 1473.6 Intake: Oral (ml) 0 IV Intake (ml) 20 IV Infused (ml) 1229.0 683.6 D5w 1,000 ml @ 50 mls/hr 860 424 IV CONT YAZMIN Rx#: [id number] Insulin Regular Human 100 98.3 107.7 unit In Ns 100 ml @ Per Protocol IV CONT YAZMIN Rx#: [id number] Phenylephrine HCl 50 mg 270.7 151.9 In Ns 250 ml @ Per Protocol IV CONT YAZMIN Rx#: [id number] Tube Feeding (ml) 1261 1420 Tube Flush (ml) 1105 875 Output: Urine (ml) 2550 1525 Catheter 1000 825 Incontinence 1550 700 Other: Number of Stools Incontinence 2 Vital Signs Temp Pulse Resp BP Pulse Ox 36.4 C 64 18 173/57 H 97 05/11/18 04:00 05/11/18 05:38 05/11/18 05:38 05/11/18 04:00 05/11/18 05:38 Laboratory Results 05/08/18 03:15 05/11/18 06:00 ICD10 Worksheet Patient Problems: Problems Problem Status Onset Encephalopathy Acute Myelopathy of cervical spinal cord with cervical radiculopathy Acute Acute exacerbation of congestive heart failure Acute CHF (congestive heart failure) Acute Diabetes Acute Elevated troponin Acute HTN (hypertension) Acute Hyperglycemia Acute NSTEMI (non-ST elevated myocardial infarction) Acute Orthostatic hypotension Acute Pneumonia Acute Respiratory failure with hypoxia Acute Upper respiratory tract infection Acute
[2018-05-11] MEDS: FAMOTIDINE 20 MG TAB TUBE SCH ×2 (07:46→20:54)
[2018-05-11] MEDS: SENNOSIDES 17.6 MG/10 ML UDL TUBE SCH ×2 (07:46→20:52)
--- NOTE | 2018-05-11 13:11 | PDINTPN ---
Inside Sales Trainer Progress Note Assessment/Plan: 62 yo M with cervical stenosis s/p C4-T2 c spine fusion complicated by postoperative weakness status post repeat posterior approach complicated by postoperative encephalopathy and weakness and status post cardiac arrest due to hypoxemic respiratory failure from aspiration inability to protect airway 2018. * Respiratory arrest -05/03/2018 (very brief CPR). Primary respiratory due to aspiration and inability to protect airway. Achieved ROSC quickly after securing airway and epi x2. No obvious deficit at the moment. * quadriparesis- moves all extremities though ongoing weakness. Improving per family and patient daily. Cont OT/PT with eventual dc to SNF or LTACH. * aspiration PNA- Vanc/Zosyn started 05/03/2018-05/07/18. Bronch with 60% neutrophils, GS and Cx negative. Still with significant secretions and ineffective cough. Added quad cough for now to assist. Continue flutter valve as well. add albuterol/mucomyst. * hypotension - resolved * encephalopathy. Improving. Non con CT head negative 05/03/2018. Differential diagnosis and is broad and includes hypoactive delirium, hypoxemia, toxic and metabolic. * NIXON. In the process of being evaluated as output. has old cpap broken but needs repeat sleep study prior to qualifying for insurance to approve. family wishes to buy on own prior to sleep study * RAMANA on CKD III * Dispo: nearing stability for LTACH eval. 05/11/18 13:08 Subjective: stable overnight. Improved secretions with albuterol/mucomyst Objective: Vital Signs Temp Pulse Resp BP Pulse Ox 37.1 C 73 24 H 147/57 H 97 05/11/18 12:00 05/11/18 12:00 05/11/18 12:00 05/11/18 12:00 05/11/18 12:00 Microbiology 05/06/18 00:30 Blood Culture - Final Blood 05/05/18 23:15 Blood Culture - Final Blood Laboratory Results 05/08/18 03:15 05/11/18 06:00 05/10/18 05/11/18 05/12/18 05:59 05:59 05:59 Intake Total 3595.0 2998.6 Output Total 2550 1525 1000 Balance 1045.0 1473.6 -1000 Physical Exam - Physical Exam General Appearance: WD/WN, alert, no apparent distress EENT: PERRL/EOMI Neck: other (c collar) Respiratory: lungs clear, normal breath sounds, No respiratory distress, No accessory muscle use Cardiac/Chest: regular rate, rhythm, No edema Abdomen: non-tender, soft, No distended Skin: normal color, warm/dry, No cyanosis Lymphatic: no adenopathy Extremities: No pedal edema Neuro/Psych: alert, normal mood/affect, oriented x 3, No abnormal ase master mechanic II-XII ICD10 Worksheet Patient Problems: Problems Problem Status Onset Encephalopathy Acute Myelopathy of cervical spinal cord with cervical radiculopathy Acute Acute exacerbation of congestive heart failure Acute CHF (congestive heart failure) Acute Diabetes Acute Elevated troponin Acute HTN (hypertension) Acute Hyperglycemia Acute NSTEMI (non-ST elevated myocardial infarction) Acute Orthostatic hypotension Acute Pneumonia Acute Respiratory failure with hypoxia Acute Upper respiratory tract infection Acute
--- NOTE | 2018-05-11 16:27 | ASMTCMCOM ---
CM Note CM Note Notes: Met with pt's and family. They had questions about [facility] and Insurance Coverage as they spoke to their insurance company. CM provided information about [facility] so that Family can schedule a time to tour the facility. They asked for education on heirarchy of facilities, CM to follow. CM submit updates to [place]. Plan: [facility] once medically stable. Date Signed: 05/11/2018 04:26 PM Electronically Signed By:CAROLINE Huhges
--- NOTE | 2018-05-11 18:08 | HOSPPROG ---
Hospitalist Progress Note Assessment/Plan: * Cervical spinal stenosis s/p fusion/decompression * Post-op quadriparesis -IV mary jane gtt - goal MAP now > 75 -[place] collar * Acute respiratory failure - s/p respiratory arrest, brief cardiac arrest -now extubated * DM -on insulin drip - ok to transition back to Lantus * Aspiration pneumonia -s/p Vanco/Zosyn -secretion management - Mucomyst nebs * Metabolic encephalopathy -improved * Embolic CVA -ASA * HTN -holding meds * Dysphagia -tube feeds * Neurogenic bladder -continue straight cath -urology to see * NIXON -no current CPAP * Chronic systolic CHF - EF now 50% * CAD/stent Subjective: No new complaints Objective: Vital Signs Temp Pulse Resp BP Pulse Ox 37.1 C 70 19 150/47 H 100 05/11/18 12:00 05/11/18 17:10 05/11/18 17:10 05/11/18 17:00 05/11/18 17:10 Microbiology 05/06/18 00:30 Blood Culture - Final Blood 05/05/18 23:15 Blood Culture - Final Blood Laboratory Results 05/08/18 03:15 05/11/18 06:00 05/10/18 05/11/18 05/12/18 05:59 05:59 05:59 Intake Total 3595.0 2998.6 1689.5 Output Total 2550 1525 1700 Balance 1045.0 1473.6 -10.5 d/w Dr. Suarez ICU rounds regarding insulin gtt Brain MRI - small embolic CVA - Physical Exam Constitutional: no apparent distress, appears nourished, not in pain Cardiovascular: regular rate and rhythym, no murmur, rub, or gallop Respiratory: no respiratory distress, no rales or rhonchi, clear to auscultation , rhonchi Gastrointestinal: normoactive bowel sounds, soft, non-tender abdomen, no palpable masses Skin: no rashes or abrasions, no fluctuance, no induration Neurologic: AAOx3, sensation intact bilaterally Psychiatric: interacting appropriately, not anxious, not encephalopathic, thought process linear ICD10 Worksheet Patient Problems: Problems Problem Status Onset Encephalopathy Acute Myelopathy of cervical spinal cord with cervical radiculopathy Acute Diabetes Acute HTN (hypertension) Acute NSTEMI (non-ST elevated myocardial infarction) Acute Acute exacerbation of congestive heart failure Acute Elevated troponin Acute Hyperglycemia Acute Orthostatic hypotension Acute Pneumonia Acute Respiratory failure with hypoxia Acute CHF (congestive heart failure) Acute Upper respiratory tract infection Acute
[2018-05-11] MEDS ORDERED: D50W 25 GM/50 ML SYR IVP PRN (18:12)
[2018-05-11] MEDS: ATORVASTATIN CALCIUM 40 MG TAB TUBE SCH (20:54)
[2018-05-11] MEDS: ORAL BALANCE GEL TUBE PO PRN (21:00)
[2018-05-11] MEDS: INSULIN GLARGINE 100 UNITS/ML UNIT SC SCH (22:19)
[2018-05-11] MEDS: INSULIN REGULAR HUMAN 100 UNIT/ML UNIT SC SCH (23:01)
[2018-05-12] MEDS: MELATONIN 3 MG TAB TUBE PRN ×2 (00:15→22:25)
--- NOTE | 2018-05-12 00:55 | SOAPPROG ---
SOAP Progress Note Assessment/Plan: Assessment: Postoperative urinary retention - currently on CIC. Plan: 1. Continue CIC until full consult completed on Thu. 2. Begin Flomax. Subjective: Consult requested for persistent postop urinary retention. Objective: Vital Signs Temp Pulse Resp BP Pulse Ox 37.4 C 68 23 H 159/59 H 95 05/11/18 19:00 05/12/18 00:00 05/12/18 00:00 05/12/18 00:00 05/12/18 00:00 Microbiology 05/06/18 00:30 Blood Culture - Final Blood 05/05/18 23:15 Blood Culture - Final Blood Laboratory Results 05/08/18 03:15 05/11/18 06:00 05/10/18 05/11/18 05/12/18 05:59 05:59 05:59 Intake Total 3595.0 2998.6 1689.5 Output Total 2550 1525 1700 Balance 1045.0 1473.6 -10.5 ICD10 Worksheet Patient Problems: Problems Problem Status Onset Encephalopathy Acute Myelopathy of cervical spinal cord with cervical radiculopathy Acute Acute exacerbation of congestive heart failure Acute CHF (congestive heart failure) Acute Diabetes Acute Elevated troponin Acute HTN (hypertension) Acute Hyperglycemia Acute NSTEMI (non-ST elevated myocardial infarction) Acute Orthostatic hypotension Acute Pneumonia Acute Respiratory failure with hypoxia Acute Upper respiratory tract infection Acute
[2018-05-12] MEDS: ACETYLCYSTEINE 10% IH/PO 4 ML VIAL IH SCH ×4 (06:18→22:57)
[2018-05-12] MEDS: ALBUTEROL 3 ML DEYVIAL IH SCH ×4 (06:18→22:56)
[2018-05-12] MEDS: ACETAMINOPHEN 650 MG/20.3 ML UDCUP TUBE SCH ×3 (06:28→22:48)
[2018-05-12] MEDS: HEPARIN 5,000 UNIT/0.5 ML INJ SC SCH ×3 (06:29→22:25)
[2018-05-12 06:54] LABS: PLATELET COUNT 148 10^3/uL (150-400)
--- NOTE | 2018-05-12 07:21 | NEUSURGPN ---
Date of Surgery: 04/29/18 Post Op Day: 13 Assessment/Plan: Assessment: 62 y/o male s/p anterior C4-C7 fusion and and PCF/decompression C4- T2 on 04/29/18 and 04/30/[address] Stock with postop quadraparesis that is slowly improving. He is making day to day progress. Pt also with post operative respiratory arrest d/t inability to protect airway, NIXON and was intubated. Pt with Aspiration PNA treated by CC team. Intubated x 2, now extubated 05/08 and improving as far as respiratory status. -Post operative MRI and CT on 05/05 reviewed by BNA physicians and feel no further surgery indicated, pressure support of MAP>85 started POD#6 after NS consultation we are now at a MAP of 70 -MRI of the L spine and T spine reviewed that shows a small disc bulge and DDD in the T spine. L4/5 shows stenosis as well. No surgical lesion in the T and L spine that needs to be addressed at this time -MRI Brain with 3 small foci of ischemia and small bilateral SDH. -Neuro/motor exam improving daily Plan: -MAPs >85 through weekend. We are going to relax the MAPs to 70 today-Dr Centeno discussed with family. If his exam worsens we will increase the MAPs again. At this point we will follow his exam which is improving daily. -continue [place] CCollar at all times-CDI. Dressings removed. No skin issues noted. CDI to anterior and posterior incision -SCI precautions, frequent weight shifting and skin care -monitor posterior incision in particular-continues to look fine -no further imaging at this time -PT/OT-balance family stimulation and rest -PASSENGER CAR CONDUCTOR following for eval swallow, currently ice chips, Dobhoff currently for nutrition support as well -DVT ppx, TEDs, SCD's, Heparin q8. -Neurology signed off-they following findings on MRI Brain, no intervention required from NS standpoint. OK for daily ASA if necessary -Critical care following airway, extubated already, tx'd for Asp. PNA. -Nephrology following RAMANA -improved, back to baseline -Medicine following chronic illnesses and continued fevers, elevated WBC, BCx pending, NGTD -pt has urine retention-isaac removed and straight cath frequently-will defer to IM/Urology (consulted yesterday) if a isaac or straight cath is best for Bakari -call with any questions or concerns -family updated as well -pt seen and examined by Dr Centeno as well this am Subjective: Awake and alert. Pt slept about 4-5 hrs last night. Family at bedside. No hurtado/ cp/sob. Chart reviewed. Updated from RN Objective: NAD AAOx3 speech clear, slow and deliberate cnii-xii grossly intact no facial droop CCollar in place-no skin issues Incisions appear intact-dry to anterior and posterior neck antigravity BUE: deltoid, tri (right 5/5, left 3/5), bicep 5/5 bilat, wrists/ service car driver 3/5 except: WE 2/5 BLE: HF, HE, KF, KE 3+/5, DF/PF/EHL 2/5 less movement distally than UE but more movement from prior day SILT intact sharp vs dull decreased to BLE localization intact distally to right foot more than left Neuro Check Frequency: per routine Urinary Catheter in Place: No Catheter Insertion Date: 05/11/18 - Physician Discussed Patient with Dr.: Jacobo Patient Seen by : Jacobo Neurosurgery Physical Exam - Vitals, I&O, Labs I and O 05/11/18 05/12/18 05/13/18 05:59 05:59 05:59 Intake Total 2998.6 2855.9 Output Total 1525 2600 825 Balance 1473.6 255.9 -825 Intake: Oral (ml) 0 IV Intake (ml) 20 IV Infused (ml) 683.6 395.9 D5w 1,000 ml @ 50 mls/hr 424 288 IV CONT YAZMIN Rx#: [id number] Insulin Regular Human 100 107.7 78.4 unit In Ns 100 ml @ Per Protocol IV CONT YAZMIN Rx#: [id number] Phenylephrine HCl 50 mg 151.9 29.5 In Ns 250 ml @ Per Protocol IV CONT YAZMIN Rx#: [id number] Tube Feeding (ml) 1420 1560 Tube Flush (ml) 875 900 Output: Urine (ml) 1525 2600 825 Catheter 825 2600 825 Incontinence 700 NG Tube Output (ml) 0 Small Bore (5-12 Nigerien) 0 Weighted Stomach Other: Output Comment Catheter straight cath x1 Number of Stools Incontinence 3 1 Microbiology 05/06/18 00:30 Blood Culture - Final Blood 05/05/18 23:15 Blood Culture - Final Blood Vital Signs Temp Pulse Resp BP Pulse Ox 37.4 C 79 26 H 150/52 H 91 L 05/11/18 19:00 05/12/18 06:29 05/12/18 06:29 05/12/18 06:00 05/12/18 06:29 Laboratory Results 05/12/18 06:40 ICD10 Worksheet Patient Problems: Problems Problem Status Onset Encephalopathy Acute Myelopathy of cervical spinal cord with cervical radiculopathy Acute Acute exacerbation of congestive heart failure Acute CHF (congestive heart failure) Acute Diabetes Acute Elevated troponin Acute HTN (hypertension) Acute Hyperglycemia Acute NSTEMI (non-ST elevated myocardial infarction) Acute Orthostatic hypotension Acute Pneumonia Acute Respiratory failure with hypoxia Acute Upper respiratory tract infection Acute
[2018-05-12] MEDS ORDERED: metFORMIN HCL 500 MG TAB PO SCH (08:00)
[2018-05-12] MEDS: INSULIN REGULAR HUMAN 100 UNIT/ML UNIT SC SCH ×4 (08:09→22:24)
[2018-05-12] MEDS: INSULIN GLARGINE 100 UNITS/ML UNIT SC SCH ×2 (08:09→22:24)
[2018-05-12] MEDS: FAMOTIDINE 20 MG TAB TUBE SCH ×2 (08:21→19:09)
[2018-05-12] MEDS: metFORMIN HCL 500 MG TAB TUBE SCH ×2 (08:22→19:08)
[2018-05-12] MEDS: TAMSULOSIN HCL 0.4 MG CAP PO SCH (08:26)
[2018-05-12] MEDS: SENNOSIDES 17.6 MG/10 ML UDL TUBE SCH (08:43)
--- NOTE | 2018-05-12 14:06 | PDINTPN ---
Canoe Maker Progress Note Assessment/Plan: 62 yo M with cervical stenosis s/p C4-T2 c spine fusion complicated by postoperative weakness status post repeat posterior approach complicated by postoperative encephalopathy and weakness and status post cardiac arrest due to hypoxemic respiratory failure from aspiration inability to protect airway 2018. * Respiratory arrest -05/03/2018 (very brief CPR). Primary respiratory due to aspiration and inability to protect airway. Achieved ROSC quickly after securing airway and epi x2. No obvious deficit at the moment. * quadriparesis- moves all extremities though ongoing weakness. Improving per family and patient daily, though no change to me compared to 05/11. Cont OT/PT with eventual dc to LTACH. * aspiration PNA- Vanc/Zosyn started 05/03/2018-05/07/18. Bronch with 60% neutrophils, GS and Cx negative. Still with significant secretions, but cough appears to be adequate per patient and RN since added mucomyst/albuterol. Continues to get acapella valve and IS daily. Recheck CXR in AM * hypotension - resolved * encephalopathy. Improving. Non con CT head negative 05/03/2018. Some difficulty with sleep; continue melatonin and prn trazodone. No benzos. * NIXON. In the process of being evaluated as output. has old cpap broken but needs repeat sleep study prior to qualifying for insurance to approve. family wishes to buy on own prior to sleep study. I suggested getting sleep study once he is recovered from this injury. * decubitus ulcer- stage II per RN. Has appropriate bed and needs encouragement to get OOB as tolerated. Wound care following. * Neurogenic bladder- urology consult pending- probably needs indwelling isaac. Unable to get Flomax per NGT. * Swallow dysfunction. Video eval pending for today, but probably needs PEG for remote computer terminal operator management. * RAMANA on CKD III- resolved with creatinine 1.1 * Dispo: nearing stability for LTACH eval. 05/11/18 13:08 05/12/18 13:59 Subjective: feels beter daily and reports improved strength. No NT sxn required Objective: Vital Signs Temp Pulse Resp BP Pulse Ox 37.1 C 76 22 H 144/50 H 100 05/12/18 08:00 05/12/18 13:30 05/12/18 13:30 05/12/18 12:00 05/12/18 13:30 Microbiology 05/06/18 00:30 Blood Culture - Final Blood 05/05/18 23:15 Blood Culture - Final Blood Laboratory Results 05/12/18 06:40 05/12/18 06:40 05/11/18 05/12/18 05/13/18 05:59 05:59 05:59 Intake Total 2998.6 2855.9 Output Total 1525 2600 825 Balance 1473.6 255.9 -825 Physical Exam - Physical Exam General Appearance: alert, no apparent distress EENT: PERRL/EOMI Neck: other (hard collar) Respiratory: decreased breath sounds, rhonchi, No respiratory distress, No accessory muscle use Cardiac/Chest: regular rate, rhythm, No edema Abdomen: normal bowel sounds, non-tender, soft, No distended Skin: normal color, warm/dry, No cyanosis Lymphatic: no adenopathy Extremities: No pedal edema Neuro/Psych: alert, normal mood/affect, oriented x 3 ICD10 Worksheet Patient Problems: Problems Problem Status Onset Encephalopathy Acute Myelopathy of cervical spinal cord with cervical radiculopathy Acute Acute exacerbation of congestive heart failure Acute CHF (congestive heart failure) Acute Diabetes Acute Elevated troponin Acute HTN (hypertension) Acute Hyperglycemia Acute NSTEMI (non-ST elevated myocardial infarction) Acute Orthostatic hypotension Acute Pneumonia Acute Respiratory failure with hypoxia Acute Upper respiratory tract infection Acute
--- NOTE | 2018-05-12 18:32 | HOSPPROG ---
Hospitalist Progress Note Assessment/Plan: * Cervical spinal stenosis s/p fusion/decompression * Post-op quadriparesis -IV mary jane gtt - goal MAP now > 70 - mary jane off -[place] collar * Acute respiratory failure - s/p respiratory arrest, brief cardiac arrest -now extubated -due to mucus plug/aspiration -continues to have significant secretions requiring constant suctioning -keep ICU level of care * DM -Lantus * Aspiration pneumonia -s/p Vanco/Zosyn * Metabolic encephalopathy -very delirious at this time * Embolic CVA -ASA * HTN -holding meds - MAP >70 per neurosurgery * Dysphagia -tube feeds -will likely need eventual PEG -Rene will not take him with nasal feeding tube -repeat ST eval - may do VFSS soon * Neurogenic bladder -continue straight cath -urology to see * NIXON -no current CPAP -needs repeat sleep study * Chronic systolic CHF - EF now 50% * CAD/stent Subjective: Hasn't slept, currently delirium returning, lots of secretions that need constant suctioning. Chin spasms today Objective: Vital Signs Temp Pulse Resp BP Pulse Ox 37.1 C 80 34 H 159/68 H 92 05/12/18 16:00 05/12/18 17:04 05/12/18 17:04 05/12/18 16:00 05/12/18 17:04 Laboratory Results 05/12/18 06:40 05/12/18 06:40 05/11/18 05/12/18 05/13/18 05:59 05:59 05:59 Intake Total 2998.6 2855.9 1002 Output Total 1525 2600 1425 Balance 1473.6 255.9 -423 - Time Spent With Patient Time Spent with Patient: greater than 35 minutes Time Spent with Patient: Greater than 35 minutes spent on this patients care, greater than 50% of time spent counseling, educating, and coordinating care regarding the above mentioned plan. - Physical Exam Constitutional: no apparent distress, appears nourished, not in pain Cardiovascular: regular rate and rhythym, no murmur, rub, or gallop Respiratory: respiratory distress, rhonchi, No expiratory wheeze, No inspiratory crackles Gastrointestinal: normoactive bowel sounds, soft, non-tender abdomen, no palpable masses Skin: no rashes or abrasions, no fluctuance, no induration Neurologic: No AAOx3 Psychiatric: encephalopathic, poor insight, poor judgement, poor memory, No interacting appropriately, No thought process linear, No agitated ICD10 Worksheet Patient Problems: Problems Problem Status Onset Encephalopathy Acute Myelopathy of cervical spinal cord with cervical radiculopathy Acute Diabetes Acute HTN (hypertension) Acute NSTEMI (non-ST elevated myocardial infarction) Acute Acute exacerbation of congestive heart failure Acute Elevated troponin Acute Hyperglycemia Acute Orthostatic hypotension Acute Pneumonia Acute Respiratory failure with hypoxia Acute CHF (congestive heart failure) Acute Upper respiratory tract infection Acute
[2018-05-12] MEDS: ATORVASTATIN CALCIUM 40 MG TAB TUBE SCH (19:09)
[2018-05-12] MEDS: ORAL BALANCE GEL TUBE PO PRN (22:27)
[2018-05-13] MEDS: ALBUTEROL 3 ML DEYVIAL IH SCH ×4 (04:37→22:57)
[2018-05-13] MEDS: ACETYLCYSTEINE 10% IH/PO 4 ML VIAL IH SCH ×4 (04:37→22:57)
[2018-05-13 07:20] LABS: PLATELET COUNT 186 10^3/uL (150-400)
[2018-05-13] MEDS ORDERED: SODIUM POLY SULF 15 GM/60 ML BOTTLE PO ONE (07:35)
[2018-05-13] MEDS: INSULIN GLARGINE 100 UNITS/ML UNIT SC SCH ×2 (07:58→21:56)
[2018-05-13] MEDS: INSULIN REGULAR HUMAN 100 UNIT/ML UNIT SC SCH ×4 (07:58→22:16)
[2018-05-13] MEDS: HEPARIN 5,000 UNIT/0.5 ML INJ SC SCH ×2 (07:58→15:30)
--- NOTE | 2018-05-13 08:07 | NEUSURGPN ---
Date of Surgery: 04/29/18 Post Op Day: 14 Assessment/Plan: Assessment: 62 y/o male s/p anterior C4-C7 fusion and and PCF/decompression C4- T2 on 04/29/18 and 04/30/[address] Stock with postop quadraparesis that is slowly improving. He is making day to day progress. Pt also with post operative respiratory arrest d/t inability to protect airway, NIXON and was intubated. Pt with Aspiration PNA treated by CC team. Intubated x 2, now extubated 05/08 and improving as far as respiratory status but still guarded -Post operative MRI and CT on 05/05 reviewed by BNA physicians and feel no further surgery indicated, pressure support of MAP>85 started POD#6 after NS consultation we are now at a MAP of 70-tolerating well -MRI of the L spine and T spine reviewed that shows a small disc bulge and DDD in the T spine. L4/5 shows stenosis as well. No surgical lesion in the T and L spine that needs to be addressed at this time -MRI Brain with 3 small foci of ischemia and small bilateral SDH. -Neuro/motor exam improving daily Plan: -MAPs >85 through weekend. We relaxed the MAPs and he is still improving-Dr Centeno discussed with family. If his exam worsens we will increase the MAPs again. At this point we will follow his exam which is improving daily. -continue [place] CCollar at all times-CDI. Dressings removed already. No skin issues noted. CDI to anterior and posterior incision -SCI precautions, frequent weight shifting and skin care -monitor posterior incision in particular-continues to look fine -no further imaging at this time -PT/OT -VOCATIONAL AIDE following for eval swallow, currently ice chips, Dobhoff currently for nutrition support as well. Pt to get a swallowing eval today -DVT ppx, TEDs, SCD's, Heparin q8. -Neurology signed off-they following findings on MRI Brain, no intervention required from NS standpoint. OK for daily ASA if necessary -Critical care following airway, extubated already, tx'd for Asp. PNA. Still watching pulmonary status closely -Nephrology following RAMANA -improved, back to baseline -Medicine following chronic illnesses and continued fevers -pt has urine retention-isaac placed at recommendation of Urology -call with any questions or concerns -family updated as well -pt seen and examined by Dr Centeno as well this am Subjective: Awake and alert. NAD. Chart reviewed. IM and Critical working with Pt. Pt got up to chair for 2.5 hrs yesterday. No new concerns. Objective: NAD , AAOx3 speech clear, slow and deliberate cnii-xii grossly intact no facial droop CCollar in place-no skin issues Incisions intact-dry to anterior and posterior neck antigravity BUE: deltoid, tri (right 5/5, left 3/5), bicep 5/5 bilat, wrists/ ict managers 3/5 except: WE 2/5. Pts movement more controlled today that before BLE: HF, HE, KF, KE 4-/5, DF/PF/EHL 2/5 less movement distally than UE but more movement from prior day SILT intact sharp vs dull decreased to BLE localization intact distally to right foot more than left as with prior exams Neuro Check Frequency: per routine Urinary Catheter in Place: Yes Urinary Catheter Indication: Other (Use Comment) (spinal cord injury-needed for urine retention) Catheter Insertion Date: 05/11/18 - Physician Discussed Patient with : Jacobo Patient Seen by : Jacobo Neurosurgery Physical Exam - Vitals, I&O, Labs I and O 05/12/18 05/13/18 05/14/18 05:59 05:59 05:59 Intake Total 2855.9 2033 Output Total 2600 2725 Balance 255.9 -692 Intake: IV Intake (ml) 0 IV Infused (ml) 395.9 D5w 1,000 ml @ 50 mls/hr 288 IV CONT YAZMIN Rx#: [id number] Insulin Regular Human 100 78.4 unit In Ns 100 ml @ Per Protocol IV CONT YAZMIN Rx#: [id number] Phenylephrine HCl 50 mg 29.5 In Ns 250 ml @ Per Protocol IV CONT YAZMIN Rx#: [id number] Tube Feeding (ml) 1560 1387 Tube Flush (ml) 900 646 Output: Urine (ml) 2600 2725 Catheter 2600 2725 NG Tube Output (ml) 0 0 Small Bore (5-12 [place]) 0 0 Weighted Stomach Other: Output Comment Catheter straight cath x1 Number of Stools Catheter 2 Incontinence 3 2 Vital Signs Temp Pulse Resp BP Pulse Ox 38 C 79 28 H 168/78 H 100 05/13/18 04:00 05/13/18 04:37 05/13/18 04:37 05/13/18 04:00 05/13/18 04:37 Laboratory Results 05/13/18 06:45 05/13/18 06:45 ICD10 Worksheet Patient Problems: Problems Problem Status Onset Encephalopathy Acute Myelopathy of cervical spinal cord with cervical radiculopathy Acute Acute exacerbation of congestive heart failure Acute CHF (congestive heart failure) Acute Diabetes Acute Elevated troponin Acute HTN (hypertension) Acute Hyperglycemia Acute NSTEMI (non-ST elevated myocardial infarction) Acute Orthostatic hypotension Acute Pneumonia Acute Respiratory failure with hypoxia Acute Upper respiratory tract infection Acute
[2018-05-13 09:19] LABS: CREATINE KINASE 130 IU/L (0-224)
[2018-05-13] MEDS: ACETAMINOPHEN 650 MG/20.3 ML UDCUP TUBE SCH ×3 (10:35→21:55)
[2018-05-13] MEDS: metFORMIN HCL 500 MG TAB TUBE SCH ×3 (10:35→18:04)
[2018-05-13] MEDS: FAMOTIDINE 20 MG TAB TUBE SCH ×2 (10:40→21:55)
[2018-05-13] MEDS: TAMSULOSIN HCL 0.4 MG CAP PO SCH (11:05)
--- NOTE | 2018-05-13 13:11 | ASMTCMCOM ---
CM Note CM Note Notes: Met with patient's family late yesterday afternoon to answer questions regarding [facility] and the D/C plan. The family has concerns that the patient only has 60 days of rehab and the patient needs to be stronger to make use of them. Currently, there are several medical issues which the ICU is addressing and these will need to be resolved before the patient is ready. The discharge has been slowed down for medical reasons. [facility] continues to follow and will send someone out to meet with the family closer to the actual discharge date. The family was scheduled to tour [facility] this morning. Dr. Franklin also met with the family yesterday to review concerns and plan of care. A meeting has been scheduled for Thursday to bring the family and providers together to make sure the goals of care are consistent. CM will follow. Date Signed: 05/13/2018 01:10 PM Electronically Signed By:Linda Alvarenga LCSW
[2018-05-13] MEDS ORDERED: fentaNYL 100 MCG/2 ML INJ IVP ONE (14:45)
[2018-05-13] MEDS ORDERED: MIDAZOLAM 2 MG/2 ML VIAL IVP ONE (14:45)
[2018-05-13] MEDS ORDERED: LIDOCAINE 1% 300 MG/30 ML SDV ONE ×2 (15:10→15:23)
[2018-05-13] MEDS ORDERED: BENZOCAINE UNIT DOSE SPRAY HURRICAINE MM ONE ×2 (15:13→17:31)
--- NOTE | 2018-05-13 16:31 | HOSPPROG ---
Hospitalist Progress Note Assessment/Plan: * Cervical spinal stenosis s/p fusion/decompression * Post-op quadriparesis -working towards dispo to [place], but respiratory status needs to be much more stable -still massive secretions due to chest wall weakness -[place] collar * Acute respiratory failure - s/p respiratory arrest, brief cardiac arrest -now extubated -due to mucus plug/aspiration -continues to have significant secretions requiring constant suctioning -keep ICU level of care -repeat bronch today with Dr. Suarez -if secretions/airway compromise continues - consider trach * DM -increase Lantus * Aspiration pneumonia -s/p Vanco/Zosyn * Metabolic encephalopathy -continues with waxing and waning mental status * Embolic CVA - tiny -ASA * HTN -holding meds - MAP >70 per neurosurgery * Dysphagia -failed VFSS today -proceed with PEG * Neurogenic bladder -replace isaac - follow-up with urology -depending on spinal recovery - may need eventual supra-pubic cath * NIXON -no current CPAP -needs repeat sleep study * Chronic systolic CHF - EF now 50% * CAD/stent * Hyperkalemia -Kayexalate -check cortisol level * Diarrhea -Cdiff negative CC time - 50 minutes Subjective: More awake today, but oxygen sats have gone down Objective: Vital Signs Temp Pulse Resp BP Pulse Ox 38.0 C 81 20 164/69 H 90 L 05/13/18 15:53 05/13/18 15:53 05/13/18 15:53 05/13/18 12:00 05/13/18 15:53 Laboratory Results 05/13/18 06:45 05/13/18 14:50 05/12/18 05/13/18 05/14/18 05:59 05:59 05:59 Intake Total 2855.9 2033 Output Total 2600 2725 Balance 255.9 -692 d/w Dr. suarez - regarding complex care issues CXR - bilateral infiltrates - Physical Exam Constitutional: no apparent distress, appears nourished, not in pain Cardiovascular: regular rate and rhythym, no murmur, rub, or gallop Respiratory: reduced air movement, inspiratory crackles, bronchial breath sounds , respiratory distress, rhonchi Gastrointestinal: normoactive bowel sounds, soft, non-tender abdomen, no palpable masses Skin: no rashes or abrasions, no fluctuance, no induration Neurologic: No AAOx3 Psychiatric: encephalopathic, flat affect, poor insight, No interacting appropriately, No agitated ICD10 Worksheet Patient Problems: Problems Problem Status Onset Encephalopathy Acute Myelopathy of cervical spinal cord with cervical radiculopathy Acute Acute exacerbation of congestive heart failure Acute CHF (congestive heart failure) Acute Diabetes Acute Elevated troponin Acute HTN (hypertension) Acute Hyperglycemia Acute NSTEMI (non-ST elevated myocardial infarction) Acute Orthostatic hypotension Acute Pneumonia Acute Respiratory failure with hypoxia Acute Upper respiratory tract infection Acute
--- NOTE | 2018-05-13 16:54 | WOCRNPDOC ---
WOCRN Advanced Assessment Note - Skin Integrity Problem, Advanced Assess Coccyx Pressure Injury Dressing Type: Open to Air Closure Description: Not Approximated Integumentary Issue Intervention: Barrier Cream Applied Leyla Wound Tissue: Blanching, Intact Wound Bed Color: Red Wound Bed Constitution: Red/[place] - Non Granular Tissue, De-roofed Serous Blister Wound Edges: Attached, Well Defined Site Measurement - Head-to-Toe Length X Width X Depth (cm): 4.7x6x0.4 Pressure Injury Stage: Deep Tissue Injury (DTI) Pressure Injury Present on Admit: No Skin Integrity Problem Comment: Patient incontinent of stool and nursing team in room to clean him. Of note, JENNA Hunter points out that patient with new respiratory issues and requiring to be upright greater than 30 degrees so taken off of the [place] surface for now. I agree with this plan currently but we'll need to continue to evaluate as his respiratory status continues to improve. Wound open to air at this time as patient has had continuous incontinent stool. Wound now presents as an evolving full thickness wound. On the right margin, there is obvious peeling skin, likely from the de-rigo of previously documented serous blister. Wound bed cleaned and clear zinc applied. Discussed concerns about wound appearance with . All questions answered. Wound care will round again early next week.
[2018-05-13] MEDS ORDERED: LIDOCAINE 1% 300 MG/30 ML SDV MISC ONE (17:31)
[2018-05-13] MEDS: ATORVASTATIN CALCIUM 40 MG TAB TUBE SCH (21:55)
[2018-05-13] MEDS: guaiFENesin 200 MG/10 ML UDL PO SCH (21:55)
[2018-05-14 04:43] LABS: PLATELET COUNT 204 10^3/uL (150-400)
[2018-05-14 04:54] LABS: INR 1.16 (0.83-1.16)
[2018-05-14] MEDS: guaiFENesin 200 MG/10 ML UDL PO SCH (05:07)
[2018-05-14] MEDS: ACETYLCYSTEINE 10% IH/PO 4 ML VIAL IH SCH ×4 (05:17→22:47)
[2018-05-14] MEDS: ALBUTEROL 3 ML DEYVIAL IH SCH ×4 (05:17→22:47)
[2018-05-14] MEDS ORDERED: COSYNTROPIN 0.25 MG/2 ML SYRINGE IVP ONE (06:00)
--- NOTE | 2018-05-14 06:49 | NEUSURGPN ---
Date of Surgery: 04/29/18 Post Op Day: 15 Assessment/Plan: Assessment: 62 y/o male s/p anterior C4-C7 fusion and and PCF/decompression C4- T2 on 04/29/18 and 04/30/[address] Stock with postop quadraparesis that is slowly improving. He is making day to day progress. Pt also with post operative respiratory arrest d/t inability to protect airway, NIXON and was intubated. Pt with Aspiration PNA treated by CC team. Intubated x 2, now extubated 05/08 and improving as far as respiratory status but still guarded -Post operative MRI and CT on 05/05 reviewed by BNA physicians and feel no further surgery indicated, pressure support of MAP>85 started POD#6 after NS consultation we are now at a MAP of 70-tolerating well with an exam that continues to improve -MRI of the L spine and T spine reviewed that shows a small disc bulge and DDD in the T spine. L4/5 shows stenosis as well. No surgical lesion in the T and L spine that needs to be addressed at this time -MRI Brain with 3 small foci of ischemia and small bilateral SDH -Neuro/motor exam improving daily Plan: -MAPs >85 through weekend. We relaxed the MAPs and he is still improving-Dr Centeno discussed with family. If his exam worsens we will increase the MAPs again. At this point we will follow his exam which is improving daily off of pressure support -continue [place] CCollar at all times-CDI. Dressings removed already. No skin issues noted. CDI to anterior and posterior incision. [place] removed by Dr Centeno this am -SCI precautions, frequent weight shifting and skin care -monitor posterior incision in particular-continues to look fine without s/s of infection -no further imaging at this time -PT/OT-CPM -RN FLOAT following for eval swallow, currently ice chips, Dobhoff currently for nutrition support as well. Pt to get a PEG tube at some point -DVT ppx, TEDs, SCD's, Heparin q8. -Neurology signed off-they following findings on MRI Brain, no intervention required from NS standpoint. OK for daily ASA if necessary -Critical care following airway, extubated already, tx'd for Asp. PNA. Still watching pulmonary status closely -Nephrology following RAMANA -improved, back to baseline -Medicine following chronic illnesses and continued fevers -pt has urine retention-isaac placed at recommendation of Urology -call with any questions or concerns -family updated as well -pt seen and examined by Dr Centeno as well this am Subjective: No new evens or concerns. Chart reviewed. Updates from RN Objective: NAD , AAO x 3 speech clear, slow and deliberate cnii-xii grossly intact no facial droop C-Collar in place-no skin issues Incisions intact-dry to anterior and posterior neck antigravity BUE: deltoid 4/5, tri (right 5/5, left 3/5), bicep 5/5 bilat, wrists /torque tester 3/5 except: WE 2/5. Pts movement more controlled today that before with the RUE better than the LUE BLE: HF, HE, KF, KE 4-/5, DF/PF/EHL 2/5 less movement distally than UE but more movement from prior day SILT intact sharp vs dull decreased to BLE localization intact distally to right foot more than left as with prior exams Neuro Check Frequency: as ordered Urinary Catheter in Place: Yes Urinary Catheter Indication: Other (Use Comment) (paralysis) Catheter Insertion Date: 05/11/18 - Physician Discussed Patient with : Jacobo Patient Seen by : Jacobo Neurosurgery Physical Exam - Vitals, I&O, Labs I and O 05/13/18 05/14/18 05/15/18 05:59 05:59 05:59 Intake Total 2032 1152 Output Total 2725 1999 Balance -692 -848 Intake: IV Intake (ml) 0 Tube Feeding (ml) 1387 752 Tube Flush (ml) 646 400 Output: Urine (ml) 2725 1999 Catheter 2725 950 Incontinence 1050 NG Tube Output (ml) 0 0 Small Bore (5-12 [place]) 0 0 Weighted Stomach Other: Number of Stools Catheter 2 Incontinence 2 2 Vital Signs Temp Pulse Resp BP Pulse Ox 38.2 C 81 28 H 169/71 H 96 05/14/18 04:25 05/14/18 05:18 05/14/18 05:18 05/14/18 04:25 05/14/18 05:18 Laboratory Results 05/14/18 04:15 05/14/18 04:15 ICD10 Worksheet Patient Problems: Problems Problem Status Onset Encephalopathy Acute Myelopathy of cervical spinal cord with cervical radiculopathy Acute Acute exacerbation of congestive heart failure Acute CHF (congestive heart failure) Acute Diabetes Acute Elevated troponin Acute HTN (hypertension) Acute Hyperglycemia Acute NSTEMI (non-ST elevated myocardial infarction) Acute Orthostatic hypotension Acute Pneumonia Acute Respiratory failure with hypoxia Acute Upper respiratory tract infection Acute
[2018-05-14] MEDS ORDERED: LIDOCAINE 1% 300 MG/30 ML SDV ONE ×3 (07:06→08:38)
--- NOTE | 2018-05-14 07:08 | SOAPPROG ---
Downtime Inpatient MD Late Entry SOAP Note: Patient was seen and has been seen by me everyday since consultation with the exception of 05/09. He is 2 weeks out from surgery posteriorly and incision was closed with gael. I removed the gael this morning and at the top of the incision there was clear fluid draining. Postoperative MRI shows a deep subfascial fluid collection that could be consistent with CSF but the operative report makes no mention of a durotomy or complication on the posterior procedure. The fluid does not appear infected. It is thin clear fluid with the appearance of water. I suspect this is CSF. We will be prepared to oversew the skin to prevent this leak but obviously the risk of developing a SSI at this point is now significant. I have discussed this with the patients . If the fluid totally resolves perhaps we can avoid oversewing the site, but we are prepared to do this this morning as needed.
[2018-05-14] MEDS: ACETAMINOPHEN 650 MG/20.3 ML UDCUP TUBE SCH ×4 (08:01→23:28)
[2018-05-14] MEDS ORDERED: MIDAZOLAM 2 MG/2 ML VIAL ONE ×2 (08:11→10:52)
[2018-05-14] MEDS ORDERED: fentaNYL 100 MCG/2 ML INJ ONE ×2 (08:11→10:53)
[2018-05-14] MEDS: metFORMIN HCL 500 MG TAB TUBE SCH ×2 (08:21→17:48)
[2018-05-14] MEDS ORDERED: MEPERIDINE 25 MG/ML SYR IVP PRN (08:44)
[2018-05-14] MEDS ORDERED: ceFAZolin 2 GM/DEXTROSE 100 ML IV ONE (08:44)
[2018-05-14] MEDS ORDERED: NALOXONE HCL 0.4 MG/ML INJ IVP PRN (08:44)
[2018-05-14] MEDS ORDERED: FLUMAZENIL 0.5 MG/5 ML MDV IVP PRN (08:44)
[2018-05-14] MEDS ORDERED: MIDAZOLAM 2 MG/2 ML VIAL IVP PRN (08:44)
[2018-05-14] MEDS ORDERED: GLUCAGON HCL 1 MG VIAL IVP PRN (08:44)
[2018-05-14] MEDS ORDERED: fentaNYL 100 MCG/2 ML INJ IVP PRN (08:44)
[2018-05-14] MEDS ORDERED: NS 1,000 ML IV SCH (08:45)
[2018-05-14] MEDS ORDERED: LIDOCAINE 1% 300 MG/30 ML SDV MISC ONE ×2 (08:46→14:45)
[2018-05-14] MEDS: INSULIN REGULAR HUMAN 100 UNIT/ML UNIT SC SCH ×4 (09:10→21:36)
[2018-05-14] MEDS ORDERED: GLUCAGON HCL 1 MG VIAL ONE (11:10)
--- NOTE | 2018-05-14 11:53 | CPEKG ---
Test Reason : OPEN Blood Pressure : / mmHG Vent. Rate : 138 BPM Atrial Rate : 000 BPM P-R Int : 184 ms QRS Dur : 104 ms QT Int : 395 ms P-R-T Axes : 000 074 096 degrees QTc Int : 599 ms Sinus tachycardia Ventricular premature complex LVH with secondary repolarization abnormality Prolonged QT interval Confirmed by Andrea Hurst ([id number]) on 05/14/2018 11:53:13 AM Referred By: Janice MONTERO Confirmed By:Andrea Hurst
[2018-05-14] MEDS: PIPERACILLIN/TAZO 4.5 GM/DEX 100 ML IV SCH ×3 (13:00→23:28)
[2018-05-14] MEDS ORDERED: ALBUMIN 5% 500 ML BOTTLE IV ONE (14:00)
[2018-05-14] MEDS ORDERED: ALBUMIN 5% 500 ML IV ONE ×2 (14:01→15:15)
[2018-05-14] MEDS: ENOXAPARIN 40 MG/0.4 ML SYR SC SCH (14:08)
[2018-05-14] MEDS: VANCOMYCIN 1.25 GM in NS 250 ML IV SCH (14:08)
--- NOTE | 2018-05-14 14:52 | PDINTPN ---
[facility] Progress Note Assessment/Plan: 62 yo M with cervical stenosis s/p C4-T2 c spine fusion complicated by postoperative weakness status post repeat posterior approach complicated by postoperative encephalopathy and weakness and status post cardiac arrest due to hypoxemic respiratory failure from aspiration inability to protect airway 2018. * Respiratory arrest -05/03/2018 (very brief CPR). Primary respiratory due to aspiration and inability to protect airway. Achieved ROSC quickly after securing airway and epi x2. No obvious deficit at the moment. * quadriparesis- moves all extremities though ongoing weakness. Improving per family and patient daily, though no change to me compared to 05/11. Cont OT/PT with eventual dc to LTACH. * aspiration PNA- Vanc/Zosyn started 05/03/2018-05/07/18. Bronch with 60% neutrophils, GS and Cx negative. Because of escalating secretion management, bronchoscopy was performed at 0800 05/14 using versed 2 mg anf fentanyl 75 mcg. He appeared to tolerate this well and was transported to IR for PEG, but on arrival developed tachycardia and hypoxia so was returned to the ICU. He was also febrile to nearly 40, and a CXR reveled revealed new substantial right sided infiltrate. Zosyn/vanco added and changed from NRB to vapotherm with reduction in HR to 100-110 (ST) and sats 93-95% on 40 lpm/100%. He continues to report feeling comfortable ans stable and currently does to appear to be in respiratory distress. * hypotension - resolved; though brief episode of MAP 60-65 after oversew of possible CSF leak in his neck. He responded well to 250 ml albumin x 1. No pressors needed. * Encephalopathy. Improving. Non con CT head negative 05/03/2018. Some difficulty with sleep; continue melatonin and prn trazodone. No benzos. * NIXON. In the process of being evaluated as output. has old cpap broken but needs repeat sleep study prior to qualifying for insurance to approve. family wishes to buy on own prior to sleep study. I suggested getting sleep study once he is recovered from this injury. * decubitus ulcer- stage II per RN. Wound care following. * Neurogenic bladder- urology consult pending- isaac placed * Swallow dysfunction. Video eval with aspiration, so PEG planned. Postponed until Thursday- discussed with Dr. Bonilla. * RAMANA on CKD III- resolved with creatinine 1.1 * Dispo: nearing stability for LTACH eval. * * critical care time total 65 minutes separate from procedures. Subjective: bronch postponed last pm because T still running at the time. Held since midnight. Feels better today and denies cp, sob. Objective: Vital Signs Temp Pulse Resp BP Pulse Ox 39.6 C H 105 H 33 H 128/60 H 92 05/14/18 14:14 05/14/18 14:14 05/14/18 14:14 05/14/18 14:14 05/14/18 14:14 Microbiology 05/14/18 08:10 Gram Stain - Final Bronchial Washing - Bilateral Lobes 05/08/18 20:30 Blood Culture - Final Blood 05/08/18 17:06 Blood Culture - Final Blood Laboratory Results 05/14/18 04:15 05/14/18 04:15 05/13/18 05/14/18 05/15/18 05:59 05:59 05:59 Intake Total 2033 1152 Output Total 2725 1999 Balance -692 -848 PT 15.0 SEC (12.0-15.0) 05/14/18 04:15 INR 1.16 (0.83-1.16) 05/14/18 04:15 Physical Exam - Physical Exam General Appearance: alert, mild distress EENT: PERRL/EOMI Neck: other (c collar) Respiratory: accessory muscle use, decreased breath sounds, rhonchi, No respiratory distress, No stridor Cardiac/Chest: regular rate, rhythm, edema, tachycardia Abdomen: non-tender, soft, No distended Skin: normal color, warm/dry, No cyanosis Lymphatic: no adenopathy Extremities: No pedal edema Neuro/Psych: alert, normal mood/affect, cognition abnormalities ICD10 Worksheet Patient Problems: Problems Problem Status Onset Encephalopathy Acute Myelopathy of cervical spinal cord with cervical radiculopathy Acute Acute exacerbation of congestive heart failure Acute CHF (congestive heart failure) Acute Diabetes Acute Elevated troponin Acute HTN (hypertension) Acute Hyperglycemia Acute NSTEMI (non-ST elevated myocardial infarction) Acute Orthostatic hypotension Acute Pneumonia Acute Respiratory failure with hypoxia Acute Upper respiratory tract infection Acute
--- NOTE | 2018-05-14 14:54 | GPN ---
[f rep st] PROCEDURE NOTE DATE OF PROCEDURE: 05/14/2018 NAME OF PROCEDURE: Over-sewing of the posterior midline cervical incision, 4 cm in length. PREPROCEDURE DIAGNOSIS: Wound dehiscence with leakage of spinal fluid. POSTPROCEDURE DIAGNOSIS: Wound dehiscence with leakage of spinal fluid. BUSINESS MACHINE MECHANIC: Hema Argueta PA-C. COMPLICATIONS: None. INDICATIONS FOR THE PROCEDURE: The patient, unfortunately, is a 62-year-old with a terrible outcome from a cervical spine surgery by Dr. Frank Stock, complicated by spinal cord injury necessitating an unplanned return to the OR and a posterior cervical decompression. This was performed 2 weeks ag o, and the posterior incision had been closed with gael. There was no mention of a cerebral spina l fluid leak on the operative report. However, the postop MRIs (there were 2 done) both demonstrated evidence of deep subfascial fluid collection that was most consistent with spinal fluid, but the pat ient had a dry incision over the last 2 weeks. He had been closed with gael and because they had been in for 2 weeks, we removed them today, and as we removed the rostral 2 or 3 gael at the top o f the incision, there was egress of clear liquid. There was no evidence of pus. No evidence of puru lence. It was simply water emanating from the wound. We put a dressing on it and that dressing raul me saturated and I checked this over about the next 20 minutes and there was continued clear drainage of fluid. We then put additional dressings on it and when it was inspected by my PA, it appeared to be dry. Several hours later, I came back to inspect the rostrum of the incision and there was water just pouring out. It was not weeping out. It was actually physically dripping when we turned the p atient on the side. This was most consistent with cerebral spinal fluid. Obviously, I had not done a beta 2 transferrin test to test for this and because the incision was persistently draining, I sugg ested to family that we oversew it to try to get this to dry out. They understood that the incision was epithelialized at this point and this over-sewing technique rarely works. The patient, earlier i n the day, had an attempted PEG tube placement, but it appears that he aspirated from the PEG tube an d I thought that we should try a bedside procedure with over-sewing the incision as opposed to intuba ting him and taking him back to the OR for a full wound exploration. They understood the rationale f or this and they consented to let me do this. PROCEDURE IN DETAIL: The patient was rolled on his side. The back of his head was clipped and then sterilely prepped and draped. We anesthetized the area around the incision with lidocaine without ep inephrine and then took a 3-0 Prolene suture and over-sewed the top 4 cm of the incision. When I was done, there was no evidence of any leakage whatsoever. The skin edges were now better approximated and the rostral portion of the incision that had been open, which measured about 8 to 9 mm, was now c losed and there was no leakage of any fluid whatsoever. We placed a dressing over this and then repl aced the hard collar. The patient was then placed back in his normal position by the nursing staff. He was having some pulmonary issues because of the aspiration during the prior procedure, but at thi s time, it did not appear that he was necessarily headed toward intubation, although this was a possi bility. There were no complications from this procedure. /[id number]/MODL
[2018-05-14] MEDS: INSULIN GLARGINE 100 UNITS/ML UNIT SC SCH ×2 (15:20→23:38)
[2018-05-14] MEDS: FAMOTIDINE 20 MG TAB TUBE SCH ×2 (15:21→21:35)
[2018-05-14] MEDS: guaiFENesin 200 MG/10 ML UDL TUBE SCH ×3 (15:21→21:35)
[2018-05-14] MEDS: ORAL BALANCE GEL TUBE PO PRN (15:23)
--- NOTE | 2018-05-14 15:52 | ASMTCMCOM ---
CM Note CM Note Notes: The meeting for the family has been moved to Thursday. The case has been escalated to Adrianne Juares and Shaka Vazquez who will be attending the meeting. CM will follow. Date Signed: 05/14/2018 03:52 PM Electronically Signed By:Linda Alvarenga LCSW
--- NOTE | 2018-05-14 16:25 | HOSPPROG ---
Hospitalist Progress Note Assessment/Plan: * Cervical spinal stenosis s/p fusion/decompression * Post-op quadriparesis -working towards dispo to [facility], but respiratory status needs to be much more stable -still massive secretions due to chest wall weakness, insecure airway -[place] collar * Acute respiratory failure - s/p respiratory arrest, brief cardiac arrest -respiratory status worsening again today - at risk for recurrent intubation -due to mucus plug/aspiration -continues to have significant secretions requiring constant suctioning -s/p repeat bronch today with Dr. Suarez -if secretions/airway compromise continues - consider trach * DM -increase Lantus * Severe sepsis due to aspiration pneumonia -fever/tachycardia with worsening encephalopathy and resp status today -back on IV Vanco/IV Zosyn -cultures pending * Metabolic encephalopathy -continues with waxing and waning mental status * Embolic CVA - tiny -ASA * HTN -holding meds - MAP >70 per neurosurgery * Dysphagia -failed VFSS -attempted PEG today but patient too critically ill -now on hold * Neurogenic bladder -replace isaac - follow-up with urology -depending on spinal recovery - may need eventual supra-pubic cath * NIXON -no current CPAP -needs repeat sleep study * Chronic systolic CHF - EF now 50% * CAD/stent * Hyperkalemia -Kayexalate -cortisol level okay * Diarrhea -Cdiff negative * Sacral wound - per wound care - it has worsened -[facility] will not accept with any open decub -may need LTAC rather than [facility] depending on resp/wound status * Wound dehiscence with leak of spinal fluid -s/p oversew with Dr. Centeno CC time - 50 minutes Subjective: Worsening resp status today, increase O2 with increased distress, tachycardia, high fever. Started after bronch, was on table for PEG but procedure aborted due to worsening status Objective: Vital Signs Temp Pulse Resp BP Pulse Ox 39.6 C H 105 H 33 H 128/60 H 92 05/14/18 14:14 05/14/18 14:14 05/14/18 14:14 05/14/18 14:14 05/14/18 14:14 Microbiology 05/14/18 08:10 Gram Stain - Final Bronchial Washing - Bilateral Lobes 05/08/18 20:30 Blood Culture - Final Blood 05/08/18 17:06 Blood Culture - Final Blood Laboratory Results 05/14/18 04:15 05/14/18 04:15 05/13/18 05/14/18 05/15/18 05:59 05:59 05:59 Intake Total 3 1152 Output Total 8563 1999 Balance -692 848 PT 15.0 SEC (12.0-15.0) 05/14/18 04:15 INR 1.16 (0.83-1.16) 05/14/18 04:15 CXR - right sided infiltrate - new and significant tele - sinus tachy - Physical Exam Cardiovascular: tachycardia, No edema Respiratory: respiratory distress, rhonchi Gastrointestinal: normoactive bowel sounds, soft, non-tender abdomen, no palpable masses Skin: no rashes or abrasions, no fluctuance, no induration Neurologic: No AAOx3 Psychiatric: encephalopathic, poor insight, poor judgement, poor memory, No interacting appropriately ICD10 Worksheet Patient Problems: Problems Problem Status Onset Encephalopathy Acute Myelopathy of cervical spinal cord with cervical radiculopathy Acute Acute exacerbation of congestive heart failure Acute CHF (congestive heart failure) Acute Diabetes Acute Elevated troponin Acute HTN (hypertension) Acute Hyperglycemia Acute NSTEMI (non-ST elevated myocardial infarction) Acute Orthostatic hypotension Acute Pneumonia Acute Respiratory failure with hypoxia Acute Upper respiratory tract infection Acute
--- NOTE | 2018-05-14 16:38 | GPN ---
[f rep st] PROCEDURE NOTE DATE OF PROCEDURE: 05/14/2018 PROCEDURE: Bronchoscopy. INDICATION: Excessive secretions in a critical care patient. CONSENT: Informed consent was obtained from the patient and his family prior to the administration o f anesthesia. The risks and benefits of the procedure as well as conscious sedation were explained i n detail, and all agreed to proceed. CONSCIOUS SEDATION: This was achieved using a total of 2 mg of IV Versed and 75 mcg IV fentanyl. Th e patient tolerated these well without hypoxemia or hypotension. DESCRIPTION OF PROCEDURE: After application of topical lidocaine in the oropharynx, the bronchoscope was easily passed through the vocal cords which appeared to be normal. There were a fair amount of posterior pharyngeal white secretions as well as thin secretions within the trachea there were easily suctioned. The mucosa appeared to be normal. The sub tony was sharp. There were thin secretions bilaterally in the mainstem bronchi, but these were also easily removed. Additional secretions were seen in the lower segments. All subsegments of the right and left lung were explored. Patient alvaro rated these well without difficulty. Postprocedure, he appeared to be quite stable. /[id number]/MODL
[2018-05-14] MEDS: ATORVASTATIN CALCIUM 40 MG TAB TUBE SCH (21:35)
[2018-05-14] MEDS: MELATONIN 3 MG TAB TUBE PRN (21:38)
[2018-05-15] MEDS: VANCOMYCIN 1.25 GM in NS 250 ML IV SCH (01:45)
[2018-05-15] MEDS: ALBUTEROL 3 ML DEYVIAL IH SCH ×4 (05:04→22:56)
[2018-05-15] MEDS: ACETYLCYSTEINE 10% IH/PO 4 ML VIAL IH SCH ×4 (05:05→22:56)
[2018-05-15] MEDS: guaiFENesin 200 MG/10 ML UDL TUBE SCH ×3 (05:50→15:55)
[2018-05-15] MEDS: PIPERACILLIN/TAZO 4.5 GM/DEX 100 ML IV SCH ×4 (05:50→23:37)
[2018-05-15] MEDS: ACETAMINOPHEN 650 MG/20.3 ML UDCUP TUBE SCH ×2 (05:50→14:00)
[2018-05-15 06:18] LABS: PLATELET COUNT 233 10^3/uL (150-400)
[2018-05-15] MEDS: INSULIN GLARGINE 100 UNITS/ML UNIT SC SCH ×2 (07:24→21:32)
[2018-05-15] MEDS: INSULIN REGULAR HUMAN 100 UNIT/ML UNIT SC SCH ×4 (07:24→23:48)
[2018-05-15] MEDS: ENOXAPARIN 40 MG/0.4 ML SYR SC SCH (07:24)
--- NOTE | 2018-05-15 08:15 | NEUSURGPN ---
Assessment/Plan: Assessment: 62y/o male s/p anterior C4-C7 fusion and and PCF/decompression C4- T2 on 04/29/18 with postop quadraplegia by Dr. Stock whose care has been transfer to Dr. Centeno with Neurosurgery. and and PCF/decompression C4-T2 on 04/29/18 and 04/30/[address] Stock with postop quadraparesis that is slowly improving. He is making day to day progress. Pt also with post operative respiratory arrest d/t inability to protect airway, NIXON and was intubated. Pt with Aspiration PNA treated by CC team. Intubated x 2, now extubated 05/08 MRI of the L spine and T spine reviewed that shows a small disc bulge and DDD in the T spine. L4/5 shows stenosis as well. No surgical lesion in the T and L spine that needs to be addressed at this time MRI Brain with 3 small foci of ischemia and small bilateral SDH Incision with drainage yesterday after gael removed and oversewn by Dr. Centeno yesterday. No signs of CSF leak on exam. Continue with daily dressing changes Plan: -MAP goal relaxed, If his exam worsens we will increase the MAPs again, patient strength exam is stable - Continue with PT/OT -Appreciate Critical care management and will work toward extubation as tolerate -Appreciate Internal medicine, neurology, and nephrology consultations -Aspiration PNA, being treated by Critical care. -DVT ppx, TEDs, SCD's, Heparin q8. -Chart reviewed -call with any questions or concerns -Discussed with plan with patient and family at bedside this morning -Discussed with Dr. Centeno Subjective: Denies any pain, verbalize want to work with therapies this morning Objective: NAD , Alert and appropriate [id number] grossly intact C-Collar in place-no skin issues Incisions intact-dry to anterior and posterior neck ( no induration, discharge, sutures intact antigravity BUE: deltoid 4/5, tri (right 5/5, left 3+/5), bicep 5/5 bilat, wrists/lead java software engineer (left 4/5, right 3/5) BLE: HF, HE, KF, KE 4-/5, DF/PF/EHL 2+/5 Sensation diffusely intact in BLE. not reporting any areas of decreased sensation this morning localization intact distally to right foot more than left as with prior exams Catheter Insertion Date: 05/11/18 - Physician Discussed Patient with DrJerome: Jacobo Neurosurgery Physical Exam - Vitals, I&O, Labs I and O 05/14/18 05/15/18 05/16/18 05:59 05:59 05:59 Intake Total 1152 1643 Output Total 1999 1659 Balance -848 -17 Intake: IV Intake (ml) 1143 IV Infused (ml) 300 Albumin 5% 500 ml @ As 300 Directed IV ONCE ONE Rx#: [id number] Tube Feeding (ml) 752 Tube Flush (ml) 400 200 Output: Urine (ml) 1999 1659 Catheter 950 1660 Incontinence 1050 NG Tube Output (ml) 0 Small Bore (5-12 [place]) 0 Weighted Stomach Other: Number of Stools Incontinence 2 Microbiology 05/14/18 08:10 Gram Stain - Final Bronchial Washing - Bilateral Lobes 05/08/18 20:30 Blood Culture - Final Blood 05/08/18 17:06 Blood Culture - Final Blood Vital Signs Temp Pulse Resp BP Pulse Ox 38.4 C H 77 26 H 125/56 H 91 L 05/15/18 07:56 05/15/18 07:56 05/15/18 07:56 05/15/18 07:56 05/15/18 07:56 Laboratory Results 05/15/18 05:45 05/15/18 05:45 ICD10 Worksheet Patient Problems: Problems Problem Status Onset Encephalopathy Acute Myelopathy of cervical spinal cord with cervical radiculopathy Acute Acute exacerbation of congestive heart failure Acute CHF (congestive heart failure) Acute Diabetes Acute Elevated troponin Acute HTN (hypertension) Acute Hyperglycemia Acute NSTEMI (non-ST elevated myocardial infarction) Acute Orthostatic hypotension Acute Pneumonia Acute Respiratory failure with hypoxia Acute Upper respiratory tract infection Acute
[2018-05-15] MEDS ORDERED: NS 1,000 ML IV SCH (11:30)
[2018-05-15] MEDS: metFORMIN HCL 500 MG TAB TUBE SCH (11:45)
[2018-05-15] MEDS: FAMOTIDINE 20 MG TAB TUBE SCH (11:46)
[2018-05-15] MEDS ORDERED: HEPARIN 5,000 UNIT/0.5 ML INJ SC SCH (14:00)
--- NOTE | 2018-05-15 14:31 | PDINTPN ---
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 * Aspiration PNA- Vanc/Zosyn started 05/03/2018-05/07/18. Bronch with 60% neutrophils, GS and Cx negative. Because of escalating secretion management, bronchoscopy was performed at 0800 05/14 using versed 2 mg and fentanyl 75 mcg. He appeared to tolerate this well and was transported to IR for PEG, but on arrival developed tachycardia and hypoxia so was returned to the ICU. He was also febrile to nearly 40, and a CXR reveled revealed new substantial right sided infiltrate. Zosyn/vanco added and changed from NRB to vapotherm with reduction in HR to 100-110 (ST) and sats 93-95% on 40 lpm/100%. Transitioned to NC without difficulty today. Elevated wbc expected snd should fall. Continue abx for now. * RAMANA on CKD III- previously resolved by hypoxia/hypotensive episode 05/14 may have been responsible for increase creatinine today. IVF at 75/hr for now until creatinine normal. Adequate UOP. * quadriparesis- moves all extremities though ongoing weakness. Improving per family and patient daily, though no change to me compared to 05/11. Cont OT/PT with eventual dc to LTACH. * hypotension - resolved; though brief episode of MAP 60-65 after oversew of possible CSF leak in his neck. He responded well to 250 ml albumin x 1. No pressors needed. * Encephalopathy. Improving. Non con CT head negative 05/03/2018. Some difficulty with sleep; continue melatonin and prn trazodone. No benzos. * NIXON. In the process of being evaluated as output. has old cpap broken but needs repeat sleep study prior to qualifying for insurance to approve. family wishes to buy on own prior to sleep study. I suggested getting sleep study once he is recovered from this injury. * decubitus ulcer- stage II per RN. Wound care following. * Neurogenic bladder- urology consult pending- isaac placed * Swallow dysfunction. Video eval with aspiration, so PEG planned. Postponed until Thursday- discussed with Dr. Bonilla. * * Respiratory arrest -05/03/2018 (very brief CPR). Primary respiratory due to aspiration and inability to protect airway. Achieved ROSC quickly after securing airway and epi x2. No obvious deficit at the moment. * * critical care time total 35 minutes separate from procedures. Case reviewed in detail with family. 05/15/18 14:27 Subjective: aspiration event noted above Objective: Vital Signs Temp Pulse Resp BP Pulse Ox 38.0 C 91 20 141/63 H 94 05/15/18 14:00 05/15/18 14:00 05/15/18 14:00 05/15/18 14:00 05/15/18 14:00 Microbiology 05/14/18 08:10 Gram Stain - Final Bronchial Washing - Bilateral Lobes Laboratory Results 05/15/18 05:45 05/15/18 05:45 05/14/18 05/15/18 05/16/18 05:59 05:59 05:59 Intake Total 1152 1643 Output Total 2000 1660 Balance -848 -17 PT 15.0 SEC (12.0-15.0) 05/14/18 04:15 INR 1.16 (0.83-1.16) 05/14/18 04:15 Physical Exam - Physical Exam General Appearance: alert, no apparent distress EENT: PERRL/EOMI, No scleral icterus (R), No scleral icterus (L) Neck: normal inspection, limited range of motion, other (hard collar) Respiratory: lungs clear, normal breath sounds, decreased breath sounds, No respiratory distress, No accessory muscle use Cardiac/Chest: regular rate, rhythm, No edema, No JVD Abdomen: non-tender, soft, No distended Skin: normal color, warm/dry, No cyanosis Lymphatic: no adenopathy Extremities: No pedal edema Neuro/Psych: alert, normal mood/affect, cognition abnormalities ICD10 Worksheet Patient Problems: Problems Problem Status Onset Encephalopathy Acute Myelopathy of cervical spinal cord with cervical radiculopathy Acute Acute exacerbation of congestive heart failure Acute CHF (congestive heart failure) Acute Diabetes Acute Elevated troponin Acute HTN (hypertension) Acute Hyperglycemia Acute NSTEMI (non-ST elevated myocardial infarction) Acute Orthostatic hypotension Acute Pneumonia Acute Respiratory failure with hypoxia Acute Upper respiratory tract infection Acute
--- NOTE | 2018-05-15 15:50 | HOSPPROG ---
Hospitalist Progress Note Assessment/Plan: * Cervical spinal stenosis s/p fusion/decompression * Post-op quadriparesis -working towards dispo to [facility], but respiratory status needs to be much more stable -still massive secretions due to chest wall weakness, insecure airway -[place] collar * Acute respiratory failure - s/p respiratory arrest, brief cardiac arrest -due to mucus plug/aspiration -continues to have significant secretions requiring constant suctioning -s/p repeat bronch on 05/[address] Suarez -if secretions/airway compromise continues - consider trach * RAMANA - Cr increased to 1.7 this AM, 1.1 for few days prior, 2.0 on admission - Possibly in setting of reported hypotension during respiratory arrest yesterday - Will continue IVF overnight - Continue to monitor BMP, I/O, avoid nephrotoxic agents *DM -Lantus was increased 24 units BID, hold if patient not taking much PO * Severe sepsis due to aspiration pneumonia -fever/tachycardia with worsening encephalopathy and resp status today -back on IV Vanco/IV Zosyn as of yesterday -cultures pending * Metabolic encephalopathy -continues with waxing and waning mental status * Embolic CVA - tiny -ASA * HTN -holding meds - MAP >70 per neurosurgery * Dysphagia -failed VFSS -attempted PEG on 05/14 but patient too critically ill -now on hold * Neurogenic bladder -replace isaac - follow-up with urology -depending on spinal recovery - may need eventual supra-pubic cath * NIXON -no current CPAP -needs repeat sleep study * Chronic systolic CHF - EF now 50% * CAD/stent * Hyperkalemia -Kayexalate -cortisol level okay * Diarrhea -C diff negative * Sacral wound - per wound care - it has worsened -[facility] will not accept with any open decub -may need LTAC rather than [facility] depending on resp/wound status * Wound dehiscence with leak of spinal fluid -s/p oversew with Dr. Centeno Subjective: Patient reports feeling "fine" this AM Objective: Vital Signs Temp Pulse Resp BP Pulse Ox 38.0 C 91 20 141/63 H 94 05/15/18 14:00 05/15/18 14:00 05/15/18 14:00 05/15/18 14:00 05/15/18 14:00 Microbiology 05/14/18 08:10 Gram Stain - Final Bronchial Washing - Bilateral Lobes Laboratory Results 05/15/18 05:45 05/15/18 05:45 05/14/18 05/15/18 05/16/18 05:59 05:59 05:59 Intake Total 1152 1643 Output Total 1999 1659 Balance -848 -17 PT 15.0 SEC (12.0-15.0) 05/14/18 04:15 INR 1.16 (0.83-1.16) 05/14/18 04:15 - Physical Exam Constitutional: chronically ill appearing Eyes: PERRL Ears, Nose, Mouth, Throat: dry mucous membranes Cardiovascular: regular rate and rhythym Respiratory: no respiratory distress Gastrointestinal: soft, non-tender abdomen Skin: normal color Musculoskeletal: generalized weakness Neurologic: AAOx3 Psychiatric: No interacting appropriately ICD10 Worksheet Patient Problems: Problems Problem Status Onset Encephalopathy Acute Myelopathy of cervical spinal cord with cervical radiculopathy Acute Acute exacerbation of congestive heart failure Acute CHF (congestive heart failure) Acute Diabetes Acute Elevated troponin Acute HTN (hypertension) Acute Hyperglycemia Acute NSTEMI (non-ST elevated myocardial infarction) Acute Orthostatic hypotension Acute Pneumonia Acute Respiratory failure with hypoxia Acute Upper respiratory tract infection Acute
[2018-05-16] MEDS ORDERED: VANCOMYCIN 1.25 GM in NS 250 ML IV SCH (02:00)
[2018-05-16 05:16] LABS: PLATELET COUNT 203 10^3/uL (150-400)
[2018-05-16] MEDS: INSULIN REGULAR HUMAN 100 UNIT/ML UNIT SC SCH ×3 (05:49→18:46)
[2018-05-16] MEDS: ACETYLCYSTEINE 10% IH/PO 4 ML VIAL IH SCH ×4 (05:53→23:22)
[2018-05-16] MEDS: ALBUTEROL 3 ML DEYVIAL IH SCH ×4 (05:53→23:22)
[2018-05-16] MEDS: PIPERACILLIN/TAZO 4.5 GM/DEX 100 ML IV SCH ×3 (06:18→18:03)
--- NOTE | 2018-05-16 07:51 | NEUSURGPN ---
Assessment/Plan: Assessment: 62y/o male s/p anterior C4-C7 fusion and and PCF/decompression C4- T2 on 04/29/18 with postop quadraplegia by Dr. Stock whose care has been transfer to Dr. Centeno with Neurosurgery. and and PCF/decompression C4-T2 on 04/29/18 and 04/30/[address] Stock with postop quadraparesis that is slowly improving. He is making day to day progress. Pt also with post operative respiratory arrest d/t inability to protect airway, NIXON and was intubated. Pt with Aspiration PNA treated by CC team. Intubated x 2, now extubated 05/08 MRI of the L spine and T spine reviewed that shows a small disc bulge and DDD in the T spine. L4/5 shows stenosis as well. No surgical lesion in the T and L spine that needs to be addressed at this time MRI Brain with 3 small foci of ischemia and small bilateral SDH Incision oversewn by Dr. Centeno yesterday. No signs of CSF leak on exam. Continue with daily dressing changes No neurosurgical changes today Plan: -MAP goal relaxed, If his exam worsens we will increase the MAPs again, patient strength exam is stable - Continue with PT/OT -Appreciate Critical care management and will work toward extubation as tolerate -Appreciate Internal medicine, neurology, and nephrology consultations -Aspiration PNA, being treated by Critical care. -DVT ppx, TEDs, SCD's, Heparin q8. -Chart reviewed -call with any questions or concerns -Discussed with plan with patient and family at bedside this morning -Discussed with Dr. Centeno Subjective: Denies any pain Objective: NAD , Alert and appropriate C-Collar in place-no skin issues Incisions intact-dry to anterior and posterior neck ( no induration, discharge, sutures intact) antigravity BUE: deltoid 4/5, tri (right 5/5, left 3/5), bicep 5/5 bilat, wrists /qc scientist (left 4/5, right 3/5) BLE: HF, HE, KF, KE 4-/5, DF/PF/EHL 2/5 Sensation diffusely intact in BLE. not reporting any areas of decreased sensation this morning Catheter Insertion Date: 05/11/18 - Physician Discussed Patient with Dr.: Centeno Neurosurgery Physical Exam - Vitals, I&O, Labs I and O 05/15/18 05/16/18 05/17/18 05:59 05:59 05:59 Intake Total 1643 1807 Output Total 1660 1989 Intake: IV Intake (ml) 1143 542 IV Infused (ml) 300 1265 Albumin 5% 500 ml @ As 300 Directed IV ONCE ONE Rx#: [id number] Ns 1,000 ml @ 75 mls/hr 1265 IV CONT YAZMIN Rx#: [id number] Tube Flush (ml) 200 Output: Urine (ml) 1660 1190 Catheter 1660 1190 Liquid Stool (ml) 800 Catheter 300 Incontinence 500 Microbiology 05/14/18 08:10 Gram Stain - Final Bronchial Washing - Bilateral Lobes Vital Signs Temp Pulse Resp BP Pulse Ox 37.5 C 84 28 H 135/52 H 98 05/16/18 06:00 05/16/18 06:00 05/16/18 06:00 05/16/18 06:00 05/16/18 06:00 Laboratory Results 05/16/18 05:00 05/16/18 05:00 ICD10 Worksheet Patient Problems: Problems Problem Status Onset Encephalopathy Acute Myelopathy of cervical spinal cord with cervical radiculopathy Acute Acute exacerbation of congestive heart failure Acute CHF (congestive heart failure) Acute Diabetes Acute Elevated troponin Acute HTN (hypertension) Acute Hyperglycemia Acute NSTEMI (non-ST elevated myocardial infarction) Acute Orthostatic hypotension Acute Pneumonia Acute Respiratory failure with hypoxia Acute Upper respiratory tract infection Acute
[2018-05-16] MEDS: ENOXAPARIN 40 MG/0.4 ML SYR SC SCH (08:23)
[2018-05-16] MEDS: INSULIN GLARGINE 100 UNITS/ML UNIT SC SCH ×2 (08:23→19:50)
[2018-05-16] MEDS ORDERED: FAMOTIDINE 20 MG/NACL 50 ML IV SCH (09:00)
[2018-05-16] MEDS: 1/2 NS 1,000 ML IV SCH ×2 (09:00→18:03)
--- NOTE | 2018-05-16 09:17 | SOAPPROG ---
SOAP Progress Note Assessment/Plan: Assessment: I was asked to come back into Mr. Merino's care team today due to a rising Cr. We were originally consulted on the . I have previously reviewed Dr. Larios 's consult from that time, and reviewed it again today. At that time, the patient had a transient rise in his Cr, and also had hypernatremia. His renal function improved, and his sodium normalized. His hypernatremia appeared to be due to an osmotic diuresis, and he responded to free water administration. Baakri has known prior CKD 3, with a baseline Cr in the 1.5 to 1.8 range. He has followed as an outpatient with my partner, Dr. Garcia. His Cr at the start of this admission was 1.9. He peaked at 2.9 on the , and by the , it was down to 1.1. It remained in this area until the , when it increased to 1.7, and is 1.9 today. The patient has had a isaac in place , and has excellent urine output. He also has a rectal isaac in place that has been draining liquid stools. He is NPO due to aspiration. He is receiving NS at 75ml/h. His serum sodium levels were initially high, and then normalized from the through the . Recently, he was taken off of tube feeds and flushes. He is to get a PEG tube placed very soon, and have his feeds and flushes resumed. Two days ago, the patient experienced a brief drop in his BP and oxygen saturations. These were corrected quickly. In reviewing his I's and O's, he had been consistently net positive. Over the past 3 days, he has been slightly net negative. Imp/Plan 1. Elevated Cr Bakari's Cr has increased the past two days. It is notable that his baseline Cr is around 1.7. He likely has a new bl Cr given loss of muscle mass. He is total body Na increased, given his edema, although his IV volume may be euvolemic to slightly dry. He did have a slight hypotensive/hypoxemic episode recently. I doubt obstruction. At this time, he likely has mild non oliguric ATN. I feel we are already seeing a plateau. I cannot rule out the he was more volume increased recently, suppressing his Cr, and he is returning to his baseline. Given his excellent urine output and isaac, I doubt obstruction. I have not identified any nephrotoxic insults. For now, we will continue crystalloid. We will also check a FENA. We will follow conservatively. 2. Hypernatremia This is a combination of free water losses, osmotic diuresis (hyperglycemia). I will change his crystalloid to a hypotonic formulation and follow serial labs. He is on insulin to limit hyperglycemia. Plan: 05/10/18 10:54 05/16/18 09:13 05/16/18 09:17 05/16/18 09:19 05/16/18 09:22 05/16/18 09:22 05/16/18 09:25 Subjective: Awake, alert Objective: Vital Signs Temp Pulse Resp BP Pulse Ox 37.6 C 79 23 H 142/65 H 96 05/16/18 08:00 05/16/18 08:00 05/16/18 08:00 05/16/18 08:00 05/16/18 08:00 Microbiology 05/14/18 08:10 Gram Stain - Final Bronchial Washing - Bilateral Lobes Laboratory Results 05/16/18 05:00 05/16/18 05:00 05/15/18 05/16/18 05/17/18 05:59 05:59 05:59 Intake Total 1643 1807 297 Output Total 1660 1990 320 Balance -17 -183 -23 PT 15.0 SEC (12.0-15.0) 05/14/18 04:15 INR 1.16 (0.83-1.16) 05/14/18 04:15 Physical Exam - Physical Exam General Appearance: no apparent distress EENT: other (saliva pooling under tongue) Respiratory: lungs clear (anteriorly) Cardiac/Chest: regular rate, rhythm Abdomen: normal bowel sounds, soft Male Genitalia: other (isaac in place) Extremities: other (1+ hip edema, no ankle edema. Feet warm and well perfused.) Neuro/Psych: alert ICD10 Worksheet Patient Problems: Problems Problem Status Onset Encephalopathy Acute Myelopathy of cervical spinal cord with cervical radiculopathy Acute Acute exacerbation of congestive heart failure Acute CHF (congestive heart failure) Acute Diabetes Acute Elevated troponin Acute HTN (hypertension) Acute Hyperglycemia Acute NSTEMI (non-ST elevated myocardial infarction) Acute Orthostatic hypotension Acute Pneumonia Acute Respiratory failure with hypoxia Acute Upper respiratory tract infection Acute
[2018-05-16] MEDS ORDERED: PROPOFOL/EMULSION 1,000 MG/100 ML BOTTLE IV ONE (12:51)
[2018-05-16] MEDS ORDERED: LIDOCAINE 1% 300 MG/30 ML SDV MISC ONE ×2 (13:00→13:33)
[2018-05-16] MEDS: PROPOFOL/EMULSION 100 ML IV SCH ×2 (13:15→18:04)
[2018-05-16] MEDS ORDERED: LIDOCAINE 1% 300 MG/30 ML SDV ONE (13:26)
--- NOTE | 2018-05-16 13:45 | HOSPPROG ---
Hospitalist Progress Note Assessment/Plan: * Cervical spinal stenosis s/p fusion/decompression * Post-op quadriparesis -still massive secretions due to chest wall weakness -[place] collar * Acute respiratory failure - s/p respiratory arrest, brief cardiac arrest -due to mucus plug/aspiration -continues to have significant secretions requiring constant suctioning -s/p repeat bronch on 05/[address] Suarez -if secretions/airway compromise continues - consider trach * RAMANA - Cr increased to 1.9 this AM, 1.1 for few days prior, 2.0 on admission - Nephrology consulted this AM, likely mild non oliguric ATN, still having good UO with isaac, recommending continuing IVF, checking FENa - Will continue IVF overnight - Continue to monitor BMP, I/O, avoid nephrotoxic agents *Hypernatremia - Na 150 this AM, 147 yesterday - Likely combination of free water losses, osmotic diuresis (hyperglycemia) - IVF have been changed per Nephrology to a hypotonic formulation - Continue to monitor *Anemia - Hgb decreased to 6.8 this AM, repeat 6.2 - No gross bleeding has been noted - Hgb 7.7 for past few days - 1 unit PRBC ordered to be transfused - Closely monitor H/H, transfuse <7/20 - Stool occult blood pending, patient on IV H2 Justice *DM -Lantus was increased 24 units BID, hold if patient not taking much PO * Severe sepsis due to aspiration pneumonia -fever/tachycardia with worsening encephalopathy and resp status today -back on IV Vanco/IV Zosyn as of yesterday -cultures pending * Metabolic encephalopathy -continues with waxing and waning mental status * Embolic CVA - tiny -ASA * HTN -holding meds - MAP >70 per neurosurgery * Dysphagia -failed VFSS -attempted PEG on 05/14 but patient too critically ill -now on hold * Neurogenic bladder -replaced isaac - follow-up with urology -depending on spinal recovery - may need eventual supra-pubic cath * NIXON -no current CPAP -needs repeat sleep study * Chronic systolic CHF - EF now 50% * CAD/stent * Hyperkalemia -S/p Kayexalate, K 4.1 this AM -cortisol level okay * Diarrhea -C diff negative * Sacral wound - per wound care - it has worsened -[facility] will not accept with any open decub -may need LTAC rather than [facility] depending on resp/wound status * Wound dehiscence with leak of spinal fluid -s/p oversew with Dr. Centeno Subjective: Patient complaining of shortness of breath this AM Objective: Vital Signs Temp Pulse Resp BP Pulse Ox 37.7 C 75 23 H 141/56 H 96 05/16/18 10:50 05/16/18 10:50 05/16/18 10:50 05/16/18 10:00 05/16/18 10:50 Microbiology 05/14/18 08:10 Gram Stain - Final Bronchial Washing - Bilateral Lobes Laboratory Results 05/16/18 10:00 05/16/18 05:00 05/15/18 05/16/18 05/17/18 05:59 05:59 05:59 Intake Total 1643 1807 793 Output Total 1660 1990 470 Balance -17 -183 323 PT 15.0 SEC (12.0-15.0) 05/14/18 04:15 INR 1.16 (0.83-1.16) 05/14/18 04:15 - Physical Exam Constitutional: chronically ill appearing, uncomfortable Eyes: PERRL Ears, Nose, Mouth, Throat: moist mucous membranes Cardiovascular: regular rate and rhythym Respiratory: no respiratory distress Gastrointestinal: normoactive bowel sounds Musculoskeletal: generalized weakness Neurologic: AAOx3 Psychiatric: interacting appropriately ICD10 Worksheet Patient Problems: Problems Problem Status Onset Encephalopathy Acute Myelopathy of cervical spinal cord with cervical radiculopathy Acute Acute exacerbation of congestive heart failure Acute CHF (congestive heart failure) Acute Diabetes Acute Elevated troponin Acute HTN (hypertension) Acute Hyperglycemia Acute NSTEMI (non-ST elevated myocardial infarction) Acute Orthostatic hypotension Acute Pneumonia Acute Respiratory failure with hypoxia Acute Upper respiratory tract infection Acute
[2018-05-16] MEDS ORDERED: ETOMIDATE 40 MG/20 ML INJ IV ONE (14:00)
[2018-05-16] MEDS ORDERED: MIDAZOLAM 2 MG/2 ML VIAL IVP ONE (14:00)
--- NOTE | 2018-05-16 14:29 | PDINTPN ---
Dough Catcher Progress Note Assessment/Plan: 62 yo M with cervical stenosis s/p C4-T2 c spine fusion on 04/29/18 complicated by postoperative weakness status post repeat posterior approach complicated by postoperative encephalopathy, quadraparesis and weakness and status post cardiac arrest due to hypoxemic respiratory failure from aspiration inability to protect airway 05/03/2018. Extubated but required re-intubation 05/16 * Acute respiratory failure with hypoxia and Aspiration PNA- he has had recurring episodes of mucous plugging with subsequent desaturation, usually resolved with NT sxn. However, over the last couple of days these have been happening with greater frequency and about 1300 today had one such episode but his sat was barely 90% despite vapotherm at 40/100 and 100% NRB. He has often denied dyspnea in these circumstances but today acknowledged it. He was emergently intubated (dictated separately) followed by bronchoscopy revealing copious thick mucous plugs in the JUSTINO and LLL. The right side took numerous passes to clear. His recurrent respiratory failure and inability to clear mucous plugs likely are the result of his spinal cord injury couple with presumed aspiration PNA as previously described. Given the recurrence of these events, I believe tracheostomy would be the obvious next choice for patient comfort, ease of secretion management and airway protection. Would consider asking ENT to perform this given his neck issues, but a bedside percutaneous tracheostomy would also be reasonable. * RAMANA on CKD III- previously resolved but hypoxia/hypotensive episode 05/14 may have been responsible for new increase creatinine. He was given IVF but his creatinine continued to rise. Renal re-consulted, suggesting he likely has a new baseline and appropriate labs are pending (appreciate their involvement). Sodium was also elevated so IVF changed to 1/2 NS * Anemia- His hgb preop was 10-13, which stayed stable through about 05/08. This was not rechecked until 05/12 when it was 7.8 but there was no evidence of bleeding or hemodynamic compromise and it was though to be related to dilution. This remained stable until 05/16 when it was found to be 6.8 (6.2 on recheck) on routine labs. He has had liquid stool through his rectal tube, no major procedures, and no evidence of bleeding. He remains on Pepcid and has been getting TF via his NGT (except last 48 hours). He was transfused 1 unit RBC today followed by frequent H/H. If he continues to fall, he may need EGD to further evaluate. Will change pepcid to PPI. * Quadriparesis following C4-T2 fusion. He moves all extremities and gets up to a chair occasionally, though has ongoing weakness. Strength improving per family and patient daily, more so in his RUE (right handed). Continues with OT/ PT. * Hypotension - resolved; though brief episode of MAP 60-65 after oversew of possible CSF leak in his neck on 05/15. He responded well to only 250 ml albumin x 1. No pressors needed and resolved quickly. * Encephalopathy. Improving. Non-con CT head negative 05/03/2018. Some difficulty with sleep; but improved with melatonin. No benzos. * NIXON. In the process of being evaluated as output. has old cpap broken but needs repeat sleep study prior to qualifying for insurance to approve. family wishes to buy on own prior to sleep study. I suggested getting sleep study once he is recovered from this injury. He has not required NIPPV during this admission for this issue * decubitus ulcer- stage II per RN. Wound care following, and rectal tube in place * Neurogenic bladder- urology consulted- isaac placed * Swallow dysfunction. Video eval with aspiration, so PEG planned but aborted due to hypoxic event. Should be able to proceed on wednesday 05/17. His T were held since his respiratory status has been tenuous over this weekend. Plan to resume after PEG. * Respiratory arrest -05/03/2018 (very brief CPR). Primary respiratory due to aspiration and inability to protect airway. Achieved ROSC quickly after securing airway and epi x2. No obvious deficit at the moment. * * critical care time total 75 minutes separate from procedures. Case reviewed in detail with family today and daily extensively with multiple bedside visits. (physical exam prior to intubation) 05/16/18 14:29 Subjective: recurring episodes of oxygen desaturation/mucous plugging Objective: Vital Signs Temp Pulse Resp BP Pulse Ox 37.7 C 75 23 H 141/56 H 96 05/16/18 10:50 05/16/18 10:50 05/16/18 10:50 05/16/18 10:00 05/16/18 10:50 Microbiology 05/14/18 08:10 Gram Stain - Final Bronchial Washing - Bilateral Lobes Laboratory Results 05/16/18 10:00 05/16/18 05:00 05/15/18 05/16/18 05/17/18 05:59 05:59 05:59 Intake Total 1643 1807 892.7 Output Total 1660 1989 470 Balance -17 -183 422.7 PT 15.0 SEC (12.0-15.0) 05/14/18 04:15 INR 1.16 (0.83-1.16) 05/14/18 04:15 Physical Exam - Physical Exam General Appearance: alert, no apparent distress EENT: PERRL/EOMI, other (NG tube), No scleral icterus (R), No scleral icterus (L ), No EOM palsy, No rhinorrhea Neck: limited range of motion, other (hard collar), No lymphadenopathy (R), No lymphadenopathy (L) Respiratory: normal breath sounds, decreased breath sounds, rhonchi (mild right sided), No respiratory distress, No accessory muscle use Cardiac/Chest: regular rate, rhythm, edema, No JVD, No tachycardia Abdomen: non-tender, soft, No organomegaly, No distended, No guarding, No rebound Skin: normal color, warm/dry, decubitus (per RN), No cyanosis, No rash Lymphatic: no adenopathy Extremities: normal inspection, pedal edema Neuro/Psych: alert, normal mood/affect, motor weakness, cognition abnormalities , No abnormal practice managers II-XII, No depressed affect ICD10 Worksheet Patient Problems: Problems Problem Status Onset Encephalopathy Acute Myelopathy of cervical spinal cord with cervical radiculopathy Acute Acute exacerbation of congestive heart failure Acute CHF (congestive heart failure) Acute Diabetes Acute Elevated troponin Acute HTN (hypertension) Acute Hyperglycemia Acute NSTEMI (non-ST elevated myocardial infarction) Acute Orthostatic hypotension Acute Pneumonia Acute Respiratory failure with hypoxia Acute Upper respiratory tract infection Acute
[2018-05-16] MEDS: PANTOPRAZOLE SODIUM 40 MG VIAL IVP SCH (15:23)
--- NOTE | 2018-05-16 21:55 | GPN ---
[f rep st] PROCEDURE NOTE PROCEDURE: Bronchoscopy. INDICATION: Recent intubation and hypoxemia. CONSENT: Informed consent was waived due to the emergent nature of the procedure, though the details were discussed with the family prior to the procedure. FINDINGS: The bronchoscope was passed through the existing endotracheal tube, which was placed at ap proximately 5 cm above the main tony. There were thick copious secretions in the right mainstem br onchus that required multiple passes to remove. This extended into the right upper lobe as well as i nto the right middle and right lower lobes. Extensive washings were required to eliminate most, if n ot all, these secretions. The tony itself was sharp, and the mucosa was without erythema. The lef t side had far less mucus, though there were plugs seen in the lingula as well as in the lower segmen ts. Again, washings were required but far less than the right side. Overall, patient tolerated the procedure well without hemodynamic or hypoxic compromise. /[id number]/MODL
--- NOTE | 2018-05-16 21:55 | GPN ---
[f rep st] PROCEDURE NOTE DATE OF PROCEDURE: 05/16/2018 PROCEDURE: Emergent intubation. INDICATION: Oxygen desaturation. Consent was waived due to the emergent nature of the procedure, though the details were discussed wit h the patient as well as his family prior to the administration of any anesthesia. DESCRIPTION OF PROCEDURE: Conscious sedation was achieved using a total of 2 mg of IV Versed and 40 mg of IV etomidate. The patient tolerated these well without complication. An 8.0 endotracheal tube was easily passed under direct visualization using a GlideScope. There were scant secretions in the posterior pharynx, but the vocal cords appeared to be moving normally. The oxygen saturation was at 100% prior to the procedure. He briefly over a couple of seconds had a saturation in the 50s. Pull ing back on the endotracheal tube fixed that problem right away. A separate procedure was a bronchos copy following that. Overall, the patient tolerated the intubation without complication including hy potension. /[id number]/MODL
[2018-05-17] MEDS: PROPOFOL/EMULSION 100 ML IV SCH ×3 (00:24→12:11)
[2018-05-17] MEDS: INSULIN REGULAR HUMAN 100 UNIT/ML UNIT SC SCH ×5 (00:24→20:55)
[2018-05-17] MEDS: PIPERACILLIN/TAZO 4.5 GM/DEX 100 ML IV SCH ×3 (00:24→12:10)
[2018-05-17] MEDS: ALBUTEROL 3 ML DEYVIAL IH SCH ×3 (05:11→16:29)
[2018-05-17] MEDS: ACETYLCYSTEINE 10% IH/PO 4 ML VIAL IH SCH ×3 (05:11→16:29)
--- NOTE | 2018-05-17 07:20 | NEUSURGPN ---
Date of Surgery: 04/29/18 Post Op Day: 18 Assessment/Plan: Assessment: 62 y/o male that is s/p anterior C4-C7 fusion and and PCF/ decompression C4-T2 on 04/29/18 and 04/30/[address] Stock with postop quadraparesis that is slowly improving. He has more pressing issues now with pulmonary problems. Pt also with post operative respiratory arrest d/t inability to protect airway, NIXON and was intubated. Pt with Aspiration PNA treated by CC team. Intubated x 3-now intubated again -Post operative MRI and CT on 05/05 reviewed by A physicians and feel no further surgery indicated, pressure support of MAP>85 started POD #6 after NS consultation we are now at normalized MAPs-tolerating well -MRI of the L spine and T spine reviewed that shows a small disc bulge and DDD in the T spine. L4/5 shows stenosis as well. No surgical lesion in the T and L spine that needs to be addressed at this time -MRI Brain with 3 small foci of ischemia and small bilateral SDH -Neuro/motor exam improving daily prior to reintubation Plan: -MAPs >85 through initial weekend. We relaxed the MAPs and he is still improving-Dr Centeno discussed with family at the time. If his exam worsens we will increase the MAPs again. At this point we will follow his exam which has improved -continue [place] CCollar at all times-CDI. Dressings removed already. No skin issues noted. CDI to anterior and posterior incision. [place] removed by Dr Centeno then this had to be oversewn due to clear fluid leaking-continues to be dry this am -SCI precautions, frequent weight shifting and skin care -monitor posterior incision in particular-continues to look fine without s/s of infection -no further imaging at this time -PT/OT-CPM -pt to get PEG and Trach today -DVT ppx, TEDs, SCD's, Heparin q8. -Neurology signed off-they following findings on MRI Brain, no intervention required from NS standpoint. OK for daily ASA if necessary -Nephrology following RAMANA -Medicine following chronic illnesses and continued fevers -pt has urine retention-isaac placed at recommendation of Urology -call with any questions or concerns -family updated as well -pt seen and examined by Dr Centeno as well this am Subjective: Awake to verbal. Follows commands. Chart reviewed. Family updated. Objective: NAD , Alert and appropriate C-Collar in place-no skin issues Incisions intact-dry to anterior and posterior neck (no induration, discharge, sutures intact) antigravity BUE: sedated-patent drafter bilateral 4/5, SOCO x 4. Wiggles toes will check exam with sedation vacations Neuro Check Frequency: per ordered Urinary Catheter in Place: Yes Urinary Catheter Indication: Other (Use Comment) (urine retention/intubated and sedated) Catheter Insertion Date: 05/11/18 - Physician Discussed Patient with DrJerome: Jacobo Patient Seen by : Jacobo Neurosurgery Physical Exam - Vitals, I&O, Labs I and O 05/16/18 05/17/18 05/18/18 05:59 05:59 05:59 Intake Total 1807 4032.7 Output Total 1989 1795 Balance -183 2237.7 Intake: IV Intake (ml) 542 IV Infused (ml) 1265 3332.7 1/2 Ns 1,000 ml @ 125 mls 2771.7 /hr IV CONT YAZMIN Rx#: [id number] Ns 1,000 ml @ 75 mls/hr 1265 297 IV CONT YAZMIN Rx#: [id number] Propofol/Emulsion 100 ml 264 @ Titrate IV CONT YAZMIN Rx# :[id number] Tube Flush (ml) 100 Packed Red Blood Cells ( 600 ml) Output: Urine (ml) 1190 1695 Catheter 1190 1695 Liquid Stool (ml) 800 100 Catheter 300 Incontinence 500 100 Other: Number of Stools Incontinence 50 Microbiology 05/14/18 08:10 Gram Stain - Final Bronchial Washing - Bilateral Lobes Vital Signs Temp Pulse Resp BP Pulse Ox 38.3 C 76 20 175/67 H 95 05/17/18 04:00 05/17/18 06:00 05/17/18 06:00 05/17/18 06:00 05/17/18 06:00 Laboratory Results 05/17/18 04:10 05/17/18 04:10 ICD10 Worksheet Patient Problems: Problems Problem Status Onset Encephalopathy Acute Myelopathy of cervical spinal cord with cervical radiculopathy Acute Acute exacerbation of congestive heart failure Acute CHF (congestive heart failure) Acute Diabetes Acute Elevated troponin Acute HTN (hypertension) Acute Hyperglycemia Acute NSTEMI (non-ST elevated myocardial infarction) Acute Orthostatic hypotension Acute Pneumonia Acute Respiratory failure with hypoxia Acute Upper respiratory tract infection Acute
[2018-05-17] MEDS: 1/2 NS 1,000 ML IV SCH (08:00)
[2018-05-17 08:58] LABS: INR 1.39 (0.83-1.16); PROTIME(PATIENT) 17.2 SEC (12.0-15.0)
[2018-05-17] MEDS ORDERED: LIDOCAINE 1% 300 MG/30 ML SDV ONE ×2 (09:48→15:06)
[2018-05-17] MEDS ORDERED: IOPAMIDOL (ISOVUE-300) 100 ML BTL ONE (09:48)
[2018-05-17] MEDS: INSULIN GLARGINE 100 UNITS/ML UNIT SC SCH ×2 (10:07→20:55)
[2018-05-17] MEDS ORDERED: fentaNYL 100 MCG/2 ML INJ ONE (10:17)
[2018-05-17] MEDS ORDERED: ROCURONIUM 50 MG/5 ML VIAL ONE (10:17)
[2018-05-17] MEDS ORDERED: GLUCAGON HCL 1 MG VIAL IV ONE (10:30)
[2018-05-17] MEDS ORDERED: GLUCAGON HCL 1 MG VIAL ONE (10:32)
[2018-05-17] MEDS ORDERED: MINERAL OIL 10 ML VIAL ONE (10:49)
--- NOTE | 2018-05-17 11:04 | PDRADPN ---
Radiology Procedure Note Date of Procedure: 05/17/18 Radiologist: Brandon Andres Anesthesia: GET(General Endotracheal) Pre-op Diagnosis: dysphagia Post-op Diagnosis: same Procedure: perc G tube Inf/Abcess present in the surg proc area at time of surgery?: No
[2018-05-17] MEDS: PANTOPRAZOLE SODIUM 40 MG VIAL IVP SCH (11:22)
--- NOTE | 2018-05-17 13:40 | PDINTPN ---
Dental Laboratory Technician Progress Note Assessment/Plan: Assessment: 62 yo M with cervical stenosis s/p C4-T2 c spine fusion on 04/29/18 complicated by postoperative weakness status post repeat posterior approach complicated by postoperative encephalopathy, quadraparesis and weakness and status post cardiac arrest due to hypoxemic respiratory failure from aspiration inability to protect airway 05/03/2018. Extubated but required re-intubation 05/16 * Acute respiratory failure with hypoxia and Aspiration PNA- he has had recurring episodes of mucous plugging with subsequent desaturation, usually resolved with NT sxn. However, over the last couple of days these have been happening with greater frequency yesterday he had hypoxemia despite high-flow oxygen. He was emergently intubated followed by bronchoscopy revealing copious thick mucous plugs in the JUSTINO and LLL. The right side took numerous passes to clear. His recurrent respiratory failure and inability to clear mucous plugs likely are the result of his spinal cord injury couple with presumed aspiration PNA as previously described. It is unclear to me whether he has significant respiratory muscle/diaphragm weakness/paralysis as result of his spinal cord injury. Given the recurrence of these events, I believe tracheostomy would be the obvious next choice for patient comfort, ease of secretion management and airway protection. * RAMANA on CKD III- previously resolved but hypoxia/hypotensive episode 05/14 may have been responsible for new increase creatinine. He also developed hypernatremia. He was given IVF but his creatinine continued to rise. Renal re- consulted, recommended hypertonic IV fluids and indicated that his new baseline creatinine may be lower than his prior baseline creatinine due to the loss of muscle mass/turnover. * Anemia- His hgb preop was 10-13, which stayed stable through about 05/08. This was not rechecked until 05/12 when it was 7.8 but there was no evidence of bleeding or hemodynamic compromise and it was though to be related to dilution. This remained stable until 05/16 when it was found to be 6.8 (6.2 on recheck) on routine labs. He has had liquid stool through his rectal tube, no major procedures, and no evidence of bleeding. He remains on Pepcid and has been getting TF via his NGT (except last 48 hours). He was transfused 2 unit RBC today followed by frequent H/H. His H/H aly appropriately and has remained stable. If he continues to fall, he may need EGD to further evaluate. Have changed pepcid to PPI. He may benefit from erythropoietin or similar given the renal insufficiency and anemia. * Quadriparesis following C4-T2 fusion. He moves all extremities and gets up to a chair occasionally, though has ongoing weakness. Strength improving per family and patient daily, more so in his RUE (right handed). Continues with OT/ PT. * Hypotension - resolved; though brief episode of MAP 60-65 after oversew of possible CSF leak in his neck on 05/15. He responded well to only 250 ml albumin x 1. No pressors needed and resolved quickly. * Encephalopathy. Improving. Non-con CT head negative 05/03/2018. Some difficulty with sleep; but improved with melatonin. No benzos. * NIXON. In the process of being evaluated as output. has old cpap broken but needs repeat sleep study prior to qualifying for insurance to approve. family wishes to buy on own prior to sleep study. I suggested getting sleep study once he is recovered from this injury. He has not required NIPPV during this admission for this issue * decubitus ulcer- stage II per RN. Wound care following, and rectal tube in place. * Neurogenic bladder- urology consulted- isaac placed * Swallow dysfunction. Video eval with aspiration, so PEG placed today. * Respiratory arrest -05/03/2018 (very brief CPR). Primary respiratory due to aspiration and inability to protect airway. Achieved ROSC quickly after securing airway and epi x2. No obvious deficit at the moment. Plan: Bronchoscopy today to clear secretions. I have asked Dr. Villatoro from ENT to evaluate the patient for tracheostomy, and he is going to have a discussion with Dr. Centeno regarding any restrictions regarding neck mobility prior to proceeding, hopefully this week. Had a discussion with multiple family members, case management, telephone maintenance mechanic, and Dr. Robles regarding the patient's current status and her anticipated course, including disposition. IV fluids per Nephrology. I will also ask them to address whether he is a candidate for erythropoietin or similar. Will also address them to address tube feed formula, as the patient is currently on Nepro which is protein restricted but we would like to optimize wound healing. Follow-up H/H. Consider GI consultation for endoscopy if his hemoglobin continues to fall. Continue Zosyn for now Will review with wound care nurse to better understand anticipated time course which may play a role in determining if the patient will go to an LTAC or directly to a rehab facility once other medical issues have stabilized. Follow CXR 65 min critical care time exclusive of procedure, managing respiratory failure 05/17/18 13:50 05/17/18 13:59 Subjective: Intubated, sedated Objective: Vital Signs Temp Pulse Resp BP Pulse Ox 38.0 C 80 23 H 164/60 H 97 05/17/18 13:00 05/17/18 13:00 05/17/18 13:00 05/17/18 13:00 05/17/18 13:00 Microbiology 05/14/18 08:10 Gram Stain - Final Bronchial Washing - Bilateral Lobes Bronchial Culture - Final Staphylococcus Aureus Laboratory Results 05/17/18 12:10 05/17/18 04:10 05/16/18 05/17/18 05/18/18 05:59 05:59 05:59 Intake Total 1807 4032.7 Output Total 1990 1795 300 Balance -183 2237.7 -300 PT 17.2 SEC (12.0-15.0) H 05/17/18 08:35 INR 1.39 (0.83-1.16) H 05/17/18 08:35 CXR 05/16: Increased right>left densities. Images reviewed by me. Physical Exam - Physical Exam General Appearance: unresponsive, No alert EENT: normal ENT inspection Neck: normal inspection Respiratory: chest non-tender, lungs clear Cardiac/Chest: regular rate, rhythm, No edema Abdomen: normal bowel sounds, non-tender Skin: normal color, warm/dry Extremities: normal inspection Neuro/Psych: alert, normal mood/affect, oriented x 3 ICD10 Worksheet Patient Problems: Problems Problem Status Onset Encephalopathy Acute Myelopathy of cervical spinal cord with cervical radiculopathy Acute Acute exacerbation of congestive heart failure Acute CHF (congestive heart failure) Acute Diabetes Acute Elevated troponin Acute HTN (hypertension) Acute Hyperglycemia Acute NSTEMI (non-ST elevated myocardial infarction) Acute Orthostatic hypotension Acute Pneumonia Acute Respiratory failure with hypoxia Acute Upper respiratory tract infection Acute
--- NOTE | 2018-05-17 14:04 | HOSPPROG ---
Hospitalist Progress Note Assessment/Plan: * Cervical spinal stenosis s/p fusion/decompression * Post-op quadriparesis -still massive secretions due to chest wall weakness -[place]ezi collar * Acute respiratory failure - s/p respiratory arrest, brief cardiac arrest -due to mucus plug/aspiration, s/p repeat bronch on 05/[address] Suarez -Reintubated yesterday with bronchoscopy performed after with massive secretions found -ENT consulted by critical care for tracheostomy * RAMANA - Cr increased to 1.9 on 05/16, 1.1 for few days prior, 2.0 on admission - Nephrology consulted, likely mild non oliguric ATN, still having good UO with isaac, recommending continuing IVF - Continue to monitor BMP, I/O, avoid nephrotoxic agents *Hypernatremia - Na 150 this AM, 147 yesterday - Likely combination of free water losses, osmotic diuresis (hyperglycemia) - IVF have been changed per Nephrology to a hypotonic formulation - PEG tube placement today, should improve with FWF - Continue to monitor *Anemia - Hgb decreased to 6.8 on 05/16, repeat 6.2 - No gross bleeding has been noted - Hgb 7.7 for past few days - S/p 2 units PRBC yesterday, Hgb stable since - Switching from IV Pepcid to IV PPI - May require EGD if H/H continues to decline however stool occult blood is negative - Closely monitor H/H, transfuse <7/20 *DM -Lantus was increased 24 units BID, hold for now until tube feeds started * Severe sepsis due to aspiration pneumonia -fever/tachycardia with worsening encephalopathy and resp status today -back on IV Vanco/IV Zosyn -cultures pending * Metabolic encephalopathy -continues with waxing and waning mental status * Embolic CVA - tiny -ASA * HTN -holding meds - MAP >70 per neurosurgery * Dysphagia -failed VFSS -attempted PEG on 05/14 but patient too critically ill -Plan for PEG placement today * Neurogenic bladder -replaced isaac - follow-up with urology -depending on spinal recovery - may need eventual supra-pubic cath * NIXON -no current CPAP -needs repeat sleep study * Chronic systolic CHF - EF now 50% * CAD/stent * Hyperkalemia -S/p Kayexalate, K 3.8 this AM -cortisol level okay * Diarrhea -C diff negative * Sacral wound - per wound care - it has worsened -[facility] will not accept with any open decub -may need LTAC rather than [facility] depending on resp/wound status * Wound dehiscence with leak of spinal fluid -s/p oversew with Dr. Centeno Subjective: Patient intubated and sedated this AM Objective: Vital Signs Temp Pulse Resp BP Pulse Ox 38.0 C 80 23 H 164/60 H 97 05/17/18 13:00 05/17/18 13:00 05/17/18 13:00 05/17/18 13:00 05/17/18 13:00 Microbiology 05/14/18 08:10 Gram Stain - Final Bronchial Washing - Bilateral Lobes Bronchial Culture - Final Staphylococcus Aureus Laboratory Results 05/17/18 12:10 05/17/18 04:10 05/16/18 05/17/18 05/18/18 05:59 05:59 05:59 Intake Total 1807 4032.7 Output Total 1989 1795 300 Balance -183 2237.7 -300 PT 17.2 SEC (12.0-15.0) H 05/17/18 08:35 INR 1.39 (0.83-1.16) H 05/17/18 08:35 - Physical Exam Constitutional: chronically ill appearing Eyes: PERRL Ears, Nose, Mouth, Throat: other (ETT in place) Cardiovascular: regular rate and rhythym Respiratory: other (mechanical breath sounds ) Gastrointestinal: soft, non-tender abdomen Skin: warm Musculoskeletal: generalized weakness Neurologic: No AAOx3 Psychiatric: No interacting appropriately ICD10 Worksheet Patient Problems: Problems Problem Status Onset Encephalopathy Acute Myelopathy of cervical spinal cord with cervical radiculopathy Acute Acute exacerbation of congestive heart failure Acute CHF (congestive heart failure) Acute Diabetes Acute Elevated troponin Acute HTN (hypertension) Acute Hyperglycemia Acute NSTEMI (non-ST elevated myocardial infarction) Acute Orthostatic hypotension Acute Pneumonia Acute Respiratory failure with hypoxia Acute Upper respiratory tract infection Acute
[2018-05-17] MEDS ORDERED: INSULIN REGULAR HUMAN 100 UNIT/ML UNIT SC SCH (14:30)
--- NOTE | 2018-05-17 14:44 | WOCRNPDOC ---
WOCRN Advanced Assessment Note - Skin Integrity Problem, Advanced Assess Coccyx Pressure Injury Dressing Type: Mepilex Border Dressing Description: Clean/Dry, Intact Exudate Amount: Scant Exudate Characteristic(s): Serosanguinous Integumentary Issue Intervention: Dressing Changed, Dressing Initialed & Dated Pili Wound Tissue: Xerotic, Calloused, Hyperkeratotic Wound Bed Constitution: Red/Yancey - Non Granular Tissue (100%) Site Measurement - Head-to-Toe Length X Width X Depth (cm): 4.8x6.4x0.2 Pressure Injury Stage: Deep Tissue Injury (DTI) Pressure Injury Present on Admit: No Skin Integrity Problem Comment: Wound flushed and cleaned with ns and gauze. Skin prep applied pili wound. Wound gel to any open areas then covered with Mepilex Border dressing. Wound has greatly improved since the stool is no longer sitting on the patient's skin. Wound edges/tops of previous blisters have all come off/deroofed and mechanically debrided. A small area of dark DTPI remains at 2 oclock (approx 1x1) therefore wound will continue to be staged as a DTPI. Remainder of wound is 90% partial thickness with a small full thickness opening around 8 oclock measuring 0.5x0.5x0.2. Dr. Cazares visualized wound. Wound care will follow. If respiratory status improves and the HOB can be kept below 30 degress then Envella air fluidized surface is still recommended. Sitting restrictions as follows: patient can be up in chair for a maximum of 1 hour 3 times per day; must sit on offloading cushion. Side to side turns at all times when supine. Patient's was in room and all questions answered. Sophie Colon Sadie RN's in room for care.
[2018-05-17] MEDS ORDERED: LIDOCAINE 1% 300 MG/30 ML SDV MISC ONE (15:05)
--- NOTE | 2018-05-17 15:54 | SOAPPROG ---
SOAP Progress Note Assessment/Plan: Assessment: 1. crf: this is about his typical b/l, his creat has actually been >2 when diuresed. 2. HyperNa: stable/mild. Will change ivf to D5W at 75ml/hr to slightly increase free water delivery and minimize Na delivery. 3. Overload: change ivf as above. 4. anemia: will give a dose of epo, would check iron if not already done. 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 5. c-spine injury: appears to be making some progress. For rehab. Plan: 05/17/18 15:51 Subjective: s/p bronch earlier today. Waking up. Hemodynamically stable. Objective: Vital Signs Temp Pulse Resp BP Pulse Ox 38.3 C 78 25 H 168/66 H 100 05/17/18 15:10 05/17/18 15:10 05/17/18 15:10 05/17/18 15:10 05/17/18 15:10 Microbiology 05/14/18 08:10 Gram Stain - Final Bronchial Washing - Bilateral Lobes Bronchial Culture - Final Staphylococcus Aureus Laboratory Results 05/17/18 12:10 05/17/18 04:10 05/16/18 05/17/18 05/18/18 05:59 05:59 05:59 Intake Total 180 4032.7 143 Output Total 1989 1795 900 Balance -183 2237.7 -757 PT 17.2 SEC (12.0-15.0) H 05/17/18 08:35 INR 1.39 (0.83-1.16) H 05/17/18 08:35 Physical Exam - Physical Exam General Appearance: other (awake, responsive) Respiratory: other (coarse anteriorly) Cardiac/Chest: regular rate, rhythm Abdomen: soft Extremities: other (+dependent edema) ICD10 Worksheet Patient Problems: Problems Problem Status Onset Encephalopathy Acute Myelopathy of cervical spinal cord with cervical radiculopathy Acute Acute exacerbation of congestive heart failure Acute CHF (congestive heart failure) Acute Diabetes Acute Elevated troponin Acute HTN (hypertension) Acute Hyperglycemia Acute NSTEMI (non-ST elevated myocardial infarction) Acute Orthostatic hypotension Acute Pneumonia Acute Respiratory failure with hypoxia Acute Upper respiratory tract infection Acute
[2018-05-17] MEDS ORDERED: EPOETIN ALFA 10,000 UNIT/ML VIAL SC ONE (15:56)
[2018-05-17] MEDS: DEXMEDETOMIDINE HCL 400 MCG in NS 100 ML IV SCH ×2 (16:01→20:19)
[2018-05-17] MEDS: D5W 1,000 ML IV SCH (16:02)
--- NOTE | 2018-05-17 16:10 | ASMTCMCOM ---
CM Note CM Note Notes: CM spoke with Robert from [facility] who reports they cannot take pt if he has a wound and requested updates about wound, CM to submit updates. Family meeting was held today at noon to discuss pt's care with pt's family and care team including Dr. Cazares, Shaka Yusuf, Adrianne Juares, KESHA, Sports Leadership Instructor, Krystin from [facility] and pt's and various family members. Dr Cazares provided detailed responses to family's questions. See note from [facility] for more detailed information about family meeting. Family is advocating that pt remain at [facility] for as long as possible and was willing to consider [facility]. CM provided with contact information after the meeting and pt's family went to visit the facility today. CM to follow. Next Steps[facility] pending family choice. Detention Plan: [facility] Date Signed: 05/17/2018 04:09 PM Electronically Signed By:CAROLINE Hughes
[2018-05-17] MEDS: PIPERACILLIN/TAZO 3.375 GM/DEX 50 ML IV SCH (17:43)
[2018-05-17] MEDS ORDERED: ACETAMINOPHEN 650 MG/20.3 ML UDCUP TUBE ONE (18:45)
[2018-05-17] MEDS: hydrALAZINE 20 MG/ML VIAL IVP PRN (23:15)
[2018-05-18] MEDS: PIPERACILLIN/TAZO 3.375 GM/DEX 50 ML IV SCH ×4 (00:04→21:22)
[2018-05-18] MEDS: INSULIN REGULAR HUMAN 100 UNIT/ML UNIT SC SCH ×6 (00:18→21:46)
[2018-05-18] MEDS: DEXMEDETOMIDINE HCL 400 MCG in NS 100 ML IV SCH ×2 (00:19→13:07)
[2018-05-18] MEDS: ALBUTEROL 3 ML DEYVIAL IH SCH ×4 (00:25→18:11)
[2018-05-18] MEDS: ACETYLCYSTEINE 10% IH/PO 4 ML VIAL IH SCH ×4 (00:25→18:11)
--- NOTE | 2018-05-18 03:08 | GPN ---
[f rep st] PROCEDURE NOTE DATE OF PROCEDURE: 05/17/2018 PROCEDURE: Flexible fiberoptic bronchoscopy. REASON FOR PROCEDURE: Respiratory failure with retained secretions. PROCEDURE NOTE: The risks and benefits of the procedure were explained to the patient's , who ag stevo to proceed. The entire procedure was performed in the intensive care unit with the patient unde r blood pressure, EKG and oximetry monitoring. It was my assessment that there was no risk of airbor ne infection from the procedure. After an appropriate time-out, 3 cc of 1% lidocaine was instilled i nto the patient's endotracheal tube. The bronchoscope was advanced through the endotracheal tube int o the main trachea. I encountered purulent secretions in the proximal mainstem bronchus. These were suctioned. The remainder of the bronchus intermedius was clear secretions, but there were occlusive secretions in the right upper lobe and right lower lobe, with nonocclusive secretions in the middle lobe. These were all suctioned and lavaged until clear. I turned to the left-sided airways, where I encountered purulent secretions occluding several lower lobe bronchi. These were easily suctioned a nd lavaged. I then returned to the right-sided airways, where some more suctioning was done until al l airways were clear. The patient tolerated the procedure well, with good oxygen saturations through out. No specimens were sent. Propofol 3 cc was used for sedation. /[id number]/MODL
[2018-05-18] MEDS: D5W 1,000 ML IV SCH (05:14)
[2018-05-18] MEDS: hydrALAZINE 20 MG/ML VIAL IVP PRN ×3 (05:17→17:06)
--- NOTE | 2018-05-18 07:20 | NEUSURGPN ---
Date of Surgery: 04/29/18 Post Op Day: 19 Assessment/Plan: Assessment: 62 y/o male that is s/p anterior C4-C7 fusion and and PCF/ decompression C4-T2 on 04/29/18 and 04/30/[address] Stock with postop quadraparesis that is slowly improving. He has more pressing issues now with pulmonary problems. Pt also with post operative respiratory arrest d/t inability to protect airway, NIXON and was intubated. Pt with Aspiration PNA treated by CC team. Intubated x 3-now intubated again -Post operative MRI and CT on 05/05 reviewed by A physicians and feel no further surgery indicated, pressure support of MAP>85 started POD #6 after NS consultation we are now at normalized MAPs-tolerating well -MRI of the L spine and T spine reviewed that shows a small disc bulge and DDD in the T spine. L4/5 shows stenosis as well. No surgical lesion in the T and L spine that needs to be addressed at this time -MRI Brain with 3 small foci of ischemia and small bilateral SDH -Neuro/motor exam improving daily prior to reintubation Plan: -MAPs >85 through initial weekend. We relaxed the MAPs and he is still improving-Dr Centeno discussed with family. If his exam worsens we will increase the MAPs again. At this point we will follow his exam which continues to improve -continue [place] CCollar at all times-CDI. Dressings removed already. No skin issues noted. CDI to anterior and posterior incision. [place] removed by Dr Centeno then this had to be oversewn due to clear fluid leaking-continues to be dry this am -continue with SCI precautions, frequent weight shifting and skin care -monitor posterior incision in particular-continues to look fine without s/s of infection -pt with high temps now, pt with elevated BP-defer to critical care-Dr Centeno will speak to Dr Cazares about plan -no further imaging at this time -PT/OT-CPM -pt to get Trach today -PEG placed -DVT ppx, TEDs, SCD's, Heparin q8. -Neurology signed off-they following findings on MRI Brain, no intervention required from NS standpoint. OK for daily ASA if necessary -Nephrology following kidney issues -Medicine following chronic illnesses and continued fevers -pt has urine retention-isaac placed at recommendation of Urology -call with any questions or concerns -family updated as well -pt seen and examined by Dr Centeno as well this am Subjective: Awake and alert. NAD. No new events overnight. Pt with continued high temps/ BP Objective: NAD, AAO cnii-xii grossly intact no facial droop CCollar in place-no skin issues Incisions intact-dry to anterior and posterior neck antigravity BUE: deltoid, tri (right 5/5, left 3/5), bicep 5/5 bilat, wrists/ delivery crew member 3/5 except: WE 2/5. Pts continues to move more controlled than before BLE: HF, HE, KF, KE 4-/5, DF/PF at 3/5, EHL 2/5 less movement distally than UE but small improvements SILT intact sharp vs dull decreased to BLE Neuro Check Frequency: per routine Urinary Catheter in Place: Yes Urinary Catheter Indication: Other (Use Comment) (intubated, urine retention/ spinal cord injury) Catheter Insertion Date: 05/11/18 - Physician Discussed Patient with : Jacobo Patient Seen by : Jacobo Neurosurgery Physical Exam - Vitals, I&O, Labs I and O 05/17/18 05/18/18 05/19/18 05:59 05:59 05:59 Intake Total 4032.7 2558.2 Output Total 1795 2883 Balance 2237.7 -324.8 Weight 102.9 kg Intake: IV Infused (ml) 3332.7 2528.2 1/2 Ns 1,000 ml @ 125 mls 2771.7 1123 /hr IV CONT YAZMIN Rx#: [id number] D5w 1,000 ml @ 75 mls/hr 1040 IV CONT YAZMIN Rx#: [id number] Dexmedetomidine HCl 400 222.2 mcg In Ns 100 ml @ Titrate IV CONT YAZMIN Rx#: [id number] Ns 1,000 ml @ 75 mls/hr 297 IV CONT YAZMIN Rx#: [id number] Propofol/Emulsion 100 ml 264 143 @ Titrate IV CONT YAZMIN Rx# :[id number] Tube Flush (ml) 100 30 Packed Red Blood Cells ( 600 ml) Output: Urine (ml) 1695 2505 Catheter 1695 2135 Incontinence 370 Liquid Stool (ml) 100 150 Catheter 25 Incontinence 100 125 NG Tube Output (ml) 0 Small Bore (5-12 Ghanaian) 0 Weighted Stomach PEG Tube Output (ml) 228 Large Bore (>12 Ghanaian) 228 Non-weighted Stomach 20 Ghanaian Other: Number of Stools Incontinence 50 Microbiology 05/14/18 08:10 Gram Stain - Final Bronchial Washing - Bilateral Lobes Bronchial Culture - Final Staphylococcus Aureus Vital Signs Temp Pulse Resp BP Pulse Ox 37.5 C 62 20 197/78 H 94 05/18/18 06:00 05/18/18 06:00 05/18/18 06:00 05/18/18 06:00 05/18/18 06:00 Laboratory Results 05/17/18 12:10 05/18/18 04:26 ICD10 Worksheet Patient Problems: Problems Problem Status Onset Encephalopathy Acute Myelopathy of cervical spinal cord with cervical radiculopathy Acute Acute exacerbation of congestive heart failure Acute CHF (congestive heart failure) Acute Diabetes Acute Elevated troponin Acute HTN (hypertension) Acute Hyperglycemia Acute NSTEMI (non-ST elevated myocardial infarction) Acute Orthostatic hypotension Acute Pneumonia Acute Respiratory failure with hypoxia Acute Upper respiratory tract infection Acute
--- NOTE | 2018-05-18 08:32 | PDANEPAE ---
ANE History of Present Illness PEG ANE Past Medical History - Cardiovascular History Hx Hypertension: Yes Hx Arrhythmias: No Hx Chest Pain: No Hx Coronary Artery / Peripheral Vascular Disease: Yes Hx CHF / Valvular Disease: Yes Hx Palpitations: No Cardiovascular History Comment: htn. hyperlipidemia. cad with stent. chf. pvd. hx of mi. being followed by [facility] - Pulmonary History Hx COPD: No Hx Asthma/Reactive Airway Disease: No Hx Recent Upper Respiratory Infection: No Hx Oxygen in Use at Home: Yes O2 in Use at Home (L/minute): 2l at noc Hx Sleep Apnea: Yes Sleep Apnea Screening Result - Last Documented: Positive Pulmonary History Comment: peggy positive just using o2 currently no cpap - Neurologic History Hx Cerebrovascular Accident: No Hx Seizures: Yes Hx Dementia: No Neurologic History Comment: possible diabetic seizure about 15 yrs ago per pt report - Endocrine History Hx Diabetes: Yes Hypothyroid: No Hyperthyroid: No Obesity: mild Endocrine History Comment: type 2 - Renal History Hx Renal Disorders: Yes Renal History Comment: CRI being followed by 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 right acl reconstruction. basal cell removed. orchiectomy at age 23 ANE Review of Systems Review of Systems: - Exercise capacity METS (RN): 4 METS ANE Patient History - Allergies Allergies/Adverse Reactions: lorazepam Allergy (Verified 05/12/18 18:25) - Home Medications Home Medications: Insulin Detemir [Levemir Flextouch] 20 unit SC BID 01/11/16 [Last Taken 04/28/18 ] Insulin Lispro [Humalog Kwikpen U-100] 5 - 10 unit SC TIDMEAL 01/11/16 [Last Taken 2 Days Ago ~04/27/18] metFORMIN HCL [Glucophage 500 mg (*)] 500 mg PO DAILY 01/11/16 [Last Taken 04/27] Carvedilol [Coreg (*)] 25 mg PO BIDMEAL 09/01/16 [Last Taken 04/28/18] metFORMIN HCL [Glucophage 1000 mg] 1,000 mg PO HS 09/01/16 [Last Taken 04/27/18] Atorvastatin Calcium [Lipitor 40 mg (*)] 40 mg PO HS 12/25/16 [Last Taken ] amLODIPine BESYLATE [Norvasc 5 mg (*)] 5 mg PO DAILY 12/25/16 [Last Taken ] Aspirin [Aspirin 81mg (*)] 81 mg PO DAILY 01/24/18 [Last Taken 04/28/18] Hydralazine HCl 75 mg PO TID 01/24/18 [Last Taken 04/29/18] Isosorbide Mononitrate [Imdur 30 mg (*)] 30 mg PO DAILY 01/24/18 [Last Taken 10/08] Torsemide [Demadex] 60 mg PO BID 04/22/18 [Last Taken 2 Days Ago ~04/27/18] - NPO status NPO Since - Liquids (Date): 04/29/18 NPO Since - Liquids (Time): 06:15 NPO Since - Solids (Date): 04/29/18 NPO Since - Solids (Time): 06:15 - Smoking Hx Smoking Status: Never smoked - Family Anes Hx Family Hx Anesthesia Complications: none ANE Labs/Vital Signs - Labs Result Diagrams: 05/17/18 12:10 05/18/18 04:26 - Vital Signs Blood Pressure: 197/78 Heart Rate: 62 Respiratory Rate: 20 O2 Sat (%): 94 Height: 175.26 cm Weight: 102.9 kg ANE Physical Exam - Airway Neck exam: FROM Mallampati Score: Class 2 Mouth exam: ETT in situ - Cardiovascular Cardiovascular: regular rate and rhythym - ASA Status ASA Status: III ANE Anesthesia Plan Anesthesia Plan: general endotracheal anesthesia
--- NOTE | 2018-05-18 08:32 | POSTANESTH ---
Post Anesthetic Evaluation Cardiovascular Status: Normal, Stable Respiratory Status: Similar to Pre-op Cond., Requires Airway Assist Level of Consciousness/Mental Status: Moderately Sleepy Pain Control: Adequate, Prn Tx Ordered Nausea/Vomiting Control: Adequate, Prn Tx Ordered
[2018-05-18] MEDS: INSULIN GLARGINE 100 UNITS/ML UNIT SC SCH ×2 (08:53→22:22)
[2018-05-18] MEDS ORDERED: LIDOCAINE 1% 300 MG/30 ML SDV MISC ONE (09:29)
[2018-05-18] MEDS: LANSOPRAZOLE SUSP 30MG/10ML UDSYR (Adult) TUBE SCH (09:29)
[2018-05-18] MEDS ORDERED: MIDAZOLAM 2 MG/2 ML VIAL ONE (09:32)
[2018-05-18] MEDS ORDERED: fentaNYL 100 MCG/2 ML INJ ONE ×2 (09:33→18:12)
[2018-05-18] MEDS ORDERED: fentaNYL 100 MCG/2 ML INJ IVP ONE (09:45)
[2018-05-18] MEDS ORDERED: MIDAZOLAM 2 MG/2 ML VIAL IVP ONE (09:45)
[2018-05-18] MEDS: LABETALOL HCL 5 MG/ML 20 ML MDV IVP PRN ×2 (10:05→14:30)
[2018-05-18] MEDS ORDERED: PROTOCOL POTASSIUM 1 DOSE MISC PRN (11:02)
--- NOTE | 2018-05-18 11:13 | PDINTPN ---
Electrical Continuity Tester Progress Note Assessment/Plan: Assessment: 62 yo M with cervical stenosis s/p C4-T2 c spine fusion on 04/29/18 complicated by postoperative weakness status post repeat posterior approach complicated by postoperative encephalopathy, quadraparesis and weakness and status post cardiac arrest due to hypoxemic respiratory failure from aspiration inability to protect airway 05/03/2018. Extubated but required re-intubation 05/16 * Acute respiratory failure with hypoxia and Aspiration PNA- he has had recurring episodes of mucous plugging with subsequent desaturation, usually resolved with NT sxn. However, over the last couple of days these have been happening with greater frequency yesterday he had hypoxemia despite high-flow oxygen. He was emergently intubated followed by bronchoscopy revealing copious thick mucous plugs in the JUSTINO and LLL. The right side took numerous passes to clear. His recurrent respiratory failure and inability to clear mucous plugs likely are the result of his spinal cord injury couple with presumed aspiration PNA as previously described. He may have had some respiratory muscle/diaphragm weakness/paralysis as result of his spinal cord injury, but this likely improving along with his peripheral motor strength. Given the recurrence of these events, I believe tracheostomy would be the obvious next choice for patient comfort, ease of secretion management and airway protection. This is scheduled for later today with Dr. Villatoro. * RAMANA on CKD III- previously resolved but hypoxia/hypotensive episode 05/14 may have been responsible for new increase creatinine. He also developed hypernatremia. He was given IVF but his creatinine continued to rise. Renal re- consulted, recommended hypertonic IV fluids and indicated that his new baseline creatinine may be lower than his prior baseline creatinine due to the loss of muscle mass/turnover. Creatinine now down, sodium remains elevated * Anemia- His hgb preop was 10-13, which stayed stable through about 05/08. This was not rechecked until 05/12 when it was 7.8 but there was no evidence of bleeding or hemodynamic compromise and it was though to be related to dilution. This remained stable until 05/16 when it was found to be 6.8 (6.2 on recheck) on routine labs. He has had liquid stool through his rectal tube, no major procedures, and no evidence of bleeding. He remains on Pepcid and has been getting TF via his NGT (except last 48 hours). He was transfused 2 unit RBC followed by frequent H/H. His H/H aly appropriately and has remained stable. If he continues to fall, he may need EGD to further evaluate. Have changed pepcid to PPI. * Quadriparesis following C4-T2 fusion. He moves all extremities and gets up to a chair occasionally, though has ongoing weakness. Strength improving per family and patient daily, more so in his RUE (right handed). Continues with OT/ PT. * Hypotension - resolved; though brief episode of MAP 60-65 after oversew of possible CSF leak in his neck on 05/15. He responded well to only 250 ml albumin x 1. No pressors needed and resolved quickly. He has no hypertensive * Hypertension: Chronic, on high doses of multiple medications as an outpatient. It would probably be appropriate to keep his blood pressure on the high side for a little while longer due to his spinal cord injury * Encephalopathy. Improving. Non-con CT head negative 05/03/2018. Some difficulty with sleep; but improved with melatonin. No benzos. * NIXON. In the process of being evaluated as output. has old cpap broken but needs repeat sleep study prior to qualifying for insurance to approve. family wishes to buy on own prior to sleep study. He will need a sleep study and CPAP after his recovery, but the tracheostomy will obviate the need for CPAP until it is removed. * decubitus ulcer- stage II-III per RN. Wound care following, and rectal tube in place. Improved significantly as of 05/17 * Neurogenic bladder- urology consulted- isaac placed * Swallow dysfunction. Video eval with aspiration, so PEG placed 05/17 * Respiratory arrest -05/03/2018 (very brief CPR). Primary respiratory due to aspiration and inability to protect airway. Achieved ROSC quickly after securing airway and epi x2. No obvious deficit at the moment. Plan: Bronchoscopy today to clear secretions. Tracheostomy with Dr. Villatoro later today. Labetalol metoprolol IV p.r.n. Hypertension, with a goal of keeping the systolic blood pressure less than 180. IV fluids per Nephrology. I will also ask them to address antihypertensive therapy once he is able to take medicines via NG tube later today Follow-up H/H. Start iron once able to use PEG tube. Consider GI consultation for endoscopy if his hemoglobin continues to fall. Continue Zosyn for now Continue wound care for decubitus ulcer Follow CXR 40 min critical care time exclusive of procedure, managing respiratory failure, hypertension 05/18/18 11:06 Subjective: Slept fairly well. Denies pain. Has intermittent cough. Objective: Vital Signs Temp Pulse Resp BP Pulse Ox 37.2 C 62 24 H 186/61 H 95 05/18/18 08:00 05/18/18 10:00 05/18/18 10:00 05/18/18 10:00 05/18/18 10:00 Microbiology 05/14/18 08:10 Gram Stain - Final Bronchial Washing - Bilateral Lobes Bronchial Culture - Final Staphylococcus Aureus Laboratory Results 05/17/18 12:10 05/18/18 04:26 05/17/18 05/18/18 05/19/18 05:59 05:59 05:59 Intake Total 4032.7 2558.2 Output Total 1795 2883 Balance 2237.7 -324.8 PT 17.2 SEC (12.0-15.0) H 05/17/18 08:35 INR 1.39 (0.83-1.16) H 05/17/18 08:35 Physical Exam - Physical Exam General Appearance: alert, no apparent distress EENT: normal ENT inspection Neck: normal inspection Respiratory: rhonchi Cardiac/Chest: regular rate, rhythm, No edema Abdomen: normal bowel sounds, non-tender Skin: normal color, warm/dry Extremities: normal inspection Neuro/Psych: alert, normal mood/affect, oriented x 3, motor weakness ICD10 Worksheet Patient Problems: Problems Problem Status Onset Encephalopathy Acute Myelopathy of cervical spinal cord with cervical radiculopathy Acute Acute exacerbation of congestive heart failure Acute CHF (congestive heart failure) Acute Diabetes Acute Elevated troponin Acute HTN (hypertension) Acute Hyperglycemia Acute NSTEMI (non-ST elevated myocardial infarction) Acute Orthostatic hypotension Acute Pneumonia Acute Respiratory failure with hypoxia Acute Upper respiratory tract infection Acute
[2018-05-18] MEDS ORDERED: POTASSIUM Cl (KCl) 10 MEQ/50 ML BAG IV ONE (11:30)
[2018-05-18] MEDS: POTASSIUM Cl (KCl) 50 ML IV SCH ×5 (11:35→23:46)
[2018-05-18] MEDS ORDERED: LIDOCAINE 1% 300 MG/30 ML SDV ONE (11:37)
--- NOTE | 2018-05-18 12:21 | GPN ---
[f rep st] PROCEDURE NOTE DATE OF PROCEDURE: 05/18/2018 PROCEDURE: Flexible fiberoptic bronchoscopy. INDICATION FOR PROCEDURE: Pneumonia with respiratory failure and retained secretions. PROCEDURE NOTE: The risks and benefits of the procedure were explained to the who agreed to pro ceed. The entire procedure was performed in the intensive care unit with the patient under blood pre ssure, EKG, and oximetry monitoring. It was my assessment that there was no risk of airborne infecti on from the procedure. After an appropriate time-out, 3 cc of 1% lidocaine was instilled into the patient's endotracheal tub e. The bronchoscope was advanced through the endotracheal tube into the distal trachea, where the en dotracheal tube was found to be appropriately positioned. There was scant mucoid secretions in the d istal trachea and mainstem bronchus, which were easily suctioned. I then turned to the right-sided a irways, where there was some mucopurulent secretions in the right upper lobe, which were easily sucti oned. I then suctioned a small to moderate amount of purulent secretions from the right lower lobe. Then turned to the left-sided airways where I found a small amount of scattered mucopurulent secreti ons, which were easily suctioned. I lavaged both lower lobes, and all airways were clear of secretio ns at the end of the procedure. The patient tolerated the procedure well. He received 2 mg of Verse d intravenously for sedation. SPECIMEN: Sent for Gram stain and culture. COMPLICATIONS: There were no complications apparent at the end of the procedure. /[id number]/MODL
--- NOTE | 2018-05-18 12:26 | HOSPPROG ---
Hospitalist Progress Note Assessment/Plan: * Acute respiratory failure - s/p respiratory arrest, brief cardiac arrest -due to mucus plug/aspiration, s/p repeat bronch on 05/[address] Suarez -Reintubated on 05/16 with bronchoscopy performed after with massive secretions found -ENT consulted by critical care for tracheostomy, planned for this evening * RAMANA - Cr increased to 1.9 on 05/16, 1.1 for few days prior, 2.0 on admission, 1.4 this AM - Nephrology consulted, likely mild non oliguric ATN, still having good UO with isaac, recommending continuing IVF - Continue to monitor BMP, I/O, avoid nephrotoxic agents *Hypernatremia - Na 149 this AM, 150 yesterday - Likely combination of free water losses, osmotic diuresis (hyperglycemia) - IVF have been changed per Nephrology to a hypotonic formulation - PEG tube placement yesterday, should improve with TF/FWF - Continue to monitor * Cervical spinal stenosis s/p fusion/decompression * Post-op quadriparesis * Anemia - Hgb decreased to 6.8 on 05/16, repeat 6.2 - No gross bleeding has been noted - S/p 2 units PRBC on 05/16, Hgb stable since - Switched from IV Pepcid to IV PPI - May require EGD if H/H continues to decline however stool occult blood is negative - Closely monitor H/H, transfuse <7/20 - Will start Fe after PEG tube cleared for use *DM -Lantus was increased 24 units BID, hold for now until tube feeds started * Severe sepsis due to aspiration pneumonia -fever/tachycardia with worsening encephalopathy and resp status yesterday -back on IV Vanco/IV Zosyn -cultures pending * Metabolic encephalopathy -continues with waxing and waning mental status * Embolic CVA - tiny -ASA * HTN -was holding meds - MAP >70 per neurosurgery, now MAP goal relaxed -SBP 190's this AM, ordered Labetalol PRN for SBP >180 - Restart home PO Antihypertensives this evening when able to use PEG tube * Dysphagia -failed VFSS -attempted PEG on 05/14 but patient too critically ill -Plan for PEG placement today * Neurogenic bladder -replaced isaac - follow-up with urology -depending on spinal recovery - may need eventual supra-pubic cath * NIXON -no current CPAP -needs repeat sleep study * Chronic systolic CHF - EF now 50% * CAD/stent * Hyperkalemia -S/p Kayexalate, K 3.8 this AM -cortisol level okay * Diarrhea -C diff negative * Sacral wound - per wound care - it has worsened -[facility] will not accept with any open decub -may need LTAC rather than [facility] depending on resp/wound status * Wound dehiscence with leak of spinal fluid -s/p oversew with Dr. Centeno Subjective: Patient more awake this AM Objective: Vital Signs Temp Pulse Resp BP Pulse Ox 37.7 C 63 22 H 189/68 H 98 05/18/18 12:00 05/18/18 12:00 05/18/18 12:00 05/18/18 12:00 05/18/18 12:00 Microbiology 05/14/18 08:10 Gram Stain - Final Bronchial Washing - Bilateral Lobes Bronchial Culture - Final Staphylococcus Aureus Laboratory Results 05/17/18 12:10 05/18/18 04:26 05/17/18 05/18/18 05/19/18 05:59 05:59 05:59 Intake Total 4032.7 2558.2 Output Total 1795 2883 Balance 2237.7 -324.8 PT 17.2 SEC (12.0-15.0) H 05/17/18 08:35 INR 1.39 (0.83-1.16) H 05/17/18 08:35 - Physical Exam Constitutional: chronically ill appearing Eyes: PERRL Ears, Nose, Mouth, Throat: moist mucous membranes Cardiovascular: regular rate and rhythym Respiratory: reduced air movement, other (mechanical breath sounds ) Gastrointestinal: normoactive bowel sounds Genitourinary: no bladder fullness Skin: warm Neurologic: weakness, other (inntubated) Psychiatric: not anxious ICD10 Worksheet Patient Problems: Problems Problem Status Onset Encephalopathy Acute Myelopathy of cervical spinal cord with cervical radiculopathy Acute Acute exacerbation of congestive heart failure Acute CHF (congestive heart failure) Acute Diabetes Acute Elevated troponin Acute HTN (hypertension) Acute Hyperglycemia Acute NSTEMI (non-ST elevated myocardial infarction) Acute Orthostatic hypotension Acute Pneumonia Acute Respiratory failure with hypoxia Acute Upper respiratory tract infection Acute
--- NOTE | 2018-05-18 12:41 | GCON ---
[f rep st] CONSULTATION EAR, NOSE, AND THROAT CONSULTATION DATE OF CONSULTATION: 05/17/2018 CHIEF COMPLAINT: Respiratory failure. HISTORY OF PRESENT ILLNESS: The patient is a 62-year-old gentleman who is in the intensive care unit who has had multiple recurrent intubations and prolonged intubation episodes over the past few weeks postoperatively after cervical spine surgery. He has had trouble with secretions and has had to be intubated and placed back on the ventilator on multiple episodes during this 2 week time frame. PAST SURGICAL HISTORY: Includes recent cervical spine surgery. This was complicated by postoperativ e and intraoperative paralysis and quadriplegia. PAST MEDICAL HISTORY: Please see chart. ALLERGIES: Please see chart. MEDICATION LIST: Please see chart. PHYSICAL EXAM: GENERAL: The patient is a 62-year-old gentleman lying in bed on a ventilator through an endotracheal tube. He is alert and is able to respond to questions with nodding his head. He is also notably moving his right arm. HEENT/NECK: Examination reveals midline neck structures, which are noted in their usual location. He has a C-collar in place. Endotracheal tube is in place as wel l. The remainder of his comprehensive head exam is otherwise unremarkable for this current condition . I have had discussion with the neurosurgical team who is actively monitoring his quadriplegia issues and have discussed the possibility of his neck moving during the surgical procedure with Dr. Alo Young on. Dr. Centeno indicated to me that given that he has had anterior and posterior fixation of his C-s pine, and that at this point, he is not overly concerned with any further issues with potential movem ent of the C-spine during the procedure and this would include possible neck extension. It is my impression that the patient is suffering from respiratory failure and I have had a lengthy d iscussion with the machine shop inspector/pulmonary team, as well as with the patient's family members about the possibility of putting a tracheostomy tube in his trachea for purposes of improved pulmonary secreti on maintenance, as well as to help his overall pulmonary status. His family members, his and bob newton are in agreement that this is an appropriate and worthwhile next step for the patient and we pepe l proceed with getting this case on the calendar in an expedient fashion. I did discuss the risks, b enefits, indications, options, possible complications, and limitations of the procedure with the lyndsay ent's at the bedside during the consultation and she was given a chance to have her questions an swered. /[id number]/MODL
--- NOTE | 2018-05-18 13:13 | SOAPPROG ---
SOAP Progress Note Assessment/Plan: Assessment/Plan: 62 y/o M with C-spine injury and RAMANA with hypernatremia and uncontrolled blood pressure. Hypernatremia -improving on d5, may switch to FWF with G-tube once no longer NPO -goal per neurosurgery HTN/vol: -Cr normally 1.8 when diuresed, currently 1.4 -will hold lasix for now and consider resuming when Na improvees -hydralazine increased to 10mg IV q6prn however also on shortage -labetalol IV prn running low -goal SBP 150-180mmHg, may also add IV enalapril 1.25mg prn as d/w pharmacy Anemia -checking iron studies -hold EPO for now Hypokalemia -replete prn Please contact if ?'s, #[phone]. 05/18/18 15:09 Subjective: Currently NPO again. G-tube in place. Made >2.5L UO/24h. Objective: Vital Signs Temp Pulse Resp BP Pulse Ox 37.7 C 63 22 H 189/68 H 98 05/18/18 12:00 05/18/18 12:00 05/18/18 12:00 05/18/18 12:00 05/18/18 12:00 Microbiology 05/14/18 08:10 Gram Stain - Final Bronchial Washing - Bilateral Lobes Bronchial Culture - Final Staphylococcus Aureus Laboratory Results 05/17/18 12:10 05/18/18 04:26 05/17/18 05/18/18 05/19/18 05:59 05:59 05:59 Intake Total 4032.7 2558.2 Output Total 1795 2883 Balance 2237.7 -324.8 PT 17.2 SEC (12.0-15.0) H 05/17/18 08:35 INR 1.39 (0.83-1.16) H 05/17/18 08:35 Physical Exam - Physical Exam General Appearance: WD/WN, alert, mild distress EENT: PERRL/EOMI Neck: other (brace on) Respiratory: decreased breath sounds Cardiac/Chest: regular rate, rhythm, edema Abdomen: non-tender, soft Skin: normal color, warm/dry Neuro/Psych: oriented x 3, motor weakness ICD10 Worksheet Patient Problems: Problems Problem Status Onset Encephalopathy Acute Myelopathy of cervical spinal cord with cervical radiculopathy Acute Acute exacerbation of congestive heart failure Acute CHF (congestive heart failure) Acute Diabetes Acute Elevated troponin Acute HTN (hypertension) Acute Hyperglycemia Acute NSTEMI (non-ST elevated myocardial infarction) Acute Orthostatic hypotension Acute Pneumonia Acute Respiratory failure with hypoxia Acute Upper respiratory tract infection Acute
--- NOTE | 2018-05-18 16:02 | ASMTCMCOM ---
CM Note CM Note Notes: Family toured [facility] yesterday and are agreeable with starting the referral process there. CM initiated referral. Family continues to request pt to continue to remain at [facility] for as long as possible but are understanding that [facility] may be an option before he is ready for [facility]. Pt had peg tube and is getting trach this evening. CM to follow. Plan: [facility] once medically stable. Date Signed: 05/18/2018 04:01 PM Electronically Signed By:CAROLINE Hughes
[2018-05-18] MEDS ORDERED: LIDO/EPI 1% **Not for Epidural 20 ML MDV ONE (16:09)
--- NOTE | 2018-05-18 17:33 | PDANEPAE ---
ANE History of Present Illness here for trach ANE Past Medical History Past Medical History: here for trach for chronic respiratory failure. S/p cervical fusion quadriplegia , RAMANA, HTN, NIXON - Cardiovascular History Hx Hypertension: Yes Hx Arrhythmias: No Hx Chest Pain: No Hx Coronary Artery / Peripheral Vascular Disease: Yes Hx CHF / Valvular Disease: Yes Hx Palpitations: No Cardiovascular History Comment: htn. hyperlipidemia. cad with stent. chf. pvd. hx of mi. being followed by [facility] - Pulmonary History Hx COPD: No Hx Asthma/Reactive Airway Disease: No Hx Recent Upper Respiratory Infection: No Hx Oxygen in Use at Home: Yes O2 in Use at Home (L/minute): 2l at noc Hx Sleep Apnea: Yes Sleep Apnea Screening Result - Last Documented: Positive Pulmonary History Comment: nixon positive just using o2 currently no cpap - Neurologic History Hx Cerebrovascular Accident: No Hx Seizures: Yes Hx Dementia: No Neurologic History Comment: possible diabetic seizure about 15 yrs ago per pt report - Endocrine History Hx Diabetes: Yes Hypothyroid: No Hyperthyroid: No Obesity: mild Endocrine History Comment: type 2 - Renal History Hx Renal Disorders: Yes Renal History Comment: CRI being followed by [facility] - Liver History Hx Hepatic Disorders: No - Neurological & Psychiatric Hx Hx Neurological and Psychiatric Disorders: Yes Neurological / Psychiatric History Comment: ADD - Cancer History Hx Cancer: Yes Cancer History Comment: basal cell - Congenital Disorder History Hx Congenital Disorders: No - GI History GERD: mild Hx Gastrointestinal Disorders: No - Other Health History Other Health History: wears glasses - Chronic Pain History Chronic Pain: Yes (neck pain) - Surgical History Prior Surgeries: cardiac stent placed 11/2015. right acl reconstruction. basal cell removed. orchiectomy at age 23 ANE Review of Systems Review of systems is: negative Review of Systems: - Exercise capacity Exercise capacity: <4 METS ANE Patient History - Allergies Allergies/Adverse Reactions: lorazepam Allergy (Verified 05/12/18 18:25) - Home Medications Home medications: home medication list seen and reviewed Home Medications: Insulin Detemir [Levemir Flextouch] 20 unit SC BID 01/11/16 [Last Taken 04/28/18 ] Insulin Lispro [Humalog Kwikpen U-100] 5 - 10 unit SC TIDMEAL 01/11/16 [Last Taken 2 Days Ago ~04/27/18] metFORMIN HCL [Glucophage 500 mg (*)] 500 mg PO DAILY 01/11/16 [Last Taken 04/27] Carvedilol [Coreg (*)] 25 mg PO BIDMEAL 09/01/16 [Last Taken 04/28/18] metFORMIN HCL [Glucophage 1000 mg] 1,000 mg PO HS 09/01/16 [Last Taken 04/27/18] Atorvastatin Calcium [Lipitor 40 mg (*)] 40 mg PO HS 12/25/16 [Last Taken ] amLODIPine BESYLATE [Norvasc 5 mg (*)] 5 mg PO DAILY 12/25/16 [Last Taken ] Aspirin [Aspirin 81mg (*)] 81 mg PO DAILY 01/24/18 [Last Taken 04/28/18] Hydralazine HCl 75 mg PO TID 01/24/18 [Last Taken 04/29/18] Isosorbide Mononitrate [Imdur 30 mg (*)] 30 mg PO DAILY 01/24/18 [Last Taken 10/08] Torsemide [Demadex] 60 mg PO BID 04/22/18 [Last Taken 2 Days Ago ~04/27/18] - NPO status NPO Status: no food or drink >8 hours NPO Since - Liquids (Date): 04/29/18 NPO Since - Liquids (Time): 06:15 NPO Since - Solids (Date): 04/29/18 NPO Since - Solids (Time): 06:15 - Smoking Hx Smoking Status: Never smoked - Family Anes Hx Family Hx Anesthesia Complications: none ANE Labs/Vital Signs - Labs Result Diagrams: 05/17/18 12:10 05/18/18 04:26 - Vital Signs Blood Pressure: 182/62 Heart Rate: 63 Respiratory Rate: 24 O2 Sat (%): 97 Height: 175.26 cm Weight: 102.9 kg ANE Physical Exam - Airway Neck exam: C-collar in place Mallampati Score: Unable to assesss Mouth exam: ETT in situ - Pulmonary Pulmonary: rhonchi - Cardiovascular Cardiovascular: regular rate and rhythym - ASA Status ASA Status: III ANE Anesthesia Plan Anesthesia Plan: general endotracheal anesthesia
[2018-05-18] MEDS ORDERED: PROPOFOL 200 MG/20 ML VIAL ONE (17:42)
[2018-05-18] MEDS ORDERED: ceFAZolin 1 GM VIAL ONE ×2 (18:07)
[2018-05-18] MEDS ORDERED: SODIUM BICARBONATE 50 MEQ/50 ML SYR ONE ×2 (19:10→20:00)
[2018-05-18] MEDS ORDERED: EPINEPHrine 1 MG in NS 250 ML IV ONE ×2 (19:30→21:00)
[2018-05-18] MEDS ORDERED: EPINEPHrine 1 MG/10 ML SYR IVP ONE (20:00)
[2018-05-18] MEDS ORDERED: EPINEPHrine 8 MG in NS 250 ML IV SCH (21:00)
[2018-05-18] MEDS: PROPOFOL/EMULSION 100 ML IV SCH ×2 (21:46→23:46)
[2018-05-18] MEDS: PETROLAT,WHT/MIN OIL/SOD CHL 3.5 GM OPHT.OINT EACHEYE PRN (21:46)
--- NOTE | 2018-05-18 22:14 | POSTANESTH ---
Post Anesthetic Evaluation Cardiovascular Status: Similar to Pre-Op Cond Respiratory Status: Requires Airway Assist Level of Consciousness/Mental Status: Unconscious Pain Control: Adequate, Prn Tx Ordered Nausea/Vomiting Control: Adequate, Prn Tx Ordered Notes: S/P BRADYCARDIC CARDIAC ARREST IN OR. S/P CPR/DEFIB X2.CRITICAL CONDITION
--- NOTE | 2018-05-18 22:33 | PDINTPN ---
[facility] Progress Note Assessment/Plan: 62 yo M with cervical stenosis s/p C4-T2 c spine fusion on 04/29/18 complicated by postoperative weakness status post repeat posterior approach complicated by postoperative encephalopathy, quadraparesis and weakness and status post cardiac arrest due to hypoxemic respiratory failure from aspiration inability to protect airway 05/03/2018. Extubated but required re-intubation 05/16 * Cardiac arrest with PEA versus bradycardia- (based on discussion with anesthesia) patient was stable preop and underwent bronchoscopy earlier today to clear airway. Initial incisions were made to level of trachea when patient became bradycardic and lost pulse. CPR initiated and epi boluses given in addition to hco3 with ROSC in <10 minutes. However, he repeatedly became hypotensive and required additional efforts, finally ending up with epi drip. A brief bedside echo revealed mild-moderate RV dysfunction but no clear WMA's ( discussed with cardiology). He transferred to the ICU and was rapidly weaned off epi with adequate BP. An ABG during the arrest revealed 6.44-77-86-17-60%, which has since corrected to 7.33-19-71-21-95% on AC -18-600 100% +5. I suspect his issue is primarily respiratory, perhaps related to diaphragmatic involvement from his SCI and poor secretion clearance. PE was considered but not likely since he has been getting adequate prophylaxis, and a CTA is relatively contraindicated given his renal issues. ACS also seems unlikely particularly given the previous respiratory events and rapid recovery. A new aspiration event is also unlikely given the circumstances. I do not feel the hypothermia protocol is indicated as he is already showing signs of improved mental status (not obtunded). * * Acute respiratory failure with hypoxia and Aspiration PNA- Given the recurrence of these events, I still believe tracheostomy would be the obvious next choice for patient comfort, ease of secretion management and airway protection. ENT may complete the task at bedside. His current CXR shows hypoventilation and possible right sided effusion. Repeat in AM * * RAMANA on CKD III- previously resolved but hypoxia/hypotensive episode 05/14 may have been responsible for new increase creatinine. He was given IVF but his creatinine continued to rise. Renal re-consulted, suggesting he likely has a new baseline and appropriate labs are pending (appreciate their involvement). Sodium was also elevated so IVF changed to 1/2 NS, with resultant drop in creatinine. * Anemia- His hgb preop was 10-13, which stayed stable through about 05/08. This was not rechecked until 05/12 when it was 7.8 but there was no evidence of bleeding or hemodynamic compromise and it was though to be related to dilution. This remained stable until 05/16 when it was found to be 6.8 (6.2 on recheck) on routine labs. He has had liquid stool through his rectal tube, no major procedures, and no evidence of bleeding. He remains on Pepcid and has been getting TF via his NGT (except last 48 hours). His H/H improved and has been stable since my last visit. * * LFTs 04/24 shock liver from arrest- should resolve * * Quadriparesis following C4-T2 fusion. He moves all extremities and gets up to a chair occasionally, though has ongoing weakness. Strength improving per family and patient daily, more so in his RUE (right handed). Continues with OT/ PT. * * Hypotension - resolved; though brief episode of MAP 60-65 after oversew of possible CSF leak in his neck on 05/15. He responded well to only 250 ml albumin x 1. No pressors needed and resolved quickly. * * Encephalopathy. Improving. Non-con CT head negative 05/03/2018. Some difficulty with sleep; but improved with melatonin. No benzos. This may chage depending on the impact from todays event. watch closely, but no head CT indicated at this time. * * NIXON. In the process of being evaluated as output. has old cpap broken but needs repeat sleep study prior to qualifying for insurance to approve. family wishes to buy on own prior to sleep study. I suggested getting sleep study once he is recovered from this injury. He has not required NIPPV during this admission for this issue * * decubitus ulcer- stage II per RN. Wound care following, and rectal tube in place * * Neurogenic bladder- urology consulted- isaac placed * Swallow dysfunction. Video eval with aspiration. PEG performed 05/17 without incident. * * Respiratory arrest -05/03/2018 (very brief CPR). Primary respiratory due to aspiration and inability to protect airway. Achieved ROSC quickly after securing airway and epi x2. No obvious deficit at the moment. * * critical care time total 65 minutes * 05/16/18 14:29 05/18/18 22:08 05/18/18 22:34 Subjective: s/p cardiac arrest in OR during trach Objective: Vital Signs Temp Pulse Resp BP Pulse Ox 36.8 C 80 18 171/64 H 100 05/18/18 22:00 05/18/18 22:00 05/18/18 22:00 05/18/18 22:00 05/18/18 22:00 Microbiology 05/13/18 18:36 Blood Culture - Final Blood 05/18/18 10:55 Gram Stain - Final Bronchial Washing - Bilateral Lobes Laboratory Results 05/17/18 12:10 05/17/18 05/18/18 05/19/18 05:59 05:59 05:59 Intake Total 4032.7 2558.2 Output Total 1795 2883 300 Balance 2237.7 -324.8 -300 PT 17.2 SEC (12.0-15.0) H 05/17/18 08:35 INR 1.39 (0.83-1.16) H 05/17/18 08:35 Physical Exam - Physical Exam General Appearance: no apparent distress EENT: PERRL/EOMI, ET tube, No scleral icterus (R), No scleral icterus (L) Neck: other (hard c collar) Respiratory: lungs clear, normal breath sounds, decreased breath sounds, No respiratory distress, No accessory muscle use, No stridor, No wheezing Cardiac/Chest: regular rate, rhythm, No edema, No JVD Abdomen: soft, other (peg site normal), No non-tender, No distended Skin: normal color, warm/dry, decubitus (per RN), No cyanosis, No diaphoresis, No rash Lymphatic: no adenopathy Extremities: No pedal edema Neuro/Psych: alert, cognition abnormalities, No abnormal multifocal lens inspector II-XII, No EOM palsy ICD10 Worksheet Patient Problems: Problems Problem Status Onset Encephalopathy Acute Myelopathy of cervical spinal cord with cervical radiculopathy Acute Acute exacerbation of congestive heart failure Acute CHF (congestive heart failure) Acute Diabetes Acute Elevated troponin Acute HTN (hypertension) Acute Hyperglycemia Acute NSTEMI (non-ST elevated myocardial infarction) Acute Orthostatic hypotension Acute Pneumonia Acute Respiratory failure with hypoxia Acute Upper respiratory tract infection Acute
[2018-05-18] MEDS ORDERED: NOREPINEPHRINE BITARTRATE 4 MG in NS 500 ML IV SCH (23:00)
[2018-05-19] MEDS: POTASSIUM Cl (KCl) 50 ML IV SCH ×7 (00:25→15:16)
[2018-05-19] MEDS: ALBUTEROL 3 ML DEYVIAL IH SCH ×5 (00:53→23:52)
[2018-05-19] MEDS: ACETYLCYSTEINE 10% IH/PO 4 ML VIAL IH SCH ×5 (00:54→23:52)
[2018-05-19] MEDS: INSULIN REGULAR HUMAN 100 UNIT/ML UNIT SC SCH ×6 (00:59→20:29)
[2018-05-19] MEDS ORDERED: EPINEPHrine 1 MG/ML INJ IVP ONE (02:13)
[2018-05-19] MEDS ORDERED: AMIODARONE HCL 150 MG/3 ML VIAL IV ONE (02:13)
[2018-05-19] MEDS ORDERED: SODIUM BICARBONATE 50 MEQ/50 ML SYR IV ONE (02:13)
[2018-05-19] MEDS ORDERED: EPINEPHrine 1 MG/10 ML SYR IVP ONE (02:13)
[2018-05-19] MEDS ORDERED: CALCIUM CHLORIDE 1 GM/10 ML INJ IV ONE (02:17)
[2018-05-19] MEDS: PROPOFOL/EMULSION 100 ML IV SCH (02:20)
[2018-05-19] MEDS: PIPERACILLIN/TAZO 3.375 GM/DEX 50 ML IV SCH ×2 (04:22→09:33)
--- NOTE | 2018-05-19 07:53 | NEUSURGPN ---
Date of Surgery: 04/29/18 Post Op Day: 20 Assessment/Plan: Assessment: 62 y/o male that is s/p anterior C4-C7 fusion and and PCF/ decompression C4-T2 on 04/29/18 and 04/30/[address] Stock with postop quadraparesis that was slowly improving. He has more pressing issues now with pulmonary problems. Pt also with post operative respiratory arrest d/t inability to protect airway, NIXON and was intubated. Pt with Aspiration PNA treated by CC team. Intubated x 3-now intubated again. Attempted trach on with sudden drop in BP and coded x 4. Trach to be finished when able -Post operative MRI and CT on 05/05 reviewed by [facility] physicians and feel no further surgery indicated, pressure support of MAP>85 started POD #6 after NS consultation we are now at normalized MAPs/blood pressure management per critical care -MRI of the L spine and T spine reviewed that shows a small disc bulge and DDD in the T spine. L4/5 shows stenosis as well. No surgical lesion in the T and L spine that needs to be addressed at this time -MRI Brain with 3 small foci of ischemia and small bilateral SDH -Neuro/motor exam was improving daily prior to episode on 05/18 Plan: -MAPs >85 through initial weekend after we were consulted. We relaxed the MAPs and he was still improving-Dr Centeno discussed with family. At this point we will follow his exam with regards to his SCI -pt had sudden drop of BP yesterday in OR while getting a Trach-coded 4 times- aborted and will finish trach when able -pt on propofol now and we will switch to Precedex to better follow exam-will check back later -continue [place] CCollar at all times-CDI. No skin issues noted. CDI to anterior and posterior incision. [place] removed by Dr Centeno then this had to be oversewn due to clear fluid leaking-continues to be dry this am -continue with SCI precautions, frequent weight shifting and skin care -monitor posterior incision in particular-continues to look fine without s/s of infection -pt with high temps/blood pressure fluctuations-Dr Centeno spoke to Dr Cazares about plan and management of this yesterday -no further imaging at this time -PT/OT-CPM -pt to compete Trach when able -PEG placed already -DVT ppx, TEDs, SCD's, Lovenox per Critical Care -Neurology signed off-they following findings on MRI Brain, no intervention required from NS standpoint. OK for daily ASA if necessary -Nephrology following kidney issues -Medicine following as well -pt has urine retention-isaac placed at recommendation of Urology -call with any questions or concerns -family updated as well -pt seen and examined by Dr Centeno as well Subjective: Chart reviewed. Updates from RN/family regarding incident last night. Objective: Awake to verbal, opens eyes but wont track now Moves all extremities spontaneously PERRLA no facial droop CCollar in place-no skin issues Incisions intact-dry to anterior and posterior neck Pt sedated Neuro Check Frequency: as ordered Urinary Catheter in Place: Yes Urinary Catheter Indication: Other (Use Comment) (intubated and sedated) Catheter Insertion Date: 05/11/18 - Physician Discussed Patient with : Jacobo Patient Seen by : Jacobo Neurosurgery Physical Exam - Vitals, I&O, Labs I and O 05/18/18 05/19/18 05/20/18 05:59 05:59 05:59 Intake Total 2558.2 4909 Output Total 2883 875 Balance -324.8 4034 Weight 102.9 kg 102.9 kg Intake: IV Intake (ml) 2700 IV Infused (ml) 2528.2 2209 1/2 Ns 1,000 ml @ 125 mls 1123 /hr IV CONT YAZMIN Rx#: [id number] D5w 1,000 ml @ 75 mls/hr 1040 1583 IV CONT YAZMIN Rx#: [id number] Dexmedetomidine HCl 400 222.2 mcg In Ns 100 ml @ Titrate IV CONT YAZMIN Rx#: [id number] EPINEPHrine 1 mg In Ns 500 250 ml @ Per Protocol IV ONCE ONE Rx#:[id number] Propofol/Emulsion 100 ml 126 @ Per Protocol IV CONT YAZMIN Rx#:[id number] Propofol/Emulsion 100 ml 143 @ Titrate IV CONT YAZMIN Rx# :[id number] Tube Flush (ml) 30 Output: Urine (ml) 2505 625 Catheter 2135 625 Incontinence 370 Liquid Stool (ml) 150 100 Catheter 25 100 Incontinence 125 Estimated Blood Loss (ml) 50 NG Tube Output (ml) 0 Small Bore (5-12 Sudanese) 0 Weighted Stomach PEG Tube Output (ml) 228 100 Large Bore (>12 Sudanese) 228 100 Non-weighted Stomach 20 Sudanese Microbiology 05/13/18 23:00 Blood Culture - Final Blood 05/13/18 18:36 Blood Culture - Final Blood 05/18/18 10:55 Gram Stain - Final Bronchial Washing - Bilateral Lobes Vital Signs Temp Pulse Resp BP Pulse Ox 37.7 C 79 18 174/60 H 100 05/19/18 04:00 05/19/18 07:00 05/19/18 07:00 05/19/18 07:00 05/19/18 07:00 Laboratory Results 05/19/18 04:20 05/19/18 04:20 ICD10 Worksheet Patient Problems: Problems Problem Status Onset Encephalopathy Acute Myelopathy of cervical spinal cord with cervical radiculopathy Acute Acute exacerbation of congestive heart failure Acute CHF (congestive heart failure) Acute Diabetes Acute Elevated troponin Acute HTN (hypertension) Acute Hyperglycemia Acute NSTEMI (non-ST elevated myocardial infarction) Acute Orthostatic hypotension Acute Pneumonia Acute Respiratory failure with hypoxia Acute Upper respiratory tract infection Acute
[2018-05-19] MEDS: DEXMEDETOMIDINE HCL 400 MCG in NS 100 ML IV SCH (08:25)
[2018-05-19] MEDS: LANSOPRAZOLE SUSP 30MG/10ML UDSYR (Adult) TUBE SCH (08:25)
[2018-05-19] MEDS: INSULIN GLARGINE 100 UNITS/ML UNIT SC SCH ×2 (08:25→21:35)
[2018-05-19] MEDS ORDERED: levETIRAcetam 1000MG/NACL 100 ML IV ONE (09:11)
[2018-05-19] MEDS: PETROLAT,WHT/MIN OIL/SOD CHL 3.5 GM OPHT.OINT EACHEYE PRN ×2 (09:15→17:46)
--- NOTE | 2018-05-19 09:19 | NEUROPROG ---
Assessment: Total unit time of 25 min. The patient is in a state of decreased responsiveness suggesting diffuse hypoxic ischemic encephalopathy and stereotyped movements indicative of possible nonconvulsive seizure or residual effects of brainstem ischemia. I will start him on Keppra 1000 mg. I will order EEG. We will obtain a noncontrast head CT. I discussed with the patient' s and nurse and other family members present the current situation and the fact that this is concerning for significant brain injury, but we will continue close monitoring for signs of improvement before being able to draw any definitive conclusions and will certainly need several days of observation. Subjective: Patient currently unresponsive and unable to interact effectively with me. I was called today by Neurosurgery to re-evaluate the patient after arrest yesterday with loss of pulse and hypotension needing epinephrine and CPR. He has regained blood pressure and pulse but has been poorly responsive since the event and off of sedation now for the last 2 hr and not showing purposeful interactions. Objective: Vital Signs Temp Pulse Resp BP Pulse Ox 37.7 C 87 19 174/60 H 99 05/19/18 04:00 05/19/18 08:43 05/19/18 08:43 05/19/18 07:00 05/19/18 08:43 Microbiology 05/13/18 23:00 Blood Culture - Final Blood 05/13/18 18:36 Blood Culture - Final Blood 05/18/18 10:55 Gram Stain - Final Bronchial Washing - Bilateral Lobes Laboratory Results 05/19/18 04:20 05/19/18 04:20 05/18/18 05/19/18 05/20/18 05:59 05:59 05:59 Intake Total 2558.2 4909 Output Total 2883 875 Balance -324.8 4034 PT 17.2 SEC (12.0-15.0) H 05/17/18 08:35 INR 1.39 (0.83-1.16) H 05/17/18 08:35 Patient has his eyes open but is blinking in a very stereotypical pattern of 2 blinks bilaterally about every 2 or 3 sec with associated Hinds's phenomenon. There is not nystagmus. Pupils are 3 mm and sluggish but reactive. Corneal reflexes are diminished. He has not been coughing responding to suctioning. His extremities are flaccid. The oculocephalic reflexes are partially present but diminished. He will not follow commands. He is not responding to painful stimulation currently. Allergies/Adverse Reactions: lorazepam Allergy (Verified 05/12/18 18:25)
--- NOTE | 2018-05-19 09:50 | SOAPPROG ---
SOAP Progress Note Assessment/Plan: Assessment: hypernatremia, sodium stable in 148-150 range on D5W at 75 PEA arrest last night during tracheostomy HTN, trying to keep SBP in 150-180 range resp failure, need to finish trach hopefully can use PEG tube and change to free water PEG flushes (200ml every 2 hours) Plan: 2.5 L of free water per day change to short acting (oral) anti HTN meds when able. Keep target SBP range for now would try hydralazine 10-25 mg TID to QID consider short acting doxazosin 1mg tid as needed with bradycardic/PEA arrest last night would try to avoid anything that promotes bradycardia (verap/beta blockers), at least for now if creat levels off at his baseline (1.7-2), may consider SUHAS-I as well, would hold off for now with events of last night and rising creat 05/06/18 14:16 05/19/18 09:41 Subjective: opens eyes to his name family at bedside pt not very communicative today Objective: Vital Signs Temp Pulse Resp BP Pulse Ox 37.7 C 87 19 174/60 H 99 05/19/18 04:00 05/19/18 08:43 05/19/18 08:43 05/19/18 07:00 05/19/18 08:43 Microbiology 05/18/18 10:55 Gram Stain - Final Bronchial Washing - Bilateral Lobes 05/13/18 23:00 Blood Culture - Final Blood 05/13/18 18:36 Blood Culture - Final Blood Laboratory Results 05/19/18 04:20 05/19/18 04:20 05/18/18 05/19/18 05/20/18 05:59 05:59 05:59 Intake Total 2558.2 4909 Output Total 2883 875 Balance -324.8 4034 PT 17.2 SEC (12.0-15.0) H 05/17/18 08:35 INR 1.39 (0.83-1.16) H 05/17/18 08:35 Physical Exam - Physical Exam General Appearance: other (intubated) Respiratory: other (coarse bs bilat) Cardiac/Chest: regular rate, rhythm, gallop, No friction rub Abdomen: other (PEG LUQ, occas bs nt) Skin: decubitus Neuro/Psych: other (quadraplegia) ICD10 Worksheet Patient Problems: Problems Problem Status Onset Encephalopathy Acute Myelopathy of cervical spinal cord with cervical radiculopathy Acute Acute exacerbation of congestive heart failure Acute CHF (congestive heart failure) Acute Diabetes Acute Elevated troponin Acute HTN (hypertension) Acute Hyperglycemia Acute NSTEMI (non-ST elevated myocardial infarction) Acute Orthostatic hypotension Acute Pneumonia Acute Respiratory failure with hypoxia Acute Upper respiratory tract infection Acute
[2018-05-19] MEDS ORDERED: LIDOCAINE 1% 300 MG/30 ML SDV MISC ONE (10:48)
[2018-05-19] MEDS ORDERED: MIDAZOLAM 2 MG/2 ML VIAL ONE (11:15)
[2018-05-19] MEDS: hydrALAZINE 20 MG/ML VIAL IVP PRN ×2 (11:40→17:59)
[2018-05-19] MEDS ORDERED: MIDAZOLAM 2 MG/2 ML VIAL IVP ONE (11:45)
--- NOTE | 2018-05-19 12:32 | HOSPPROG ---
Hospitalist Progress Note Assessment/Plan: * PEA Arrest - Patient went into PEA arrest in OR prior to tracheostomy on 05/18, CPR was performed with ROSC achieved - Neurological status poor at this time with decreased responsiveness suggestive diffuse hypoxic ischemic encephalopathy - Neurology consulted this AM, head CT, EEG, and Keppra 100 mg ordered - Required pressors overnight, weaned off 22:00 on 05/18 - LFTs elevated this AM, suggesting shock liver, continue to monitor *Acute respiratory failure - s/p respiratory arrest, brief cardiac arrest -due to mucus plug/aspiration, s/p repeat bronch on 05/[address] Suarez -Reintubated on 05/16 with bronchoscopy performed after with massive secretions found -ENT consulted by critical care for tracheostomy, planned for yesterday evening, however had PEA arrest as above * RAMANA - Cr increased to 1.9 on 05/16, 1.1 for few days prior, 2.0 on admission, 1.7 this AM after PEA arrest on 05/18 (baseline 1.7-2) - Nephrology following, recommend continuing 2.5 L of free water daily - Continue to monitor BMP, I/O, avoid nephrotoxic agents *Hypernatremia - Na 150 this AM, 152 overnight - Likely combination of free water losses, osmotic diuresis (hyperglycemia) - PEG tube placement on 05/17, continue free water as above per Nephrology - Continue to monitor * Cervical spinal stenosis s/p fusion/decompression * Post-op quadriparesis * Anemia - Hgb decreased to 6.8 on 05/16, 81 this AM - No gross bleeding has been noted - S/p 2 units PRBC on 05/16, Hgb stable since - Switched from IV Pepcid to IV PPI - May require EGD if H/H continues to decline however stool occult blood is negative - Closely monitor H/H, transfuse <7/20 *DM -Lantus was increased 24 units BID, continue to monitor for hypoglycemia in setting of tube feeds * Severe sepsis due to aspiration pneumonia -fever/tachycardia with worsening encephalopathy and resp status yesterday -back on IV Zosyn -Bronch cultures from 05/14 growing MSSA, 05/18 growing S Aureus as well * Metabolic encephalopathy - Prior to cardiac arrest, now with possible anoxic brain injury * Embolic CVA - tiny -ASA * HTN -was holding meds - MAP >70 per neurosurgery, now MAP goal relaxed -SBP 170's this AM, ordered Labetalol PRN for SBP >180 -Nephrology following, recommending hydralazine 10-25 mg TID to QID * Dysphagia -failed VFSS -attempted PEG on 05/14 but patient too critically ill -S/p PEG placement on 05/17 * Neurogenic bladder -replaced isaac - follow-up with urology -depending on spinal recovery - may need eventual supra-pubic cath * NIXON -no current CPAP -needs repeat sleep study * Chronic systolic CHF - EF now 50% * CAD/stent * Hyperkalemia -S/p Kayexalate earlier in admission, K 3.6 this AM -cortisol level okay * Diarrhea -C diff negative * Sacral wound - per wound care * Wound dehiscence with leak of spinal fluid -s/p oversew with Dr. Centeno Subjective: Patient intubated and sedated this AM Objective: Vital Signs Temp Pulse Resp BP Pulse Ox 37.9 C 76 20 168/61 H 99 05/19/18 09:00 05/19/18 09:00 05/19/18 09:00 05/19/18 09:00 05/19/18 09:00 Microbiology 05/18/18 10:55 Gram Stain - Final Bronchial Washing - Bilateral Lobes 05/13/18 23:00 Blood Culture - Final Blood 05/13/18 18:36 Blood Culture - Final Blood Laboratory Results 05/19/18 04:20 05/19/18 04:20 05/18/18 05/19/18 05/20/18 05:59 05:59 05:59 Intake Total 2558.2 4909 Output Total 2883 875 Balance -324.8 4034 PT 17.2 SEC (12.0-15.0) H 05/17/18 08:35 INR 1.39 (0.83-1.16) H 05/17/18 08:35 - Physical Exam Constitutional: chronically ill appearing, unkempt Eyes: anicteric sclera Ears, Nose, Mouth, Throat: other (ETT in place) Cardiovascular: regular rate and rhythym, edema Respiratory: other (mechanical breath sounds ) Gastrointestinal: soft, non-tender abdomen Skin: warm Musculoskeletal: generalized weakness Neurologic: No AAOx3 Psychiatric: No interacting appropriately ICD10 Worksheet Patient Problems: Problems Problem Status Onset Encephalopathy Acute Myelopathy of cervical spinal cord with cervical radiculopathy Acute Acute exacerbation of congestive heart failure Acute CHF (congestive heart failure) Acute Diabetes Acute Elevated troponin Acute HTN (hypertension) Acute Hyperglycemia Acute NSTEMI (non-ST elevated myocardial infarction) Acute Orthostatic hypotension Acute Pneumonia Acute Respiratory failure with hypoxia Acute Upper respiratory tract infection Acute
--- NOTE | 2018-05-19 13:27 | GOP ---
[f rep st] OPERATIVE REPORT DATE OF OPERATION: SURGEON: Regis Villatoro MD TERMITE TECHNICIAN: Dr. Tristin Guzman. ANESTHESIA: General. PREOPERATIVE DIAGNOSIS: Respiratory failure. POSTOPERATIVE DIAGNOSIS: Respiratory failure. PROCEDURE PERFORMED: FINDINGS: SPECIMENS: No specimens for pathology. ESTIMATED BLOOD LOSS: Less than 10 mL. INDICATIONS: Respiratory failure. DESCRIPTION OF PROCEDURE: The patient is a 62-year-old male who has had episodes of re-intubation wi th respiratory failure noted over the past few weeks who was brought to the operating room for the pu rposes of tracheostomy tube insertion. The patient has a neck C-collar on and the anterior aspect of the C-collar was removed, but the posterior aspect was left in place. The midline neck structures w ere marked out and 1% lidocaine with epinephrine 1:100,000 strength was infiltrated subcutaneously in the deep soft tissues of the midline neck in the region of the planned tracheostomy incision and dis section. After waiting for the sterile prep to take effect, the patient was draped in a sterile fashion and pr ocedure was begun by making a horizontal incision in a neck crease roughly 1 cm below the patient's c ricoid cartilage. The incision was carried down through the deep subcutaneous tissue using electroca utery and blunt dissection. With retraction of the soft tissues, the midline strap musculature was d ivided down to the thyroid fascia. The thyroid was dissected free of the anterior tracheal wall and divided in the midline using electrocautery with good exposure of the cricoid and trachea noted. During the portion of the deeper soft tissue dissection and thyroid dissection, the patient was noted to start to have issues with bradycardia. It was at this point of the procedure that the patient wa s noted to have no pulses and no recordable blood pressure, and a code was initiated on the operating room table. It was at this point that the tracheostomy tube insertion was aborted and the wound pac ked with Xeroform gauze and dressed with a simple gauze dressing while the patient was being coded. The patient was eventually brought back to the ICU, maintaining his own circulatory pressure, and wit h a cardiac rhythm. Please see the anesthesia and operating room staff notes for more details on the code event. CHIEF COMPLAINT: Respiratory failure. PROCEDURE PERFORMED: Tracheostomy tube insertion that was aborted. /[id number]/MODL
--- NOTE | 2018-05-19 13:28 | ASMTCMCOM ---
CM Note CM Note Notes: Patient went into PEA arrest in OR yesterday prior to tracheostomy, CPR was performed. Patient had metabolic encephalopathy prior to cardiac arrest yesterday, now with possible anoxic brain injury. Patient remains critically ill. Dr. Cazares met with patient's family after rounds today to answer questions. CM will follow. D/C plan: [facility] when medically stable. Date Signed: 05/19/2018 01:17 PM Electronically Signed By:Linda Alvarenga LCSW
--- NOTE | 2018-05-19 16:08 | PDINTPN ---
Respite Coordinator Progress Note Assessment/Plan: Assessment: 62 yo M with cervical stenosis s/p C4-T2 c spine fusion on 04/29/18 complicated by postoperative weakness status post repeat posterior approach complicated by postoperative encephalopathy, quadraparesis and weakness and status post cardiac arrest due to hypoxemic respiratory failure from aspiration inability to protect airway 05/03/2018. Extubated but required re-intubation 05/16. Had PEA arrest in OR upon incision for tracheostomy 05/18 evening. * Status post PEA arrest 05/18 evening. Occurred in the OR upon exposing the tracheostomy for tracheostomy. Several rounds of CPR and epinephrine-> ROSC. Initially had severe metabolic acidosis, since corrected. He has been hemodynamically stable since recovery from arrest, off pressors. Cause uncertain, mucus plugs are a possibility although his bronchoscopy looked fairly good earlier in the day and all secretions were cleared at that time. PE or vagal response to neck/tracheal stimulation are also possibilities. * Anoxic encephalopathy: Occurred at time of arrest 05/18 evening. He has brainstem reflexes but no purposeful movement. * Acute respiratory failure with hypoxia and Aspiration PNA- he has had recurring episodes of mucous plugging with subsequent desaturation, usually resolved with NT sxn. Bronchoscopy 05/17 demonstrated extensive bilateral secretions, bronchoscopy 05/18 demonstrated just a moderate amount of mostly basal secretions. * RAMANA on CKD III- previously resolved but hypoxia/hypotensive episode 05/14 may have been responsible for new increase creatinine. He also developed hypernatremia. He was given IVF but his creatinine continued to rise. Renal re- consulted, recommended hypertonic IV fluids and indicated that his new baseline creatinine may be lower than his prior baseline creatinine due to the loss of muscle mass/turnover. Creatinine increased post arrest * Anemia- His hgb preop was 10-13, which stayed stable through about 05/08. This was not rechecked until 05/12 when it was 7.8 but there was no evidence of bleeding or hemodynamic compromise and it was though to be related to dilution. This remained stable until 05/16 when it was found to be 6.8 (6.2 on recheck) on routine labs. He has had liquid stool through his rectal tube, no major procedures, and no evidence of bleeding. He remains on Pepcid and has been getting TF via his NGT (except last 48 hours). He was transfused 2 unit RBC followed by frequent H/H. His H/H aly appropriately and has remained stable. If he continues to fall, he may need EGD to further evaluate. Have changed pepcid to PPI. * Quadriparesis following C4-T2 fusion. He moves all extremities and gets up to a chair occasionally, though has ongoing weakness. Strength was improving per family and patient daily pre arrest, more so in his RUE (right handed). He has some spontaneous nonpurposeful upper extremity movement post-arrest * Hypertension: Chronic, on high doses of multiple medications as an outpatient. It would probably be appropriate to keep his blood pressure on the high side for a little while longer due to his spinal cord/cerebral injury * NIXON. In the process of being evaluated as output. has old cpap broken but needs repeat sleep study prior to qualifying for insurance to approve. family wishes to buy on own prior to sleep study. He will need a sleep study and CPAP after his recovery, but the tracheostomy will obviate the need for CPAP until it is removed. * decubitus ulcer- stage II-III per RN. Wound care following, and rectal tube in place. Improved significantly as of 05/17 * Neurogenic bladder- urology consulted- isaac placed * Swallow dysfunction. Video eval with aspiration, so PEG placed 05/17 Plan: Bronchoscopy today to clear secretions. Ultrasound lower extremities to assess for DVT. Start anticoagulation if okay per Neurosurgery Echocardiogram to assess for ongoing right ventricular strain CT head and EEG per Neurology Continue Zosyn for now Continue wound care for decubitus ulcer Follow CXR 65 min critical care time exclusive of procedure, managing respiratory failure, multiple discussions with Dr. Centeno and family 05/18/18 11:06 05/19/18 16:09 05/19/18 16:46 Subjective: Unresponsive Objective: Vital Signs Temp Pulse Resp BP Pulse Ox 37.7 C 80 20 162/60 H 100 05/19/18 15:50 05/19/18 15:50 05/19/18 15:50 05/19/18 15:50 05/19/18 15:50 Microbiology 05/18/18 10:55 Gram Stain - Final Bronchial Washing - Bilateral Lobes 05/13/18 23:00 Blood Culture - Final Blood 05/13/18 18:36 Blood Culture - Final Blood Laboratory Results 05/19/18 04:20 05/19/18 12:45 05/18/18 05/19/18 05/20/18 05:59 05:59 05:59 Intake Total 2558.2 4909 Output Total 2883 875 Balance -324.8 4034 PT 17.2 SEC (12.0-15.0) H 05/17/18 08:35 INR 1.39 (0.83-1.16) H 05/17/18 08:35 Chest x-ray: Improved but persistent right greater than left infiltrates. Images reviewed by me. CT head: Increase in low density bifrontal fluid collection consistent with hygroma compared to 05/03. No compression. No evidence of acute bleed. Images reviewed by me. Physical Exam - Physical Exam General Appearance: unresponsive, No alert EENT: normal ENT inspection Neck: normal inspection Respiratory: lungs clear, normal breath sounds Cardiac/Chest: regular rate, rhythm, No edema Abdomen: normal bowel sounds, non-tender Skin: normal color, warm/dry Extremities: normal inspection Neuro/Psych: other (Moves upper extremities non purposefully to noxious stimuli. ), No alert, No normal mood/affect, No oriented x 3 ICD10 Worksheet Patient Problems: Problems Problem Status Onset Encephalopathy Acute Myelopathy of cervical spinal cord with cervical radiculopathy Acute Acute exacerbation of congestive heart failure Acute CHF (congestive heart failure) Acute Diabetes Acute Elevated troponin Acute HTN (hypertension) Acute Hyperglycemia Acute NSTEMI (non-ST elevated myocardial infarction) Acute Orthostatic hypotension Acute Pneumonia Acute Respiratory failure with hypoxia Acute Upper respiratory tract infection Acute
--- NOTE | 2018-05-19 16:21 | ECHO ---
[email or web address] [place] [id number] Main: [phone] Fax: Transthoracic Echocardiogram Name: DANIEL WARD MR#: [id number] Study Date: 05/19/2018 Study Time: 08:04 AM Date of : 1955 Age: 62 year(s) Height: ( ) Weight: ( ) BSA: Gender: Male Examination: Limited Echo Indication: LV function Image Quality: Contrast: Requested by: BP: / Heart Rate: Rhythm: Indication: LV function Procedure Staff Bid Clerk: Jenny Ruiz [facility] Reading Physician: Jose Dunbar MD Requesting Provider: Conclusions: Normal size left ventricle. The ejection fraction is visually estimated to be 50 %. No regional wall motion abnormality. Mildly dilated right ventricle. Normal RV function. Trivial pericardial effusion. Measurements: Chambers Valvular Assessment AV/MV Valvular Assessment TV/PV Normal Normal Normal Name Value Range Name Value Range Name Value Range Visual EF: 50 % Continued Measurements: Findings: Left Ventricle: Normal size left ventricle. The ejection fraction is visually estimated to be 50 %. No regional wall motion abnormality. Right Ventricle: Mildly dilated right ventricle. Normal RV function. Pericardium: Trivial pericardial effusion. (No Signature Object) Patient: DANIEL WARD Study Date: 05/19/2018 Page 1 of 2 08:04 AM Patient: DANIEL WARD Study Date: 05/19/2018 Page 2 of 2 08:04 AM [id number]
--- NOTE | 2018-05-19 17:24 | NEUROPROG ---
Assessment: Total unit time of 25 min. The patient is in a state of decreased responsiveness suggesting diffuse hypoxic ischemic encephalopathy and stereotyped movements indicative of possible nonconvulsive seizure or residual effects of brainstem ischemia. I will start him on Keppra 1000 mg. I will order EEG. We will obtain a noncontrast head CT. I discussed with the patient' s and nurse and other family members present the current situation and the fact that this is concerning for significant brain injury, but we will continue close monitoring for signs of improvement before being able to draw any definitive conclusions and will certainly need several days of observation. Addendum: EEG shows generalized suppression to a moderate degree consistent with a moderate encephalopathy and no electrographic seizures or focal findings are present. I will discontinue the Keppra. Objective: Vital Signs Temp Pulse Resp BP Pulse Ox 37.7 C 80 20 162/60 H 100 05/19/18 15:50 05/19/18 15:50 05/19/18 15:50 05/19/18 15:50 05/19/18 15:50 Microbiology 05/18/18 10:55 Gram Stain - Final Bronchial Washing - Bilateral Lobes 05/13/18 23:00 Blood Culture - Final Blood 05/13/18 18:36 Blood Culture - Final Blood Laboratory Results 05/19/18 04:20 05/19/18 12:45 05/18/18 05/19/18 05/20/18 05:59 05:59 05:59 Intake Total 2558.2 4909 Output Total 2883 875 Balance -324.8 4034 PT 17.2 SEC (12.0-15.0) H 05/17/18 08:35 INR 1.39 (0.83-1.16) H 05/17/18 08:35 Allergies/Adverse Reactions: lorazepam Allergy (Verified 05/12/18 18:25)
[2018-05-19] MEDS: PIPERACILLIN/TAZO 2.25 GM/DEX 50 ML IV SCH (17:46)
[2018-05-19] MEDS: METOPROLOL TARTRATE 25 MG TAB TUBE SCH ×2 (18:53→18:55)
[2018-05-19] MEDS: HEPARIN 5,000 UNIT/0.5 ML INJ SC SCH (21:31)
[2018-05-19] MEDS ORDERED: POTASSIUM Cl (KCl) 50 ML IV ONE (21:49)
[2018-05-20] MEDS: PIPERACILLIN/TAZO 2.25 GM/DEX 50 ML IV SCH ×5 (00:29→23:54)
[2018-05-20] MEDS: INSULIN REGULAR HUMAN 100 UNIT/ML UNIT SC SCH ×7 (00:33→23:51)
[2018-05-20] MEDS: LABETALOL HCL 5 MG/ML 20 ML MDV IVP PRN ×4 (00:34→13:41)
--- NOTE | 2018-05-20 01:09 | GPN ---
[f rep st] PROCEDURE NOTE DATE OF PROCEDURE: 05/19/2018 PROCEDURE PERFORMED: Flexible fiberoptic bronchoscopy. INDICATION FOR THE PROCEDURE: Respiratory failure with retained secretions. PROCEDURE NOTE: The risks and benefits of the procedure were explained to the patient's , who ag stevo to proceed. The entire procedure was performed in the intensive care unit with the patient unde r blood pressure, EKG and oximetry monitoring. It was my assessment that there was no risk of airbor ne infection from the procedure. After an appropriate time-out period, 3 cc 1% lidocaine was instill ed into the patient's endotracheal tube. The bronchoscope was advanced through the endotracheal tube . The appropriate position in the distal trachea was confirmed visually. There were minimal secreti ons in the trachea or in the mainstem bronchi. There were some scattered mucopurulent secretions in the bilateral lower lobes, which were partially occlusive of the basal segments. These were suctione d. There was a mild amount of secretions from the upper lobe and lingula on the right, which were ea sily suctioned and were not occlusive. The lower lobe airways were lavaged and were completely clear of secretions at the end of the procedure. There were no complications apparent at the end of the p rocedure. No specimens were sent. The patient received 2 mg of Versed intravenously for sedation. /[id number]/MODL
[2018-05-20] MEDS ORDERED: ACETAMINOPHEN 650 MG SUPP PR PRN (04:33)
[2018-05-20] MEDS ORDERED: ACETAMINOPHEN 650 MG/20.3 ML UDCUP TUBE PRN (05:07)
[2018-05-20] MEDS: hydrALAZINE 25 MG TAB TUBE SCH ×2 (05:38→13:20)
[2018-05-20] MEDS: ACETAMINOPHEN 500 MG TAB TUBE PRN ×3 (05:43→20:50)
[2018-05-20] MEDS: HEPARIN 5,000 UNIT/0.5 ML INJ SC SCH ×3 (05:43→20:51)
[2018-05-20] MEDS: ACETYLCYSTEINE 10% IH/PO 4 ML VIAL IH SCH ×4 (05:56→21:25)
[2018-05-20] MEDS: ALBUTEROL 3 ML DEYVIAL IH SCH ×4 (05:56→21:25)
--- NOTE | 2018-05-20 08:04 | NEUSURGPN ---
Date of Surgery: 04/29/18 Post Op Day: 21 Assessment/Plan: Assessment: 62 y/o male that is s/p anterior C4-C7 fusion and and PCF/ decompression C4-T2 on 04/29/18 and 04/30/[address] Stock with postop quadraparesis that was slowly improving prior to his attempted Trach placement. He has more pressing issues now with pulmonary problems/post arrest encephalopathy. Pt also with post operative respiratory arrest d/t inability to protect airway, NIXON and was intubated in the immediate time after surgery. Pt with hx of aspiration PNA treated by CC team. Intubated x 3-now intubated again. Attempted trach on 05/18 with sudden drop in BP and coded x 4 on 05/18. Trach to be finished when and if able to do -Post operative MRI and CT on 05/05 reviewed by BNA physicians and feel no further surgery indicated, pressure support of MAP>85 started POD #6 after NS consultation we are now at normalized MAPs/blood pressure management per critical care -MRI of the L spine and T spine reviewed that shows a small disc bulge and DDD in the T spine. L4/5 shows stenosis as well. No surgical lesion in the T and L spine that needs to be addressed at this time -MRI Brain with 3 small foci of ischemia and small bilateral SDH -Neuro/motor exam was improving daily prior to episode on 05/18 Plan: -MAPs >85 through initial weekend after we were consulted. We relaxed the MAPs and he was still improving prior to his most recent arrest-Dr Centeno discussed with family. At this point we will follow his exam with regards to his SCI -pt had sudden drop of BP on 05/18 in the OR while getting a Trach-coded 4 times- aborted and will finish trach when and if able -continue [place] CCollar at all times-CDI. No skin issues noted. CDI to anterior and posterior incision. [place] removed by Dr Centeno then this had to be oversewn due to clear fluid leaking-continues to be dry this am -continue with SCI precautions, frequent weight shifting and skin care -monitor posterior incision in particular-continues to look fine without s/s of infection -pt with high temps/blood pressure fluctuations-Dr Centeno spoke to Dr Cazares about plan and management -CT shows hygromas noted c/w CSF leak in neck per Dr Nelsons reading -PT/OT-CPM -pt to compete Trach when and if able -PEG placed already -DVT ppx, TEDs, SCD's, Lovenox per Critical Care -Neurology on board as well -Nephrology following kidney issues -Medicine following as well -pt has urine retention-isaac placed at recommendation of Urology -call with any questions or concerns -family updated as well -pt d/w Dr Centeno as well Subjective: No new changes. Chart reviewed. RN updated me. Spoke with Dr Valenzuela as well Objective: No change from exam yesterday afternoon that is stable but worse than from am yesterday Pt is intubated Pt with rhythmic beating of eyelids bilaterally c/w prior exam E: OU 4-5 mm and reactive M: no purposeful movements V: non verbal/intubated CDI to anterior and posterior incision CCollar in place-no skin issues Neuro Check Frequency: per ordered Urinary Catheter in Place: No Catheter Insertion Date: 05/11/18 - Physician Discussed Patient with : [facility] Neurosurgery Physical Exam - Vitals, I&O, Labs I and O 05/19/18 05/20/18 05/21/18 05:59 05:59 05:59 Intake Total 4909 1526 Output Total 875 1170 Balance 4034 356 Weight 102.9 kg Intake: IV Intake (ml) 2700 60 IV Infused (ml) 2209 904 D5w 1,000 ml @ 75 mls/hr 1583 804 IV CONT [facility] Rx#: [id number] Dexmedetomidine HCl 400 0 mcg In Ns 100 ml @ Titrate IV CONT [facility] Rx#: [id number] EPINEPHrine 1 mg In Ns 500 250 ml @ Per Protocol IV ONCE ONE Rx#:[id number] Piperacillin/Tazo 2.25 gm 100 /Dex 50 ml @ 100 mls/hr IV Q6 YAZMIN Rx#:[id number] Propofol/Emulsion 100 ml 126 0 @ Per Protocol IV CONT [facility] Rx#:[id number] Tube Feeding (ml) 162 Tube Flush (ml) 400 Output: Urine (ml) 625 970 Catheter 625 970 Liquid Stool (ml) 100 200 Catheter 100 Incontinence 200 Estimated Blood Loss (ml) 50 PEG Tube Output (ml) 100 Large Bore (>12 Amharic) 100 Non-weighted Stomach 20 Amharic Microbiology 05/18/18 10:55 Gram Stain - Final Bronchial Washing - Bilateral Lobes 05/13/18 23:00 Blood Culture - Final Blood Vital Signs Temp Pulse Resp BP Pulse Ox 39.7 C H 90 18 173/60 H 100 05/20/18 06:00 05/20/18 06:04 05/20/18 06:04 05/20/18 06:00 05/20/18 06:00 Laboratory Results 05/19/18 04:20 05/20/18 04:20 ICD10 Worksheet Patient Problems: Problems Problem Status Onset Encephalopathy Acute Myelopathy of cervical spinal cord with cervical radiculopathy Acute Acute exacerbation of congestive heart failure Acute CHF (congestive heart failure) Acute Diabetes Acute Elevated troponin Acute HTN (hypertension) Acute Hyperglycemia Acute NSTEMI (non-ST elevated myocardial infarction) Acute Orthostatic hypotension Acute Pneumonia Acute Respiratory failure with hypoxia Acute Upper respiratory tract infection Acute
[2018-05-20] MEDS: LANSOPRAZOLE SUSP 30MG/10ML UDSYR (Adult) TUBE SCH (08:38)
[2018-05-20] MEDS: INSULIN GLARGINE 100 UNITS/ML UNIT SC SCH ×2 (08:38→19:49)
[2018-05-20] MEDS: METOPROLOL TARTRATE 25 MG TAB TUBE SCH ×2 (08:38→19:42)
--- NOTE | 2018-05-20 08:58 | SOAPPROG ---
SOAP Progress Note Assessment/Plan: Assessment: 1. Hypernatremia This is due to intangible losses, osmotic diuresis, and stool losses. He has been getting D5W and Na stable near 150. He now has peg tube and is getting significant amount of water via q2h flushes. We will follow Na level q6h and adjust as needed in conjunction with ICU team. 2. Hypertension We are being permissive of his hypertension within limits. He now has PEG. Scheduled hydralazine ordered this am. He is also on scheduled metoprolol and prn labetalol. Latter should be ok as base HR is in 90's. 3. RAMANA on CKD Recent hypotensive episode, Cr above baseline of near 2. Appears to be plateauing. No indications for dialysis at present, and they seem unlikely. Reviewed neuro and NS notes. Plan discussed with family, RN, ICU MD. Subjective: Recent events noted. and bedside. Poorly responsive. Objective: Vital Signs Temp Pulse Resp BP Pulse Ox 39.0 C H 94 23 H 170/89 H 100 05/20/18 08:00 05/20/18 08:00 05/20/18 08:00 05/20/18 08:00 05/20/18 08:00 Microbiology 05/18/18 10:55 Gram Stain - Final Bronchial Washing - Bilateral Lobes 05/13/18 23:00 Blood Culture - Final Blood Laboratory Results 05/19/18 04:20 05/20/18 04:20 05/19/18 05/20/18 05/21/18 05:59 05:59 05:59 Intake Total 4909 1526 Output Total 875 1170 Balance 4034 356 PT 17.2 SEC (12.0-15.0) H 05/17/18 08:35 INR 1.39 (0.83-1.16) H 05/17/18 08:35 Physical Exam - Physical Exam General Appearance: obtunded Respiratory: lungs clear Cardiac/Chest: regular rate, rhythm Abdomen: soft Male Genitalia: other (isaac) Extremities: pedal edema (trace) ICD10 Worksheet Patient Problems: Problems Problem Status Onset Encephalopathy Acute Myelopathy of cervical spinal cord with cervical radiculopathy Acute Acute exacerbation of congestive heart failure Acute CHF (congestive heart failure) Acute Diabetes Acute Elevated troponin Acute HTN (hypertension) Acute Hyperglycemia Acute NSTEMI (non-ST elevated myocardial infarction) Acute Orthostatic hypotension Acute Pneumonia Acute Respiratory failure with hypoxia Acute Upper respiratory tract infection Acute
--- NOTE | 2018-05-20 09:04 | NEUROPROG ---
Assessment: Total unit time of 25 min. The patient is in a state of decreased responsiveness suggesting diffuse hypoxic ischemic encephalopathy and stereotyped movements indicative of possible nonconvulsive seizure or residual effects of brainstem ischemia. I will start him on Keppra 1000 mg. I will order EEG. We will obtain a noncontrast head CT. I discussed with the patient' s and nurse and other family members present the current situation and the fact that this is concerning for significant brain injury, but we will continue close monitoring for signs of improvement before being able to draw any definitive conclusions and will certainly need several days of observation. Addendum: EEG shows generalized suppression to a moderate degree consistent with a moderate encephalopathy and no electrographic seizures or focal findings are present. I will discontinue the Keppra. 05/20/18: Total unit time of 15 min. The patient has a state of coma with some basic reflex is indicative of a severe encephalopathy. This is likely on a hypoxic ischemic basis. I informed his and the family members present that I would recommend consideration of withdrawal of care if we do not see any improvement by tomorrow given the very poor prognosis with this level of coma and a known mechanism. The EEG did not show evidence of seizures. Subjective: The patient has not had any improvement over the last 24 hr. He is not responding to tracheal suctioning or stimulation. He remains on the ventilator. No clinical seizure activity has been seen basic reflexes arm with some flexion posturing has sometimes been elicited with movement or stimulation. He still has a fairly regular blinking but eyes are currently closed. Objective: Vital Signs Temp Pulse Resp BP Pulse Ox 39.0 C H 94 23 H 170/89 H 100 05/20/18 08:00 05/20/18 08:00 05/20/18 08:00 05/20/18 08:00 05/20/18 08:00 Microbiology 05/18/18 10:55 Gram Stain - Final Bronchial Washing - Bilateral Lobes 05/13/18 23:00 Blood Culture - Final Blood Laboratory Results 05/19/18 04:20 05/20/18 04:20 05/19/18 05/20/18 05/21/18 05:59 05:59 05:59 Intake Total 4909 1526 Output Total 875 1170 Balance 4034 356 PT 17.2 SEC (12.0-15.0) H 05/17/18 08:35 INR 1.39 (0.83-1.16) H 05/17/18 08:35 The patient is unresponsive to all stimulation other than a triple flexion response in the lower extremities and not following any commands or any eye opening to pain or stimulation. The pupils are 3 mm and react. The extraocular movements are limited and oculocephalic reflexes show diminished responses. He does not have corneal reflexes. He has intermittent blinking on a fairly regular basis. Allergies/Adverse Reactions: lorazepam Allergy (Verified 05/12/18 18:25)
--- NOTE | 2018-05-20 10:46 | PDINTPN ---
Journalists And Other Writers Progress Note Assessment/Plan: Assessment: 62 yo M with cervical stenosis s/p C4-T2 c spine fusion on 04/29/18 complicated by postoperative weakness status post repeat posterior approach complicated by postoperative encephalopathy, quadraparesis and weakness and status post cardiac arrest due to hypoxemic respiratory failure from aspiration inability to protect airway 05/03/2018. Extubated but required re-intubation 05/16. Had PEA arrest in OR upon incision for tracheostomy 05/18 evening. * Status post PEA arrest 05/18 evening. Occurred in the OR upon exposing the tracheostomy for tracheostomy. Several rounds of CPR and epinephrine-> ROSC. Initially had severe metabolic acidosis, since corrected. He has been hemodynamically stable since recovery from arrest, off pressors. Cause uncertain, mucus plugs unlikely as his bronchoscopy looked fairly good earlier in the day, all secretions were cleared at that time, and he had just basilar secretions on bronchoscopy the next morning. PE or vagal response to neck/ tracheal stimulation are also possibilities. * Anoxic encephalopathy: Occurred at time of arrest 05/18 evening. He has brainstem reflexes but no purposeful movement or other cortical response. Poor prognosis with no improvement at 36 hours. * Acute respiratory failure with hypoxia and Aspiration PNA- he has had recurring episodes of mucous plugging with subsequent desaturation, usually resolved with NT sxn. Bronchoscopy 05/17 demonstrated extensive bilateral secretions, bronchoscopy 05/18 demonstrated just a moderate amount of mostly basal secretions, with similar finding on 05/19. Sputum Cx with MSSA, on Zosyn. * RAMANA on CKD III- previously resolved but hypoxia/hypotensive episode 05/14 may have been responsible for new increase creatinine. He also developed hypernatremia. He was given IVF but his creatinine continued to rise. Renal re- consulted, recommended hypertonic IV fluids and indicated that his new baseline creatinine may be lower than his prior baseline creatinine due to the loss of muscle mass/turnover. Creatinine increased post arrest, appears to have plateaued. Fluid status and K+ OK, urine output 33+ cc/hour, has a mild metabolic acidosis that is compensated...no indication for dialysis. * Anemia- His hgb preop was 10-13, which stayed stable through about 05/08. This was not rechecked until 05/12 when it was 7.8 but there was no evidence of bleeding or hemodynamic compromise and it was though to be related to dilution. This remained stable until 05/16 when it was found to be 6.8 (6.2 on recheck) on routine labs. He has had liquid stool through his rectal tube, no major procedures, and no evidence of bleeding. He remains on Pepcid and has been getting TF via his NGT (except last 48 hours). He was transfused 2 unit RBC followed by frequent H/H. His H/H aly appropriately and has remained stable. If he continues to fall, he may need EGD to further evaluate. Have changed pepcid to PPI. * Quadriparesis following C4-T2 fusion. He moves all extremities and gets up to a chair occasionally, though has ongoing weakness. Strength was improving per family and patient daily pre arrest, more so in his RUE (right handed). He has had some spontaneous nonpurposeful upper extremity movement post-arrest * Hypertension: Chronic, on high doses of multiple medications as an outpatient. SBP quite high pre and post-arrest. * NIXON. In the process of being evaluated as output. has old cpap broken but needs repeat sleep study prior to qualifying for insurance to approve. Family wishes to buy on own prior to sleep study. He will need a sleep study and CPAP after his recovery, but the tracheostomy will obviate the need for CPAP until it is removed. * Hypernatremia: Stable on D5W * decubitus ulcer- stage II-III per RN. Wound care following, and rectal tube in place. Improved significantly as of 05/17 * Neurogenic bladder- Staley in place * Swallow dysfunction. Video eval with aspiration, so PEG placed 05/17 Plan: No bronchoscopy today unless he has respiratory deterioration Continue Heparin prophylaxis Continue Zosyn for now Continue wound care for decubitus ulcer Follow H/H, lytes For HTN will restart amlodipine. Increase hydralazine to keep SBP<180 Tylenol, external cooling for fevers Follow CXR 50 min critical care time managing respiratory failure, HTN, discussed with family, Dr. Valenzuela, Dr. Olivia. 05/20/18 11:00 Subjective: Unresponsive Objective: Vital Signs Temp Pulse Resp BP Pulse Ox 39.4 C H 91 16 190/85 H 100 05/20/18 10:00 05/20/18 10:00 05/20/18 10:00 05/20/18 10:05/20/18 10:00 Microbiology 05/18/18 10:55 Gram Stain - Final Bronchial Washing - Bilateral Lobes 05/13/18 23:00 Blood Culture - Final Blood Laboratory Results 05/19/18 04:20 05/20/18 04:20 05/19/18 05/20/18 05/21/18 05:59 05:59 05:59 Intake Total 4909 1526 Output Total 875 1170 Balance 4034 356 PT 17.2 SEC (12.0-15.0) H 05/17/18 08:35 INR 1.39 (0.83-1.16) H 05/17/18 08:35 Microbiology 05/14/18 08:10 Bronchial Washing - Bilateral Lobes Gram Stain - Final 05/14/18 08:10 Bronchial Washing - Bilateral Lobes Bronchial Culture - Final Staphylococcus Aureus Laboratory Tests 05/20/18 09:29 pO2 138 H Total CO2 21 L ABG pH 7.40 ABG HCO3 20 L O2 Concentration % 40 Respiration Rate 18 Tidal Volume 600 US BLE: No DVT. Right greater saphenous thrombus CTH: Increased bilateral frontoparietal hygromas. No hemorrhage. Echo EF 50%. Normal function of mildly dilated RV. Physical Exam - Physical Exam General Appearance: alert, no apparent distress EENT: normal ENT inspection Neck: normal inspection Respiratory: lungs clear, normal breath sounds Cardiac/Chest: regular rate, rhythm, No edema Abdomen: normal bowel sounds, non-tender Skin: normal color, warm/dry Extremities: normal inspection Neuro/Psych: other (unresponsive. + Gag reflex), No alert ICD10 Worksheet Patient Problems: Problems Problem Status Onset Encephalopathy Acute Myelopathy of cervical spinal cord with cervical radiculopathy Acute Acute exacerbation of congestive heart failure Acute CHF (congestive heart failure) Acute Diabetes Acute Elevated troponin Acute HTN (hypertension) Acute Hyperglycemia Acute NSTEMI (non-ST elevated myocardial infarction) Acute Orthostatic hypotension Acute Pneumonia Acute Respiratory failure with hypoxia Acute Upper respiratory tract infection Acute
[2018-05-20 13:35] LABS: PLATELET COUNT 186 10^3/uL (150-400)
[2018-05-20] MEDS ORDERED: hydrALAZINE 25 MG TAB TUBE ONE (14:15)
--- NOTE | 2018-05-20 15:35 | HOSPPROG ---
Hospitalist Progress Note Assessment/Plan: # quadriplegia s/p ACDF, subsequent C4-T2 fusion # metabolic encephalopathy - likely anoxic brain injury in the setting of PEA arrest # PEA arrest 05/18 in the OR - he received CPR, epi and got ROSC - unclear exactly what precipitated this: PE, hypotension, vagal are considerations # persistent fevers - possibly infectious or metabolic from brain injury - follow on current abx for now # acute respiratory failure - d/t aspiration pna, now unable to protect airway - cont vent support # aspiration pna (MSSA in bronch cx) - zosyn # severe sepsis d/t aspiration pna # RAMANA - SCr may have plateaued; does not need HD # htn - very difficult to control currently (on 6 meds at home) - cont IV meds prn, norvasc, metop via tube # hyperNa - d/t insensible losses - renal following # anemia - stabilized # DM2 - lantus 24U bid # CVA, likely embolic # bilat hygromas - make anticoagulation risky # COR - limited - no CPR; will continue intubation; discussed with family # dvt ppx - SQH Subjective: Not responsive; I discussed prognosis as well as code status with his family Objective: Vital Signs Temp Pulse Resp BP Pulse Ox 39.7 C H 92 17 179/67 H 100 05/20/18 14:58 05/20/18 14:58 05/20/18 14:58 05/20/18 14:58 05/20/18 14:58 Microbiology 05/18/18 10:55 Gram Stain - Final Bronchial Washing - Bilateral Lobes Laboratory Results 05/20/18 13:28 05/20/18 13:28 05/19/18 05/20/18 05/21/18 05:59 05:59 05:59 Intake Total 4909 1526 Output Total 875 1170 Balance 4034 356 PT 17.2 SEC (12.0-15.0) H 05/17/18 08:35 INR 1.39 (0.83-1.16) H 05/17/18 08:35 40 mins cc time spent managing anoxic brain injury, quadriplegia - Physical Exam Constitutional: uncomfortable (non-responsive) Eyes: other (ET tube) ICD10 Worksheet Patient Problems: Problems Problem Status Onset Encephalopathy Acute Myelopathy of cervical spinal cord with cervical radiculopathy Acute Diabetes Acute HTN (hypertension) Acute NSTEMI (non-ST elevated myocardial infarction) Acute Acute exacerbation of congestive heart failure Acute Elevated troponin Acute Hyperglycemia Acute Orthostatic hypotension Acute Pneumonia Acute Respiratory failure with hypoxia Acute CHF (congestive heart failure) Acute Upper respiratory tract infection Acute
--- NOTE | 2018-05-20 16:05 | ASMTCMCOM ---
CM Note CM Note Notes: Lindsay, nurse case packer from [facility] called today. Her number is [phone], [phone]. She is available to assist with any outpatient needs the patient might have. CM will follow. Date Signed: 05/20/2018 04:04 PM Electronically Signed By:Linda Alvarenga LCSW
[2018-05-20] MEDS: METOPROLOL TARTRATE 5 MG/5 ML INJ IVP SCH ×3 (16:33→17:25)
--- NOTE | 2018-05-20 17:08 | ECHO ---
[email or web address] [address] [address] Main: [phone] Fax: Transthoracic Echocardiogram Name: DANIEL WARD MR#: [id number] Study Date: 05/19/2018 Study Time: 09:15 AM Date of : 1955 Age: 62 year(s) Height: 175.3 cm (69 in.) Weight: 102.51 kg (226 lb.) BSA: 2.18 m2 Gender: Male Examination: Echo Indication: Cardiac arrest Image Quality: Adequate Contrast: Requested by: Fabricio Suarez BP: / Heart Rate: Rhythm: Indication: Cardiac arrest Procedure Staff Glazing Department Supervisor: Jenny Ruiz [facility] Reading Physician: Migdalia Garcia MD Requesting Provider: Conclusions: Normal size left ventricle. Mildly reduced systolic LV function. The ejection fraction is estimated to be 45-50 %. Normal size right ventricle. Mildly to moderately reduced right ventricular function. Mild mitral valve regurgitation is present. Trivial pericardial effusion. Compared with prior study dated 05/18/2018 RV is now normal size with improved function. Measurements: Chambers Valvular Assessment AV/MV Valvular Assessment TV/PV Normal Normal Normal Name Value Range Name Value Range Name Value Range Ao Negin (2D): 3.4 cm (1.4 cm-2.6 PV Vmax: 0.57 m/s (0.6 m/s-0.9 cm) m/s) IVSd (2D): 1.0 cm (0.6 cm-1.1 PV PGmax: 1 mmHg ( - ) cm) LVDd (2D): 5.7 cm (4.2 cm-5.9 cm) LVDs (2D): 5.0 cm (2.1 cm-4 cm) LVPWd (2D): 1.1 cm (0.6 cm-1 cm) LVOTd 2.2 cm 2.2 cm mm EF Range: 45-50 % RVDd(2D): 2.2 cm (1.9 cm-3.8 cmmm) Continued Measurements: Chambers Patient: DANIEL WARD Study Date: 05/19/2018 Page 1 of 2 09:15 AM Name Value LADs: 3.7 cm Findings: Left Ventricle: Normal size left ventricle. Mildly reduced systolic LV function. The ejection fraction is estimated to be 45-50 %. Subtle septal hypokinesis. Right Ventricle: Normal size right ventricle. Mildly to moderately reduced right ventricular function. Left Atrium: The left atrium is normal in size. Right Atrium: The right atrium is normal in size. Mitral Valve: The mitral valve is normal in appearance and function. Mild mitral valve regurgitation is present. No mitral stenosis is present. Aortic Valve: The aortic valve is tri-leaflet. Moderate aortic cusp calcification is present. Tricuspid Valve: The tricuspid valve is normal in appearance and function. Pulmonic Valve: The pulmonic valve is normal in appearance and function. Aorta: The aorta is normal. Pericardium: Trivial pericardial effusion. Exam Comments: (No Signature Object) Patient: DANIEL WARD Study Date: 05/19/2018 Page 2 of 2 09:15 AM [id number]
[2018-05-20] MEDS: niCARdipine/NACL 200 ML IV SCH ×2 (17:44→19:42)
[2018-05-20] MEDS: amLODIPine BESYLATE 5 MG TAB PO SCH (19:43)
[2018-05-21] MEDS: INSULIN REGULAR HUMAN 100 UNIT/ML UNIT SC SCH ×3 (03:56→15:35)
[2018-05-21] MEDS: HEPARIN 5,000 UNIT/0.5 ML INJ SC SCH ×2 (05:41→15:35)
[2018-05-21] MEDS: ACETAMINOPHEN 500 MG TAB TUBE PRN (05:41)
[2018-05-21] MEDS: PIPERACILLIN/TAZO 2.25 GM/DEX 50 ML IV SCH ×2 (05:42→15:36)
[2018-05-21 05:53] LABS: PLATELET COUNT 148 10^3/uL (150-400)
--- NOTE | 2018-05-21 05:54 | CPEEG ---
[f rep st] ELECTROENCEPHALOGRAM DATE OF STUDY: The patient is a 62-year-old who is in the ICU following complications of spinal surgery, and has had a respiratory arrest the day before this EEG and is in a state of coma. INDICATION: Evaluate for seizure, focal findings, and epileptiform activity. The recording is obtai vivi in the ICU with prominent muscle artifact and there are regular blink artifacts throughout the re cording. When we can see background rhythms, there are no normal rhythms, but a moderate to severely suppressed background predominantly beta activity. There is not a burst suppression pattern. The f indings are not indicative of nonconvulsive seizures. There is no focality and no epileptiform or el ectrographic seizures. The background did not change throughout the recording. INTERPRETATION: This is an abnormal EEG with moderate suppression and no normal EEG activity and katherine y limited reactivity. As a result, this can be interpreted as at least a moderate encephalopathy and indicative of a poor prognosis in the setting of hypoxic ischemic injury. /[id number]/MODL
[2018-05-21 06:19] VITALS: BP 158/57
--- NOTE | 2018-05-21 07:46 | SOAPPROG ---
SOAP Progress Note Assessment/Plan: Assessment: #RAMANA- non-oliguric -suspect ATN -PEA arrest on 05/18 -Cr creeping upwards, no indications for HD currently but monitoring closely #hypernatremia -NA 147 this am, continue d5w #HTN -poor control at baseline -trying to gradually lower with allowing some degree of permissive htn with RAMANA #quadriplegia #acute hypoxic resp failure -aspiration pna with MSSA in bronch cx -remains on vent #encephalopathy -suspected anoxic injury #DM2 I am workforce consultant for weekend Olena Cortez MD [facility] pager [phone] Plan: 05/21/18 07:45 05/21/18 07:46 05/21/18 07:48 Objective: Vital Signs Temp Pulse Resp BP Pulse Ox 37.1 C 94 18 158/57 H 95 05/21/18 06:00 05/21/18 06:00 05/21/18 06:00 05/21/18 06:00 05/21/18 06:00 Microbiology 05/18/18 10:55 Gram Stain - Final Bronchial Washing - Bilateral Lobes Bronchial Culture - Final Staphylococcus Aureus Laboratory Results 05/21/18 05:10 05/21/18 05:10 05/20/18 05/21/18 05/22/18 05:59 05:59 05:59 Intake Total 1526 3721 Output Total 1170 900 Balance 356 2821 PT 17.2 SEC (12.0-15.0) H 05/17/18 08:35 INR 1.39 (0.83-1.16) H 05/17/18 08:35 ICD10 Worksheet Patient Problems: Problems Problem Status Onset Encephalopathy Acute Myelopathy of cervical spinal cord with cervical radiculopathy Acute Acute exacerbation of congestive heart failure Acute CHF (congestive heart failure) Acute Diabetes Acute Elevated troponin Acute HTN (hypertension) Acute Hyperglycemia Acute NSTEMI (non-ST elevated myocardial infarction) Acute Orthostatic hypotension Acute Pneumonia Acute Respiratory failure with hypoxia Acute Upper respiratory tract infection Acute
[2018-05-21] MEDS: niCARdipine/NACL 200 ML IV SCH (08:00)
--- NOTE | 2018-05-21 08:57 | NEUROPROG ---
Assessment: Total unit time of 25 min. The patient is in a state of decreased responsiveness suggesting diffuse hypoxic ischemic encephalopathy and stereotyped movements indicative of possible nonconvulsive seizure or residual effects of brainstem ischemia. I will start him on Keppra 1000 mg. I will order EEG. We will obtain a noncontrast head CT. I discussed with the patient' s and nurse and other family members present the current situation and the fact that this is concerning for significant brain injury, but we will continue close monitoring for signs of improvement before being able to draw any definitive conclusions and will certainly need several days of observation. Addendum: EEG shows generalized suppression to a moderate degree consistent with a moderate encephalopathy and no electrographic seizures or focal findings are present. I will discontinue the Keppra. 05/20/18: Total unit time of 15 min. The patient has a state of coma with some basic reflex is indicative of a severe encephalopathy. This is likely on a hypoxic ischemic basis. I informed his and the family members present that I would recommend consideration of withdrawal of care if we do not see any improvement by tomorrow given the very poor prognosis with this level of coma and a known mechanism. The EEG did not show evidence of seizures. 05/21/18: Total unit time of 15 min. The patient remains in a coma with hypoxic ischemic injury and no evidence of improvement suggesting no reasonable expectation of recovery. The family understands this and would like to withdraw supportive measures for comfort care only. The hospitalist is aware of this as well as nurse. I will remain available as needed for any further questions. Subjective: The patient has not had any changes reported in the last 24 hr. He remains on the ventilator and comatose state. Family is not notice anything different and nursing staff has not either. Objective: Vital Signs Temp Pulse Resp BP Pulse Ox 37.1 C 94 18 158/57 H 95 05/21/18 06:00 05/21/18 06:00 05/21/18 06:00 05/21/18 06:00 05/21/18 06:00 Microbiology 05/18/18 10:55 Gram Stain - Final Bronchial Washing - Bilateral Lobes Bronchial Culture - Final Staphylococcus Aureus Laboratory Results 05/21/18 05:10 05/21/18 05:10 05/20/18 05/21/18 05/22/18 05:59 05:59 05:59 Intake Total 1526 3721 Output Total 1170 900 Balance 356 2821 PT 17.2 SEC (12.0-15.0) H 05/17/18 08:35 INR 1.39 (0.83-1.16) H 05/17/18 08:35 On his examination he is unresponsive to verbal and tactile stimuli as well as pain. He has no meaningful response to external stimulation. The pupils are 3 mm and remain reactive. He has some reflexive blinking but no seizures. The corneal reflexes remain absent. He has no response to pain in the extremities and flaccid extremities. Allergies/Adverse Reactions: lorazepam Allergy (Verified 05/12/18 18:25)
--- NOTE | 2018-05-21 09:07 | PDINTPN ---
Research Animal Attendant Progress Note Assessment/Plan: Assessment: 62 yo M with cervical stenosis s/p C4-T2 c spine fusion on 04/29/18 complicated by postoperative weakness status post repeat posterior approach complicated by postoperative encephalopathy, quadraparesis and weakness and status post cardiac arrest due to hypoxemic respiratory failure from aspiration inability to protect airway 05/03/2018. Extubated but required re-intubation 05/16. Had PEA arrest in OR upon incision for tracheostomy 05/18 evening. * Status post PEA arrest 05/18 evening. Occurred in the OR upon exposing the tracheostomy for tracheostomy. Several rounds of CPR and epinephrine-> ROSC. Initially had severe metabolic acidosis, since corrected. He has been hemodynamically stable since recovery from arrest, off pressors. Cause uncertain, mucus plugs unlikely as his bronchoscopy looked fairly good earlier in the day, all secretions were cleared at that time, and he had just basilar secretions on bronchoscopy the next morning. PE or vagal response to neck/ tracheal stimulation are also possibilities. * Anoxic encephalopathy: Occurred at time of arrest 05/18 evening. He has brainstem reflexes but no purposeful movement or other cortical response. Poor prognosis with no improvement at 60 hours. * Acute respiratory failure with hypoxia and Aspiration PNA- he has had recurring episodes of mucous plugging with subsequent desaturation, usually resolved with NT sxn. Bronchoscopy 05/17 demonstrated extensive bilateral secretions, bronchoscopy 05/18 demonstrated just a moderate amount of mostly basal secretions, with similar finding on 05/19. Sputum Cx with MSSA, on Zosyn. * RAMANA on CKD III- previously resolved but hypoxia/hypotensive episode 05/14 may have been responsible for new increase creatinine. He also developed hypernatremia. He was given IVF but his creatinine continued to rise. Renal re- consulted, recommended hypertonic IV fluids and indicated that his new baseline creatinine may be lower than his prior baseline creatinine due to the loss of muscle mass/turnover. Creatinine increased post arrest, continues to rise. Fluid status and K+ OK, urine output 33+ cc/hour, has a mild metabolic acidosis that is compensated...no indication for dialysis. * Anemia- His hgb preop was 10-13, which stayed stable through about 05/08. This was not rechecked until 05/12 when it was 7.8 but there was no evidence of bleeding or hemodynamic compromise and it was though to be related to dilution. This remained stable until 05/16 when it was found to be 6.8 (6.2 on recheck) on routine labs. He has had liquid stool through his rectal tube, no major procedures, and no evidence of bleeding. He remains on Pepcid and has been getting TF via his NGT (except last 48 hours). He was transfused 2 unit RBC followed by frequent H/H. His H/H aly appropriately and has remained stable. * Quadriparesis following C4-T2 fusion. He moves all extremities and gets up to a chair occasionally, though has ongoing weakness. Strength was improving per family and patient daily pre arrest, more so in his RUE (right handed). He has had some spontaneous nonpurposeful upper extremity movement post-arrest * Hypertension: Chronic, on high doses of multiple medications as an outpatient. SBP quite high pre and post-arrest, now improved with escalating doses of antihypertensives. * Hypernatremia: Improved on D5W * decubitus ulcer- stage II-III per RN. Wound care following, and rectal tube in place. Improved significantly as of 05/17 * Neurogenic bladder- Staley in place * Swallow dysfunction. Video eval with aspiration, so PEG placed 05/17 Plan: D/W Dr. Valenzuela. His neurologic exam is unimproved The family wishes to withdraw care Extubated and being given Versed/morphine PRN agitation/respiratory distress. 05/21/18 10:43 Subjective: Unresponsive Objective: Vital Signs Temp Pulse Resp BP Pulse Ox 37.1 C 94 18 158/57 H 95 05/21/18 06:00 05/21/18 06:00 05/21/18 06:00 05/21/18 06:00 05/21/18 06:00 Microbiology 05/18/18 10:55 Gram Stain - Final Bronchial Washing - Bilateral Lobes Bronchial Culture - Final Staphylococcus Aureus Laboratory Results 05/21/18 05:10 05/21/18 05:10 05/20/18 05/21/18 05/22/18 05:59 05:59 05:59 Intake Total 1526 3721 Output Total 1170 900 Balance 356 2821 PT 17.2 SEC (12.0-15.0) H 05/17/18 08:35 INR 1.39 (0.83-1.16) H 05/17/18 08:35 Physical Exam - Physical Exam General Appearance: No alert EENT: normal ENT inspection Neck: other (c-collar) Neuro/Psych: No alert ICD10 Worksheet Patient Problems: Problems Problem Status Onset Encephalopathy Acute Myelopathy of cervical spinal cord with cervical radiculopathy Acute Acute exacerbation of congestive heart failure Acute CHF (congestive heart failure) Acute Diabetes Acute Elevated troponin Acute HTN (hypertension) Acute Hyperglycemia Acute NSTEMI (non-ST elevated myocardial infarction) Acute Orthostatic hypotension Acute Pneumonia Acute Respiratory failure with hypoxia Acute Upper respiratory tract infection Acute
--- NOTE | 2018-05-21 09:11 | NEUSURGPN ---
Assessment/Plan: Assessment: 62y/o male s/p anterior C4-C7 fusion and and PCF/decompression C4- T2 on 04/29/18 with postop quadraplegia by Dr. Stock whose care has been transfer to Dr. Centeno with Neurosurgery. and and PCF/decompression C4-T2 on 04/29/18 and 04/30/[address] Stock with postop quadraparesis that is slowly improving. He is making day to day progress. Pt also with post operative respiratory arrest d/t inability to protect airway, NIXON and was intubated. Pt with Aspiration PNA treated by CC team. Attempted trach on 05/18 with sudden drop in BP and coded x 4 on 05/18. Pressure support of MAP>85 started POD #6 after NS consultation now at normalized MAPs/blood pressure management per critical care -CT 05/19 shows hygromas noted c/w CSF leak in neck per Dr Gonzalez reading -Neuro/motor exam was improving daily prior to episode on 05/18 Discussed with nursing staff, patient family planning to move to comfort care only given no improvement in the last 24 hours. Patient not opening eyes, no movement appreciated during exam today. Pupils reactive. Plan: -pt had sudden drop of BP on 05/18 in the OR while getting a Trach-coded 4 times- aborted and will finish trach when and if able -continue Tomah CCollar at all times-CDI. No skin issues noted. CDI to anterior and posterior incision. Shu removed by Dr Centeno then this had to be oversewn due to clear fluid leaking-continues to be dry this am -continue with SCI precautions, frequent weight shifting and skin care -DVT ppx, TEDs, SCD's, Lovenox per Critical Care -Neurology on board -Nephrology following kidney issues -Medicine following -call with any questions or concerns -family updated at beside -pt d/w Dr Centeno Subjective: Unable to obtain, discussed progress with family and nursing this morning Objective: NAD, intubated. PERRLA Incisions c/d/i flat Movement appreciated during exam today. spontaneous or purposeful. Catheter Insertion Date: 05/11/18 - Physician Discussed Patient with : [facility] Physical Exam - Vitals, I&O, Labs I and O 05/20/18 05/21/18 05/22/18 05:59 05:59 05:59 Intake Total 1526 3721 Output Total 1170 900 Balance 356 2821 Intake: IV Intake (ml) 60 IV Infused (ml) 904 910 D5w 1,000 ml @ 75 mls/hr 804 585 IV [facility] Rx#: [id number] Dexmedetomidine HCl 400 0 mcg In Ns 100 ml @ Titrate IV [facility] Rx#: [id number] Piperacillin/Tazo 2.25 gm 100 /Dex 50 ml @ 100 mls/hr IV Q6 [facility] Rx#:[id number] Propofol/Emulsion 100 ml 0 @ Per Protocol IV [facility] Rx#:[id number] niCARdipine/NACL 200 ml @ 325 Titrate IV [facility] Rx#: [id number] Tube Feeding (ml) 162 1371 Tube Flush (ml) 400 1440 Output: Urine (ml) 970 900 Catheter 970 900 Liquid Stool (ml) 200 Incontinence 200 Microbiology 05/18/18 10:55 Gram Stain - Final Bronchial Washing - Bilateral Lobes Bronchial Culture - Final Staphylococcus Aureus Vital Signs Temp Pulse Resp BP Pulse Ox 37.1 C 94 18 158/57 H 95 05/21/18 06:00 05/21/18 06:00 05/21/18 06:00 05/21/18 06:00 05/21/18 06:00 Laboratory Results 05/21/18 05:10 05/21/18 05:10 ICD10 Worksheet Patient Problems: Problems Problem Status Onset Encephalopathy Acute Myelopathy of cervical spinal cord with cervical radiculopathy Acute Acute exacerbation of congestive heart failure Acute CHF (congestive heart failure) Acute Diabetes Acute Elevated troponin Acute HTN (hypertension) Acute Hyperglycemia Acute NSTEMI (non-ST elevated myocardial infarction) Acute Orthostatic hypotension Acute Pneumonia Acute Respiratory failure with hypoxia Acute Upper respiratory tract infection Acute
[2018-05-21] MEDS: INSULIN GLARGINE 100 UNITS/ML UNIT SC SCH (09:37)
[2018-05-21] MEDS: LANSOPRAZOLE SUSP 30MG/10ML UDSYR (Adult) TUBE SCH (09:37)
[2018-05-21] MEDS: METOPROLOL TARTRATE 25 MG TAB TUBE SCH (09:37)
[2018-05-21] MEDS: amLODIPine BESYLATE 5 MG TAB PO SCH (09:37)
[2018-05-21] MEDS ORDERED: MIDAZOLAM 2 MG/2 ML VIAL IVP PRN (09:46)
[2018-05-21] MEDS: ALBUTEROL 3 ML DEYVIAL IH SCH ×2 (10:26→13:30)
--- NOTE | 2018-05-21 12:09 | ASMTCMCOM ---
CM Note CM Note Notes: Patient's family has decided to withdraw care and go to comfort measures. CM available if needs arise. Date Signed: 05/21/2018 12:07 PM Electronically Signed By:Linda Alvarenga LCSW
[2018-05-21] MEDS: ACETYLCYSTEINE 10% IH/PO 4 ML VIAL IH SCH (13:30)
--- NOTE | 2018-05-21 16:39 | HOSPPROG ---
Hospitalist Progress Note Assessment/Plan: # goals of care - care withdrawn today given severe anoxia, quadriplegia; comfort care only # quadriplegia s/p ACDF, subsequent C4-T2 fusion # metabolic encephalopathy - likely anoxic brain injury in the setting of PEA arrest - no change in dr gonzalez' exam today # PEA arrest 05/18 in the OR # persistent fevers - possibly infectious or metabolic from brain injury # acute respiratory failure - d/t aspiration pna, now unable to protect airway # aspiration pna (MSSA in bronch cx) - zosyn # severe sepsis d/t aspiration pna # RAMANA # htn # hyperNa # anemia - stabilized # DM2 # CVA, likely embolic # bilat hygromas Subjective: seen with family present; no change overnight Objective: Vital Signs Temp Pulse Resp BP Pulse Ox 37.1 C 81 22 H 158/57 H 97 05/21/18 06:00 05/21/18 09:27 05/21/18 09:27 05/21/18 06:00 05/21/18 09:27 Microbiology 05/18/18 10:55 Gram Stain - Final Bronchial Washing - Bilateral Lobes Bronchial Culture - Final Staphylococcus Aureus Laboratory Results 05/21/18 05:10 05/21/18 05:10 05/20/18 05/21/18 05/22/18 05:59 05:59 05:59 Intake Total 1526 3721 Output Total 1170 900 Balance 356 2821 PT 17.2 SEC (12.0-15.0) H 05/17/18 08:35 INR 1.39 (0.83-1.16) H 05/17/18 08:35 - Time Spent With Patient Time Spent with Patient: greater than 35 minutes Time Spent with Patient: Greater than 35 minutes spent on this patients care, greater than 50% of time spent counseling, educating, and coordinating care regarding the above mentioned plan. ICD10 Worksheet Patient Problems: Problems Problem Status Onset Encephalopathy Acute Myelopathy of cervical spinal cord with cervical radiculopathy Acute Diabetes Acute HTN (hypertension) Acute NSTEMI (non-ST elevated myocardial infarction) Acute Acute exacerbation of congestive heart failure Acute Elevated troponin Acute Hyperglycemia Acute Orthostatic hypotension Acute Pneumonia Acute Respiratory failure with hypoxia Acute CHF (congestive heart failure) Acute Upper respiratory tract infection Acute
--- NOTE | 2018-05-23 13:06 | ASDISCHSUM ---
Discharge Information Plan Status:Has needs-TBD Medically Cleared to Leave: Discharge Date:05/21/2018 10:00 PM CM D/C Disposition: ADT D/C Disposition: Projected Discharge Date:05/14/2018 11:00 AM Transportation at D/C: Discharge Delay Reason: Follow-Up Date:05/14/2018 11:00 AM Discharge Slot: Final Diagnosis: Placement Information Referral Type:[facility] Referral ID:[id number] Provider Name: Address 1: Phone Number: Address 2: Fax Number: City: Selection Factors: State: Referral Type:[employer] [facility] Referral ID:[id number] Provider Name: Address 1: Phone Number: Address 2: Fax Number: City: Selection Factors: State: Patient Contact Information Contact Name:ROMEO Relationship: Address:[address] Work Phone: City:[place] Phone: [facility] Code:[place] [address] Email: Financial Information Financial Class:[employer] [facility] Primary Plan Desc:[facility] Primary Plan Number:[id number] Secondary Plan Desc: Secondary Plan Number: Assessment Information [facility] CM Progress Note CM Note CM Note Notes: Pt presented to the ED through triage for fatigue, hypoxia, dry cough. Pt admitted for CHF exacerbation. Pt goes by "Bakari." Pt was admitted in 01/2018 for PNA and DC'd home Independent w/his , Tavo. They live in [place]. Pt's PMH includes sCHF, CAD and LA s/p stenting, ischemic cardiomyopathy w/40% ejection fraction last month, T2DM, NIXON (on CPAP), HLD, CKD, HTN, obesity. In the past, pt has had home oxygen at night (after his stent 11/2015) but hasn't needed to use it for about a year. Exact DC needs TBD. Anticipate pt to stabilize and DC home w/ w/possibly home oxygen. CM to follow. Date Signed: 03/08/2018 02:00 PM Electronically Signed By:Samantha Mishra RN [facility] CM Progress Note CM Note CM Note Notes: Patient had emergency spinal surgery due to an adjustment worsening his spinal cord. Awaiting PT/OT/torpedo shooter/cardiac rehab evals. CM will follow. Date Signed: 04/30/2018 11:48 AM Electronically Signed By:Linda Alvarenga LCSW [facility] CM Progress Note CM Note CM Note Notes: Warren Mccray was called on pt today, family and friends have been visiting with pts . Family meeting is scheduled for tomorrow (Thursday). CM spoke with PT, who were possibly recommending LTAC. PT unable to see pt today. There is an order for inpatient rehab. CM to continue to collaborate to determine appropriate discharge needs. Plan: LTAC vs Inpatient Rehab; family meeting Thursday Date Signed: 05/03/2018 03:51 PM Electronically Signed By:CAROLINE Hughes [facility] CM Progress Note CM Note CM Note Notes: Chaplain Elizalde summarized family meeting between patient's , Dr Stock, business law professor Loan, and herself: patient's is frustrated with communication and care in the unit, feels she is not being heard or told what is going on. Another meeting will occur later in the week. Patient's condition remains guarded; discharge needs are TBD. Structural Steel Equipment Erector is hoping for extubation soon. Case Management will continue to follow. Date Signed: 05/04/2018 02:10 PM Electronically Signed By:Kadie Kruse RN [facility] Progress Note CM Note CM Note Notes: Met with patient's , Tavo and several of the family members including her sisters to address the request for counseling. Tavo's has told her she needs to get counseling support for PTSD. Tavo was inquiring to see if the hospital would provide this service. [facility] explained we have basic support for the patient and for family members but it is not in depth counseling. We discussed the patient's need for safety, privacy, and to be with a counselor who has training with PTSD and the treatment thereof. offered a list of therapists approved by her insurance and in the area of [facility]. The family stated they already had some community therapists in mind. The family members then had questions regarding discharge planning and we reviewed the process. The family would like for a referral to go to [facility] now and I will send it today though patient's medical status has changed. The family would like to make sure the patient is not delayed over a weekend because of insurance auth process. I stated we would do our best but we cannot control insurance processes and we may not be able to control all the factors.I assured them we would do all in our control to make the discharge go smoothly. They were given business cards to contact the ICU CM. The family didn't have any further questions today. A family meeting needs to be scheduled for Thursday to bring everyone back together to ensure good communication. CM will follow. Date Signed: 05/05/2018 03:37 PM Electronically Signed By:Linda Alvarenga LCSW [facility] Progress Note CM Note KESHA Note Notes: 05-06-18 There were not copies of the [facility] paperwork in the chart so requested them from medical records and added to the chart. Spoke with the family regarding a family meeting and they opted to schedule it for Thursday at 12:00 noon. Also the family decided they did want the list of counselors and so this was given to them as well. CM will follow. Date Signed: 05/07/2018 09:22 AM Electronically Signed By:Linda Alvarenga LCSW [facility] KESHA Progress Note CM Note KESHA Note Notes: A family meeting was held today (please see Krystin Henry's notes) to review nursing coverage, answer discharge planning questions and check in to see if they had been getting their medical questions answered. [facility] is not sending liasons out to visit with patients until they are close to being ready to go. The [facility] physicians felt patient had too many medical concerns and needs at this time to send out a liason yet. When patient becomes more medically stable, they will send someone to meet with the family. CM did get several of the families questions answered about crash teams, private rooms, hotel lists, etc. CM met with the family a second time to go over this information. Tavo's brothers may go this weekend to tour the facility. CM will follow. Date Signed: 05/07/2018 04:10 PM Electronically Signed By:Linda Alvarenga LCSW [facility] KESHA Progress Note CM Note CM Note Notes: CM submit updates to [facility] and spoke with Jones Anderson ([phone]), coordinator of evaluation. They said they will like regular updates and will come screen pt when more medically stable, perhaps towards the end of the week. Pt's care discussed in rounds. CM spoke with family and provided update. CM to follow. Plan: [facility] once medically ready. Date Signed: 05/10/2018 12:04 PM Electronically Signed By:CAROLINE Hughes [facility] KESHA Progress Note CM Note CM Note Notes: Met with pt's and family. They had questions about [facility] and Insurance Coverage as they spoke to their insurance company. CM provided information about [facility] so that Family can schedule a time to tour the facility. They asked for education on heirarchy of facilities, CM to follow. CM submit updates to [facility]. Plan: [facility] once medically stable. Date Signed: 05/11/2018 04:26 PM Electronically Signed By:CAROLINE Hughes [facility] KESHA Progress Note CM Note CM Note Notes: Met with patient's family late yesterday afternoon to answer questions regarding [facility] and the D/C plan. The family has concerns that the patient only has 60 days of rehab and the patient needs to be stronger to make use of them. Currently, there are several medical issues which the ICU is addressing and these will need to be resolved before the patient is ready. The discharge has been slowed down for medical reasons. [facility] continues to follow and will send someone out to meet with the family closer to the actual discharge date. The family was scheduled to tour [facility] this morning. Dr. Franklin also met with the family yesterday to review concerns and plan of care. A meeting has been scheduled for Thursday to bring the family and providers together to make sure the goals of care are consistent. CM will follow. Date Signed: 05/13/2018 01:10 PM Electronically Signed By:Linda Alvarenga LCSW [facility] KESHA Progress Note CM Note CM Note Notes: The meeting for the family has been moved to Thursday. The case has been escalated to Adrianne Juares and Shaka Vazquez who will be attending the meeting. CM will follow. Date Signed: 05/14/2018 03:52 PM Electronically Signed By:Linda Alvarenga LCSW [facility] KESHA Progress Note CM Note CM Note Notes: CM spoke with Robert from [facility] who reports they cannot take pt if he has a wound and requested updates about wound, CM to submit updates. Family meeting was held today at noon to discuss pt's care with pt's family and care team including Dr. Cazares, Shaka Yusuf, Adrianne Juares, CM, Labels Molder, Krystin from [facility] and pt's and various family members. Dr Cazares provided detailed responses to family's questions. See note from [facility] for more detailed information about family meeting. Family is advocating that pt remain at [facility] for as long as possible and was willing to consider [facility]. CM provided with contact information after the meeting and pt's family went to visit the facility today. CM to follow. Next Steps: possible referral to [facility] pending family choice. [employer] Plan: [facility] Date Signed: 05/17/2018 04:09 PM Electronically Signed By:CAROLINE Hughes [facility] CM Progress Note CM Note CM Note Notes: Family toured [facility] yesterday and are agreeable with starting the referral process there. CM initiated referral. Family continues to request pt to continue to remain at [facility] for as long as possible but are understanding that [facility] may be an option before he is ready for [facility]. Pt had peg tube and is getting trach this evening. CM to follow. Plan: [facility] once medically stable. Date Signed: 05/18/2018 04:01 PM Electronically Signed By:CAROLINE Hughes [facility] CM Progress Note CM Note CM Note Notes: Patient went into PEA arrest in OR yesterday prior to tracheostomy, CPR was performed. Patient had metabolic encephalopathy prior to cardiac arrest yesterday, now with possible anoxic brain injury. Patient remains critically ill. Dr. Cazares met with patient's family after rounds today to answer questions. CM will follow. D/C plan: [facility] when medically stable. Date Signed: 05/19/2018 01:17 PM Electronically Signed By:Linda Alvarenga LCSW [facility] CM Progress Note CM Note CM Note Notes: Lindsay, nurse cyanide case hardener from [facility] called today. Her number is [phone], [phone]. She is available to assist with any outpatient needs the patient might have. CM will follow. Date Signed: 05/20/2018 04:04 PM Electronically Signed By:Linda Alvarenga LCSW [facility] CM Progress Note CM Note CM Note Notes: Patient's family has decided to withdraw care and go to comfort measures. CM available if needs arise. Date Signed: 05/21/2018 12:07 PM Electronically Signed By:Linda Alvarenga LCSW Intervention Information
--- NOTE | 2018-05-25 14:56 | CPEKG ---
Test Reason : on arrival to icu Blood Pressure : / mmHG Vent. Rate : 088 BPM Atrial Rate : 089 BPM P-R Int : 215 ms QRS Dur : 106 ms QT Int : 421 ms P-R-T Axes : 059 027 119 degrees QTc Int : 510 ms Sinus rhythm Multiple ventricular premature complexes Borderline prolonged CA interval Probable left atrial enlargement Nonspecific T abnormalities, lateral leads Prolonged QT interval Confirmed by Lasha Collazo ([id number]) on 05/25/2018 2:56:28 PM Referred By: Janice MONTERO Confirmed By:Lasha Collazo
--- NOTE | 2018-05-27 13:12 | GDS ---
[f rep st] DISCHARGE SUMMARY PRIMARY DIAGNOSES: 1. 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 Spinal cord injury 3. Respiratory arrest (multiple) 4. Aspiration pneumonia. 5. Hypoxic ischemic encephalopathy. OPERATION/PROCEDURES: C4-C7 anterior cervical diskectomy and fusion on 2018. On 04/30/2018, the patient underwent a posterior C4-T2 cervical fusion with C4-C7 posterior cervical decompression, bilateral C5 foraminotomies. Both of the initial procedures were done by Dr. Frank Stock on 04/29/2018 and 10/2018. Subsequent followup procedures included central line placement, multiple intubations and extubations/bronchoscopy (multiple), as well as subsequent attempt at tracheostomy placement. Staple removal and repair of incision for clear dc from posterior incision. The patient also had PEG placement. Please see EMR for complete list HOSPITAL COURSE: The patient is a 62-year-old male who originally came into the hospital for a cervical spine surgery with Dr. Frank Stock. His surgery first initially occurred on 04/29/2018. His surgery was intended for cervical spondylitic myelopathy/cervical stenosis. Initially he underwent an ACDF from C4 to C7 on 04/29/2018. There were reports of some changes in neuromonitoring during the case. After the initial case, the patient was taken to recovery room, and there was noted weakness stated in the EMR. Please see documentation in the EMR. The patient underwent an MRI of the cervical and thoracic spine after the first case. The MRI of the cervical spine and thoracic spine was done on 04/29/2018 in which the cervical spine MRI showed persistent high-grade stenosis involving C4-5, C5-6, and C6-7 at the levels of the surgery. There was no epidural bleed or cord edema that was noted per Radiology reading. Also a thoracic MRI was obtained on 04/29/2018 which showed mild degenerative spondylosis, a tiny dorsal disk osteophyte complex at T5-6 resulting in mild central stenosis. There was no evidence of thoracic cord edema or severe stenosis to explain the symptoms in the T spine. Subsequently, due to the profound weakness and persistent stenosis, the patient was taken back early the next morning and underwent the above-mentioned procedure. The patient tolerated the 2nd procedure per reports. He was admitted to the intensive care unit after the 2nd surgery. The 2nd surgery was necessary due to the weakness that Bakari had and the MRI findings. He was taken back for a posterior decompression. Per reports, the patient had some improvement of his motor exam on Thursday. Per reports the patient started to have worsening weakness through the weekend over 05/01 and 05/02. Over the course of the following few days on 05/03 and 05/04, he had developed worsening weakness that was progressing. On the evening of 05/04, we were consulted from the [facility] of the hospital to lend an opinion and take over care on the patient. We were asked to see Bakari the morning of 05/05. When he was initially seen on 05/05, he had profound quadriparesis. He only had some slight movement in his fingers. We immediately placed him on a pressors and pushed his MAPs above 85. At the time, he was intubated and had ongoing issues with his lungs throughout the course of his hospital stay with episodes of aspirations noted. Pulmonology /Critical Care aggressively treated Bakari. On his initial physical exam, he had some slight movement specifically in his hand. At that time, recommendations for a CT scan and MRI of the cervical spine were given. The patient was followed by Critical Care, as well as Neurology. Neurology was in agreement with assessing with new imaging including a MRI of the L spine. Dr. Centeno and I spoke to the family regarding this, and they wished to proceed knowing the risks with his ongoing poor pulmonary statue. The patient was reintubated at that time to protect his airway for the imaging. A CT scan and MRI were performed. The imaging was reviewed by the Neurosurgeons at [facility], It was felt that after this was reviewed with each of the neurosurgeons in our practice, that no further surgery for his cervical spine was recommended at the time. When we saw him on the , we increased his mean arterial pressures above 85. He was subsequently seen on a daily basis, both by myself and Dr. Centeno, and over the weekend by our group as well. He was closely followed with Internal Medicine, Critical Care, Neurology, and Neurosurgery. The further imaging that was obtained of the lumbar spine as well showed a small herniated disk at L4-5, but no recommendations for any surgical treatment of the lumbar spine was recommended as well. We followed his incisions closely. Over the course of the subsequent week, he had made improvements in his motor strength and had made some improvements with his pulmonary status. He did require numerous bronchoscopies. The patient had improved with help of Physical Therapy, Occupational Therapy, and Speech Therapy. His motor exams improved as noted in the EMR. He did have some issues with urinary retention as well. Dr. Yanez from urology was consulted, who recommend placement and continued use of a Staley catheter. Over the course of the subsequent days, he had recurrent issues with his poor pulmonary status and required re-intubation. He did have a Dobhoff placed for supplemental nutrition. Eventually, had a PEG placed as well. The patient had issues with recurrent fevers that were treated appropriately with Critical Care and Internal Medicine as well. We did, over the course of the initial week after we were consulted, increase his MAPs up to 85 and noted improvement in his motor exam, and then after the subsequent weekend, we were able to relax his MAPs and still noted daily improvements, although albeit small , in his motor exam. If his motor exam were to worsen we would push his MAPs up again. We eventually let his blood pressure normalize. We worked with Internal Medicine, as well as Critical Care, regarding management of his blood pressure after that initial period of increasing his MAPs. On postoperative day #15, Dr. Centeno did remove the gael and noted a clear discharge from the upper end of his posterior incision. This was observed and felt that over- sewing this was appropriate due to the likelihood of this being a CSF leak. Reviewing through prior reports, there was no note of a cerebrospinal fluid leak in the operative notes. As mentioned, he had a PEG tube placement on 05/17. Subsequently on 05/18, there was an attempt to place a tracheostomy. At that time, there was a reported drop in his blood pressure and CPR was necessary for an arrest that occurred in the OR. Reports were that he had arrested over 4 times during that time period. The trach procedure was stopped and the patient was brought back to the ICU after his resuscitation. He was left intubated and sedated through the night after the attempt for the Trach which was unsuccessful. Critical care managed him thru the night for his post arrest treatment. When he was seen the next morning, we withdrew all sedation to check a neurologic exam and Bakari's neurologic exam was very poor. He did not have any purposeful movement except some rhythmic blinking of his eyes. Neurology was consulted again for an opinion. Dr Valenzuela saw the patient immediately and they did perform an EEG and placed him on Keppra. The Keppra did not improve his symptoms. Neurology did review through the CT scan. The CT scan was reviewed by Dr Centeno as well. Please see EMR for reading. That day (day after the trach attempt and arrest) it was the general recommendation from Neurology, Critical Care as well as Neurosurgery, to give this a few more days to see how and if Bakari would improve. He did not improve, and on 05/21/2018, after meetings with family, as well as the medical providers, family elected to have withdrawal of care. He was on comfort care only. The patient was extubated and was surrounded by his friends and family the morning of 05/21/18. The patient at approximately 1933 on 05/21/2018. Dr Cenetno and I were notified at that time. CONSULTS/PROVIDERS: Urology, Internal Medicine, Critical Care, Neurology, Neurosurgery, Orthopedic Surgery. DISCHARGE CONDITION: . /[id number]/MODL [id number]
== END 2018-05-21 22:00 | disposition expired | DRG 459 ==
LOC: F3N 04-29 13:56 → F2N 04-29 23:53
PROVIDERS: ADMIT Orthopaedic Surgery Orthopaedic Surgery of the Spine; ATTEND Neurological Surgery
PROC: 8E09XBF Computer Assisted Procedure of Head and Neck Region, With Fluoroscopy (ICD-10-PCS; principal; 2018-04-29 15:30)
PROC: 0RG10A0 Fusion of Cervical Vertebral Joint with Interbody Fusion Device, Anterior Approach, Anterior Column, Open Approach (ICD-10-PCS; principal; 2018-04-29 15:30)
PROC: 4A1004G Monitoring of Central Nervous Electrical Activity, Intraoperative, Open Approach (ICD-10-PCS; principal; 2018-04-29 15:30)
PROC: 0RT30ZZ Resection of Cervical Vertebral Disc, Open Approach (ICD-10-PCS; principal; 2018-04-29 15:30)
PROC: 0RG60AJ Fusion of Thoracic Vertebral Joint with Interbody Fusion Device, Posterior Approach, Anterior Column, Open Approach (ICD-10-PCS; 2018-04-29 15:30)
PROC: 8E09XBZ Computer Assisted Procedure of Head and Neck Region (ICD-10-PCS; 2018-04-29 15:30)
PROC: 4A1004G Monitoring of Central Nervous Electrical Activity, Intraoperative, Open Approach (ICD-10-PCS; 2018-04-29 15:30)
PROC: 0RG40AJ Fusion of Cervicothoracic Vertebral Joint with Interbody Fusion Device, Posterior Approach, Anterior Column, Open Approach (ICD-10-PCS; 2018-04-29 15:30)
PROC: 0RG20AJ Fusion of 2 or more Cervical Vertebral Joints with Interbody Fusion Device, Posterior Approach, Anterior Column, Open Approach (ICD-10-PCS; 2018-04-29 15:30)
PROC: 01N10ZZ Release Cervical Nerve, Open Approach (ICD-10-PCS; 2018-04-29 15:30)
PROC: 05H633Z Insertion of Infusion Device into Left Subclavian Vein, Percutaneous Approach (ICD-10-PCS; 2018-05-03)
PROC: 5A1945Z Respiratory Ventilation, 24-96 Consecutive Hours (ICD-10-PCS; 2018-05-03)
PROC: 0BH17EZ Insertion of Endotracheal Airway into Trachea, Via Natural or Artificial Opening (ICD-10-PCS; 2018-05-05)
PROC: 5A1945Z Respiratory Ventilation, 24-96 Consecutive Hours (ICD-10-PCS; 2018-05-05)
PROC: 0BH17EZ Insertion of Endotracheal Airway into Trachea, Via Natural or Artificial Opening (ICD-10-PCS; 2018-05-14)
PROC: 0HQ4XZZ Repair Neck Skin, External Approach (ICD-10-PCS; 2018-05-14)
PROC: 5A1955Z Respiratory Ventilation, Greater than 96 Consecutive Hours (ICD-10-PCS; 2018-05-16)
PROC: 0BH17EZ Insertion of Endotracheal Airway into Trachea, Via Natural or Artificial Opening (ICD-10-PCS; 2018-05-16)
PROC: 0D163J4 Bypass Stomach to Cutaneous with Synthetic Substitute, Percutaneous Approach (ICD-10-PCS; 2018-05-17)
PROC: 0H8 Skin and Breast, Division (ICD-10-PCS; 2018-05-19)
DX: M47.12 Other spondylosis with myelopathy, cervical region (principal); G82.50 Quadriplegia, unspecified; G93.41 Metabolic encephalopathy; J96.00 Acute respiratory failure, unspecified whether with hypoxia or hypercapnia; J69.0 Pneumonitis due to inhalation of food and vomit; A41.01 Sepsis due to Methicillin susceptible Staphylococcus aureus; I63.9 Cerebral infarction, unspecified; R65.21 Severe sepsis with septic shock; N17.9 Acute kidney failure, unspecified; E87.0 Hyperosmolality and hypernatremia; G93.1 Anoxic brain damage, not elsewhere classified; I13.0 Hypertensive heart and chronic kidney disease with heart failure and stage 1 through stage 4 chronic kidney disease, or unspecified chronic kidney disease; I50.32 Chronic diastolic (congestive) heart failure; N18.3 Chronic kidney disease, stage 3 (moderate); I46.9 Cardiac arrest, cause unspecified; D64.9 Anemia, unspecified; E11.65 Type 2 diabetes mellitus with hyperglycemia; Z51.5 Encounter for palliative care; E78.5 Hyperlipidemia, unspecified; G47.33 Obstructive sleep apnea (adult) (pediatric); R13.10 Dysphagia, unspecified; L89.152 Pressure ulcer of sacral region, stage 2; R33.8 Other retention of urine
CPT/HCPCS: 82435-PO; 82565-PO; 82947-PO; 84132-PO; 84295-PO; 84520-PO; 85014-ER; 92526-GN; 92610-GN; 92611-GN; 97110-GO; 97110-GP; 97112-GO; 97112-GP; 97140-GO; 97163-GP; 97164-GP; 97166-GO; 97168-GO; 97530-GO; 97530-GP; 97535-GO; C1713; C1762; C1769; J0171; J0282; J0330; J0360; J0690; J0834; J0885; J1610; J1644; J1650; J1815; J1940; J1953; J2060; J2250; J2270; J2370; J2405; J2543; J2704; J3010; J3360; J3370; J3480; J7613; P9016; P9041; Q9967

== ENCOUNTER 2018-03-26 18:31 | Inpatient (IN) | payer OTHER ==
--- NOTE | 2018-03-26 18:57 | EDPHY ---
H & P Stated Complaint: pt dx chf last week/hypoxia today Time Seen by Provider: 03/26/18 18:42 HPI/ROS: CHIEF COMPLAINT: Shortness of breath, hypoxia HISTORY OF PRESENT ILLNESS: The patient is a 62-year-old man who comes to the emergency department complaining of mild cough that began this morning as well as a runny nose and slight shortness of breath. He went to [facility] got a pulse oximeter and it read between 75 and 80. He was admitted last month for CHF exacerbation and had his Lasix increased from 60 twice daily to 80 twice daily. He has been taking this and was told to take an extra pill if he develops symptoms, edema or weight gain. He states that he has had about 2 lb of weight gain. He did take an extra pill this morning but has not taken his evening doses. No fever. No headache. No chest pain. He does have a history of hypertension, diabetes and an IL in 2016 and required 1 stent. His alcohol still operator is Dr. Weston. Severity: Moderate Modifying factors: None REVIEW OF SYSTEMS: Constitutional: denies: chills, fever, recent illness, recent injury EENTM: denies: blurred vision, double vision, nose congestion Respiratory: See HPI Cardiac: denies: chest pain, irregular heart rate, lightheadedness, palpitations Gastrointestinal/Abdominal: denies: abdominal pain, diarrhea, nausea, vomiting, blood streaked stools Genitourinary: denies: dysuria, frequency, hematuria, pain Musculoskeletal: denies: joint pain, muscle pain Skin: denies: lesions, rash, jaundice, bruising Neurological: denies: headache, numbness, paresthesia, tingling, dizziness, weakness Hematologic/Lymphatic: denies: blood clots, easy bleeding, easy bruising Immunologic/allergic: denies: HIV/AIDS, transplant 10 systems reviewed and negative except as noted EXAM: GENERAL: Well-appearing, well-nourished mild dry cough. HEAD: Atraumatic, normocephalic. EYES: Pupils equal round and reactive to light, extraocular movements intact, sclera anicteric, conjunctiva are normal. ENT: TMs normal, nares patent, oropharynx clear without exudates. Moist mucous membranes. NECK: Normal range of motion, supple without lymphadenopathy or JVD. LUNGS: Hypoxic 85% on room air, Breath sounds clear to auscultation bilaterally and equal. No wheezes rales or rhonchi. HEART: Regular rate and rhythm without murmurs, rubs or gallops. ABDOMEN: Soft, nontender, normoactive bowel sounds. No guarding, no rebound. No masses appreciated. BACK: No CVA tenderness, no spinal tenderness, step-offs or deformities EXTREMITIES: Normal range of motion, no pitting or edema. No clubbing or cyanosis. NEUROLOGICAL: Cranial nerves II through XII grossly intact. Normal speech, normal gait. 5/5 strength, normal movement in all extremities, normal sensation , normal reflexes PSYCH: Normal mood, normal affect. SKIN: Warm, dry, normal turgor, no visible rashes or lesions. Source: Patient Exam Limitations: No limitations - Personal History Current Tetanus Diphtheria and Acellular Pertussis (TDAP): Unsure - Medical/Surgical History Hx Asthma: No Hx Chronic Respiratory Disease: Yes Hx Diabetes: Yes Hx Cardiac Disease: Yes Hx Renal Disease: No Hx Cirrhosis: No Hx Alcoholism: No Hx HIV/AIDS: No Hx Splenectomy or Spleen Trauma: No Other PMH: PMHx: DM, HTN, high chol, IL with stent nov 2015, PNA may 2016 , CPAP for NIXON, CHF. PSHx: cardiac stent 12/06 - Family History Significant Family History: No pertinent family hx - Social History Smoking Status: Never smoked Alcohol Use: Sober Drug Use: None Constitutional: Initial Vital Signs Temperature (C) 36.5 C 03/26/18 18:34 Heart Rate 88 03/26/18 18:34 Respiratory Rate 19 03/26/18 18:34 Blood Pressure 172/84 H 03/26/18 18:34 O2 Sat (%) 85 L 03/26/18 18:34 O2 Delivery Mode Room Air O2 (L/minute) 5 Allergies/Adverse Reactions: No Known Allergies Allergy (Verified 03/26/18 18:33) Home Medications: Medication Instructions Recorded Insulin Detemir [Levemir Flextouch] 20 unit SC BID 01/11/16 Insulin Lispro [Humalog Kwikpen 5 - 10 unit SC TIDMEAL 01/11/16 U-100] metFORMIN HCL [Glucophage 500 mg 500 mg PO DAILY 01/11/16 (*)] Carvedilol [Coreg (*)] 25 mg PO BIDMEAL 09/01/16 metFORMIN HCL [Glucophage 1000 mg] 1,000 mg PO HS 09/01/16 Atorvastatin Calcium [Lipitor 40 40 mg PO HS 12/25/16 mg (*)] amLODIPine BESYLATE [Norvasc 5 mg 10 mg PO DAILY 12/25/16 (*)] Aspirin [Aspirin 81mg (*)] 81 mg PO DAILY 01/24/18 Hydralazine HCl 25 mg PO TID 01/24/18 Isosorbide Mononitrate [Imdur 30 30 mg PO DAILY 01/24/18 mg (*)] Irbesartan [Avapro] 300 mg PO DAILY #30 tablet 01/25/18 Minoxidil [Minoxidil 2.5 mg (*)] 5 mg PO DAILY #60 tab 03/12/18 Furosemide [Lasix 80 MG (*)] 80 mg PO BID@07,20 03/26/18 Furosemide [Lasix 80 MG (*)] 80 mg PO DAILY PRN 03/26/18 Medical Decision Making - Diagnostics EKG Interpretation: An EKG obtained and was read and documented in trace view. Please see trace view for full reading and report. Sinus rhythm, ventricular conduction delay, LVH with repolarization abnormality the, PVC Imaging Results: Imaging Impressions Chest X-Ray 03/26/18 18:50 Impression: Mild CHF/fluid overload with small bilateral pleural effusions and bibasilar atelectasis. Imaging: Discussed imaging studies w/ marine pipefitter helper Radiologist ED Course/Re-evaluation: Patient's chest x-rays consistent with CHF exacerbation. Will give Lasix and admit to the hospital service. Likely triggered by upper respiratory tract infection. 8:00 p.m. discussed the case with Dr. Garcia who will admit. Differential Diagnosis: Partial list of the Differential diagnosis considered include but were not limited to; CHF exacerbation, pneumonia, bronchitis and although unlikely based on the history and physical exam, I also considered PE, acute coronary disease. - Data Points Laboratory Results: Laboratory Results 03/26/18 19:20 03/26/18 19:20 03/26/18 03/26/18 19:20 19:20 WBC 8.14 10^3/uL 10^3/uL (3.80-9.50) RBC 4.55 10^6/uL 10^6/uL (4.40-6.38) Hgb 13.3 g/dL L g/dL (13.7-17.5) Hct 39.9 % L % (40.0-51.0) MCV 87.7 fL fL (81.5-99.8) MCH 29.2 pg pg (27.9-34.1) MCHC 33.3 g/dL g/dL (32.4-36.7) RDW 13.8 % % (11.5-15.2) Plt Count 174 10^3/uL 10^3/uL (150-400) MPV 11.1 fL fL (8.7-11.7) Neut % (Auto) 71.6 % % (39.3-74.2) Lymph % (Auto) 14.6 % L % (15.0-45.0) Merrick % (Auto) 8.2 % % (4.5-13.0) Eos % (Auto) 4.4 % % (0.6-7.6) Baso % (Auto) 0.7 % % (0.3-1.7) Nucleat RBC Rel Count 0.0 % % (0.0-0.2) Absolute Neuts (auto) 5.82 10^3/uL 10^3/uL (1.70-6.50) Absolute Lymphs (auto) 1.19 10^3/uL 10^3/uL (1.00-3.00) Absolute Monos (auto) 0.67 10^3/uL 10^3/uL (0.30-0.80) Absolute Eos (auto) 0.36 10^3/uL 10^3/uL (0.03-0.40) Absolute Basos (auto) 0.06 10^3/uL 10^3/uL (0.02-0.10) Absolute Nucleated RBC 0.00 10^3/uL 10^3/uL (0-0.01) Immature Gran % 0.5 % % (0.0-1.1) Immature Gran # 0.04 10^3/uL 10^3/uL (0.00-0.10) Sodium 138 mEq/L mEq/L (135-145) Potassium 4.1 mEq/L mEq/L (3.5-5.2) Chloride 109 mEq/L mEq/L (97-110) Carbon Dioxide 21 mEq/l L mEq/l (22-31) Anion Gap 8 mEq/L mEq/L (6-14) BUN 48 mg/dL H mg/dL (7-23) Creatinine 1.8 mg/dL H mg/dL (0.7-1.3) Estimated GFR 38 Glucose 146 mg/dL H mg/dL (70-100) Calcium 8.8 mg/dL mg/dL (8.5-10.4) NT-Pro-B Natriuret Pep 1210 pg/mL H pg/mL (0-125) Medications Given: Hydralazine HCl (Apresoline) 25 mg PO TID YAZMIN Stop: 09/22/18 21:59 Last Admin: 03/26/18 22:01 Dose: 25 mg Insulin Glargine (Lantus Syringe) 20 units SC BID YAZMIN Stop: 09/22/18 21:29 Last Admin: 03/26/18 22:01 Dose: 20 units Discontinued Medications Furosemide (Lasix Injection) 80 mg IVP EDNOW ONE Stop: 03/26/18 19:49 Last Admin: 03/26/18 20:17 Dose: 80 mg Departure - Departure Disposition: [facility] Inpatient Acute Clinical Impression: CHF (congestive heart failure) Qualifiers: Heart failure type: unspecified Heart failure chronicity: unspecified Qualified Code(s): I50.9 - Heart failure, unspecified Upper respiratory tract infection Qualifiers: URI type: unspecified URI Qualified Code(s): J06.9 - Acute upper respiratory infection, unspecified Condition: Fair
--- NOTE | 2018-03-26 19:15 | CPEKG ---
Test Reason : OPEN Blood Pressure : / mmHG Vent. Rate : 086 BPM Atrial Rate : 085 BPM P-R Int : 257 ms QRS Dur : 116 ms QT Int : 397 ms P-R-T Axes : 082 071 109 degrees QTc Int : 475 ms Sinus rhythm Ventricular premature complex Prolonged VA interval Probable left atrial enlargement Nonspecific intraventricular conduction delay Anterior infarct, old Nonspecific T abnormalities, lateral leads Confirmed by Abel Sood ([id number]) on 03/26/2018 7:15:19 PM Referred By: Confirmed By:Abel Sood
[2018-03-26 19:31] LABS: PLATELET COUNT 174 10^3/uL (150-400)
[2018-03-26] MEDS ORDERED: FUROSEMIDE 40 MG/4 ML VIAL IVP ONE (19:48)
[2018-03-26] MEDS ORDERED: D50W 25 GM/50 ML SYR IVP PRN (21:05)
[2018-03-26] MEDS: INSULIN GLARGINE 100 UNITS/ML UNIT SC SCH (22:01)
[2018-03-26] MEDS: hydrALAZINE 25 MG TAB PO SCH (22:01)
--- NOTE | 2018-03-26 23:17 | PDGENHP ---
History and Physical - Chief Complaint Hypoxia - History of Present Illness 62 yo M w/ dCHF, DM, and CAD presents with rhinorrhea, cough, and hypoxia. The patient noticed a runny nose yesterday. Today he developed a cough and noted he was hypoxic on his home pulse ox. He noted O2 sat in the 70's while on RA so he came to the ED for evaluation. In the ED CXR was notable for diffuse infiltrates. He tells me he is about 5 pounds above his dry weight. He has been on furosemide 80 mg PO BID since his recent admission for CHF exacerbation. He tries to follow a low salt diet but does not limit fluid intake. He denies orthopnea or PND. Case discussed with Dr. Garcia; records reviewed and summarized above. History Information - Allergies/Home Medication List Allergies/Adverse Reactions: No Known Allergies Allergy (Verified 03/26/18 18:33) Home Medications: Insulin Detemir [Levemir Flextouch] 20 unit SC BID 01/11/16 [Last Taken 09:00] Insulin Lispro [Humalog Kwikpen U-100] 5 - 10 unit SC TIDMEAL 01/11/16 [Last Taken 03/26/18] metFORMIN HCL [Glucophage 500 mg (*)] 500 mg PO DAILY 01/11/16 [Last Taken 03/26] Carvedilol [Coreg (*)] 25 mg PO BIDMEAL 09/01/16 [Last Taken 03/26/18 09:00] metFORMIN HCL [Glucophage 1000 mg] 1,000 mg PO HS 09/01/16 [Last Taken 03/25/18] Atorvastatin Calcium [Lipitor 40 mg (*)] 40 mg PO HS 12/25/16 [Last Taken ] amLODIPine BESYLATE [Norvasc 5 mg (*)] 10 mg PO DAILY 12/25/16 [Last Taken 03/26] Aspirin [Aspirin 81mg (*)] 81 mg PO DAILY 01/24/18 [Last Taken 03/26/18] Hydralazine HCl 25 mg PO TID 01/24/18 [Last Taken 03/26/18 07:00] Isosorbide Mononitrate [Imdur 30 mg (*)] 30 mg PO DAILY 01/24/18 [Last Taken 07/09] Furosemide [Lasix 80 MG (*)] 80 mg PO BID@07,20 03/26/18 [Last Taken 03/26/18 07 :00] Furosemide [Lasix 80 MG (*)] 80 mg PO DAILY PRN 03/26/18 [Last Taken 03/26/18 15 :00] I have personally reviewed and updated: family history, medical history - Past Medical History coronary artery disease, CHF, diabetes type 2 - Surgical History Reports: coronary stent - Family History Positive for: CAD, non-pertinent (He likes to exercise predominantly by lifting weights and cycling. 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[employer].) - Social History Smoking Status: Never smoked Alcohol Use: Sober Drug Use: None Review of Systems Review of Systems: ROS: 10pt was reviewed & negative except for what was stated in HPI & below Physical Exam Physical Exam: Temp Pulse Resp BP Pulse Ox 36.8 C 86 17 176/94 H 94 03/26/18 20:52 03/26/18 20:52 03/26/18 20:52 03/26/18 20:52 03/26/18 20:52 O2 (L/minute) 2 Constitutional: no apparent distress, obese Eyes: PERRL, EOMI Ears, Nose, Mouth, Throat: moist mucous membranes, no oral mucosal ulcers Cardiovascular: regular rate and rhythym, no murmur, rub, or gallop, No edema Respiratory: no respiratory distress, inspiratory crackles Skin: warm, normal color Musculoskeletal: full muscle strength, no muscle tenderness Neurologic: AAOx3, CN II-XII Intact Psychiatric: interacting appropriately, not anxious Lab Data & Imaging Review 03/26/18 19:20 03/26/18 19:20 WBC 8.14 10^3/uL (3.80-9.50) 03/26/18 19:20 RBC 4.55 10^6/uL (4.40-6.38) 03/26/18 19:20 Hgb 13.3 g/dL (13.7-17.5) L 03/26/18 19:20 Hct 39.9 % (40.0-51.0) L 03/26/18 19:20 MCV 87.7 fL (81.5-99.8) 03/26/18 19:20 MCH 29.2 pg (27.9-34.1) 03/26/18 19:20 MCHC 33.3 g/dL (32.4-36.7) 03/26/18 19:20 RDW 13.8 % (11.5-15.2) 03/26/18 19:20 Plt Count 174 10^3/uL (150-400) 03/26/18 19:20 MPV 11.1 fL (8.7-11.7) 03/26/18 19:20 Neut % (Auto) 71.6 % (39.3-74.2) 03/26/18 19:20 Lymph % (Auto) 14.6 % (15.0-45.0) L 03/26/18 19:20 [place] % (Auto) 8.2 % (4.5-13.0) 03/26/18 19:20 Eos % (Auto) 4.4 % (0.6-7.6) 03/26/18 19:20 Baso % (Auto) 0.7 % (0.3-1.7) 03/26/18 19:20 Nucleat RBC Rel Count 0.0 % (0.0-0.2) 03/26/18 19:20 Absolute Neuts (auto) 5.82 10^3/uL (1.70-6.50) 03/26/18 19:20 Absolute Lymphs (auto) 1.19 10^3/uL (1.00-3.00) 03/26/18 19:20 Absolute Monos (auto) 0.67 10^3/uL (0.30-0.80) 03/26/18 19:20 Absolute Eos (auto) 0.36 10^3/uL (0.03-0.40) 03/26/18 19:20 Absolute Basos (auto) 0.06 10^3/uL (0.02-0.10) 03/26/18 19:20 Absolute Nucleated RBC 0.00 10^3/uL (0-0.01) 03/26/18 19:20 Immature Gran % 0.5 % (0.0-1.1) 03/26/18 19:20 Immature Gran # 0.04 10^3/uL (0.00-0.10) 03/26/18 19:20 Sodium 138 mEq/L (135-145) 03/26/18 19:20 Potassium 4.1 mEq/L (3.5-5.2) 03/26/18 19:20 Chloride 109 mEq/L (97-110) 03/26/18 19:20 Carbon Dioxide 21 mEq/l (22-31) L 03/26/18 19:20 Anion Gap 8 mEq/L (6-14) 03/26/18 19:20 BUN 48 mg/dL (7-23) H 03/26/18 19:20 Creatinine 1.8 mg/dL (0.7-1.3) H 03/26/18 19:20 Estimated GFR 38 03/26/18 19:20 Glucose 146 mg/dL (70-100) H 03/26/18 19:20 Calcium 8.8 mg/dL (8.5-10.4) 03/26/18 19:20 NT-Pro-B Natriuret Pep 1210 pg/mL (0-125) H 03/26/18 19:20 Urine Color COLORLESS 03/26/18 22:10 Urine Appearance CLEAR 03/26/18 22:10 Urine pH 5.0 (5.0-7.5) 03/26/18 22:10 Ur Specific [place] 1.006 (1.002-1.030) 03/26/18 22:10 Urine Protein 1+ (NEGATIVE) H 03/26/18 22:10 Urine Ketones NEGATIVE (NEGATIVE) 03/26/18 22:10 Urine Blood 1+ (NEGATIVE) H 03/26/18 22:10 Urine Nitrate NEGATIVE (NEGATIVE) 03/26/18 22:10 Urine Bilirubin NEGATIVE (NEGATIVE) 03/26/18 22:10 Urine Urobilinogen NEGATIVE EU (0.2-1.0) 03/26/18 22:10 Ur Leukocyte Esterase NEGATIVE (NEGATIVE) 03/26/18 22:10 Urine RBC 1-3 /hpf (0-3) 03/26/18 22:10 Urine WBC 1-3 /hpf (0-3) 03/26/18 22:10 Ur Epithelial Cells NONE SEEN /lpf (NONE-1+) 03/26/18 22:10 Urine Mucus TRACE /lpf (NONE-1+) 03/26/18 22:10 Urine Glucose NEGATIVE (NEGATIVE) 03/26/18 22:10 Imaging Review: Imaging Impressions Chest X-Ray 03/26/18 18:50 Impression: Mild CHF/fluid overload with small bilateral pleural effusions and bibasilar atelectasis. Visualized and Interpreted EKG results: Yes EKG Interpretation: Positive for: other (NSIVCD) Assessment & Plan Assessment: 62 yo M w/ CHF, CAD, DM, and CKD presents w/ hypoxia 2/2 viral infection vs. CHF. Plan: 1. AHRF - Patient reporting O2 sats in the 70's at home while on RA; not on O2 at baseline. CXR (personally reviewed/interpreted) demonstrates diffuse infiltrates consistent with volume overload vs. viral infection; possibly a combination of the two noting URI symptoms and mild weight gain. - S/p Furosemide 80 mg IV x1, will repeat this dose in the morning and gauge effect - Respiratory PCR pending - O2 PRN to maintain O2 sats> 89% - Incentive spirometry ordered 2. CHF - Previously with systolic dysfunction but EF has recovered with therapy. Noting appearance of CXR there may be a mild, acute exacerbation present. He has been on furosemide 80 mg PO BID since discharge in February. He reports ~5 lb weight gain over the last week. - S/p Furosemide 80 mg IV x1, will repeat this dose in the morning and gauge effect - Continue BB, ARB, ISMN/Hydral - Cardiac diet, daily weights, monitor I/Os 3. IDDM - Will continue home insulin regimen. - Monitor BG ACHS, D50 IV PRN for hypoglycemia 4. CAD - Denies chest pain; continue home medications. 5. CKD, Stage III - Serum creatinine near baseline. - Renally dose medications, avoid nephrotoxic agents as able Diet - Cardiac Code - Full Ppx - SQH Dispo - Admit under observation status
[2018-03-27 04:49] LABS: PLATELET COUNT 168 10^3/uL (150-400)
[2018-03-27] MEDS ORDERED: FUROSEMIDE 100 MG/10 ML VIAL IVP ONE (06:00)
[2018-03-27] MEDS: HEPARIN 5,000 UNIT/0.5 ML INJ SC SCH ×3 (06:19→21:16)
[2018-03-27] MEDS ORDERED: ENOXAPARIN 40 MG/0.4 ML SYR SC SCH (09:00)
[2018-03-27] MEDS: INSULIN GLARGINE 100 UNITS/ML UNIT SC SCH ×2 (09:08→21:15)
[2018-03-27] MEDS: hydrALAZINE 25 MG TAB PO SCH ×3 (09:09→21:14)
[2018-03-27] MEDS: amLODIPine BESYLATE 5 MG TAB PO SCH (09:09)
[2018-03-27] MEDS: IRBESARTAN 150 MG TAB PO SCH (09:09)
[2018-03-27] MEDS: MINOXIDIL 2.5 MG TAB PO SCH (09:09)
[2018-03-27] MEDS: CARVEDILOL 25 MG TAB PO SCH ×2 (09:09→17:34)
[2018-03-27] MEDS: ISOSORBIDE MONONITRATE 30 MG TAB.SR PO SCH (09:09)
[2018-03-27] MEDS: ASPIRIN 81 MG CHEWABLE TAB PO SCH (09:09)
[2018-03-27] MEDS: INSULIN LISPRO 100 UNIT/ML SC SCH ×3 (09:10→17:34)
--- NOTE | 2018-03-27 09:27 | PDMN ---
Medical Necessity Medical necessity: MCG M190 heart failure: pt with hypoxia ( o2 sats in 70's RA) , cough- PMHX CAD, DM, CHF, - CXR shows bilat. pleural effusions and bibasilar atelectasis, - anticipate > 2 MN ongoing med nec care- further monitoring and tx.
--- NOTE | 2018-03-27 13:10 | HOSPPROG ---
Hospitalist Progress Note Assessment/Plan: 62 yo M w/ CHF, CAD, DM, and CKD presents w/ hypoxia 2/2 viral infection vs. CHF. 1. AHRF - Patient reporting O2 sats in the 70's at home while on RA; not on O2 at baseline. CXR (personally reviewed/interpreted) demonstrates diffuse infiltrates consistent with volume overload vs. viral infection; possibly a combination of the two noting URI symptoms and mild weight gain. - Respiratory PCR negative 2. CHF-Exacerbation - Previously with systolic dysfunction but EF has recovered with therapy. - Continue BB, ARB, ISMN/Hydral - Cardiac diet, daily weights, monitor I/Os 3. IDDM - Will continue home insulin regimen. - Monitor BG ACHS, D50 IV PRN for hypoglycemia -A1C is 7.2 4. CAD - Denies chest pain; continue home medications. -lipids at goal 5. CKD, Stage III - at baseline 1.6 - 1.8 - Renally dose medications, avoid nephrotoxic agents as able Plan: Change Lasix to 60mg IV BID change to inpatient for continued IV diuretics Subjective: no cp. sob persists but better. afebrile. Objective: Vital Signs Temp Pulse Resp BP Pulse Ox 36.4 C 72 18 128/67 H 96 03/27/18 12:01 03/27/18 12:01 03/27/18 12:01 03/27/18 12:01 03/27/18 12:01 Microbiology 03/26/18 19:50 Respiratory Panel (PCR) - Final Nasal, Sinus - Swab No Organism Detected By Pcr Laboratory Results 03/27/18 03:16 03/27/18 03:16 03/26/18 03/27/18 03/28/18 05:59 05:59 05:59 Intake Total 1190 240 Output Total 2600 1350 Balance -1410 -1110 - Physical Exam Constitutional: no apparent distress Eyes: PERRL, EOMI Ears, Nose, Mouth, Throat: moist mucous membranes, hearing normal Cardiovascular: regular rate and rhythym, edema Respiratory: reduced air movement Gastrointestinal: normoactive bowel sounds, soft, non-tender abdomen Skin: warm Neurologic: AAOx3 Psychiatric: interacting appropriately Lymph, Heme, Immunologic: No petechiae ICD10 Worksheet Patient Problems: Problems Problem Status Onset CHF (congestive heart failure) Acute Upper respiratory tract infection Acute Acute exacerbation of congestive heart failure Acute Diabetes Acute Elevated troponin Acute HTN (hypertension) Acute Hyperglycemia Acute NSTEMI (non-ST elevated myocardial infarction) Acute Orthostatic hypotension Acute Pneumonia Acute Respiratory failure with hypoxia Acute
[2018-03-27] MEDS: FUROSEMIDE 40 MG/4 ML VIAL IVP SCH (15:41)
--- NOTE | 2018-03-27 19:01 | ASMTCMCOM ---
CM Note CM Note Notes: Reviewed chart. Pt admitted for cough and hypoxia secondary to a viral infection vs CHF. History includes CHF, type 2 diabetes, CAD w/ stent placement. Pt is and lives with his in [place]. Discharge plan remains unclear at this time. No PT/OT orders. Anticipate pt will likely discharge home independently with family support when medically stable. CM will continue to follow for any potential needs. Discharge Plan: Likely home independent Date Signed: 03/27/2018 07:00 PM Electronically Signed By:Radha Da Silva RN
[2018-03-27] MEDS: ATORVASTATIN CALCIUM 40 MG TAB PO SCH (21:14)
[2018-03-28] MEDS: HEPARIN 5,000 UNIT/0.5 ML INJ SC SCH ×3 (05:53→21:25)
[2018-03-28] MEDS: FUROSEMIDE 40 MG/4 ML VIAL IVP SCH ×2 (08:30→15:36)
[2018-03-28] MEDS: INSULIN LISPRO 100 UNIT/ML SC SCH ×3 (08:30→17:34)
[2018-03-28] MEDS: CARVEDILOL 25 MG TAB PO SCH ×2 (08:30→17:34)
[2018-03-28] MEDS: INSULIN GLARGINE 100 UNITS/ML UNIT SC SCH ×2 (08:30→21:19)
[2018-03-28] MEDS: amLODIPine BESYLATE 5 MG TAB PO SCH (08:31)
[2018-03-28] MEDS: ISOSORBIDE MONONITRATE 30 MG TAB.SR PO SCH (08:32)
[2018-03-28] MEDS: MINOXIDIL 2.5 MG TAB PO SCH (08:32)
[2018-03-28] MEDS: ASPIRIN 81 MG CHEWABLE TAB PO SCH (08:32)
[2018-03-28] MEDS: IRBESARTAN 150 MG TAB PO SCH (08:32)
[2018-03-28] MEDS: hydrALAZINE 25 MG TAB PO SCH ×3 (08:32→21:16)
--- NOTE | 2018-03-28 12:52 | HOSPPROG ---
Hospitalist Progress Note Assessment/Plan: 62 yo M w/ CHF, CAD, DM, and CKD presents w/ hypoxia 2/2 viral infection vs. CHF. 1. AHRF - due to CHF exacerbtion -Patient reporting O2 sats in the 70's at home while on RA; not on O2 at baseline. - Respiratory PCR negative 2. CHF-Exacerbation - Previously with systolic dysfunction but EF has recovered with therapy. - Continue BB, ARB, ISMN/Hydral - Cardiac diet, daily weights, monitor I/Os -Will increase Lasix back to 80mg IV BID today. He has been taking 80mg PO BID at home prior to this admission. -monitor Cr 3. IDDM - Will continue home insulin regimen. - Monitor BG ACHS, D50 IV PRN for hypoglycemia -A1C is 7.2 -Mild Hyperglycemia, will increase Lantus 4. CAD - Denies chest pain; continue home medications. -lipids at goal 5. CKD, Stage III - at baseline 1.6 - 1.8 - Renally dose medications, avoid nephrotoxic agents as able -currently at baseline. Monitor for increase given increasing Lasix today Plan: still with some RESENDEZ, pedal edema, and hypoxemia, overall better. Not much diuresis yesterday. Will increase Lasix back to 80mg IV BID cont inpatient Subjective: no cp. SOB with exertion. Pedal edema Objective: Vital Signs Temp Pulse Resp BP Pulse Ox 36.7 C 69 18 120/69 95 03/28/18 11:49 03/28/18 11:49 03/28/18 11:49 03/28/18 11:49 03/28/18 11:49 Microbiology 03/26/18 19:50 Respiratory Panel (PCR) - Final Nasal, Sinus - Swab No Organism Detected By Pcr Laboratory Results 03/27/18 03:16 03/28/18 03:22 03/27/18 03/28/18 03/29/18 05:59 05:59 05:59 Intake Total 1190 1770 Output Total 2600 2275 250 Balance -1410 -505 -250 - Physical Exam Constitutional: no apparent distress Eyes: PERRL Ears, Nose, Mouth, Throat: moist mucous membranes, hearing normal Cardiovascular: regular rate and rhythym, edema (trace - 1 + LE) Respiratory: reduced air movement Gastrointestinal: normoactive bowel sounds, soft, non-tender abdomen Skin: warm Neurologic: AAOx3 Psychiatric: interacting appropriately, not anxious, not encephalopathic Lymph, Heme, Immunologic: No petechiae ICD10 Worksheet Patient Problems: Problems Problem Status Onset CHF (congestive heart failure) Acute Upper respiratory tract infection Acute Acute exacerbation of congestive heart failure Acute Diabetes Acute Elevated troponin Acute HTN (hypertension) Acute Hyperglycemia Acute NSTEMI (non-ST elevated myocardial infarction) Acute Orthostatic hypotension Acute Pneumonia Acute Respiratory failure with hypoxia Acute
[2018-03-28] MEDS: ATORVASTATIN CALCIUM 40 MG TAB PO SCH (21:16)
[2018-03-29] MEDS: HEPARIN 5,000 UNIT/0.5 ML INJ SC SCH (05:41)
[2018-03-29] MEDS: FUROSEMIDE 40 MG/4 ML VIAL IVP SCH (08:33)
[2018-03-29] MEDS: ASPIRIN 81 MG CHEWABLE TAB PO SCH (08:38)
[2018-03-29] MEDS: IRBESARTAN 150 MG TAB PO SCH (08:38)
[2018-03-29] MEDS: hydrALAZINE 25 MG TAB PO SCH (08:38)
[2018-03-29] MEDS: ISOSORBIDE MONONITRATE 30 MG TAB.SR PO SCH (08:38)
[2018-03-29] MEDS: CARVEDILOL 25 MG TAB PO SCH (08:38)
[2018-03-29] MEDS: MINOXIDIL 2.5 MG TAB PO SCH (08:38)
[2018-03-29] MEDS: amLODIPine BESYLATE 5 MG TAB PO SCH (08:38)
[2018-03-29] MEDS: INSULIN LISPRO 100 UNIT/ML SC SCH ×2 (08:39→12:03)
[2018-03-29] MEDS: INSULIN GLARGINE 100 UNITS/ML UNIT SC SCH (08:39)
--- NOTE | 2018-03-29 09:15 | HOSPPROG ---
Hospitalist Progress Note Assessment/Plan: 62 yo M w/ CHF, CAD, DM, and CKD presents w/ hypoxia 2/2 viral infection vs. CHF. 1. AHRF - due to CHF exacerbtion Patient reporting O2 sats in the 70's at home while on RA; not on O2 at baseline. Respiratory PCR negative on RA today following diuresis 2. CHF-Exacerbation - Previously with systolic dysfunction but EF has recovered with therapy. Continue BB, ARB, ISMN/Hydral Cardiac diet, daily weights, monitor I/Os euvolemic today given diastolic dysfunction, consider changing norvasc to dilt no arrhythmia detected given two recent admits for dCHF, may be worth revisiting AoV- 01/24/18 echo suggested possibility of bicuspid AoV 3. IDDM - Will continue home insulin regimen. Monitor BG ACHS, D50 IV PRN for hypoglycemia A1C is 7.2 Mild Hyperglycemia, will increase Lantus 4. CAD - Denies chest pain; continue home medications. -lipids at goal 5. CKD, Stage III - at baseline 1.6 - 1.8 - Renally dose medications, avoid nephrotoxic agents as able -currently at baseline. Monitor for increase given increasing Lasix today dispo: guy home today after cardiology eval Subjective: case d/w rustam healy, cardiology PA. tele: no AF (interp by me) Objective: Vital Signs Temp Pulse Resp BP Pulse Ox 36.4 C 80 19 145/78 H 96 03/29/18 03:50 03/29/18 07:19 03/29/18 07:19 03/29/18 07:19 03/29/18 07:19 Laboratory Results 03/27/18 03:16 03/29/18 03:20 03/28/18 03/29/18 03/30/18 05:59 05:59 05:59 Intake Total 1770 750 Output Total 2275 1900 500 Balance -505 -1150 -500 - Physical Exam Constitutional: no apparent distress, appears nourished Eyes: PERRL, anicteric sclera Ears, Nose, Mouth, Throat: moist mucous membranes, hearing normal Cardiovascular: regular rate and rhythym, no murmur, rub, or gallop, systolic murmur Respiratory: no respiratory distress, other (bibasilar crackles) Gastrointestinal: normoactive bowel sounds, soft, non-tender abdomen Genitourinary: No isaac in urethra Skin: warm Musculoskeletal: full muscle strength, no muscle tenderness Neurologic: AAOx3 ICD10 Worksheet Patient Problems: Problems Problem Status Onset CHF (congestive heart failure) Acute Upper respiratory tract infection Acute Acute exacerbation of congestive heart failure Acute Diabetes Acute Elevated troponin Acute HTN (hypertension) Acute Hyperglycemia Acute NSTEMI (non-ST elevated myocardial infarction) Acute Orthostatic hypotension Acute Pneumonia Acute Respiratory failure with hypoxia Acute
[2018-03-29 11:33] VITALS: BP 139/68
--- NOTE | 2018-03-29 12:00 | ASMTDCNOTE ---
Case Management Discharge Discharge Order Complete? Answers: Yes Patient to Obtain Answers: via Family Medications Transportation Arranged Answers: Family/Friends Discharge Comments Notes: Cardiac rehab spoke with CM to ask if additional services would be available to pt. CM provided education about HHC and pt refused. 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 Pt reported no other concerns or d/c needs at this time. Family to transport. Date Signed: 03/29/2018 12:00 PM Electronically Signed By:CAROLINE Hughes
--- NOTE | 2018-03-29 12:02 | ASMTLACE ---
LACE Length of stay for Answers: 2 days current admission Acuity / Level of Answers: Yes Care: Did the patient have an inpatient admission? Comorbidities - select Answers: Congestive heart failure all that apply Coronary Artery Disease Diabetes (uncontrolled or controlled) Other Notes: Hx of stent # of Emergency department Answers: 3-4 visits in the last 6 months Score: 14 Date Signed: 03/29/2018 12:02 PM Electronically Signed By:CAROLINE Hughes
--- NOTE | 2018-03-29 12:15 | GDS ---
DISCHARGE DIAGNOSES: 1. Acute on chronic diastolic heart failure. 2. History of coronary disease. 3. Untreated sleep apnea. 4. Diabetes. 5. Hypertension. 6. Acute hypoxemic respiratory failure, now resolved. Please see admission history and physical by Dr. Nikos Escudero. The patient presented with lo w oxygen sat following a nap. He had a chest x-ray showing some pulmonary edema, and received IV diu resis of 3-1/2 L with improvement of his symptoms and resolution of his hypoxemic respiratory failure . He was maintained on his home medication regimen for hypertension, which includes carvedilol, losa rtan, hydralazine, minoxidil, and Imdur. He was seen by Cardiology, who felt that untreated sleep ap bhupinder is likely the precipitant for these recurrent events, as he has been hospitalized once monthly fo r the last 3 months. He is compliant with his medications, and he says he sort of observes a low-patito t diet, although it sounds like he could do a bit better. He is going to see Dr. Erick Goldberg for Pulmonary next week, and he has followup with Dr. Weston, h is director of logistics. If his sleep apnea is treated and he continues to have exacerbations, it would prob ably reasonable to discontinue his Norvasc and add diltiazem. He also has an incompletely characterized aortic valve seen in January. Echocardiogram could be pur sued. There was no tachyarrhythmia seen on telemetry while here. Greater than 30 minutes was spent on this discharge. /[id number]/MODL
--- NOTE | 2018-03-29 13:41 | GCON ---
CARDIOLOGY CONSULT DATE OF CONSULTATION: 03/29/2018 REFERRING PHYSICIAN: Dr. Aguillon PRIMARY AUTO OVERHAULER: Dr. Lasha Weston. PRIMARY DENTAL CLAIMS PROCESSOR: Dr. Jayson Garcia. CHIEF COMPLAINT: Heart failure. HISTORY OF PRESENT ILLNESS: We were asked by Dr. Aguillon to visit with the patient. The patient is a pleasant 62-year-old male with a history of coronary disease, status post OM stenting in 2015; past history of systolic heart failure with recent normalization of ejection fraction; longstanding diffic [id number] hypertension; chronic renal insufficiency. He also has diabetes and untreated sleep a pnea. This is his third admission since January. In January, he was admitted with hypoxia and pneumonia, as well as some element of volume overload. In February, he was admitted with heart failure as well . At the end of last week, he was having rhinorrhea and a dry cough. His weight had been stable, and h e had not noticed significant edema. He reports compliance with a low-salt diet and compliance with taking his medications. He had been checking his oxygen saturation at home and noticed that it was 6 9% after waking up from a nap. This was alarming, and he appropriately reported to the emergency dep artment. Over the past few days, he has improved with diuresis and improved blood pressure control. He has not had any anginal quality chest pain. He denies palpitations or syncope. REVIEW OF SYSTEMS: As above. Otherwise, a full 10-point review of systems was performed, is negativ e, except what is outlined in the History of Present Illness. ALLERGIES: No known drug allergies. PAST MEDICAL HISTORY: 1. Heart failure: History of ejection fraction of 40%, but most recently 50% to 55% on January echo. 2. Hypertension. 3. Chronic renal insufficiency. 4. Possible bicuspid aortic valve. 5. Sleep apnea, currently untreated. 6. Diabetes. 7. Coronary disease, status post OM PCI in 2016. At that time, he had moderate LAD disease. 8. Mild dilation of the ascending aorta at 3.9 cm. OUTPATIENT MEDICATIONS: Lasix 80 mg b.i.d., amlodipine 10 mg daily, aspirin 81 mg daily, Lipitor 40 mg daily, Coreg 25 mg b.i.d., hydralazine 25 mg t.i.d., insulin, Avapro 300 mg daily, Imdur 30 mg kimmie ly, metformin, minoxidil 5 mg daily. SOCIAL HISTORY: The patient denies cigarette smoking or alcohol. He is . 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 FAMILY HISTORY: Not applicable to the current case. PHYSICAL EXAM: VITAL SIGNS: Blood pressure has been better, ranging over the past 24 hours from 109 -145/51-78. Admission blood pressure was 172/84, heart rate 70s to 80s, oxygen saturation greater th an 90% on room air. It was 85% on room air upon admission. He is afebrile. GENERAL: Well-appearin g older male in no acute distress. HEENT: Dentition is somewhat poor. Normocephalic, atraumatic. Sclerae are clear and anicteric. Mucous membranes are moist. CARDIOVASCULAR: JVP is less than 10. Regular rate and rhythm, without murmur, rub, or gallop. LUNGS: Clear to auscultation, without whe brittney, rhonchi, or rales. ABDOMEN: Obese, soft, and nontender. Nondistended. No obvious bruits, mas ses, or hepatosplenomegaly. EXTREMITIES: Warm, with trace pitting edema, bilateral anterior tibial area. He does have some stigmata of chronic venous insufficiency. NEURO: Alert and oriented x3, wi thout gross focal neurologic deficits. Appropriate mood and affect. Telemetry data: Sinus rhythm, 1 ventricular couplet, occasional PVCs, possible PAT that was brief. LABORATORY DATA: White count 8.4, hematocrit 38.1. Platelets are 168. Sodium 136, potassium 4.3, c hloride 110, bicarb 21, BUN 47, creatinine 1.7, which is near his baseline. Last hemoglobin A1c was 7.2%. He did have a normal protein electrophoresis in February 2017. He has had normal renin and al dosterone levels. TSH was normal in August of 2016. Plasma free and plasma total metanephrines were n ormal in February 2017. His BNP upon admission was 1210, which [facility]. EKG reviewed by me shows sinus rhythm. First-degree AV block. Nonspecific IVCD. Delayed R-wave pro gression. Single PVC. No significant change from previous. Chest x-ray reviewed by me shows inters titial edema. Chest CT dated 02/2018 showed bilateral pleural effusions and no PE. Patchy inflammatory opacity in the left upper lobe. Coronary plaque in all 3 major epicardial vessels. Myocardial perfusion study January 2018 is negative for ischemia. Ejection fraction 37%. Echocardiogram, January 2018, reviewed by me shows preserved LV systolic function. Moderate diastol ic dysfunction. Mild to moderate right ventricular hypertrophy. Possible bicuspid aortic valve. No aortic stenosis. Mild aortic regurgitation. Mild mitral regurgitation. PA pressures were not repo rted. ASSESSMENT AND PLAN: A 62-year-old male with multiple medical problems, admitted with mild volume ov erload, possible viral URI, intermittent hypoxia. It is likely that his hypoxia is multifactorial. He does report hypoxia upon waking, which may be reflective of his untreated sleep apnea. Certainly, there is some element of pulmonary edema, but also, he may have some sort of interstitial lung disea se. He is currently improved after diuresis and blood pressure control. 1. Hypoxia: Now resolved. Would switch back to his oral Lasix. Continue current antihypertensive regimen as he seems to have improved with his current regimen here. Could consider addition of jona nolactone, which he has been on in the past, but would of course need to pay careful attention to his renal function and potassium. 2. Coronary disease: No angina. No evidence of myocardial ischemia on January 2018 myocardial per fusion test. Continue aspirin and statin. Continue blood pressure management. 3. Hypertension: Overall improved, but will need close followup. He has had a fairly extensive sec ondary workup. Again, could consider spironolactone in the outpatient setting. 4. Chronic renal insufficiency: At baseline. Followed by Dr. Garcia. 5. Sleep apnea: He states that he has previously been intolerant to CPAP. He does have an initial visit with Dr. Erick Goldberg of Pulmonary next week. He will discuss his sleep apnea, as well as hi s intermittent hypoxia with Dr. Goldberg. I have explained to him that it is highly likely that his sleep apnea is contributing to his [id number] hypertension and intermittent heart failure. 6. Heart failure with preserved ejection fraction: Clinically now euvolemic. Will need sleep apnea treatment as above. He has had a screening test for amyloid, but with his right ventricular hypertr ophy, may need more of a workup for amyloid. Will defer to the outpatient setting. Thank you for allowing me to participate in his care. He has followup with Dr. Lasha Trista next week as well. /[id number]/MODL
== END 2018-03-29 14:14 | disposition home or self-care (01) | DRG 291 ==
LOC: OBSVTOIN 19:46 → F2W 20:37
PROVIDERS: ADMIT Internal Medicine; ATTEND Internal Medicine
DX: I50.33 Acute on chronic diastolic (congestive) heart failure (principal); J96.01 Acute respiratory failure with hypoxia; G47.33 Obstructive sleep apnea (adult) (pediatric); J06.9 Acute upper respiratory infection, unspecified; I11.0 Hypertensive heart disease with heart failure; E11.22 Type 2 diabetes mellitus with diabetic chronic kidney disease; I25.10 Atherosclerotic heart disease of native coronary artery without angina pectoris; N18.3 Chronic kidney disease, stage 3 (moderate); Q23.1 Congenital insufficiency of aortic valve; I25.2 Old myocardial infarction; Z95.5 Presence of coronary angioplasty implant and graft; Z79.4 Long term (current) use of insulin
CPT/HCPCS: 96374; J1644; J1815; J1940

== ENCOUNTER → 2018-04-05 | Outpatient (CLI) | payer OTHER | LOC: FIMAGING 16:55 | PROVIDERS: ATTEND Internal Medicine Pulmonary Disease | DX: J90 Pleural effusion, not elsewhere classified (principal); I50.9 Heart failure, unspecified; J96.11 Chronic respiratory failure with hypoxia; N18.9 Chronic kidney disease, unspecified ==